=== PATIENT | female | born 1970 | race Caucasian/White ===

== ENCOUNTER 2017-03-08 17:59 | Inpatient (IN) | payer MEDICARE, OTHER ==
[2017-03-08 18:39] LABS: CO2 Tension 38.4 mmHg (35.0-45.0); pH, Arterial 7.52 (7.35-7.45)
[2017-03-08 18:40] LABS: Actual Bicarbonate (HCO3a) 30.6 mEq/L (22-26); Analyzer IN Cardio ER; Base Excess (BEa) 7.3 mEq/L (0 (+/-) 2.5); Hemoglobin (Hb) 12.2 g/dL (12.0-16.0); O2 Tension (PaO2) 64.3 mmHg (80.0-100.0); Puncture Site LRA
[2017-03-08 18:44] LABS: Hemoglobin 12.5 g/dL (12.0-16.0); Mean Corpuscular HGB CONC 31.8 g/dL (32.0-36.0); Mean Corpuscular Hemoglobin 30.4 pg (27.0-31.0); Mean Corpuscular Volume 95.4 fl (81.0-99.0); Mean Platelet Volume 8.4 fL (7.4-10.4); Platelet Count 268 thou/uL (130-400); RBC Distribution Width 20.5 % (11.5-14.5); Red Blood Cell (RBC) Count 4.13 mill/uL (4.20-5.40); White Blood Cell (WBC) Count 5.8 thou/uL (4.8-10.8)
[2017-03-08] MEDS ORDERED: Oseltamivir 75 MG CAP PO SCH (18:45)
[2017-03-08] MEDS ORDERED: Cefepime 2 GM/10 ML SYR ONE (18:59)
[2017-03-08 19:04] LABS: Troponin I 0.038 ng/mL (< 0.028)
[2017-03-08 19:12] LABS: #Eosinphils 0.1 thou/uL (0.0-0.7); #Lymphocytes 0.8 thou/uL (1.20-3.40); #Monocytes 0.2 thou/uL (0.11-0.59); #Neutrophils 4.7 thou/uL (1.40-6.50); %Basophils 0.3 % (0.0-1.0); %Eosinophils 1.2 % (0.0-10.0); %Lymphocytes 13.5 % (21.0-51.0); %Monocytes 3.9 % (0.0-10.0); %Neutrophils 81.2 % (42.0-75.0); Anisocytosis SLIGHT = 6-15 cells (100X) (0-5/hpf); Hypochromia SLIGHT = 6-15 cells (100X) (0-5/hpf); MDiff Complete? YES; PLT Morphology Comment Appears Adequate
[2017-03-08 19:14] LABS: ALT (SGPT) 19 U/L (8-55); AST (SGOT) 55 U/L (5-34); Albumin 3.5 g/dL (3.5-5.0); Alkaline Phosphatase 121 U/L (40-150); Anion Gap 17 mmol/L (10-20); BUN (Urea Nitrogen) 14 mg/dL (7.0-18.7); Bilirubin, Total 1.9 mg/dL (0.2-1.2); Calc. Creatinine Clearance 0 mL/min (70-130); Calcium 9.1 mg/dL (7.8-10.44); Carbon Dioxide 29 mmol/L (22-29); Chloride 95 mmol/L (98-107); Estimated GFR-MDRD 35; Glucose 109 mg/dL (70-105); Magnesium 2.8 mg/dL (1.6-2.6); Protein, Total 8.5 g/dL (6.0-8.3); Sodium 136 mmol/L (136-145)
--- NOTE | 2017-03-08 19:23 | RAD ---
CHEST ONE VIEW: History: Emergency exam. Cough and fever. Comparison: 05-15-16 FINDINGS: Heart size is enlarged. Bilateral effusions are present. Extensive perihilar opacities. IMPRESSION: Cardiomegaly with pulmonary edema and effusions concerning for congestive heart failure. Multifocal i nfection is also within the differential. POS: [facility]
[2017-03-08] MEDS ORDERED: Ondansetron HCl/PF 4 MG/2 ML Vial ONE (19:37)
[2017-03-08] MEDS ORDERED: Furosemide 20 MG/2 ML VIAL ONE (19:43)
[2017-03-08] MEDS ORDERED: Furosemide 40 MG/4 ML VIAL ONE (19:43)
[2017-03-08 20:22] LABS: Bilirubin Negative (Negative); Blood, Urine Negative (Negative); Clarity CLEAR (Clear); Glucose, Urine (Dipstick) Negative (Negative); Leukocyte Negative (Negative); Nitrite Negative (Negative); Protein, Urine (Dipstick) Negative (Neg-Trace); Specific Gravity, Urine 1.011 (1.002-1.036); Urobilinogen 0.2 mg/dL (0.2-1.0); pH, Urine 7.5 (5.0-9.0)
[2017-03-08 20:25] LABS: CO2 Tension 42.9 mmHg (35.0-45.0); O2 Tension (PaO2) 52.6 mmHg (80.0-100.0)
[2017-03-08 20:26] LABS: Actual Bicarbonate (HCO3a) 32.6 mEq/L (22-26); Base Excess (BEa) 8.5 mEq/L (0 (+/-) 2.5); Hematocrit-ABG 40.7 % (36.0-47.0); Hemoglobin (Hb) 11.8 g/dL (12.0-16.0)
[2017-03-08 20:27] LABS: Analyzer IN Cardio ER; Puncture Site RRA
[2017-03-08 20:30] LABS: ALV-art Gradient -84.985 (0-20)
[2017-03-08 22:27] LABS: Troponin I 0.028 ng/mL (< 0.028)
[2017-03-09 01:16] LABS: Troponin I 0.033 ng/mL (< 0.028)
--- NOTE | 2017-03-09 02:13 | HP ---
PRIMARY CARE PHYSICIAN: Orlando Jacques MD CHIEF COMPLAINT: Difficulty breathing. HISTORY OF PRESENT ILLNESS: This is a 46-year-old white female with a known history of Down syndrome and mental retardation. She was brought in by her family due to a history of progressive troubled breathing. The patient was in her normal state of health until 5 days prior when both she and her father started developing congestion drainage, coughing. Patient also had some fevers . They did not check with a thermometer to see how they were, but she felt very hot. The patient had increasing work of breathing over the last 5 days and then today she had severely increased work of breathing. The patient does have a nasal CPAP at home and the dad had been using that to help her when she was having increased troubled breathing. However, given her severe worsening today, he brought her to the hospital. In the emergency room, patient was found to be in respiratory distress, saturating 70% on room air and tachypneic up to 34 breaths per minute. The patient was put on BiPAP in the emergency room. She did have a bedside ultrasound that did show multiple B lines consistent with pulmonary edema throughout her lung gutierrez and a chest x-ray also showing florid pulmonary edema. The patient was given IV Lasix and the BiPAP in the emergency room and has improved markedly. Her work of breathing is improved. She is no longer tachypneic and she is saturating near 100% on her BiPAP. She is now being admitted to the [facility]. Dr. Alex with Pulmonology has also been informed about her as well. Of note, her nasal swab came back positive for human metapneumovirus negative for influenza. PAST MEDICAL HISTORY: All history taken from the parents and the chart as the patient has mental retardation and is unable to give a good history. 1. Down syndrome. 2. Intermittent dysphagia. 3. Diastolic congestive heart failure with ejection fraction of 55-60% years ago. 4. Multinodular goiter on thyroid supplementation. 5. Obstructive sleep apnea with nocturnal CPAP. 6. Pulmonic insufficiency. 7. Arthritis. PAST SURGICAL HISTORY: 1. 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 2. Hernia repair. 3. Abdominal hernia repair x2 with mesh placement. 4. Cholecystectomy. 5. Left knee arthroscopy. SOCIAL HISTORY: Patient resides in [place], [place] with her parents. She requires assistance with activities of daily living; however, is ambulatory and able to feed and toilet independently. No alcohol, tobacco or illicit drug use. FAMILY HISTORY: Reviewed and negative for medical problems. ALLERGIES: 1. LISINOPRIL. 2. LIQUID FOR ORAL CONTRAST, not IV contrast. MEDICATIONS: 1. Levothyroxine 112 mcg alternating with 125 mcg on every other day. 2. Citalopram 10 mg daily. 3. Abilify 2 mg daily. 4. Bumetanide 1 mg daily. 5. Spironolactone 25 mg daily. 6. Nexium over the counter daily. 7. Robitussin-DM as needed. 8. Tums as needed for indigestion. 9. Align probiotics supplements daily. REVIEW OF SYSTEMS: Unable to obtain a complete review of systems, secondary to patient's mental retardation per the parents. Constitutional: Fever and chills as per HPI. Eyes: No eye complaints. ENT: See HPI. Cardiovascular: She has not complained of any chest pain. Pulmonary: See HPI. Gastrointestinal: Chronic nausea and vomiting, no worse recently, has not complained of any abdominal pain. She had a little diarrhea yesterday. Genitourinary: No changes in urine. No complaints of urinary pain. Musculoskeletal: No complaints of muscle aches or joint pains recently. Skin: No rashes or lesions that the parents have noticed. Neurologic: She has not had any seizures or not noted to be weak focally. PHYSICAL EXAMINATION: VITAL SIGNS: Blood pressure 143/70, pulse 77, respirations now 21, temperature 98.5, O2 sat 98% on BiPAP. GENERAL: This is a well-developed, well-nourished, white female with Down facies and no current distress on the BiPAP. HEENT: Pupils equal, round, and reactive to light. Oropharynx does not appear dry. She has a mask in place. NECK: Short, supple, no lymphadenopathy, no thyroid nodules or enlargement, no JVD. HEART: Regular rate and rhythm. No murmurs, rubs or gallops noticed. LUNGS: She has bilateral coarse breath sounds with some crackles bilaterally. No focal findings. She has decent air movement throughout. ABDOMEN: Soft, obese, nontender to palpation, normoactive bowel sounds, no hepatosplenomegaly or other masses. EXTREMITIES: No clubbing, cyanosis or edema. SKIN: No rashes or other lesions noted. NEUROLOGIC: She is moving all extremities equally and has no facial droop. LABORATORY DATA: CBC within normal limits without leukocytosis. Complete metabolic panel notable for a chloride of 95. She has a creatinine of 1.6, which is up from 1.2 to 1.3, which she has run over the last year, glucose 109, magnesium is elevated at 2.8. Total bilirubin 1.9, AST 55. Total serum protein is 8.5. Her brain natriuretic peptide is elevated at 320, which is up from previous checks except for once in 2012. Cardiac marker sets with indeterminate troponin, the first time normal. The second set, TSH mildly elevated at 10. Free T4 normal at 1.25. Lactic acid negative. Urinalysis negative for infection. Respiratory pathogen panel by [facility] negative for influenza, positive for human metapneumovirus. Arterial blood gas showing a pH of 7.5, pCO2 of 42, pO2 depressed at 52, O2 sat 88%. X-ray, I did review the x-ray along with the radiologist's report. The patient has florid bilateral pulmonary edema, unable to identify any focal infiltrates, worrisome for infection. ASSESSMENT: 1. Acute upper respiratory tract infection with human metapneumovirus. This virus has been implicated in severe influenza like illness with high risk of poor outcomes in ICU patients, likely the source of the initial exacerbation of her medical problems. We will treat this infection with antipyretics and supportive care. 2. Acute exacerbation of diastolic congestive heart failure likely secondary to #1. The patient has already gotten a dose of 60 mg of Lasix in the emergency room. We will continue 40 mg IV twice a day and continue patient's spironolactone. The patient is also receiving BiPAP which has helped clear her lungs as well. She is doing markedly better and does need to be intubated. She will need to be watched in the IMCU on the BiPAP overnight and Pulmonology will evaluate her in the morning. Should she decompensate, then she may need to be intubated at night, but I doubt that this will happen. We will consult Dr. Barragan, patient's ward service supervisor. 3. Acute hypoxic respiratory failure secondary to #2 and #1, markedly improved on BiPAP, watch closely in the IMCU. 4. Acute on chronic renal failure, uncertain source of this will may make it difficult for us to do our diuresis, although she has put out quiet of urine with the 60 mg of IV Lasix in the emergency room, could be the increased creatinine might be cardiorenal syndrome in which she is actually improved with diuresis and treatment of the fluid overload. 5. Increase liver function tests, likely liver congestion. We will monitor. 6. History of nausea, vomiting, and chronic nausea and vomiting. We will give patient Zofran as needed. We will put her on her Nexium daily. 7. Deep venous thrombosis prophylaxis. The patient on sequential compression devices while in bed and will give her a dose of Lovenox subcutaneous daily. CODE STATUS: I did discuss this with the patient's parents who are her medical power of ruby rails developer. They state she is FULL CODE. Her parents' names are, father is Robson Smith. Mother's name is China Smith I spent 45 minutes of critical care time taking care of this patient with acute hypoxic respiratory failure. [id number]. MTDD
[2017-03-09] MEDS ORDERED: Bisacodyl 5 MG TAB PO PRN (06:48)
[2017-03-09] MEDS ORDERED: Ondansetron ODT 4 MG TAB PO PRN (06:48)
[2017-03-09] MEDS ORDERED: Acetaminophen 650 MG Suppository PR PRN (06:48)
[2017-03-09] MEDS ORDERED: Levothyroxine Sodium 112 MCG TAB PO SCH (07:15)
[2017-03-09] MEDS ORDERED: Aripiprazole 2 MG TAB PO SCH (09:00)
[2017-03-09] MEDS ORDERED: Enoxaparin Sodium 40 MG/0.4 ML SYRINGE ONE (09:49)
[2017-03-09] MEDS ORDERED: Pantoprazole 40 MG VIAL ONE (09:49)
[2017-03-09] MEDS: Citalopram 20 MG TAB PO SCH (10:07)
[2017-03-09] MEDS: Furosemide 40 MG/4 ML VIAL SLOW IVP SCH ×2 (10:07→15:18)
[2017-03-09] MEDS: Pantoprazole 40 MG VIAL IVP SCH (10:08)
[2017-03-09] MEDS: Spironolactone 25 MG TAB PO SCH (10:08)
[2017-03-09] MEDS: Enoxaparin Sodium 40 MG/0.4 ML SYRINGE SC SCH (10:08)
[2017-03-09] MEDS ORDERED: cefTRIAXone\\ROCEPHIN 1 GM in Sodium Chloride 0.9% 100 ML IVPB SCH (11:30)
--- NOTE | 2017-03-09 12:24 | PDOC.PN ---
- Subjective Encounter Start Date: 03/09/17 Encounter Start Time: 09:00 -: old records requested/rev Patient seen and examined. No new complaints. No overnight events pt seen in ER, she was on bipap family bedside - Objective Resuscitation Status: Resuscitation Status FULL:Full Resuscitation MAR Reviewed: Yes Vital Signs & Weight: Vital Signs (12 hours) Temp Pulse Resp Pulse Ox 03/09/17 11:48 96.7 F L 74 28 H 03/09/17 08:36 74 13 100 Weight Weight 187 lb 2.759 oz Result Diagrams: 03/08/17 18:27 03/08/17 18:27 Radiology Reviewed by me: Yes (chest xray) EKG Reviewed by me: Yes (nsr) Phys Exam - Physical Examination Constitutional: NAD on bipap HEENT: PERRLA, moist MMs, sclera anicteric Neck: no nodes, supple Respiratory: no wheezing, no rhonchi reduced air entrya at base Cardiovascular: RRR, no significant murmur, no rub Gastrointestinal: soft, no distention, positive bowel sounds obesity+ Musculoskeletal: pulses present, edema present Neurological: non-focal, normal sensation Lymphatic: no nodes Psychiatric: normal affect Skin: no rash, normal turgor Dx/Plan (1) Acute bronchitis due to human metapneumovirus Code(s): J20.8 - ACUTE BRONCHITIS DUE TO OTHER SPECIFIED ORGANISMS Status: Acute (2) Acute on chronic diastolic (congestive) heart failure Code(s): I50.33 - ACUTE ON CHRONIC DIASTOLIC (CONGESTIVE) HEART FAILURE Status : Acute (3) Acute respiratory failure with hypoxia Code(s): J96.01 - ACUTE RESPIRATORY FAILURE WITH HYPOXIA Status: Acute (4) Acute worsening of stage 3 chronic kidney disease Code(s): N18.3 - CHRONIC KIDNEY DISEASE, STAGE 3 (MODERATE) Status: Acute (5) Demand ischemia Code(s): I24.8 - OTHER FORMS OF ACUTE ISCHEMIC HEART DISEASE Status: Acute (6) Down's syndrome Code(s): Q90.9 - DOWN SYNDROME, UNSPECIFIED Status: Chronic (7) Hypothyroidism Code(s): E03.9 - HYPOTHYROIDISM, UNSPECIFIED Status: Chronic (8) Obstructive sleep apnea Code(s): G47.33 - OBSTRUCTIVE SLEEP APNEA (ADULT) (PEDIATRIC) Status: Chronic - Plan cont current plan of care, plan discussed w/ family, continue antibiotics * continue tamiflu * continue bipap and wean off as tolerated * continue rocephin * continue iv lasix * selected home medication * discussed with entire family at bedside * medication reviewed as below * symptomatic treatment. Review of Systems - Review of Systems Constitutional: weakness. negative: fever, chills, sweats, malaise, other Eyes: negative: Pain, Vision Change, Conjunctivae Inflammation, Eyelid Inflammation, Redness, Other ENT: negative: Ear Pain, Ear Discharge, Nose Pain, Nose Discharge, Nose Congestion, Mouth Pain, Mouth Swelling, Throat Pain, Throat Swelling, Other Respiratory: Cough, Shortness of Breath. negative: Dry, Hemoptysis, SOB with Excertion, Pleuritic Pain, Sputum, Wheezing Cardiovascular: negative: chest pain, palpitations, orthopnea, paroxysmal nocturnal dyspnea, edema, light headedness, other Gastrointestinal: negative: Nausea, Vomiting, Abdominal Pain, Diarrhea, Constipation, Melena, Hematochezia, Other Genitourinary: negative: Dysuria, Frequency, Incontinence, Hematuria, Retention , Other Musculoskeletal: negative: Neck Pain, Shoulder Pain, Arm Pain, Back Pain, Hand Pain, Leg Pain, Foot Pain, Other Skin: negative: Rash, Lesions, Chace, Bruising, Other - Medications/Allergies Allergies/Adverse Reactions: Allergies Allergy/AdvReac Type Severity Reaction Status Date / Time iodine Allergy Intermediate Verified 05/15/16 04:38 lisinopril Allergy Intermediate Verified 05/15/16 04:38 Medications: Current Medications Acetaminophen (Tylenol) 650 mg PO Q4H PRN PRN Reason: Headache/Fever or Pain Acetaminophen (Tylenol) 650 mg SD Q4H PRN PRN Reason: Headache/Fever or Pain Albuterol/Ipratropium (Duoneb) 3 ml NEB [id number] [facility] Aripiprazole (Abilify) 2 mg PO DAILY [facility] Last Admin: 03/09/17 10:07 Dose: Not Given Bisacodyl (Dulcolax) 10 mg PO DAILYPRN PRN PRN Reason: Constipation Citalopram Hydrobromide (Celexa) 10 mg PO DAILY [facility] Last Admin: 03/09/17 10:07 Dose: Not Given Enoxaparin Sodium (Lovenox) 40 mg SC 0900 [facility] Last Admin: 03/09/17 10:08 Dose: Not Given Furosemide (Lasix) 40 mg SLOW IVP 0600,1400 [facility] Last Admin: 03/09/17 10:07 Dose: Not Given Guaifenesin/Dextromethorphan (Robitussin Dm) 15 ml PO Q4H PRN PRN Reason: Cough Ceftriaxone Sodium 1 gm/ (Syringe 0.4 ml/ Sterile Water) 10 mls @ 120 mls/hr SLOW IVP Q24HR@1300 [facility] Levothyroxine Sodium (Synthroid) 112 mcg PO Q2DAYS@0600 [facility] Levothyroxine Sodium (Synthroid) 125 mcg PO Q2DAYS@0600 [facility] Ondansetron HCl (Zofran Odt) 4 mg PO Q6H PRN PRN Reason: Nausea/Vomiting Ondansetron HCl (Zofran) 4 mg IVP Q6H PRN PRN Reason: Nausea/Vomiting Pantoprazole Sodium (Protonix) 40 mg IVP DAILY [facility] Last Admin: 03/09/17 10:08 Dose: Not Given Spironolactone (Aldactone) 25 mg PO DAILY [facility] Last Admin: 03/09/17 10:08 Dose: Not Given
[2017-03-09] MEDS: cefTRIAXone\\ROCEPHIN 1 GM, Syringe 0.4 ML in Sterile Water 9.6 ML SLOW IVP SCH (12:31)
--- NOTE | 2017-03-09 12:35 | CON ---
DATE OF CONSULTATION: 03/09/2017 This is a 46-year-old female. She has seen Dr. Marie in the past. I spoke to the dad. The patien t has got Down syndrome, sister at the bedside. Father states that for 5 days the patient has been h aving symptoms of cough, congestion, and shortness of breath. They recently saw Dr. Jacques and were given some allergy medication. Cough is productive of some yellow sputum, low grade fever, but no c hills or sweats. She had a flu shot. X-ray shows diffuse bilateral interstitial infiltrates consistent with CHF. She sees Dr. Barragan. She has never smoked. No prior history of TB, pneumonia or asthma. PAST MEDICAL HISTORY: Pertinent for CHF, hypothyroidism, Down syndrome. PAST SURGICAL HISTORY: ASD repair. Gallbladder, hernia repair. MEDICATIONS: List of medicine from home includes spironolactone 12.5, vitamins, Synthroid 125, Nexiu m, Celexa at 10, Zyrtec, Bumex 2 mg, Abilify 2 mg. SOCIAL/FAMILY HISTORY: As above. ALLERGIES: IODINE, LISINOPRIL. REVIEW OF SYSTEMS: Otherwise, 10-point negative. PHYSICAL EXAMINATION: GENERAL: She is unable to communicate on the BiPAP. VITAL SIGNS: Sats are 95-98%, pulse 76, blood pressure 101/56, respirations 18. I's and O's; none. CHEST: Bilateral rhonchi and crackles. CARDIAC: Normal S1-S2. No gallops. ABDOMEN: Soft. No masses. LABORATORY: PO2 was 52, pCO2 40, pH 7.50, on a BiPAP. Troponin was elevated. Chemistry shows tropo val was elevated. TSH was 10, creatinine 1.6. BNP 220. IMPRESSION: 1. Respiratory failure. 2. Congestive heart failure, probable congestive heart failure. 3. Recent bronchitis, upper respiratory infection with a febrile illness, possibly superimposed pneu monia. 4. Renal failure. 5. Hypothyroidism. It appears that in spite of taking her Synthroid she still may be hypothyroid, dose probably needs to be increased. I have started empiric antibiotics, neb treatments, continue diuretics. Await input from Cardiology. This is a 45 minute critical care time spent at the bedside with direct patient care.
[2017-03-09] MEDS: Acetaminophen 325 MG TAB PO PRN (17:35)
--- NOTE | 2017-03-09 22:23 | CON ---
DATE OF CONSULTATION: 03/09/2017. REASON FOR CONSULTATION: Shortness of breath. HISTORY OF PRESENT ILLNESS: Ms. Smith is a 46-year-old woman with Down's syndrome, admitted with di fficulty breathing. The patient was brought to the hospital after just not feeling well, having trouble breathing by her mother. The patient did have some subjective fever, but they did not have a thermometer. She did feel very hot. She came to the emergency room. She has received Lasix with some improvement, but now her blood pres sure is running on the low side. Her nasal swab came back positive for human metapneumovirus, negative for influenza. PAST MEDICAL HISTORY: 1. Down's syndrome. 2. History of ASD repair in the past. 3. History of diastolic heart failure. PAST SURGICAL HISTORY: 1. Previous ASD repair as a child. 2. Hernia repair. 3. Abdominal hernia repair. 4. Cholecystectomy. FAMILY HISTORY: Negative for heart disease at a young age. MEDICATIONS: Prior to admission, 1. Bumex. 2. Spironolactone. 3. Robitussin. REVIEW OF SYSTEMS: Not obtainable due to the patient's Down's syndrome. PHYSICAL EXAMINATION: GENERAL: A pleasant 46-year-old woman, looks very flushed. VITAL SIGNS: Her blood pressure is 84/49, pulse 80. HEENT: Sclerae nonicteric. Mouth mucous membranes moist. NECK: Supple, no lymphadenopathy. LUNGS: There is some rhonchi and fewer rate few wheezes scattered. CARDIAC: Normal S1, normal S2. I do not hear a murmur, rub or gallop. ABDOMEN: Soft, nontender, no hepatosplenomegaly. EXTREMITIES: Flushed. SKIN: Warm and dry. Mood and affect are normal for her. PERTINENT LABORATORY FINDINGS: The white count is 5.8, potassium 5.0. Troponin 0.033, TSH was 10.0. BNP was 320 only mildly elevated. Chest x-ray: Diffuse infiltrates. ASSESSMENT: 1. Cough and fever. 2. Diastolic heart failure. 3. Diffuse infiltrates on chest x-ray. PLAN: Echocardiogram was done, ejection fraction 50-55%. It appears that most likely she has got so me element of diastolic heart failure and may also have an infectious process as well. PLAN: 1. Continue furosemide block hold doses for systolic blood pressure being low. 2. On antibiotics. 3. Continue to follow with you. Prognosis guarded. Chest x-ray tomorrow as well.
[2017-03-09] MEDS: Aripiprazole 2 MG TAB PO SCH (22:32)
[2017-03-10 04:59] LABS: #Basophils 0.1 thou/uL (0.0-0.2); #Eosinphils 0.1 thou/uL (0.0-0.7); #Lymphocytes 0.5 thou/uL (1.20-3.40); #Monocytes 0.3 thou/uL (0.11-0.59); #Neutrophils 4.7 thou/uL (1.40-6.50); %Basophils 1.3 % (0.0-1.0); %Eosinophils 1.3 % (0.0-10.0); %Lymphocytes 9.2 % (21.0-51.0); %Monocytes 4.7 % (0.0-10.0); %Neutrophils 83.6 % (42.0-75.0); Hemoglobin 11.6 g/dL (12.0-16.0); Mean Corpuscular HGB CONC 30.9 g/dL (32.0-36.0); Mean Corpuscular Hemoglobin 29.5 pg (27.0-31.0); Mean Corpuscular Volume 95.5 fl (81.0-99.0); Mean Platelet Volume 8.4 fL (7.4-10.4); Platelet Count 242 thou/uL (130-400); RBC Distribution Width 20.2 % (11.5-14.5); Red Blood Cell (RBC) Count 3.93 mill/uL (4.20-5.40); White Blood Cell (WBC) Count 5.6 thou/uL (4.8-10.8)
[2017-03-10 05:19] LABS: Anion Gap 18 mmol/L (10-20); BUN (Urea Nitrogen) 14 mg/dL (7.0-18.7); Calc. Creatinine Clearance 71 mL/min (70-130); Calcium 8.8 mg/dL (7.8-10.44); Carbon Dioxide 26 mmol/L (22-29); Chloride 95 mmol/L (98-107); Estimated GFR-MDRD 42; Glucose 126 mg/dL (70-105); Potassium 3.7 mmol/L (3.5-5.1); Sodium 135 mmol/L (136-145)
[2017-03-10] MEDS ORDERED: Levothyroxine Sodium 125 MCG TAB PO SCH (06:00)
[2017-03-10] MEDS: Pantoprazole 40 MG VIAL IVP SCH (06:06)
[2017-03-10] MEDS: Furosemide 40 MG/4 ML VIAL SLOW IVP SCH ×3 (06:11→14:15)
[2017-03-10] MEDS ORDERED: Artificial Tears 18 DROP/0.9 ML EA EYE PRN (07:26)
[2017-03-10] MEDS ORDERED: Chloraseptic Spray 180 ml Bottle PO PRN (07:26)
[2017-03-10] MEDS ORDERED: Fleet Enema 133 ML BOT PR PRN (07:26)
[2017-03-10] MEDS ORDERED: Loratadine 10 MG TAB PO PRN (07:26)
[2017-03-10] MEDS ORDERED: Milk Of Magnesia 30 ML UDCUP PO PRN (07:26)
[2017-03-10] MEDS ORDERED: Eucerin (Mineral Oil/Petrolatum,White) 30 gm Jar TOP PRN (07:26)
[2017-03-10] MEDS ORDERED: Sodium Chloride 0.65% Nasal 44 ML BOT EA NARE PRN (07:26)
[2017-03-10] MEDS ORDERED: hydrALAZINE 20 MG/ML VIAL SLOW IVP PRN (07:26)
--- NOTE | 2017-03-10 08:21 | RAD ---
PORTABLE UPRIGHT FRONTAL CHEST RADIOGRAPH: Date: 03-10-17 Comparison: 03-08-17 History: Respiratory distress. FINDINGS: There are midline sternotomy wires in stable position. There is no pneumothorax. There is extensive i nterstitial and alveolar opacity involving the perihilar regions in both lung bases with multifocal c onsolidative change and probable stable small/moderate pleural effusions. IMPRESSION: Extensive interstitial and alveolar opacity, not significantly changed. Differential diagnosis includ es multifocal infectious pneumonitis/aspiration and pulmonary edema. Follow up to resolution advised. POS: [facility]
[2017-03-10] MEDS: Famotidine 20 MG TAB PO SCH ×2 (09:43→20:40)
[2017-03-10] MEDS: Citalopram 20 MG TAB PO SCH (09:43)
[2017-03-10] MEDS: Spironolactone 25 MG TAB PO SCH (09:43)
[2017-03-10] MEDS: Enoxaparin Sodium 40 MG/0.4 ML SYRINGE SC SCH (09:44)
[2017-03-10] MEDS: Ondansetron HCl/PF 4 MG/2 ML Vial IVP PRN ×2 (09:58→22:48)
[2017-03-10] MEDS: Potassium Chloride 20 MEQ TAB PO SCH ×2 (10:05→18:19)
--- NOTE | 2017-03-10 10:13 | PRG ---
DATE OF SERVICE: 03/10/2017 Ms. Smith is very short of breath. She looks very uncomfortable. PHYSICAL EXAMINATION: VITAL SIGNS: Her blood pressure is 91/52, pulse 80s. LUNGS: Diffuse rhonchi and some rales. CARDIAC: Normal S1 and S2. ABDOMEN: Soft, nontender. EXTREMITIES: No edema. ASSESSMENT: Diastolic congestive heart failure, has relatively low blood pressure. PLAN: 1. Resume diuretic therapy, it has been on hold since her pressure was so low. 2. Prognosis guarded. 3. She is also on antibiotics in case there is any infectious component.
--- NOTE | 2017-03-10 10:42 | PDOC.PN ---
- Subjective Encounter Start Date: 03/10/17 Encounter Start Time: 09:30 last night pt required bipap, still has dyspnea, cough+ - Objective Resuscitation Status: Resuscitation Status FULL:Full Resuscitation MAR Reviewed: Yes Vital Signs & Weight: Vital Signs (12 hours) Temp Pulse Resp BP Pulse Ox 03/10/17 08:00 98.8 F 85 35 H 03/10/17 07:59 98 03/10/17 07:57 85 35 H 98 03/10/17 07:00 99.7 F H 82 24 H 91/52 L 94 L 03/10/17 05:35 83 28 H 88/40 L 94 L 03/10/17 04:00 98.8 F 79 26 H 91/40 L 97 03/10/17 02:39 92 28 H 03/10/17 02:38 94 L 03/10/17 00:02 82 28 H 95 03/10/17 00:00 98.7 F 85 28 H 88/48 L 96 03/09/17 23:05 98.8 F 82 28 H 95/51 L 94 L 03/09/17 23:00 98.8 F Weight Weight 191 lb 7 oz Most Recent Monitor Data Heart Rate from ECG 80 NIBP 79/44 NIBP BP-Mean 56 Respiration from ECG 32 SpO2 96 I&O: 03/09/17 03/10/17 03/11/17 06:59 06:59 06:59 Intake Total 1680 Output Total 528 Balance 1152 Result Diagrams: 03/10/17 04:39 03/10/17 04:39 Radiology Reviewed by me: Yes (chest xray) EKG Reviewed by me: Yes Phys Exam - Physical Examination Constitutional: NAD HEENT: PERRLA, moist MMs, sclera anicteric Neck: no JVD, supple Respiratory: wheezing present bilateral coarse rales Cardiovascular: RRR, no significant murmur, no rub Gastrointestinal: soft, non-tender, no distention, positive bowel sounds obesity+, johnson+ Musculoskeletal: pulses present, edema present Neurological: non-focal, normal sensation Lymphatic: no nodes Psychiatric: normal affect Skin: no rash, normal turgor Dx/Plan (1) Acute bronchitis due to human metapneumovirus Code(s): J20.8 - ACUTE BRONCHITIS DUE TO OTHER SPECIFIED ORGANISMS Status: Acute (2) Acute on chronic diastolic (congestive) heart failure Code(s): I50.33 - ACUTE ON CHRONIC DIASTOLIC (CONGESTIVE) HEART FAILURE Status : Acute (3) Acute respiratory failure with hypoxia Code(s): J96.01 - ACUTE RESPIRATORY FAILURE WITH HYPOXIA Status: Acute (4) Acute worsening of stage 3 chronic kidney disease Code(s): N18.3 - CHRONIC KIDNEY DISEASE, STAGE 3 (MODERATE) Status: Acute (5) Demand ischemia Code(s): I24.8 - OTHER FORMS OF ACUTE ISCHEMIC HEART DISEASE Status: Acute (6) Down's syndrome Code(s): Q90.9 - DOWN SYNDROME, UNSPECIFIED Status: Chronic (7) Hypothyroidism Code(s): E03.9 - HYPOTHYROIDISM, UNSPECIFIED Status: Chronic (8) Obstructive sleep apnea Code(s): G47.33 - OBSTRUCTIVE SLEEP APNEA (ADULT) (PEDIATRIC) Status: Chronic - Plan cont current plan of care, plan discussed w/ family, continue antibiotics * continue lasix as tolerated * continue rocephin and doxycycline * medication reviewed as below * symptomatic treatment * continue bipap as needed * continue respiratory therapy * discussed with mother * still prognosis is guarded * discussed with dr zhang * will monitor in imcu. Review of Systems - Review of Systems Other: not reliable due to mental retardation - Medications/Allergies Allergies/Adverse Reactions: Allergies Allergy/AdvReac Type Severity Reaction Status Date / Time iodine Allergy Intermediate Verified 05/15/16 04:38 lisinopril Allergy Intermediate Verified 05/15/16 04:38 Medications: Current Medications Acetaminophen (Tylenol) 650 mg PO Q4H PRN PRN Reason: Headache/Fever or Pain Last Admin: 03/09/17 17:35 Dose: 650 mg Acetaminophen (Tylenol) 650 mg DC Q4H PRN PRN Reason: Headache/Fever or Pain Al Hydroxide/Mg Hydroxide (Maalox) 15 ml PO Q4H PRN PRN Reason: Heartburn or Indigestion Albuterol/Ipratropium (Duoneb) 3 ml NEB [id number] [facility] Last Admin: 03/10/17 07:57 Dose: 3 ml Aripiprazole (Abilify) 2 mg PO HS [facility] Last Admin: 03/09/17 22:32 Dose: 2 mg Artificial Tears (Tears Naturale) 0 drop EA EYE PRN PRN PRN Reason: Dry Eyes Bisacodyl (Dulcolax) 10 mg PO DAILYPRN PRN PRN Reason: Constipation Citalopram Hydrobromide (Celexa) 10 mg PO DAILY [facility] Last Admin: 03/10/17 09:43 Dose: 10 mg Enoxaparin Sodium (Lovenox) 40 mg SC 0900 [facility] Last Admin: 03/10/17 09:44 Dose: 40 mg Famotidine (Pepcid) 20 mg PO BID [facility] Last Admin: 03/10/17 09:43 Dose: 20 mg Furosemide (Lasix) 40 mg SLOW IVP 0600,1400 [facility] Last Admin: 03/10/17 09:44 Dose: 40 mg Guaifenesin (Robitussin Sf) 200 mg PO Q4H PRN PRN Reason: Cough Guaifenesin/Dextromethorphan (Robitussin Dm) 15 ml PO Q4H PRN PRN Reason: Cough Hydralazine HCl (Apresoline) 10 mg SLOW IVP Q4H PRN PRN Reason: Systolic BP > 180 Ceftriaxone Sodium 1 gm/ (Syringe 0.4 ml/ Sterile Water) 10 mls @ 120 mls/hr SLOW IVP Q24HR@1300 [facility] Last Admin: 03/09/17 12:31 Dose: 10 mls Levothyroxine Sodium (Synthroid) 125 mcg PO 0600 [facility] Loratadine (Claritin) 10 mg PO DAILYPRN PRN PRN Reason: Sinus Symptoms Magnesium Hydroxide (Milk Of Magnesium) 30 ml PO DAILYPRN PRN PRN Reason: Constipation Mineral Oil/White Petrolatum (Eucerin Cream) 0 gm TOP BIDPRN PRN PRN Reason: Dry Skin Ondansetron HCl (Zofran Odt) 4 mg PO Q6H PRN PRN Reason: Nausea/Vomiting Ondansetron HCl (Zofran) 4 mg IVP Q6H PRN PRN Reason: Nausea/Vomiting Last Admin: 03/10/17 09:58 Dose: 4 mg Phenol (Chloraseptic [place] 180 Ml Bot) 0 ml PO PRN PRN PRN Reason: Sore Throat Potassium Chloride (K-Dur) 10 meq PO BID-[facility] Last Admin: 03/10/17 10:05 Dose: 10 meq Prednisone (Prednisone) 20 mg PO QAM-[facility] Sodium Biphosphate/Sodium Phosphate (Fleet Enema) 133 ml DC ONE PRN PRN Reason: Constipation Stop: 03/12/17 15:00 Sodium Chloride ([place] Nasal [place] 0.65%) 0 ml EA NARE QIDPRN PRN PRN Reason: Nasal Congestion Spironolactone (Aldactone) 25 mg PO DAILY [facility] Last Admin: 03/10/17 09:43 Dose: 25 mg
--- NOTE | 2017-03-10 13:22 | PRG ---
DATE OF SERVICE: 03/10/2017 SUBJECTIVE: The patient is alert, responsive, less short of breath. Still hypotensive. PHYSICAL EXAMINATION: VITAL SIGNS: Blood pressure 90/50, sats in 90s on 3 liters, respirations 35, temperature 99. I's an d O's are 1680 in and 528 out. CHEST: Bilateral rhonchi and crackles. CARDIAC: Normal S1-S2. No gallops. LABORATORY DATA AND IMAGING DATA: White count 5000, hemoglobin and hematocrit 11 and 37, platelet co unt 242, creatinine 1.3. X-ray shows diffuse airspace disease. IMPRESSION: Respiratory failure, congestive heart failure, bronchitis, possibly pneumonia. PLAN: Continue diuretics, continue empiric antibiotics, continue steroids. Synthroid as tolerated. We will follow. One-half hour critical care time.
[2017-03-10] MEDS: cefTRIAXone\\ROCEPHIN 1 GM, Syringe 0.4 ML in Sterile Water 9.6 ML SLOW IVP SCH (14:16)
[2017-03-10] MEDS ORDERED: Nystatin Powder 15 GM BOT TOP PRN (20:01)
[2017-03-10] MEDS: Doxycycline 100 MG CAP PO SCH (20:40)
[2017-03-10] MEDS: Aripiprazole 2 MG TAB PO SCH (20:40)
[2017-03-11 04:54] LABS: #Lymphocytes 0.6 thou/uL (1.20-3.40); #Monocytes 0.1 thou/uL (0.11-0.59); %Eosinophils 0.4 % (0.0-10.0); %Lymphocytes 10.7 % (21.0-51.0); %Monocytes 1.9 % (0.0-10.0); %Neutrophils 87.1 % (42.0-75.0); Hemoglobin 11.3 g/dL (12.0-16.0); Mean Corpuscular HGB CONC 30.1 g/dL (32.0-36.0); Mean Corpuscular Hemoglobin 28.9 pg (27.0-31.0); Mean Corpuscular Volume 96.1 fl (81.0-99.0); Mean Platelet Volume 8.5 fL (7.4-10.4); Platelet Count 248 thou/uL (130-400); RBC Distribution Width 20.2 % (11.5-14.5); Red Blood Cell (RBC) Count 3.89 mill/uL (4.20-5.40); White Blood Cell (WBC) Count 5.7 thou/uL (4.8-10.8)
[2017-03-11 05:34] LABS: Anion Gap 17 mmol/L (10-20); BUN (Urea Nitrogen) 17 mg/dL (7.0-18.7); Calc. Creatinine Clearance 60 mL/min (70-130); Calcium 8.9 mg/dL (7.8-10.44); Carbon Dioxide 29 mmol/L (22-29); Chloride 95 mmol/L (98-107); Estimated GFR-MDRD 35; Glucose 158 mg/dL (70-105); Magnesium 2.2 mg/dL (1.6-2.6); Potassium 3.8 mmol/L (3.5-5.1); Sodium 137 mmol/L (136-145)
[2017-03-11] MEDS: Furosemide 40 MG/4 ML VIAL SLOW IVP SCH ×2 (05:46→13:35)
[2017-03-11] MEDS: Levothyroxine Sodium 125 MCG TAB PO SCH (05:46)
[2017-03-11] MEDS ORDERED: Levothyroxine Sodium 112 MCG TAB PO SCH (06:00)
[2017-03-11] MEDS: Potassium Chloride 20 MEQ TAB PO SCH ×2 (08:28→18:12)
[2017-03-11] MEDS: predniSONE 20 MG TAB PO SCH (08:28)
[2017-03-11] MEDS: Fluconazole 100 MG TAB PO SCH (08:28)
[2017-03-11] MEDS: Famotidine 20 MG TAB PO SCH ×2 (08:28→20:26)
[2017-03-11] MEDS: Citalopram 20 MG TAB PO SCH (08:28)
[2017-03-11] MEDS: Doxycycline 100 MG CAP PO SCH ×2 (08:28→20:26)
[2017-03-11] MEDS: Spironolactone 25 MG TAB PO SCH (08:29)
[2017-03-11] MEDS: Enoxaparin Sodium 40 MG/0.4 ML SYRINGE SC SCH (08:29)
--- NOTE | 2017-03-11 09:12 | RAD ---
FRONTAL VIEW CHEST: Date: 03/11/17 COMPARISON: 03/08/17. INDICATION: Ventilated patient, follow-up. FINDINGS: There is diffuse pulmonary parenchymal opacity, as well as pleural based density. The cardiac silhoue tte and pulmonary vasculature are enlarged with evidence of prior sternotomy. Slight progression when comparing to exam from previous day. IMPRESSION: Progressive pulmonary parenchymal opacification favors progressive edema with pleural fluid. Continue d follow-up is recommended. POS: [facility]
--- NOTE | 2017-03-11 11:13 | PDOC.PN ---
- Subjective Encounter Start Date: 03/11/17 Encounter Start Time: 11:11 Ms. Smith was seen in follow-up. She says she is " doing a little better". But she seems to say this to most of my questions. She is up to walk with PT. - Objective Resuscitation Status: Resuscitation Status FULL:Full Resuscitation MAR Reviewed: Yes Vital Signs & Weight: Vital Signs (12 hours) Temp Pulse Resp BP Pulse Ox 03/11/17 08:13 96 03/11/17 08:11 81 24 H 96 03/11/17 07:48 97.9 F 81 22 H 102/38 L 92 L 03/11/17 03:00 99.0 F 83 24 H 91/45 L 97 03/11/17 02:32 80 18 97 03/11/17 00:14 82 18 97 03/11/17 00:01 98.9 F 86 19 96/56 L 95 03/11/17 00:00 97 Weight Weight 189 lb 2 oz Most Recent Monitor Data Heart Rate from ECG 80 NIBP 79/44 NIBP BP-Mean 56 Respiration from ECG 32 SpO2 96 I&O: 03/10/17 03/11/17 03/12/17 06:59 06:59 06:59 Intake Total 1680 1700 Output Total 528 2750 Balance 1152 -1050 Result Diagrams: 03/11/17 04:03 03/11/17 04:03 Phys Exam - Physical Examination HEENT: PERRLA + bilateral wheezing and rhonchi Cardiovascular: RRR, no significant murmur, no rub Gastrointestinal: soft, non-tender, positive bowel sounds Musculoskeletal: no edema Dx/Plan (1) Pneumonia, viral Code(s): J12.9 - VIRAL PNEUMONIA, UNSPECIFIED Status: Acute (2) Acute on chronic diastolic (congestive) heart failure Code(s): I50.33 - ACUTE ON CHRONIC DIASTOLIC (CONGESTIVE) HEART FAILURE Status : Acute (3) Acute respiratory failure with hypoxia Code(s): J96.01 - ACUTE RESPIRATORY FAILURE WITH HYPOXIA Status: Acute (4) Down's syndrome Code(s): Q90.9 - DOWN SYNDROME, UNSPECIFIED Status: Chronic (5) Hypothyroidism Code(s): E03.9 - HYPOTHYROIDISM, UNSPECIFIED Status: Chronic - Plan * Acute on chronic Respiratory failure due to Human Metapneumovirus. * She may have superimposed bacterial pneumonia- continue IV antibiotics * Acute on chronic diastolic heart failure- CXR is not much improved- continue Lasix IV * Hypothyridism - mildly hypothyroid, with elevated TSH, but normal free T$- continue the current dose of Levothyroixine
[2017-03-11] MEDS: cefTRIAXone\\ROCEPHIN 1 GM, Syringe 0.4 ML in Sterile Water 9.6 ML SLOW IVP SCH (13:35)
--- NOTE | 2017-03-11 14:51 | PRG ---
DATE OF SERVICE: 03/11/2017 SUBJECTIVE: Luis states she is feeling a little better today. She has no chest pain. She denies shortness of breath. OBJECTIVE: VITAL SIGNS: Blood pressure 96/34, pulse 80, it is regular. LUNGS: Some rhonchi and rales. CARDIAC: Normal S1, normal S2. ABDOMEN: Soft, nontender. EXTREMITIES: No edema. LABORATORY DATA: The creatinine has gone up to 1.6, potassium is 3.8, troponin 0.033. BNP on the was 320. Chest x-ray does not really looks much different. ASSESSMENT: 1. Congestive heart failure, diastolic, acute on chronic. 2. Suspect she may also have pneumonia. PLAN: 1. We will go ahead and reduce the furosemide dose. 2. Continue to follow chest x-ray. 3. Check BNP in the morning.
[2017-03-11] MEDS ORDERED: Sodium Bicarb 50 MEQ/50 ML Abboject 8.4% SYRINGE IVP SCH (14:55)
--- NOTE | 2017-03-11 15:10 | PRG ---
DATE OF SERVICE: 03/11/2017 SUBJECTIVE: Ms. Smith is feeling better. Her father is at bedside. I spoke with him. PHYSICAL EXAMINATION: VITAL SIGNS: Temperature is 98.8, pulse 80, respirations 22, O2 sat 91% on 3 liters, blood pressure 96/34. HEENT: Unremarkable. NECK: No JVD. LUNGS: Coarse rhonchi. CARDIAC: S1 and S2 regular. ABDOMEN: Soft. EXTREMITIES: No edema. LABORATORY DATA: White blood cell count 5.7, hematocrit 37, platelet count 248. Sodium 137, potassi um 3.8, chloride 95, CO2 29, BUN 17, creatinine 1.6, glucose 158. ASSESSMENT: 1. Bilateral pneumonia. 2. Down syndrome. 3. Acute on chronic respiratory failure secondary to viral infection. 4. Diastolic heart failure. PLAN: She can probably be transferred out to the floor as early as tomorrow if she does well today. I have reviewed the words on her chart and I agree with the IV antibiotics, nebulization therapy. A gain, I spoke with her father at the bedside.
[2017-03-11] MEDS: Ondansetron HCl/PF 4 MG/2 ML Vial IVP PRN (20:26)
[2017-03-11] MEDS: Aripiprazole 2 MG TAB PO SCH (20:26)
[2017-03-12] MEDS: Levothyroxine Sodium 125 MCG TAB PO SCH (05:31)
[2017-03-12] MEDS: Furosemide 40 MG/4 ML VIAL SLOW IVP SCH ×2 (05:31→14:18)
--- NOTE | 2017-03-12 08:28 | RAD ---
PORTABLE UPRIGHT FRONTAL CHEST RADIOGRAPH: DATE: 03/12/17. COMPARISON: 03/11/17. HISTORY: Ventilated patient. FINDINGS: Midline sternotomy wires are present. Prominence of the cardiac silhouette persists. Extensive inte rstitial and alveolar opacities are noted with a basilar predominance, left greater than right. No p neumothorax. No interval change. IMPRESSION: Extensive interstitial and alveolar opacities are noted bilaterally, left greater than right, not sig nificantly changed. POS: [facility]
[2017-03-12] MEDS: Doxycycline 100 MG CAP PO SCH ×2 (08:42→21:03)
[2017-03-12] MEDS: Fluconazole 100 MG TAB PO SCH (08:42)
[2017-03-12] MEDS: predniSONE 20 MG TAB PO SCH (08:42)
[2017-03-12] MEDS: Spironolactone 25 MG TAB PO SCH (08:43)
[2017-03-12] MEDS: Citalopram 20 MG TAB PO SCH (08:43)
[2017-03-12] MEDS: Ondansetron HCl/PF 4 MG/2 ML Vial IVP PRN (08:43)
[2017-03-12] MEDS: Famotidine 20 MG TAB PO SCH ×2 (08:43→21:03)
[2017-03-12] MEDS: Enoxaparin Sodium 40 MG/0.4 ML SYRINGE SC SCH (08:43)
[2017-03-12] MEDS: Potassium Chloride 20 MEQ TAB PO SCH ×2 (08:43→21:09)
--- NOTE | 2017-03-12 10:53 | PRG ---
DATE OF SERVICE: 03/12/2017 SUBJECTIVE: Ms. Randle is up in a chair this morning. She feels better and had no acute complaints. PHYSICAL EXAMINATION: VITAL SIGNS: Temperature 97.3, pulse 83, respirations 22, O2 sat 97% on 2 liters, blood pressure 113 /57. HEENT: Unremarkable. NECK: No JVD. LUNGS: Coarse rhonchi. CARDIAC: S1 and S2 regular. ABDOMEN: Soft. EXTREMITIES: No edema. ASSESSMENT: 1. Pneumonia. 2. Status post acute respiratory failure. 3. History of obstructive sleep apnea. 4. Down syndrome. PLAN: 1. Can transfer to the floor 2. Continue antibiotics. 3. Would anticipate several more days of hospitalization. 4. Continue CPAP at night.
--- NOTE | 2017-03-12 11:07 | PDOC.PN ---
- Subjective Encounter Start Date: 03/12/17 Encounter Start Time: 07:45 Subjective: awake, no sob -: tries to communicate, mom at bedside - Objective Resuscitation Status: Resuscitation Status FULL:Full Resuscitation MAR Reviewed: Yes Vital Signs & Weight: Vital Signs (12 hours) Temp Pulse Resp BP Pulse Ox 03/12/17 08:00 97.3 F L 83 22 H 94 L 03/12/17 07:03 96 03/12/17 07:00 97.3 F L 83 22 H 113/57 L 90 L 03/12/17 04:34 98 03/12/17 04:00 98.6 F 76 16 95/49 L 96 03/12/17 02:26 75 26 H 100 03/12/17 02:00 24 L 03/12/17 00:40 98.4 F 73 24 H 95/58 L 96 03/11/17 23:58 60 L Weight Weight 190 lb 7 oz Most Recent Monitor Data Heart Rate from ECG 80 NIBP 79/44 NIBP BP-Mean 56 Respiration from ECG 32 SpO2 96 I&O: 03/11/17 03/12/17 03/13/17 06:59 06:59 06:59 Intake Total 1700 1520 Output Total 2750 900 1000 Balance -1050 620 -1000 Result Diagrams: 03/11/17 04:03 03/11/17 04:03 Phys Exam - Physical Examination HEENT: PERRLA, sclera anicteric Neck: no JVD, supple Respiratory: no wheezing, no rales rhonchi+ Cardiovascular: RRR, no significant murmur Gastrointestinal: soft, non-tender, positive bowel sounds Musculoskeletal: no edema, pulses present Neurological: non-focal, moves all 4 limbs Dx/Plan (1) Acute respiratory failure with hypoxia Code(s): J96.01 - ACUTE RESPIRATORY FAILURE WITH HYPOXIA Status: Acute (2) Acute on chronic diastolic (congestive) heart failure Code(s): I50.33 - ACUTE ON CHRONIC DIASTOLIC (CONGESTIVE) HEART FAILURE Status : Acute (3) PNA (pneumonia) Code(s): J18.9 - PNEUMONIA, UNSPECIFIED ORGANISM Status: Acute Qualifiers: Pneumonia type: due to unspecified organism Laterality: bilateral (4) CKD (chronic kidney disease) stage 2, GFR 60-89 ml/min Code(s): N18.2 - CHRONIC KIDNEY DISEASE, STAGE 2 (MILD) Status: Chronic (5) Demand ischemia Code(s): I24.8 - OTHER FORMS OF ACUTE ISCHEMIC HEART DISEASE Status: Acute (6) Down's syndrome Code(s): Q90.9 - DOWN SYNDROME, UNSPECIFIED Status: Chronic (7) Hypothyroidism Code(s): E03.9 - HYPOTHYROIDISM, UNSPECIFIED Status: Chronic Qualifiers: Hypothyroidism type: unspecified Qualified Code(s): E03.9 - Hypothyroidism , unspecified (8) Obstructive sleep apnea Code(s): G47.33 - OBSTRUCTIVE SLEEP APNEA (ADULT) (PEDIATRIC) Status: Chronic - Plan is on ceftriaxone and doxy -: nebs, prednisone, cpap at night -: ef is 50% -: to mobilize as tolerated -: tx to med floor * . Review of Systems - Medications/Allergies Allergies/Adverse Reactions: Allergies Allergy/AdvReac Type Severity Reaction Status Date / Time iodine Allergy Intermediate Verified 05/15/16 04:38 lisinopril Allergy Intermediate Verified 05/15/16 04:38 Medications: Current Medications Acetaminophen (Tylenol) 650 mg PO Q4H PRN PRN Reason: Headache/Fever or Pain Last Admin: 03/09/17 17:35 Dose: 650 mg Acetaminophen (Tylenol) 650 mg TN Q4H PRN PRN Reason: Headache/Fever or Pain Al Hydroxide/Mg Hydroxide (Maalox) 15 ml PO Q4H PRN PRN Reason: Heartburn or Indigestion Albuterol/Ipratropium (Duoneb) 3 ml NEB [id number] [facility] Last Admin: 03/12/17 07:00 Dose: 3 ml Aripiprazole (Abilify) 2 mg PO HS [facility] Last Admin: 03/11/17 20:26 Dose: 2 mg Artificial Tears (Tears Naturale) 0 drop EA EYE PRN PRN PRN Reason: Dry Eyes Bisacodyl (Dulcolax) 10 mg PO DAILYPRN PRN PRN Reason: Constipation Citalopram Hydrobromide (Celexa) 10 mg PO DAILY [facility] Last Admin: 03/12/17 08:43 Dose: 10 mg Doxycycline Hyclate (Vibramycin) 100 mg PO BID [facility] Last Admin: 03/12/17 08:42 Dose: 100 mg Enoxaparin Sodium (Lovenox) 40 mg SC 0900 [facility] Last Admin: 03/12/17 08:43 Dose: 40 mg Famotidine (Pepcid) 20 mg PO BID [facility] Last Admin: 03/12/17 08:43 Dose: 20 mg Fluconazole (Diflucan) 200 mg PO DAILY [facility] Last Admin: 03/12/17 08:42 Dose: 200 mg Furosemide (Lasix) 40 mg SLOW IVP 0600,1400 [facility] Last Admin: 03/12/17 05:31 Dose: 40 mg Guaifenesin (Robitussin Sf) 200 mg PO Q4H PRN PRN Reason: Cough Guaifenesin/Dextromethorphan (Robitussin Dm) 15 ml PO Q4H PRN PRN Reason: Cough Hydralazine HCl (Apresoline) 10 mg SLOW IVP Q4H PRN PRN Reason: Systolic BP > 180 Ceftriaxone Sodium 1 gm/ (Syringe 0.4 ml/ Sterile Water) 10 mls @ 120 mls/hr SLOW IVP Q24HR@1300 [facility] Last Admin: 03/11/17 13:35 Dose: 10 mls Levothyroxine Sodium (Synthroid) 125 mcg PO 0600 [facility] Last Admin: 03/12/17 05:31 Dose: 125 mcg Loratadine (Claritin) 10 mg PO DAILYPRN PRN PRN Reason: Sinus Symptoms Magnesium Hydroxide (Milk Of Magnesium) 30 ml PO DAILYPRN PRN PRN Reason: Constipation Mineral Oil/White Petrolatum (Eucerin Cream) 0 gm TOP BIDPRN PRN PRN Reason: Dry Skin Nystatin (Mycostatin Powder) 0 gm TOP BIDPRN PRN PRN Reason: SKIN IRRITATION Last Admin: 03/10/17 20:40 Dose: 1 applic Ondansetron HCl (Zofran Odt) 4 mg PO Q6H PRN PRN Reason: Nausea/Vomiting Ondansetron HCl (Zofran) 4 mg IVP Q6H PRN PRN Reason: Nausea/Vomiting Last Admin: 03/12/17 08:43 Dose: 4 mg Phenol (Chloraseptic [place] 180 Ml Bot) 0 ml PO PRN PRN PRN Reason: Sore Throat Potassium Chloride (K-Dur) 10 meq PO BID-[facility] Last Admin: 03/12/17 08:43 Dose: 10 meq Prednisone (Pred[facility]) [facility] Last Admin: 03/12/17 08:42 Dose: 20 mg Sodium Biphosphate/Sodium Phosphate (Fleet Enema) 133 ml TN ONE PRN PRN Reason: Constipation Stop: 03/12/17 15:00 Sodium Chloride ([place] Nasal [place] 0.65%) 0 ml EA NARE QIDPRN PRN PRN Reason: Nasal Congestion Spironolactone (Aldactone) 25 mg PO DAILY [facility] Last Admin: 03/11/17 08:29 Dose: 25 mg
[2017-03-12] MEDS: cefTRIAXone\\ROCEPHIN 1 GM, Syringe 0.4 ML in Sterile Water 9.6 ML SLOW IVP SCH (14:18)
[2017-03-12] MEDS: Aripiprazole 2 MG TAB PO SCH (21:03)
[2017-03-13] MEDS: Levothyroxine Sodium 125 MCG TAB PO SCH (06:28)
[2017-03-13] MEDS: Furosemide 40 MG/4 ML VIAL SLOW IVP SCH (06:28)
[2017-03-13] MEDS: Doxycycline 100 MG CAP PO SCH ×2 (08:06→20:21)
[2017-03-13] MEDS: Potassium Chloride 20 MEQ TAB PO SCH ×2 (08:06→17:39)
[2017-03-13] MEDS: Citalopram 20 MG TAB PO SCH (08:06)
[2017-03-13] MEDS: Spironolactone 25 MG TAB PO SCH (08:06)
[2017-03-13] MEDS: Famotidine 20 MG TAB PO SCH ×2 (08:06→20:21)
[2017-03-13] MEDS: predniSONE 20 MG TAB PO SCH (08:06)
[2017-03-13] MEDS: Fluconazole 100 MG TAB PO SCH (08:06)
[2017-03-13] MEDS: Enoxaparin Sodium 40 MG/0.4 ML SYRINGE SC SCH (08:07)
--- NOTE | 2017-03-13 08:49 | PDOC.PULPN ---
Progress Note: Subj/Obj - Subjective Date: 03/13/17 Time: 08:47 - ROS Constitutional: weakness Respiratory: congestion, cough - Objective Allergies/Adverse Reactions: Allergies Allergy/AdvReac Type Severity Reaction Status Date / Time iodine Allergy Intermediate Verified 05/15/16 04:38 lisinopril Allergy Intermediate Verified 05/15/16 04:38 Medications: Current Medications Acetaminophen (Tylenol) 650 mg PO Q4H PRN PRN Reason: Headache/Fever or Pain Last Admin: 03/09/17 17:35 Dose: 650 mg Acetaminophen (Tylenol) 650 mg MD Q4H PRN PRN Reason: Headache/Fever or Pain Al Hydroxide/Mg Hydroxide (Maalox) 15 ml PO Q4H PRN PRN Reason: Heartburn or Indigestion Albuterol/Ipratropium (Duoneb) 3 ml NEB [id number] [facility] Last Admin: 03/13/17 07:17 Dose: 3 ml Aripiprazole (Abilify) 2 mg PO HS [facility] Last Admin: 03/12/17 21:03 Dose: 2 mg Artificial Tears (Tears Naturale) 0 drop EA EYE PRN PRN PRN Reason: Dry Eyes Bisacodyl (Dulcolax) 10 mg PO DAILYPRN PRN PRN Reason: Constipation Citalopram Hydrobromide (Celexa) 10 mg PO DAILY [facility] Last Admin: 03/13/17 08:06 Dose: 10 mg Doxycycline Hyclate (Vibramycin) 100 mg PO BID [facility] Last Admin: 03/13/17 08:06 Dose: 100 mg Enoxaparin Sodium (Lovenox) 40 mg SC 0900 [facility] Last Admin: 03/13/17 08:07 Dose: 40 mg Famotidine (Pepcid) 20 mg PO BID [facility] Last Admin: 03/13/17 08:06 Dose: 20 mg Fluconazole (Diflucan) 200 mg PO DAILY [facility] Last Admin: 03/13/17 08:06 Dose: 200 mg Furosemide (Lasix) 40 mg SLOW IVP 0600,1400 [facility] Last Admin: 03/13/17 06:28 Dose: 40 mg Guaifenesin (Robitussin Sf) 200 mg PO Q4H PRN PRN Reason: Cough Guaifenesin/Dextromethorphan (Robitussin Dm) 15 ml PO Q4H PRN PRN Reason: Cough Hydralazine HCl (Apresoline) 10 mg SLOW IVP Q4H PRN PRN Reason: Systolic BP > 180 Ceftriaxone Sodium 1 gm/ (Syringe 0.4 ml/ Sterile Water) 10 mls @ 120 mls/hr SLOW IVP Q24HR@1300 [facility] Last Admin: 03/12/17 14:18 Dose: 10 mls Levothyroxine Sodium (Synthroid) 125 mcg PO 0600 [facility] Last Admin: 03/13/17 06:28 Dose: 125 mcg Loratadine (Claritin) 10 mg PO DAILYPRN PRN PRN Reason: Sinus Symptoms Magnesium Hydroxide (Milk Of Magnesium) 30 ml PO DAILYPRN PRN PRN Reason: Constipation Mineral Oil/White Petrolatum (Eucerin Cream) 0 gm TOP BIDPRN PRN PRN Reason: Dry Skin Nystatin (Mycostatin Powder) 0 gm TOP BIDPRN PRN PRN Reason: SKIN IRRITATION Last Admin: 03/10/17 20:40 Dose: 1 applic Ondansetron HCl (Zofran Odt) 4 mg PO Q6H PRN PRN Reason: Nausea/Vomiting Ondansetron HCl (Zofran) 4 mg IVP Q6H PRN PRN Reason: Nausea/Vomiting Last Admin: 03/12/17 08:43 Dose: 4 mg Phenol (Chloraseptic [place] 180 Ml Bot) 0 ml PO PRN PRN PRN Reason: Sore Throat Potassium Chloride (K-Dur) 10 meq PO BID-[facility] Last Admin: 03/13/17 08:06 Dose: 10 meq Prednisone (Prednisone) 20 mg PO QAM-[facility] Last Admin: 03/13/17 08:06 Dose: 20 mg Sodium Chloride ([place] Nasal [place] 0.65%) 0 ml EA NARE QIDPRN PRN PRN Reason: Nasal Congestion Spironolactone (Aldactone) 25 mg PO DAILY [facility] Last Admin: 03/13/17 08:06 Dose: 25 mg MAR Reviewed: Yes Vital Signs: Vital Signs Temp 98 F 03/13/17 03:00 Pulse 64 03/13/17 07:17 Resp 18 03/13/17 07:17 BP 113/56 L 03/13/17 03:00 Pulse Ox 96 03/13/17 07:21 Intake & Output 03/12/17 03/13/17 03/13/17 18:59 06:59 18:59 Intake Total 1160 Output Total 1000 1250 Balance -1000 -90 Intake: Oral 1160 Output: Urine 250 Output, Martin 1000 1000 Other: Voiding Method Indwelling Catheter Bedside Commode # Measured Voids 3 # Unmeasured Voids 1 # Bowel Movements 1 Progress Note: Exam - Physical Exam Constitutional: NAD HEENT: PERRLA, sclera anicteric Neck: no nodes, no JVD Cardiovascular: RRR Respiratory: rales Gastrointestinal: soft, non-tender Musculoskeletal: edema present Neurological: moves all 4 limbs Lymphatic: no nodes Psychiatric: normal affect Skin: no rash - Labs Result Diagrams: 03/11/17 04:03 03/11/17 04:03 Progress Note: A/P - Problems (1) Acute on chronic diastolic (congestive) heart failure Current Visit: Yes Status: Acute Code(s): I50.33 - ACUTE ON CHRONIC DIASTOLIC (CONGESTIVE) HEART FAILURE (2) Acute respiratory failure with hypoxia Current Visit: Yes Status: Acute Code(s): J96.01 - ACUTE RESPIRATORY FAILURE WITH HYPOXIA (3) PNA (pneumonia) Current Visit: Yes Status: Acute Code(s): J18.9 - PNEUMONIA, UNSPECIFIED ORGANISM Qualifiers: Pneumonia type: due to unspecified organism Laterality: bilateral (4) CKD (chronic kidney disease) stage 2, GFR 60-89 ml/min Current Visit: Yes Status: Chronic Code(s): N18.2 - CHRONIC KIDNEY DISEASE, STAGE 2 (MILD) - Plan Plan: Change to oral antibiotics Wean O2 as tolerated diuresis
[2017-03-13 09:07] LABS: #Eosinphils 0.1 thou/uL (0.0-0.7); #Monocytes 0.3 thou/uL (0.11-0.59); #Neutrophils 5.6 thou/uL (1.40-6.50); %Basophils 0.1 % (0.0-1.0); %Eosinophils 1.6 % (0.0-10.0); %Lymphocytes 13.7 % (21.0-51.0); %Monocytes 4.8 % (0.0-10.0); %Neutrophils 79.8 % (42.0-75.0); Hemoglobin 12.2 g/dL (12.0-16.0); Mean Corpuscular HGB CONC 32.2 g/dL (32.0-36.0); Mean Corpuscular Hemoglobin 30.3 pg (27.0-31.0); Mean Platelet Volume 8.5 fL (7.4-10.4); Platelet Count 246 thou/uL (130-400); RBC Distribution Width 20.4 % (11.5-14.5); Red Blood Cell (RBC) Count 4.01 mill/uL (4.20-5.40)
[2017-03-13 09:22] LABS: Anion Gap 16 mmol/L (10-20); BUN (Urea Nitrogen) 23 mg/dL (7.0-18.7); Calc. Creatinine Clearance 86 mL/min (70-130); Calcium 9.4 mg/dL (7.8-10.44); Carbon Dioxide 32 mmol/L (22-29); Chloride 91 mmol/L (98-107); Estimated GFR-MDRD 53; Glucose 101 mg/dL (70-105); Potassium 3.7 mmol/L (3.5-5.1); Sodium 135 mmol/L (136-145)
--- NOTE | 2017-03-13 13:11 | PDOC.PN ---
- Subjective Encounter Start Date: 03/13/17 Encounter Start Time: 07:50 Subjective: awake, sitting in chair and working on her art/crayons -: not in distress - Objective Resuscitation Status: Resuscitation Status FULL:Full Resuscitation MAR Reviewed: Yes Vital Signs & Weight: Vital Signs (12 hours) Temp Pulse Pulse Pulse Resp BP BP 03/13/17 11:32 98.1 F 78 20 03/13/17 10:48 78 77 102/62 100/51 L 03/13/17 08:05 98.2 F 73 20 03/13/17 07:21 03/13/17 07:17 64 18 03/13/17 03:00 98 F 71 18 03/13/17 02:40 03/13/17 02:06 70 14 BP Pulse Ox Pulse Ox Pulse Ox 03/13/17 11:32 102/62 91 L 03/13/17 10:48 92 L 91 L 03/13/17 08:05 93 L 03/13/17 07:21 96 03/13/17 07:17 03/13/17 03:00 113/56 L 94 L 03/13/17 02:40 100 03/13/17 02:06 100 Weight Weight 191 lb 5 oz Most Recent Monitor Data Heart Rate from ECG 80 NIBP 79/44 NIBP BP-Mean 56 Respiration from ECG 32 SpO2 96 I&O: 03/12/17 03/13/17 03/14/17 06:59 06:59 06:59 Intake Total 1520 1160 Output Total 900 2250 Balance 620 -1090 Result Diagrams: 03/13/17 08:41 03/13/17 08:41 Phys Exam - Physical Examination HEENT: PERRLA, sclera anicteric Neck: no JVD, supple Respiratory: no wheezing, no rales Cardiovascular: RRR, no significant murmur Gastrointestinal: soft, non-tender, positive bowel sounds Musculoskeletal: no edema, pulses present Neurological: non-focal, moves all 4 limbs Dx/Plan (1) Acute respiratory failure with hypoxia Code(s): J96.01 - ACUTE RESPIRATORY FAILURE WITH HYPOXIA Status: Resolved (2) Acute on chronic diastolic (congestive) heart failure Code(s): I50.33 - ACUTE ON CHRONIC DIASTOLIC (CONGESTIVE) HEART FAILURE Status : Acute (3) PNA (pneumonia) Code(s): J18.9 - PNEUMONIA, UNSPECIFIED ORGANISM Status: Acute Qualifiers: Pneumonia type: due to unspecified organism Laterality: bilateral (4) CKD (chronic kidney disease) stage 2, GFR 60-89 ml/min Code(s): N18.2 - CHRONIC KIDNEY DISEASE, STAGE 2 (MILD) Status: Chronic (5) Demand ischemia Code(s): I24.8 - OTHER FORMS OF ACUTE ISCHEMIC HEART DISEASE Status: Acute (6) Down's syndrome Code(s): Q90.9 - DOWN SYNDROME, UNSPECIFIED Status: Chronic (7) Hypothyroidism Code(s): E03.9 - HYPOTHYROIDISM, UNSPECIFIED Status: Chronic Qualifiers: Hypothyroidism type: unspecified Qualified Code(s): E03.9 - Hypothyroidism , unspecified (8) Obstructive sleep apnea Code(s): G47.33 - OBSTRUCTIVE SLEEP APNEA (ADULT) (PEDIATRIC) Status: Chronic - Plan on doxy, diflucan -: oral prednisone -: off lasix iv, is on spironolactone -: watch for potassium, may dc oral supplements -: to mobilize as tolerated, d/w her aunt at bedside * . Review of Systems - Medications/Allergies Allergies/Adverse Reactions: Allergies Allergy/AdvReac Type Severity Reaction Status Date / Time iodine Allergy Intermediate Verified 05/15/16 04:38 lisinopril Allergy Intermediate Verified 05/15/16 04:38 Medications: Current Medications Acetaminophen (Tylenol) 650 mg PO Q4H PRN PRN Reason: Headache/Fever or Pain Last Admin: 03/09/17 17:35 Dose: 650 mg Acetaminophen (Tylenol) 650 mg [place] Q4H PRN PRN Reason: Headache/Fever or Pain Al Hydroxide/Mg Hydroxide (Maalox) 15 ml PO Q4H PRN PRN Reason: Heartburn or Indigestion Albuterol/Ipratropium (Duoneb) 3 ml NEB [id number] [facility] Last Admin: 03/13/17 12:34 Dose: 3 ml Aripiprazole (Abilify) 2 mg PO HS [facility] Last Admin: 03/12/17 21:03 Dose: 2 mg Artificial Tears (Tears Naturale) 0 drop EA EYE PRN PRN PRN Reason: Dry Eyes Bisacodyl (Dulcolax) 10 mg PO DAILYPRN PRN PRN Reason: Constipation Citalopram Hydrobromide (Celexa) 10 mg PO DAILY [facility] Last Admin: 03/13/17 08:06 Dose: 10 mg Doxycycline Hyclate (Vibramycin) 100 mg PO BID [facility] Last Admin: 03/13/17 08:06 Dose: 100 mg Enoxaparin Sodium (Lovenox) 40 mg SC 0900 [facility] Last Admin: 03/13/17 08:07 Dose: 40 mg Famotidine (Pepcid) 20 mg PO BID [facility] Last Admin: 03/13/17 08:06 Dose: 20 mg Fluconazole (Diflucan) 200 mg PO DAILY [facility] Last Admin: 03/13/17 08:06 Dose: 200 mg Guaifenesin (Robitussin Sf) 200 mg PO Q4H PRN PRN Reason: Cough Guaifenesin/Dextromethorphan (Robitussin Dm) 15 ml PO Q4H PRN PRN Reason: Cough Hydralazine HCl (Apresoline) 10 mg SLOW IVP Q4H PRN PRN Reason: Systolic BP > 180 Levothyroxine Sodium (Synthroid) 125 mcg PO 0600 [facility] Last Admin: 03/13/17 06:28 Dose: 125 mcg Loratadine (Claritin) 10 mg PO DAILYPRN PRN PRN Reason: Sinus Symptoms Magnesium Hydroxide (Milk Of Magnesium) 30 ml PO DAILYPRN PRN PRN Reason: Constipation Mineral Oil/White Petrolatum (Eucerin Cream) 0 gm TOP BIDPRN PRN PRN Reason: Dry Skin Nystatin (Mycostatin Powder) 0 gm TOP BIDPRN PRN PRN Reason: SKIN IRRITATION Last Admin: 03/10/17 20:40 Dose: 1 applic Ondansetron HCl (Zofran Odt) 4 mg PO Q6H PRN PRN Reason: Nausea/Vomiting Ondansetron HCl (Zofran) 4 mg IVP Q6H PRN PRN Reason: Nausea/Vomiting Last Admin: 03/12/17 08:43 Dose: 4 mg Phenol (Chloraseptic [place] 180 Ml Bot) 0 ml PO PRN PRN PRN Reason: Sore Throat Potassium Chloride (K-Dur) [facility] Last Admin: 03/13/17 08:06 Dose: 10 meq Prednisone (Prednisone) 20 mg [facility] Last Admin: 03/13/17 08:06 Dose: 20 mg Sodium Chloride ([place] Nasal [place] 0.65%) 0 ml EA NARE QIDPRN PRN PRN Reason: Nasal Congestion Spironolactone (Aldactone) 25 mg PO DAILY [facility] Last Admin: 03/13/17 08:06 Dose: 25 mg
--- NOTE | 2017-03-13 16:57 | PRG ---
DATE OF SERVICE: 03/13/2017 SUBJECTIVE: Ms. Smith sitting up in the chair, doing okay, and told that the oxygen saturation does drop; however, improved by 85% when she takes off the oxygen. OBJECTIVE: VITAL SIGNS: Her blood pressure is 110/69, pulse 70. LUNGS: Clear. CARDIAC: Normal S1 and S2. ASSESSMENT: 1. Diastolic heart failure. 2. Hypoxemia. 3. It is difficult to tell how much of this problem is diastolic heart failure versus how much is pn eumonia. PLAN: We will go ahead and resume intravenous diuretics. Her creatinine has improved to back down t o 1.11. BNP is improving from 320 down to 245.
[2017-03-13] MEDS: Aripiprazole 2 MG TAB PO SCH (20:20)
[2017-03-13] MEDS: Ondansetron HCl/PF 4 MG/2 ML Vial IVP PRN (22:26)
[2017-03-14] MEDS: Mag-Al 1200 mg/1200 mg/30 ML UDCUP PO PRN (02:26)
[2017-03-14] MEDS: Acetaminophen 325 MG TAB PO PRN (02:26)
[2017-03-14] MEDS: Furosemide 40 MG/4 ML VIAL SLOW IVP SCH ×2 (05:56→15:12)
[2017-03-14] MEDS: Levothyroxine Sodium 125 MCG TAB PO SCH (05:57)
[2017-03-14 06:09] LABS: Anion Gap 15 mmol/L (10-20); BUN (Urea Nitrogen) 27 mg/dL (7.0-18.7); Calc. Creatinine Clearance 95 mL/min (70-130); Calcium 9.5 mg/dL (7.8-10.44); Carbon Dioxide 31 mmol/L (22-29); Chloride 95 mmol/L (98-107); Estimated GFR-MDRD 59; Glucose 88 mg/dL (70-105); Potassium 5.5 mmol/L (3.5-5.1); Sodium 135 mmol/L (136-145)
[2017-03-14] MEDS: Potassium Chloride 20 MEQ TAB PO SCH (08:53)
[2017-03-14] MEDS: Doxycycline 100 MG CAP PO SCH ×2 (08:53→21:41)
[2017-03-14] MEDS: Fluconazole 100 MG TAB PO SCH (08:53)
[2017-03-14] MEDS: Famotidine 20 MG TAB PO SCH ×2 (08:53→21:41)
[2017-03-14] MEDS: Spironolactone 25 MG TAB PO SCH (08:54)
[2017-03-14] MEDS: Citalopram 20 MG TAB PO SCH (08:54)
[2017-03-14] MEDS: Enoxaparin Sodium 40 MG/0.4 ML SYRINGE SC SCH (08:55)
[2017-03-14] MEDS: predniSONE 20 MG TAB PO SCH (08:55)
[2017-03-14] MEDS ORDERED: Furosemide 20 MG TAB PO SCH (09:00)
--- NOTE | 2017-03-14 10:37 | PDOC.PN ---
- Subjective Encounter Start Date: 03/14/17 Encounter Start Time: 09:10 Subjective: no sob, awake -: not in distress, mom at bedside - Objective Resuscitation Status: Resuscitation Status FULL:Full Resuscitation MAR Reviewed: Yes Vital Signs & Weight: Vital Signs (12 hours) Temp Pulse Resp BP Pulse Ox 03/14/17 08:00 97.9 F 79 18 96/55 L 92 L 03/14/17 06:59 74 16 93 L 03/14/17 04:25 98 03/14/17 04:00 97.8 F 72 20 115/62 99 03/13/17 23:11 93 L 03/13/17 22:50 98 F 76 20 123/59 L 94 L Weight Weight 189 lb Most Recent Monitor Data Heart Rate from ECG 80 NIBP 79/44 NIBP BP-Mean 56 Respiration from ECG 32 SpO2 96 I&O: 03/13/17 03/14/17 03/15/17 06:59 06:59 06:59 Intake Total 1160 360 Output Total 2250 1650 Balance -1090 -1290 Result Diagrams: 03/13/17 08:41 03/14/17 05:32 Phys Exam - Physical Examination HEENT: PERRLA, moist MMs Neck: no JVD, supple Respiratory: no wheezing, no rales rhonchi++ Cardiovascular: RRR, no significant murmur Gastrointestinal: soft, non-tender, positive bowel sounds Musculoskeletal: no edema, pulses present Neurological: non-focal, moves all 4 limbs Dx/Plan (1) Acute respiratory failure with hypoxia Code(s): J96.01 - ACUTE RESPIRATORY FAILURE WITH HYPOXIA Status: Resolved (2) Acute on chronic diastolic (congestive) heart failure Code(s): I50.33 - ACUTE ON CHRONIC DIASTOLIC (CONGESTIVE) HEART FAILURE Status : Acute (3) PNA (pneumonia) Code(s): J18.9 - PNEUMONIA, UNSPECIFIED ORGANISM Status: Acute Qualifiers: Pneumonia type: due to unspecified organism Laterality: bilateral (4) CKD (chronic kidney disease) stage 2, GFR 60-89 ml/min Code(s): N18.2 - CHRONIC KIDNEY DISEASE, STAGE 2 (MILD) Status: Chronic (5) Demand ischemia Code(s): I24.8 - OTHER FORMS OF ACUTE ISCHEMIC HEART DISEASE Status: Acute (6) Down's syndrome Code(s): Q90.9 - DOWN SYNDROME, UNSPECIFIED Status: Chronic (7) Hypothyroidism Code(s): E03.9 - HYPOTHYROIDISM, UNSPECIFIED Status: Chronic Qualifiers: Hypothyroidism type: unspecified Qualified Code(s): E03.9 - Hypothyroidism , unspecified (8) Obstructive sleep apnea Code(s): G47.33 - OBSTRUCTIVE SLEEP APNEA (ADULT) (PEDIATRIC) Status: Chronic - Plan continue nebs, doxy and diflucan -: is back on lasix iv q12h -: watch for potassium, is off kdur with k of 5.5 this am -: d/w mom at bedside -: to amb with PT as tolerated and nasal oxygen * . Review of Systems - Medications/Allergies Allergies/Adverse Reactions: Allergies Allergy/AdvReac Type Severity Reaction Status Date / Time iodine Allergy Intermediate Verified 05/15/16 04:38 lisinopril Allergy Intermediate Verified 05/15/16 04:38 Medications: Current Medications Acetaminophen (Tylenol) 650 mg PO Q4H PRN PRN Reason: Headache/Fever or Pain Last Admin: 03/14/17 02:26 Dose: 650 mg Acetaminophen (Tylenol) 650 mg [place] Q4H PRN PRN Reason: Headache/Fever or Pain Al Hydroxide/Mg Hydroxide (Maalox) 15 ml PO Q4H PRN PRN Reason: Heartburn or Indigestion Last Admin: 03/14/17 02:26 Dose: 15 ml Albuterol/Ipratropium (Duoneb) 3 ml NEB [id number] [facility] Last Admin: 03/14/17 06:59 Dose: 3 ml Aripiprazole (Abilify) 2 mg PO HS [facility] Last Admin: 03/13/17 20:20 Dose: 2 mg Artificial Tears (Tears Naturale) 0 drop EA EYE PRN PRN PRN Reason: Dry Eyes Bisacodyl (Dulcolax) 10 mg PO DAILYPRN PRN PRN Reason: Constipation Citalopram Hydrobromide (Celexa) 10 mg PO DAILY [facility] Last Admin: 03/14/17 08:54 Dose: 10 mg Doxycycline Hyclate (Vibramycin) 100 mg PO BID [facility] Last Admin: 03/14/17 08:53 Dose: 100 mg Enoxaparin Sodium (Lovenox) 40 mg SC 0900 [facility] Last Admin: 03/14/17 08:55 Dose: 40 mg Famotidine (Pepcid) 20 mg PO BID [facility] Last Admin: 03/14/17 08:53 Dose: 20 mg Fluconazole (Diflucan) 200 mg PO DAILY [facility] Last Admin: 03/14/17 08:53 Dose: 200 mg Furosemide (Lasix) 40 mg SLOW IVP 0600,1400 [facility] Last Admin: 03/14/17 05:56 Dose: 40 mg Guaifenesin (Robitussin Sf) 200 mg PO Q4H PRN PRN Reason: Cough Guaifenesin/Dextromethorphan (Robitussin Dm) 15 ml PO Q4H PRN PRN Reason: Cough Hydralazine HCl (Apresoline) 10 mg SLOW IVP Q4H PRN PRN Reason: Systolic BP > 180 Levothyroxine Sodium (Synthroid) 125 mcg PO 0600 [facility] Last Admin: 03/14/17 05:57 Dose: 125 mcg Loratadine (Claritin) 10 mg PO DAILYPRN PRN PRN Reason: Sinus Symptoms Magnesium Hydroxide (Milk Of Magnesium) 30 ml PO DAILYPRN PRN PRN Reason: Constipation Mineral Oil/White Petrolatum (Eucerin Cream) 0 gm TOP BIDPRN PRN PRN Reason: Dry Skin Nystatin (Mycostatin Powder) 0 gm TOP BIDPRN PRN PRN Reason: SKIN IRRITATION Last Admin: 03/10/17 20:40 Dose: 1 applic Ondansetron HCl (Zofran Odt) 4 mg PO Q6H PRN PRN Reason: Nausea/Vomiting Ondansetron HCl (Zofran) 4 mg IVP Q6H PRN PRN Reason: Nausea/Vomiting Last Admin: 03/13/17 22:26 Dose: 4 mg Phenol (Chloraseptic [place] 180 Ml Bot) 0 ml PO PRN PRN PRN Reason: Sore Throat Prednisone (Prednisone) 20 mg PO QAM-[facility] Last Admin: 03/14/17 08:55 Dose: 20 mg Sodium Chloride ([place] Nasal [place] 0.65%) 0 ml EA NARE QIDPRN PRN PRN Reason: Nasal Congestion
--- NOTE | 2017-03-14 16:14 | PRG ---
DATE OF SERVICE: 03/14/2017 SUBJECTIVE: This morning is awake, alert, and responsive. She is better. She has cough. She is ho t. PHYSICAL EXAMINATION: VITAL SIGNS: Sats 92 on 3 liters, temperature 97, pulse 99, and blood pressure 113/55. CHEST: Reveals extensive crackles. CARDIAC: Normal S1 and S2. No gallops. ABDOMEN: Soft. No masses. LABORATORY DATA: Electrolytes are normal. IMPRESSION: 1. Respiratory failure, congestive heart failure, superimposed pneumonia. 2. Down syndrome. Continue antibiotics, diuretics, PT and supportive care.
[2017-03-14] MEDS: Aripiprazole 2 MG TAB PO SCH (21:41)
[2017-03-15] MEDS: Furosemide 40 MG/4 ML VIAL SLOW IVP SCH ×2 (05:35→14:49)
[2017-03-15] MEDS: Levothyroxine Sodium 125 MCG TAB PO SCH (05:35)
[2017-03-15 05:43] LABS: Anion Gap 15 mmol/L (10-20); BUN (Urea Nitrogen) 25 mg/dL (7.0-18.7); Calc. Creatinine Clearance 85 mL/min (70-130); Calcium 9.4 mg/dL (7.8-10.44); Carbon Dioxide 33 mmol/L (22-29); Chloride 95 mmol/L (98-107); Estimated GFR-MDRD 53; Glucose 86 mg/dL (70-105); Potassium 4.5 mmol/L (3.5-5.1); Sodium 138 mmol/L (136-145)
[2017-03-15] MEDS: Doxycycline 100 MG CAP PO SCH ×2 (08:50→20:44)
[2017-03-15] MEDS: Fluconazole 100 MG TAB PO SCH (08:50)
[2017-03-15] MEDS: Citalopram 20 MG TAB PO SCH (08:51)
[2017-03-15] MEDS: predniSONE 20 MG TAB PO SCH (08:51)
[2017-03-15] MEDS: Famotidine 20 MG TAB PO SCH ×2 (08:52→20:44)
[2017-03-15] MEDS: Enoxaparin Sodium 40 MG/0.4 ML SYRINGE SC SCH (08:52)
--- NOTE | 2017-03-15 09:45 | RAD ---
UPRIGHT PORTABLE CHEST 1 VIEW: Date: 03/15/17 HISTORY: 46-year-old female with respiratory insufficiency. FINDINGS: Again noted are fairly extensive bilateral alveolar and interstitial opacities throughout both lung z ones, slightly more prominent in the mid lung zones and perihilar regions, but showing improvement wh en compared to the prior study. Persistent costophrenic angle blunting and cardiomegaly. IMPRESSION: Persistent but improving extensive bilateral interstitial and alveolar parenchymal changes. POS: MONIE
--- NOTE | 2017-03-15 10:02 | PDOC.PN ---
- Subjective Encounter Start Date: 03/15/17 Encounter Start Time: 07:45 Subjective: no sob, slept well per dad at bedside -: not in distress - Objective Resuscitation Status: Resuscitation Status FULL:Full Resuscitation MAR Reviewed: Yes Vital Signs & Weight: Vital Signs (12 hours) Temp Pulse Resp BP Pulse Ox 03/15/17 07:45 98.9 F 85 19 116/51 L 94 L 03/15/17 07:34 98.9 F 88 19 03/15/17 06:30 88 24 H 90 L 03/15/17 04:00 97.5 F L 71 20 104/58 L 93 L 03/15/17 00:48 71 22 H 98 03/15/17 00:44 71 22 H 98 03/15/17 00:00 98.7 F 77 20 127/59 L 97 Weight Weight 186 lb 4.8 oz Most Recent Monitor Data Heart Rate from ECG 80 NIBP 79/44 NIBP BP-Mean 56 Respiration from ECG 32 SpO2 96 I&O: 03/14/17 03/15/17 03/16/17 06:59 06:59 06:59 Intake Total 360 840 Output Total 1650 2450 Balance -1290 -1610 Result Diagrams: 03/13/17 08:41 03/15/17 04:54 Phys Exam - Physical Examination HEENT: PERRLA, moist MMs Neck: no JVD, supple Respiratory: no wheezing, no rales rhonchi++ Cardiovascular: RRR, no significant murmur Gastrointestinal: soft, non-tender, positive bowel sounds Musculoskeletal: no edema, pulses present Neurological: non-focal, moves all 4 limbs Dx/Plan (1) Acute respiratory failure with hypoxia Code(s): J96.01 - ACUTE RESPIRATORY FAILURE WITH HYPOXIA Status: Resolved (2) Acute on chronic diastolic (congestive) heart failure Code(s): I50.33 - ACUTE ON CHRONIC DIASTOLIC (CONGESTIVE) HEART FAILURE Status : Acute (3) PNA (pneumonia) Code(s): J18.9 - PNEUMONIA, UNSPECIFIED ORGANISM Status: Acute Qualifiers: Pneumonia type: due to unspecified organism Laterality: bilateral (4) CKD (chronic kidney disease) stage 2, GFR 60-89 ml/min Code(s): N18.2 - CHRONIC KIDNEY DISEASE, STAGE 2 (MILD) Status: Chronic (5) Demand ischemia Code(s): I24.8 - OTHER FORMS OF ACUTE ISCHEMIC HEART DISEASE Status: Acute (6) Down's syndrome Code(s): Q90.9 - DOWN SYNDROME, UNSPECIFIED Status: Chronic (7) Hypothyroidism Code(s): E03.9 - HYPOTHYROIDISM, UNSPECIFIED Status: Chronic Qualifiers: Hypothyroidism type: unspecified Qualified Code(s): E03.9 - Hypothyroidism , unspecified (8) Obstructive sleep apnea Code(s): G47.33 - OBSTRUCTIVE SLEEP APNEA (ADULT) (PEDIATRIC) Status: Chronic - Plan is on iv lasix and diuresing well -: cxr looks better, electrolytes stable -: still on 3 liters nc with spo2 of around 93% -: to ambulate more with PT/walking program -: empiric doxy, nebs. DC diflucan * . Review of Systems - Medications/Allergies Allergies/Adverse Reactions: Allergies Allergy/AdvReac Type Severity Reaction Status Date / Time iodine Allergy Intermediate Verified 05/15/16 04:38 lisinopril Allergy Intermediate Verified 05/15/16 04:38 Medications: Current Medications Acetaminophen (Tylenol) 650 mg PO Q4H PRN PRN Reason: Headache/Fever or Pain Last Admin: 03/14/17 02:26 Dose: 650 mg Acetaminophen (Tylenol) 650 mg [place] Q4H PRN PRN Reason: Headache/Fever or Pain Al Hydroxide/Mg Hydroxide (Maalox) 15 ml PO Q4H PRN PRN Reason: Heartburn or Indigestion Last Admin: 03/14/17 02:26 Dose: 15 ml Albuterol/Ipratropium (Duoneb) 3 ml NEB [id number] [facility] Last Admin: 03/15/17 06:30 Dose: 3 ml Aripiprazole (Abilify) 2 mg PO HS [facility] Last Admin: 03/14/17 21:41 Dose: 2 mg Artificial Tears (Tears Naturale) 0 drop EA EYE PRN PRN PRN Reason: Dry Eyes Bisacodyl (Dulcolax) 10 mg PO DAILYPRN PRN PRN Reason: Constipation Citalopram Hydrobromide (Celexa) 10 mg PO DAILY [facility] Last Admin: 03/15/17 08:51 Dose: 10 mg Doxycycline Hyclate (Vibramycin) 100 mg PO BID [facility] Last Admin: 03/15/17 08:50 Dose: 100 mg Enoxaparin Sodium (Lovenox) 40 mg SC 0900 [facility] Last Admin: 03/15/17 08:52 Dose: 40 mg Famotidine (Pepcid) 20 mg PO BID [facility] Last Admin: 03/15/17 08:52 Dose: 20 mg Fluconazole (Diflucan) 200 mg PO DAILY [facility] Last Admin: 03/15/17 08:50 Dose: 200 mg Furosemide (Lasix) 40 mg SLOW IVP 0600,1400 [facility] Last Admin: 03/15/17 05:35 Dose: 40 mg Guaifenesin (Robitussin Sf) 200 mg PO Q4H PRN PRN Reason: Cough Guaifenesin/Dextromethorphan (Robitussin Dm) 15 ml PO Q4H PRN PRN Reason: Cough Hydralazine HCl (Apresoline) 10 mg SLOW IVP Q4H PRN PRN Reason: Systolic BP > 180 Levothyroxine Sodium (Synthroid) 125 mcg PO 0600 [facility] Last Admin: 03/15/17 05:35 Dose: 125 mcg Loratadine (Claritin) 10 mg PO DAILYPRN PRN PRN Reason: Sinus Symptoms Magnesium Hydroxide (Milk Of Magnesium) 30 ml PO DAILYPRN PRN PRN Reason: Constipation Mineral Oil/White Petrolatum (Eucerin Cream) 0 gm TOP BIDPRN PRN PRN Reason: Dry Skin Nystatin (Mycostatin Powder) 0 gm TOP BIDPRN PRN PRN Reason: SKIN IRRITATION Last Admin: 03/10/17 20:40 Dose: 1 applic Ondansetron HCl (Zofran Odt) 4 mg PO Q6H PRN PRN Reason: Nausea/Vomiting Ondansetron HCl (Zofran) 4 mg IVP Q6H PRN PRN Reason: Nausea/Vomiting Last Admin: 03/13/17 22:26 Dose: 4 mg Phenol (Chloraseptic [place] 180 Ml Bot) 0 ml PO PRN PRN PRN Reason: Sore Throat Prednisone (Prednisone) 20 mg PO QAM-[facility] Last Admin: 03/15/17 08:51 Dose: 20 mg Sodium Chloride ([place] Nasal [place] 0.65%) 0 ml EA NARE QIDPRN PRN PRN Reason: Nasal Congestion
--- NOTE | 2017-03-15 16:17 | PRG ---
DATE OF SERVICE: 03/15/2017 SUBJECTIVE: Razia Simth is better. She is less cough and less short of breath. OBJECTIVE: VITAL SIGNS: Though his sats are still low at 91%, blood pressure 99/58, pulse 78, temperature 98. CHEST: Reveals bilateral crackles. CARDIAC: Normal S1, S2. No gallops. LABORATORY AND X-RAY FINDINGS: X-ray shows cephalization and CHF. Electrolytes are normal. IMPRESSION: Respiratory failure, pneumonia, Down syndrome. Nebs, antibiotics, steroids.
[2017-03-15] MEDS: Aripiprazole 2 MG TAB PO SCH (20:44)
[2017-03-15] MEDS: Acetaminophen 325 MG TAB PO PRN (22:21)
[2017-03-16] MEDS: Furosemide 40 MG/4 ML VIAL SLOW IVP SCH ×2 (05:49→14:18)
[2017-03-16] MEDS: Levothyroxine Sodium 125 MCG TAB PO SCH (05:49)
--- NOTE | 2017-03-16 09:49 | PDOC.PULPN ---
Progress Note: Subj/Obj - Subjective Date: 03/16/17 Time: 09:47 - ROS All systems: reviewed and no additional remarkable complaints except as stated Respiratory: congestion, cough - Objective Allergies/Adverse Reactions: Allergies Allergy/AdvReac Type Severity Reaction Status Date / Time iodine Allergy Intermediate Verified 05/15/16 04:38 lisinopril Allergy Intermediate Verified 05/15/16 04:38 Medications: Current Medications Acetaminophen (Tylenol) 650 mg PO Q4H PRN PRN Reason: Headache/Fever or Pain Last Admin: 03/15/17 22:21 Dose: 650 mg Acetaminophen (Tylenol) 650 mg [place] Q4H PRN PRN Reason: Headache/Fever or Pain Al Hydroxide/Mg Hydroxide (Maalox) 15 ml PO Q4H PRN PRN Reason: Heartburn or Indigestion Last Admin: 03/14/17 02:26 Dose: 15 ml Albuterol/Ipratropium (Duoneb) 3 ml NEB [id number] [facility] Last Admin: 03/16/17 06:58 Dose: 3 ml Aripiprazole (Abilify) 2 mg PO HS [facility] Last Admin: 03/15/17 20:44 Dose: 2 mg Artificial Tears (Tears Naturale) 0 drop EA EYE PRN PRN PRN Reason: Dry Eyes Bisacodyl (Dulcolax) 10 mg PO DAILYPRN PRN PRN Reason: Constipation Citalopram Hydrobromide (Celexa) 10 mg PO DAILY [facility] Last Admin: 03/15/17 08:51 Dose: 10 mg Doxycycline Hyclate (Vibramycin) 100 mg PO BID [facility] Last Admin: 03/15/17 20:44 Dose: 100 mg Enoxaparin Sodium (Lovenox) 40 mg SC 0900 [facility] Last Admin: 03/15/17 08:52 Dose: 40 mg Famotidine (Pepcid) 20 mg PO BID [facility] Last Admin: 03/15/17 20:44 Dose: 20 mg Furosemide (Lasix) 40 mg SLOW IVP 0600,1400 [facility] Last Admin: 03/16/17 05:49 Dose: 40 mg Guaifenesin (Robitussin Sf) 200 mg PO Q4H PRN PRN Reason: Cough Guaifenesin/Dextromethorphan (Robitussin Dm) 15 ml PO Q4H PRN PRN Reason: Cough Hydralazine HCl (Apresoline) 10 mg SLOW IVP Q4H PRN PRN Reason: Systolic BP > 180 Levothyroxine Sodium (Synthroid) 125 mcg PO 0600 [facility] Last Admin: 03/16/17 05:49 Dose: 125 mcg Loratadine (Claritin) 10 mg PO DAILYPRN PRN PRN Reason: Sinus Symptoms Magnesium Hydroxide (Milk Of Magnesium) 30 ml PO DAILYPRN PRN PRN Reason: Constipation Mineral Oil/White Petrolatum (Eucerin Cream) 0 gm TOP BIDPRN PRN PRN Reason: Dry Skin Nystatin (Mycostatin Powder) 0 gm TOP BIDPRN PRN PRN Reason: SKIN IRRITATION Last Admin: 03/10/17 20:40 Dose: 1 applic Ondansetron HCl (Zofran Odt) 4 mg PO Q6H PRN PRN Reason: Nausea/Vomiting Ondansetron HCl (Zofran) 4 mg IVP Q6H PRN PRN Reason: Nausea/Vomiting Last Admin: 03/13/17 22:26 Dose: 4 mg Phenol (Chloraseptic [place] 180 Ml Bot) 0 ml PO PRN PRN PRN Reason: Sore Throat Prednisone (Prednisone) 20 mg PO QAM-[facility] Last Admin: 03/15/17 08:51 Dose: 20 mg Sodium Chloride ([place] Nasal [place] 0.65%) 0 ml EA NARE QIDPRN PRN PRN Reason: Nasal Congestion MAR Reviewed: Yes Vital Signs: Vital Signs Temp 97.5 F L 03/16/17 08:07 Pulse 84 03/16/17 08:07 Resp 22 H 03/16/17 08:07 BP 107/62 03/16/17 08:07 Pulse Ox 86 L 03/16/17 08:07 Intake & Output 03/15/17 03/16/17 03/16/17 18:59 06:59 18:59 Intake Total 1080 200 Output Total 1000 1850 Balance 80 -1650 Weight 186 lb 8 oz Intake: Oral 1080 200 Output: Urine 1000 1850 Other: Voiding Method Bedside Commode Bedside Commode Progress Note: Exam - Physical Exam Constitutional: NAD HEENT: PERRLA, sclera anicteric Neck: no nodes, no JVD Cardiovascular: RRR Respiratory: rhonchi Gastrointestinal: soft, non-tender Musculoskeletal: no edema Neurological: non-focal, normal sensation, moves all 4 limbs Lymphatic: no nodes Psychiatric: normal affect Skin: no rash, normal turgor - Labs Result Diagrams: 03/13/17 08:41 03/15/17 04:54 Progress Note: A/P - Problems (1) Acute on chronic diastolic (congestive) heart failure Current Visit: Yes Status: Acute Code(s): I50.33 - ACUTE ON CHRONIC DIASTOLIC (CONGESTIVE) HEART FAILURE (2) Acute respiratory failure with hypoxia Current Visit: Yes Status: Resolved Code(s): J96.01 - ACUTE RESPIRATORY FAILURE WITH HYPOXIA (3) PNA (pneumonia) Current Visit: Yes Status: Acute Code(s): J18.9 - PNEUMONIA, UNSPECIFIED ORGANISM Qualifiers: Pneumonia type: due to unspecified organism Laterality: bilateral (4) CKD (chronic kidney disease) stage 2, GFR 60-89 ml/min Current Visit: Yes Status: Chronic Code(s): N18.2 - CHRONIC KIDNEY DISEASE, STAGE 2 (MILD) - Plan Plan: Continue to wean oxygen. Continue doxycycline Very slow recovery. Consider SNF
[2017-03-16] MEDS: Doxycycline 100 MG CAP PO SCH ×2 (10:39→20:55)
[2017-03-16] MEDS: Citalopram 20 MG TAB PO SCH (10:39)
[2017-03-16] MEDS: predniSONE 20 MG TAB PO SCH (10:41)
[2017-03-16] MEDS: Famotidine 20 MG TAB PO SCH ×2 (10:41→20:54)
[2017-03-16] MEDS: Enoxaparin Sodium 40 MG/0.4 ML SYRINGE SC SCH (10:42)
--- NOTE | 2017-03-16 11:16 | PDOC.PN ---
- Subjective Encounter Start Date: 03/16/17 Encounter Start Time: 08:45 Subjective: is on bipap this am -: awake and responds well -: is amb in room per family in room - Objective Resuscitation Status: Resuscitation Status FULL:Full Resuscitation MAR Reviewed: Yes Vital Signs & Weight: Vital Signs (12 hours) Temp Pulse Resp BP Pulse Ox 03/16/17 08:07 97.5 F L 84 22 H 107/62 86 L 03/16/17 06:58 76 16 92 L 03/16/17 05:45 97.6 F 72 24 H 99/58 L 92 L 03/16/17 00:39 68 14 94 L 03/16/17 00:36 68 14 94 L Weight Weight 186 lb 8 oz Most Recent Monitor Data Heart Rate from ECG 80 NIBP 79/44 NIBP BP-Mean 56 Respiration from ECG 32 SpO2 96 I&O: 03/15/17 03/16/17 03/17/17 06:59 06:59 06:59 Intake Total 840 1280 Output Total 2450 2850 Balance -1610 -1570 Result Diagrams: 03/13/17 08:41 03/15/17 04:54 Phys Exam - Physical Examination HEENT: PERRLA, sclera anicteric Neck: no JVD, supple Respiratory: no wheezing rhonchi+ Cardiovascular: RRR, no significant murmur Gastrointestinal: soft, non-tender, positive bowel sounds Musculoskeletal: no edema, pulses present Neurological: non-focal, moves all 4 limbs Dx/Plan (1) Acute respiratory failure with hypoxia Code(s): J96.01 - ACUTE RESPIRATORY FAILURE WITH HYPOXIA Status: Acute Comment: resolving (2) Acute on chronic diastolic (congestive) heart failure Code(s): I50.33 - ACUTE ON CHRONIC DIASTOLIC (CONGESTIVE) HEART FAILURE Status : Acute Comment: resolving (3) PNA (pneumonia) Code(s): J18.9 - PNEUMONIA, UNSPECIFIED ORGANISM Status: Acute Qualifiers: Pneumonia type: due to unspecified organism Laterality: bilateral (4) CKD (chronic kidney disease) stage 2, GFR 60-89 ml/min Code(s): N18.2 - CHRONIC KIDNEY DISEASE, STAGE 2 (MILD) Status: Chronic (5) Demand ischemia Code(s): I24.8 - OTHER FORMS OF ACUTE ISCHEMIC HEART DISEASE Status: Acute (6) Down's syndrome Code(s): Q90.9 - DOWN SYNDROME, UNSPECIFIED Status: Chronic (7) Hypothyroidism Code(s): E03.9 - HYPOTHYROIDISM, UNSPECIFIED Status: Chronic Qualifiers: Hypothyroidism type: unspecified Qualified Code(s): E03.9 - Hypothyroidism , unspecified (8) Obstructive sleep apnea Code(s): G47.33 - OBSTRUCTIVE SLEEP APNEA (ADULT) (PEDIATRIC) Status: Chronic - Plan cpap qhs -: wean oxygen per pulm advice -: is on doxy, prednisone 20mg daily -: iv lasix q12h, diuresing well -: electrolytes stable, amb as tolerated * . CM for swing/snf Review of Systems - Medications/Allergies Allergies/Adverse Reactions: Allergies Allergy/AdvReac Type Severity Reaction Status Date / Time iodine Allergy Intermediate Verified 05/15/16 04:38 lisinopril Allergy Intermediate Verified 05/15/16 04:38 Medications: Current Medications Acetaminophen (Tylenol) 650 mg PO Q4H PRN PRN Reason: Headache/Fever or Pain Last Admin: 03/15/17 22:21 Dose: 650 mg Acetaminophen (Tylenol) 650 mg TN Q4H PRN PRN Reason: Headache/Fever or Pain Al Hydroxide/Mg Hydroxide (Maalox) 15 ml PO Q4H PRN PRN Reason: Heartburn or Indigestion Last Admin: 03/14/17 02:26 Dose: 15 ml Albuterol/Ipratropium (Duoneb) 3 ml NEB [id number] [facility] Last Admin: 03/16/17 06:58 Dose: 3 ml Aripiprazole (Abilify) 2 mg PO HS [facility] Last Admin: 03/15/17 20:44 Dose: 2 mg Artificial Tears (Tears Naturale) 0 drop EA EYE PRN PRN PRN Reason: Dry Eyes Bisacodyl (Dulcolax) 10 mg PO DAILYPRN PRN PRN Reason: Constipation Citalopram Hydrobromide (Celexa) 10 mg PO DAILY [facility] Last Admin: 03/16/17 10:39 Dose: 10 mg Doxycycline Hyclate (Vibramycin) 100 mg PO BID [facility] Last Admin: 03/16/17 10:39 Dose: 100 mg Enoxaparin Sodium (Lovenox) 40 mg SC 0900 [facility] Last Admin: 03/16/17 10:42 Dose: 40 mg Famotidine (Pepcid) 20 mg PO BID [facility] Last Admin: 03/16/17 10:41 Dose: 20 mg Furosemide (Lasix) 40 mg SLOW IVP 0600,1400 [facility] Last Admin: 03/16/17 05:49 Dose: 40 mg Guaifenesin (Robitussin Sf) 200 mg PO Q4H PRN PRN Reason: Cough Guaifenesin/Dextromethorphan (Robitussin Dm) 15 ml PO Q4H PRN PRN Reason: Cough Hydralazine HCl (Apresoline) 10 mg SLOW IVP Q4H PRN PRN Reason: Systolic BP > 180 Levothyroxine Sodium (Synthroid) 125 mcg PO 0600 [facility] Last Admin: 03/16/17 05:49 Dose: 125 mcg Loratadine (Claritin) 10 mg PO DAILYPRN PRN PRN Reason: Sinus Symptoms Magnesium Hydroxide (Milk Of Magnesium) 30 ml PO DAILYPRN PRN PRN Reason: Constipation Mineral Oil/White Petrolatum (Eucerin Cream) 0 gm TOP BIDPRN PRN PRN Reason: Dry Skin Nystatin (Mycostatin Powder) 0 gm TOP BIDPRN PRN PRN Reason: SKIN IRRITATION Last Admin: 03/10/17 20:40 Dose: 1 applic Ondansetron HCl (Zofran Odt) 4 mg PO Q6H PRN PRN Reason: Nausea/Vomiting Ondansetron HCl (Zofran) 4 mg IVP Q6H PRN PRN Reason: Nausea/Vomiting Last Admin: 03/13/17 22:26 Dose: 4 mg Phenol (Chloraseptic [place] 180 Ml Bot) 0 ml PO PRN PRN PRN Reason: Sore Throat Prednisone (Prednisone) 20 mg PO Q[facility] Last Admin: 03/16/17 10:41 Dose: 20 mg Sodium Chloride ([place] Nasal [place] 0.65%) 0 ml EA NARE QIDPRN PRN PRN Reason: Nasal Congestion
[2017-03-16] MEDS: Diabetic Tussin 200 MG/10 ML UDCUP PO PRN (21:38)
[2017-03-16] MEDS: Aripiprazole 2 MG TAB PO SCH (21:38)
[2017-03-17] MEDS: Levothyroxine Sodium 125 MCG TAB PO SCH (05:38)
[2017-03-17] MEDS: Furosemide 40 MG/4 ML VIAL SLOW IVP SCH ×2 (05:38→13:11)
[2017-03-17 06:02] LABS: #Eosinphils 0.2 thou/uL (0.0-0.7); #Lymphocytes 1.1 thou/uL (1.20-3.40); #Monocytes 0.4 thou/uL (0.11-0.59); #Neutrophils 5.9 thou/uL (1.40-6.50); %Basophils 0.4 % (0.0-1.0); %Eosinophils 2.1 % (0.0-10.0); %Lymphocytes 14.3 % (21.0-51.0); %Monocytes 4.9 % (0.0-10.0); %Neutrophils 78.3 % (42.0-75.0); Hemoglobin 12.1 g/dL (12.0-16.0); Mean Corpuscular HGB CONC 30.9 g/dL (32.0-36.0); Mean Corpuscular Hemoglobin 29.2 pg (27.0-31.0); Mean Corpuscular Volume 94.3 fl (81.0-99.0); Mean Platelet Volume 8.2 fL (7.4-10.4); Platelet Count 314 thou/uL (130-400); RBC Distribution Width 20.5 % (11.5-14.5); Red Blood Cell (RBC) Count 4.13 mill/uL (4.20-5.40); White Blood Cell (WBC) Count 7.5 thou/uL (4.8-10.8)
[2017-03-17 06:19] LABS: Anion Gap 14 mmol/L (10-20); BUN (Urea Nitrogen) 23 mg/dL (7.0-18.7); Calc. Creatinine Clearance 78 mL/min (70-130); Calcium 9.6 mg/dL (7.8-10.44); Carbon Dioxide 35 mmol/L (22-29); Chloride 93 mmol/L (98-107); Estimated GFR-MDRD 48; Glucose 82 mg/dL (70-105); Sodium 138 mmol/L (136-145)
[2017-03-17] MEDS: Citalopram 20 MG TAB PO SCH (08:46)
[2017-03-17] MEDS: Doxycycline 100 MG CAP PO SCH ×2 (08:46→21:22)
[2017-03-17] MEDS: predniSONE 20 MG TAB PO SCH (08:46)
[2017-03-17] MEDS: Enoxaparin Sodium 40 MG/0.4 ML SYRINGE SC SCH (08:46)
[2017-03-17] MEDS: Famotidine 20 MG TAB PO SCH ×2 (08:46→21:21)
--- NOTE | 2017-03-17 09:29 | RAD ---
CHEST ONE VIEW: History: Dyspnea. Chest pain. Follow up. Comparison: 03-15-17 FINDINGS: Cardiac silhouette is magnified and enlarged. Pulmonary vasculature remains engorged with bilateral p erihilar infiltrate and other scattered areas of patchy infiltrate throughout each lung, similar in a ppearance to the previous exam. Mediastinum is midline with post-operative changes. No evidence of pn eumothorax. IMPRESSION: Pulmonary vascular congestion and patchy bilateral infiltrates are stable compared to the previous ex am. POS: [facility]
--- NOTE | 2017-03-17 10:04 | PRG ---
DATE OF SERVICE: 03/17/2017 SUBJECTIVE: Ms. Smith took a turn for the worse yesterday and required coming to the [facility] for inter mittent BiPAP ventilation. She has been off and on the BiPAP since that time. OBJECTIVE: VITAL SIGNS: Temperature is 98.5, pulse 87, respirations 20, O2 sat between 86%-92% on 40% oxygen, a nd blood pressure 108/57. HEENT: Unremarkable. NECK: No JVD. LUNGS: Coarse breath sounds. CARDIOVASCULAR: S1, S2 regular. ABDOMEN: Soft, nontender. EXTREMITIES: Trace edema. IMAGING STUDIES: Her chest x-ray shows vascular congestion bilaterally. ASSESSMENT: 1. Chronic respiratory failure secondary to congestive heart failure, probably concurrent pneumonia. 2. Down syndrome. 3. Chronic kidney disease. PLAN: The patient will continue intermittent BiPAP. She will continue diuresis. I am very concerne d that we are dealing with end-stage organ failure as a result of her Down syndrome. Family seems re alistic about her poor prognosis. We will follow.
--- NOTE | 2017-03-17 11:12 | PRG ---
DATE OF SERVICE: 03/17/2017 SUBJECTIVE: Ms. Smith is back in the IMCU. Her oxygen levels have dropped. Chest x-ray continues to show congestive heart failure. OBJECTIVE: GENERAL: The patient is comfortable on the CPAP. VITAL SIGNS: Her blood pressure 108/57, pulse in the 80s. She has occasional SVT. LUNGS: Clear anteriorly and laterally. CARDIAC: Normal S1 and S2. ABDOMEN: Soft, nontender. EXTREMITIES: There is no significant edema. LABORATORY DATA: Creatinine is down to 1.2. ASSESSMENT: Diastolic heart failure refractory, BNPs back up. PLAN: 1. Increase diuretics. 2. Martin catheter. 3. Prognosis guarded to poor was discussed by Dr. Marie.
[2017-03-17] MEDS: Dexamethasone 4 mg/ml Vial SLOW IVP SCH ×2 (13:11→17:10)
--- NOTE | 2017-03-17 13:16 | PDOC.PN ---
- Subjective Encounter Start Date: 03/17/17 Encounter Start Time: 07:45 Subjective: no sob, is on bipap and comfortable -: awake, responds to simple questions - Objective Resuscitation Status: Resuscitation Status FULL:Full Resuscitation MAR Reviewed: Yes Vital Signs & Weight: Vital Signs (12 hours) Temp Pulse Resp BP Pulse Ox 03/17/17 12:51 79 21 H 88 L 03/17/17 12:50 83 23 H 88 L 03/17/17 12:13 89 24 H 93 L 03/17/17 12:00 97.8 F 93 28 H 108/57 L 95 03/17/17 09:30 87 22 H 92 L 03/17/17 09:09 99 22 H 86 L 03/17/17 08:00 98 F 87 22 H 108/57 L 92 L 03/17/17 04:00 97.6 F 84 18 108/57 L 97 Weight Weight 173 lb 1.6 oz Most Recent Monitor Data Heart Rate from ECG 80 NIBP 79/44 NIBP BP-Mean 56 Respiration from ECG 32 SpO2 96 I&O: 03/16/17 03/17/17 03/18/17 06:59 06:59 06:59 Intake Total 1280 600 Output Total 2850 1500 Balance -1570 -900 Result Diagrams: 03/17/17 05:38 03/17/17 05:38 Phys Exam - Physical Examination HEENT: PERRLA, moist MMs Neck: no JVD, supple Respiratory: no wheezing, no rales Cardiovascular: RRR, no significant murmur Gastrointestinal: soft, non-tender, positive bowel sounds Musculoskeletal: no edema, pulses present Neurological: non-focal, moves all 4 limbs Dx/Plan (1) Acute respiratory failure with hypoxia Code(s): J96.01 - ACUTE RESPIRATORY FAILURE WITH HYPOXIA Status: Acute Comment: resolving (2) Acute on chronic diastolic (congestive) heart failure Code(s): I50.33 - ACUTE ON CHRONIC DIASTOLIC (CONGESTIVE) HEART FAILURE Status : Acute Comment: resolving (3) PNA (pneumonia) Code(s): J18.9 - PNEUMONIA, UNSPECIFIED ORGANISM Status: Acute Qualifiers: Pneumonia type: due to unspecified organism Laterality: bilateral (4) CKD (chronic kidney disease) stage 2, GFR 60-89 ml/min Code(s): N18.2 - CHRONIC KIDNEY DISEASE, STAGE 2 (MILD) Status: Chronic (5) Demand ischemia Code(s): I24.8 - OTHER FORMS OF ACUTE ISCHEMIC HEART DISEASE Status: Acute (6) Down's syndrome Code(s): Q90.9 - DOWN SYNDROME, UNSPECIFIED Status: Chronic (7) Hypothyroidism Code(s): E03.9 - HYPOTHYROIDISM, UNSPECIFIED Status: Chronic Qualifiers: Hypothyroidism type: unspecified Qualified Code(s): E03.9 - Hypothyroidism , unspecified (8) Obstructive sleep apnea Code(s): G47.33 - OBSTRUCTIVE SLEEP APNEA (ADULT) (PEDIATRIC) Status: Chronic - Plan is on bipap in imcu -: on lasix iv q12h -: prednisone 20mg daily, nebs, doxy -: abilify HS, has multiple family members at bedside -: needs to ambulate more when she is off bipap * . Review of Systems - Medications/Allergies Allergies/Adverse Reactions: Allergies Allergy/AdvReac Type Severity Reaction Status Date / Time iodine Allergy Intermediate Verified 05/15/16 04:38 lisinopril Allergy Intermediate Verified 05/15/16 04:38 Medications: Current Medications Acetaminophen (Tylenol) 650 mg PO Q4H PRN PRN Reason: Headache/Fever or Pain Last Admin: 03/15/17 22:21 Dose: 650 mg Acetaminophen (Tylenol) 650 mg DC Q4H PRN PRN Reason: Headache/Fever or Pain Al Hydroxide/Mg Hydroxide (Maalox) 15 ml PO Q4H PRN PRN Reason: Heartburn or Indigestion Last Admin: 03/14/17 02:26 Dose: 15 ml Albuterol/Ipratropium (Duoneb) 3 ml NEB [id number] [facility] Last Admin: 03/17/17 12:50 Dose: 3 ml Aripiprazole (Abilify) 2 mg PO HS [facility] Last Admin: 03/16/17 21:38 Dose: 2 mg Artificial Tears (Tears Naturale) 0 drop EA EYE PRN PRN PRN Reason: Dry Eyes Bisacodyl (Dulcolax) 10 mg PO DAILYPRN PRN PRN Reason: Constipation Citalopram Hydrobromide (Celexa) 10 mg PO DAILY [facility] Last Admin: 03/17/17 08:46 Dose: 10 mg Dexamethasone (Decadron) 2 mg SLOW IVP Q6HR [facility] Last Admin: 03/17/17 13:11 Dose: 2 mg Doxycycline Hyclate (Vibramycin) 100 mg PO BID [facility] Last Admin: 03/17/17 08:46 Dose: 100 mg Enoxaparin Sodium (Lovenox) 40 mg SC 0900 [facility] Last Admin: 03/17/17 08:46 Dose: 40 mg Famotidine (Pepcid) 20 mg PO BID [facility] Last Admin: 03/17/17 08:46 Dose: 20 mg Furosemide (Lasix) 80 mg SLOW IVP 0600,1400 [facility] Last Admin: 03/17/17 13:11 Dose: 80 mg Guaifenesin (Robitussin Sf) 200 mg PO Q4H PRN PRN Reason: Cough Last Admin: 03/16/17 21:38 Dose: 200 mg Guaifenesin/Dextromethorphan (Robitussin Dm) 15 ml PO Q4H PRN PRN Reason: Cough Hydralazine HCl (Apresoline) 10 mg SLOW IVP Q4H PRN PRN Reason: Systolic BP > 180 Levothyroxine Sodium (Synthroid) 125 mcg PO 0600 [facility] Last Admin: 03/17/17 05:38 Dose: 125 mcg Loratadine (Claritin) 10 mg PO DAILYPRN PRN PRN Reason: Sinus Symptoms Magnesium Hydroxide (Milk Of Magnesium) 30 ml PO DAILYPRN PRN PRN Reason: Constipation Mineral Oil/White Petrolatum (Eucerin Cream) 0 gm TOP BIDPRN PRN PRN Reason: Dry Skin Nystatin (Mycostatin Powder) 0 gm TOP BIDPRN PRN PRN Reason: SKIN IRRITATION Last Admin: 03/10/17 20:40 Dose: 1 applic Ondansetron HCl (Zofran Odt) 4 mg PO Q6H PRN PRN Reason: Nausea/Vomiting Ondansetron HCl (Zofran) 4 mg IVP Q6H PRN PRN Reason: Nausea/Vomiting Last Admin: 03/13/17 22:26 Dose: 4 mg Phenol (Chloraseptic [place] 180 Ml Bot) 0 ml PO PRN PRN PRN Reason: Sore Throat Sodium Chloride ([place] Nasal [place] 0.65%) 0 ml EA NARE QIDPRN PRN PRN Reason: Nasal Congestion
[2017-03-17] MEDS: Aripiprazole 2 MG TAB PO SCH (21:22)
[2017-03-18] MEDS: Dexamethasone 4 mg/ml Vial SLOW IVP SCH ×4 (00:59→17:33)
[2017-03-18] MEDS: Levothyroxine Sodium 125 MCG TAB PO SCH (05:02)
[2017-03-18] MEDS: Furosemide 40 MG/4 ML VIAL SLOW IVP SCH ×2 (05:03→14:00)
[2017-03-18] MEDS: Doxycycline 100 MG CAP PO SCH ×2 (09:20→21:24)
[2017-03-18] MEDS: Famotidine 20 MG TAB PO SCH (09:20)
[2017-03-18] MEDS: Citalopram 20 MG TAB PO SCH (09:20)
[2017-03-18] MEDS: Enoxaparin Sodium 40 MG/0.4 ML SYRINGE SC SCH (09:20)
[2017-03-18] MEDS ORDERED: Metolazone 5 MG TAB PO SCH (10:00)
--- NOTE | 2017-03-18 10:27 | PRG ---
DATE OF SERVICE: 03/18/2017 SUBJECTIVE: Ms. Smith looks better today. Her breathing is improved. OBJECTIVE: VITAL SIGNS: Pulse is 80, oxygen saturation is in the 90s on nasal cannula, blood pressure 98/60. LUNGS: Clear. CARDIAC: Normal S1, normal S2. ABDOMEN: Soft, nontender. EXTREMITIES: There is no edema. PERTINENT LABORATORY DATA: Creatinine is 1.2, CO2 is 35, that was actually yesterday. ASSESSMENT: 1. Congestive heart failure, diastolic, clinically improved. 2. Good diuresis yesterday with higher dose of furosemide. PLAN: 1. We will give her a single dose of metolazone. 2. Check base met tomorrow. 3. May need Diamox developing some metabolic alkalosis.
--- NOTE | 2017-03-18 10:32 | PRG ---
DATE OF SERVICE: 03/18/2017 SUBJECTIVE: She looks better today compared to yesterday. Family is all at the bedside. OBJECTIVE: VITAL SIGNS: Temperature 97.6, pulse 79, respirations 14, O2 sat 88% to 93% on nasal cannula, blood pressure 90/68. HEENT: Unremarkable. NECK: No JVD. LUNGS: Much clearer compared to yesterday. CARDIAC: S1 and S2 regular. ABDOMEN: Soft. EXTREMITIES: Decreased edema. LABORATORY DATA: No new labs were done today. ASSESSMENT: 1. Diastolic congestive heart failure. 2. Pneumonia. 3. Down's syndrome. PLAN: Continue intermittent BiPAP. Her diuretics have been increased by Dr. Barragan. Her progress b etween yesterday and today is favorable. Hopefully, she will continue in that direction.
[2017-03-18] MEDS: Ketorolac Tromethamine 30 MG/ML VIAL IVP SCH (14:06)
--- NOTE | 2017-03-18 14:56 | PDOC.PN ---
- Subjective Encounter Start Date: 03/18/17 Encounter Start Time: 14:45 Subjective: f/u for diastolic CHF on Lasix and PNA on Doxycycline. Requiring BiPAP -: intermittently and c/o CP when taking deep breaths and coughing. -: No fever or chills. - Objective Resuscitation Status: Resuscitation Status FULL:Full Resuscitation MAR Reviewed: Yes Vital Signs & Weight: Vital Signs (12 hours) Temp Pulse Resp BP Pulse Ox 03/18/17 12:36 87 24 H 88 L 03/18/17 12:00 97.2 F L 89 20 100/56 L 91 L 03/18/17 08:00 97.6 F 79 14 93 L 03/18/17 07:59 97.6 F 79 14 98/68 93 L 03/18/17 07:54 91 24 H 89 L 03/18/17 04:35 98.8 F 84 21 H 101/64 93 L Weight Weight 169 lb 12.8 oz Most Recent Monitor Data Heart Rate from ECG 80 NIBP 79/44 NIBP BP-Mean 56 Respiration from ECG 32 SpO2 96 I&O: 03/17/17 03/18/17 03/19/17 06:59 06:59 06:59 Intake Total 600 1220 Output Total 1500 3250 Balance -900 -2029 Result Diagrams: 03/17/17 05:38 03/17/17 05:38 Additional Labs: Microbiology 03/08/17 20:07 Urine johnson catheter Urine Culture - Final NO GROWTH AT 48 HOURS 03/08/17 19:49 Nasopharyngeal swab Respiratory Panel (PCR) - Final 03/08/17 18:45 Nasal swab Influenza Types A,B Direct EIA - Final 03/08/17 18:41 Venous blood - Right Hand Blood Culture - Final NO GROWTH IN 5 DAYS 03/08/17 18:27 Venous blood - Left Hand Blood Culture - Final NO GROWTH IN 5 DAYS Laboratory Tests 03/08/17 03/12/17 03/13/17 18:27 04:03 08:41 Potassium Creatinine 1.11 H B-Natriuretic Peptide 320.3 H 245.0 H 03/14/17 03/15/17 03/17/17 05:32 04:54 05:38 Potassium 5.5 H 4.5 Creatinine 1.01 1.10 B-Natriuretic Peptide 358.0 H Radiology Reviewed by me: Yes (PCXR -03/17/17 - bibasilar infiltrates) EKG Reviewed by me: Yes (Tele - SR in 70's) Phys Exam - Physical Examination Constitutional: NAD alert, nods to questions, BiPAP in place HEENT: PERRLA Neck: no JVD, supple Respiratory: clear to auscultation bilateral Cardiovascular: RRR Gastrointestinal: soft, non-tender, no distention, positive bowel sounds Musculoskeletal: no edema, pulses present Neurological: normal sensation, moves all 4 limbs Skin: normal turgor, cap refill <2 seconds Dx/Plan (1) Acute bronchitis due to human metapneumovirus Code(s): J20.8 - ACUTE BRONCHITIS DUE TO OTHER SPECIFIED ORGANISMS Status: Acute Comment: Pulmonary support, Duonebs and Decadron (2) Acute on chronic diastolic (congestive) heart failure Code(s): I50.33 - ACUTE ON CHRONIC DIASTOLIC (CONGESTIVE) HEART FAILURE Status : Acute Comment: ? component to current clinical picture, 20lb weight loss since 03/14/17 and appears dry, watch I/O's closely and daily weight, EF 50-55% (3) Acute respiratory failure with hypoxia Code(s): J96.01 - ACUTE RESPIRATORY FAILURE WITH HYPOXIA Status: Acute Comment: intermittent BiPAP, Duonebs, Decadron, trial Dulera 2 puffs BID (4) Acute worsening of stage 3 chronic kidney disease Code(s): N18.3 - CHRONIC KIDNEY DISEASE, STAGE 3 (MODERATE) Status: Acute Comment: Avoid nephrotoxic meds and contrast media, watch renal function closely (5) Down's syndrome Code(s): Q90.9 - DOWN SYNDROME, UNSPECIFIED Status: Chronic (6) Hypothyroidism Code(s): E03.9 - HYPOTHYROIDISM, UNSPECIFIED Status: Chronic Qualifiers: Hypothyroidism type: unspecified Qualified Code(s): E03.9 - Hypothyroidism , unspecified Comment: Continue Levothyroxine 125mcg daily (7) Obstructive sleep apnea Code(s): G47.33 - OBSTRUCTIVE SLEEP APNEA (ADULT) (PEDIATRIC) Status: Chronic - Plan plan discussed w/ family, continue antibiotics, bilingual social worker, respiratory therapy, out of bed/ambulate, DVT proph w/SCDs Stable overall -: Intermittent BiPAP -: Add Dulera 2 puffs BID -: Continue Decadron and Doxycycline -: Start Protonix 40mg daily * AM lab: BMP
--- NOTE | 2017-03-18 15:35 | RAD ---
CHEST ONE VIEW: History: Chest pain. Comparison: 03-17-17 FINDINGS: Cardiac silhouette is magnified, enlarged, and partially obscured by increasing bibasilar parenchymal opacities. Pulmonary vasculature is engorged. Linear atelectasis projects over the left upper lobe. Mediastinum is midline with post-operative changes. screw machine setter leads overlie the chest. IMPRESSION: Increasing pulmonary edema and pleural fluid. POS: [facility]
[2017-03-18] MEDS ORDERED: Morphine 2 MG/ML SYRINGE SLOW IVP SCH (17:15)
[2017-03-18] MEDS ORDERED: Morphine 2 MG/ML SYRINGE SLOW IVP PRN (18:40)
[2017-03-18] MEDS: Mometasone/Formoterol 120 PUFF INHALER INH SCH (19:22)
[2017-03-18] MEDS ORDERED: Furosemide 100 MG/10 ML VIAL SLOW IVP SCH (20:00)
[2017-03-18] MEDS: Aripiprazole 2 MG TAB PO SCH (21:24)
[2017-03-19] MEDS: Dexamethasone 4 mg/ml Vial SLOW IVP SCH ×4 (00:40→17:00)
[2017-03-19] MEDS: Furosemide 40 MG/4 ML VIAL SLOW IVP SCH ×2 (05:16→13:52)
[2017-03-19] MEDS: Levothyroxine Sodium 125 MCG TAB PO SCH (05:17)
[2017-03-19 06:07] LABS: Anion Gap 19 mmol/L (10-20); BUN (Urea Nitrogen) 44 mg/dL (7.0-18.7); Calc. Creatinine Clearance 55 mL/min (70-130); Calcium 10.5 mg/dL (7.8-10.44); Carbon Dioxide 34 mmol/L (22-29); Chloride 84 mmol/L (98-107); Estimated GFR-MDRD 36; Glucose 131 mg/dL (70-105); Potassium 3.7 mmol/L (3.5-5.1); Sodium 133 mmol/L (136-145)
[2017-03-19] MEDS: Mometasone/Formoterol 120 PUFF INHALER INH SCH ×3 (08:21→19:16)
--- NOTE | 2017-03-19 08:55 | PRG ---
DATE OF SERVICE: 03/19/2017 SUBJECTIVE: She feels a little better this morning. She wore BiPAP for a few hours last night. OBJECTIVE: VITAL SIGNS: On exam, temperature is 97.8, pulse 84, respiration 24, O2 sat 98% on 6 liters, blood p ressure 96/62. HEENT: Unremarkable. NECK: No JVD. LUNGS: Much more clear than they have been in the last couple of days. CARDIAC: S1 and S2 regular. ABDOMEN: Soft. EXTREMITIES: Trace edema. LABORATORY DATA: Sodium 133, potassium 3.7, BUN 44, creatinine 1.5, glucose 131. ASSESSMENT: 1. Acute on chronic respiratory failure requiring mechanical ventilation intermittently. 2. Diastolic congestive heart failure. 3. Pneumonia. 4. Down syndrome. PLAN: Hopefully, can wean the oxygen slowly. I think, she is about as dry as she can get from diure tic standpoint. Prognosis is extremely guarded.
--- NOTE | 2017-03-19 09:16 | PRG ---
DATE OF SERVICE: 03/19/2017 SUBJECTIVE: Ms. Smith still remains hypoxemic. Her oxygen saturation is 90% on nasal cannula. She does have quite a bit of chest pain yesterday seemed to be mostly musculoskeletal. OBJECTIVE: GENERAL: She is feeling well now. VITAL SIGNS: Blood pressure 92/62, pulse 74 regular. LUNGS: Clear. CARDIAC: Normal S1, normal S2. ABDOMEN: Soft, nontender. EXTREMITIES: There is no edema. PERTINENT LABORATORY DATA: Creatinine has gone up to 1.56. Estimated GFR is 36. Chest x-ray done y esterday reveals perhaps some improvement in the heart failure. ASSESSMENT: 1. Diastolic congestive heart failure, severe. 2. Renal insufficiency. Prognosis remains guarded to poor. Renal function is worsening with diuret ics. The family to discuss code status. We will go ahead and order one troponin level.
[2017-03-19] MEDS: Citalopram 20 MG TAB PO SCH (09:17)
[2017-03-19] MEDS: Doxycycline 100 MG CAP PO SCH ×2 (09:17→20:12)
[2017-03-19] MEDS: Enoxaparin Sodium 40 MG/0.4 ML SYRINGE SC SCH (09:17)
[2017-03-19 09:54] LABS: Troponin I 0.027 ng/mL (< 0.028)
[2017-03-19] MEDS: Ketorolac Tromethamine 30 MG/ML VIAL IVP SCH (13:53)
--- NOTE | 2017-03-19 14:53 | PDOC.PN ---
- Subjective Encounter Start Date: 03/19/17 Encounter Start Time: 14:35 Subjective: f/u for diastolic CHF EF 55% on Lasix and diuresing well. Remains -: on O2 NC currently off BiPAP. Eating well. Voiding appropriately. - Objective Resuscitation Status: Resuscitation Status FULL:Full Resuscitation MAR Reviewed: Yes Vital Signs & Weight: Vital Signs (12 hours) Temp Pulse Resp BP Pulse Ox 03/19/17 13:22 77 19 92 L 03/19/17 12:00 97.6 F 86 22 H 96/67 93 L 03/19/17 08:32 89 L 03/19/17 08:28 82 20 89 L 03/19/17 08:00 97.8 F 82 20 89 L 03/19/17 07:44 97.8 F 74 24 H 92/62 88 L 03/19/17 05:00 98.6 F 76 20 98/59 L 89 L 03/19/17 02:48 95 Weight Admit Weight 187 lb 2.759 oz Weight 166 lb 8 oz Most Recent Monitor Data Heart Rate from ECG 80 NIBP 79/44 NIBP BP-Mean 56 Respiration from ECG 32 SpO2 96 I&O: 03/18/17 03/19/17 03/20/17 06:59 06:59 06:59 Intake Total 1220 1160 Output Total 3250 2600 Balance -2030 -1440 Result Diagrams: 03/17/17 05:38 03/19/17 05:15 Radiology Reviewed by me: Yes (PCXR - + pulm edema) EKG Reviewed by me: Yes (Tele - SR in 80's) Phys Exam - Physical Examination Constitutional: NAD smiling, alert, responsive HEENT: PERRLA, oral pharynx no lesions Neck: no JVD, supple diminished in bases, + wheezes Cardiovascular: RRR Gastrointestinal: soft, non-tender, no distention, positive bowel sounds Musculoskeletal: no edema, pulses present Neurological: normal sensation, moves all 4 limbs Skin: normal turgor, cap refill <2 seconds Dx/Plan (1) Acute bronchitis due to human metapneumovirus Code(s): J20.8 - ACUTE BRONCHITIS DUE TO OTHER SPECIFIED ORGANISMS Status: Acute Comment: Pulmonary support, Duonebs and Decadron (2) Acute on chronic diastolic (congestive) heart failure Code(s): I50.33 - ACUTE ON CHRONIC DIASTOLIC (CONGESTIVE) HEART FAILURE Status : Acute Comment: ? component to current clinical picture, 20lb weight loss since 03/14/17 and appears dry, watch I/O's closely and daily weight, EF 50-55% (3) Acute respiratory failure with hypoxia Code(s): J96.01 - ACUTE RESPIRATORY FAILURE WITH HYPOXIA Status: Acute Comment: intermittent BiPAP, Duonebs, Decadron, trial Dulera 2 puffs BID (4) Acute worsening of stage 3 chronic kidney disease Code(s): N18.3 - CHRONIC KIDNEY DISEASE, STAGE 3 (MODERATE) Status: Acute Comment: Avoid nephrotoxic meds and contrast media, watch renal function closely (5) Down's syndrome Code(s): Q90.9 - DOWN SYNDROME, UNSPECIFIED Status: Chronic (6) Hypothyroidism Code(s): E03.9 - HYPOTHYROIDISM, UNSPECIFIED Status: Chronic Qualifiers: Hypothyroidism type: unspecified Qualified Code(s): E03.9 - Hypothyroidism , unspecified Comment: Continue Levothyroxine 125mcg daily (7) Obstructive sleep apnea Code(s): G47.33 - OBSTRUCTIVE SLEEP APNEA (ADULT) (PEDIATRIC) Status: Chronic - Plan plan discussed w/ family, continue antibiotics, PT/OT, director of social work, respiratory therapy, DVT proph w/SCDs Clinically improved -: Lasix 40mg IV q12h -: Wean O2 as clinically indicated -: Continue Duonebs, Dulera, Decadron -: AM lab: BMP * .
--- NOTE | 2017-03-19 19:52 | EKG ---
Test Reason : Blood Pressure : / mmHG Vent. Rate : 088 BPM Atrial Rate : 088 BPM P-R Int : 168 ms QRS Dur : 148 ms QT Int : 426 ms P-R-T Axes : 069 -44 090 degrees QTc Int : 515 ms Normal sinus rhythm Right atrial enlargement Left axis deviation Right bundle branch block Abnormal ECG When compared with ECG of 08-MAR-2017 18:21, (Unconfirmed) Borderline criteria for Inferior infarct are no longer Present Confirmed by JANE ROMERO, DR. Arvizu ([id number]) on 03/19/2017 7:51:55 PM Referred By: TRANG Confirmed By:DR. Nolberto LARA MD
[2017-03-19] MEDS: Aripiprazole 2 MG TAB PO SCH (20:12)
[2017-03-19] MEDS: Mag-Al 1200 mg/1200 mg/30 ML UDCUP PO PRN (21:39)
[2017-03-19] MEDS: Acetaminophen 325 MG TAB PO PRN (22:32)
[2017-03-20] MEDS: Dexamethasone 4 mg/ml Vial SLOW IVP SCH ×4 (00:35→17:04)
[2017-03-20 04:50] LABS: Anion Gap 20 mmol/L (10-20); BUN (Urea Nitrogen) 49 mg/dL (7.0-18.7); Calc. Creatinine Clearance 65 mL/min (70-130); Calcium 10.1 mg/dL (7.8-10.44); Carbon Dioxide 31 mmol/L (22-29); Chloride 84 mmol/L (98-107); Estimated GFR-MDRD 45; Glucose 147 mg/dL (70-105); Potassium 3.7 mmol/L (3.5-5.1); Sodium 131 mmol/L (136-145)
[2017-03-20] MEDS: Levothyroxine Sodium 125 MCG TAB PO SCH (05:11)
[2017-03-20] MEDS: Furosemide 40 MG/4 ML VIAL SLOW IVP SCH ×2 (05:12→12:25)
[2017-03-20] MEDS: Mometasone/Formoterol 120 PUFF INHALER INH SCH ×2 (08:21→22:49)
--- NOTE | 2017-03-20 08:46 | PDOC.PULPN ---
Progress Note: Subj/Obj - Subjective Date: 03/20/17 Time: 08:43 Narrative: Says she feels better - Objective Allergies/Adverse Reactions: Allergies Allergy/AdvReac Type Severity Reaction Status Date / Time iodine Allergy Intermediate Verified 05/15/16 04:38 lisinopril Allergy Intermediate Verified 05/15/16 04:38 Medications: Current Medications Acetaminophen (Tylenol) 650 mg PO Q4H PRN PRN Reason: Headache/Fever or Pain Last Admin: 03/19/17 22:32 Dose: 650 mg Acetaminophen (Tylenol) 650 mg TN Q4H PRN PRN Reason: Headache/Fever or Pain Al Hydroxide/Mg Hydroxide (Maalox) 15 ml PO Q4H PRN PRN Reason: Heartburn or Indigestion Last Admin: 03/19/17 21:39 Dose: 15 ml Albuterol/Ipratropium (Duoneb) 3 ml NEB [id number] [facility] Last Admin: 03/20/17 08:21 Dose: 3 ml Aripiprazole (Abilify) 2 mg PO HS [facility] Last Admin: 03/19/17 20:12 Dose: 2 mg Artificial Tears (Tears Naturale) 0 drop EA EYE PRN PRN PRN Reason: Dry Eyes Bisacodyl (Dulcolax) 10 mg PO DAILYPRN PRN PRN Reason: Constipation Citalopram Hydrobromide (Celexa) 10 mg PO DAILY [facility] Last Admin: 03/19/17 09:17 Dose: 10 mg Dexamethasone (Decadron) 2 mg SLOW IVP Q6HR [facility] Last Admin: 03/20/17 05:09 Dose: 2 mg Doxycycline Hyclate (Vibramycin) 100 mg PO BID [facility] Last Admin: 03/19/17 20:12 Dose: 100 mg Enoxaparin Sodium (Lovenox) 40 mg SC 0900 [facility] Last Admin: 03/19/17 09:17 Dose: 40 mg Furosemide (Lasix) 40 mg SLOW IVP 0600,1400 [facility] Last Admin: 03/20/17 05:12 Dose: 40 mg Guaifenesin (Robitussin Sf) 200 mg PO Q4H PRN PRN Reason: Cough Last Admin: 03/16/17 21:38 Dose: 200 mg Guaifenesin/Dextromethorphan (Robitussin Dm) 15 ml PO Q4H PRN PRN Reason: Cough Hydralazine HCl (Apresoline) 10 mg SLOW IVP Q4H PRN PRN Reason: Systolic BP > 180 Ketorolac Tromethamine (Toradol) 30 mg IVP NOW [facility] Stop: 03/23/17 16:00 Last Admin: 03/19/17 13:53 Dose: Not Given Levothyroxine Sodium (Synthroid) 125 mcg PO 0600 [facility] Last Admin: 03/20/17 05:11 Dose: 125 mcg Loratadine (Claritin) 10 mg PO DAILYPRN PRN PRN Reason: Sinus Symptoms Magnesium Hydroxide (Milk Of Magnesium) 30 ml PO DAILYPRN PRN PRN Reason: Constipation Mineral Oil/White Petrolatum (Eucerin Cream) 0 gm TOP BIDPRN PRN PRN Reason: Dry Skin Mometasone Furoate/Formoterol Fumar (Dulera 100 Mcg/5 Mcg Inhaler) 2 puff INH BID-RT [facility] Last Admin: 03/20/17 08:21 Dose: 2 puff Morphine Sulfate (Morphine) 2 mg SLOW IVP Q2H PRN PRN Reason: Pain Nystatin (Mycostatin Powder) 0 gm TOP BIDPRN PRN PRN Reason: SKIN IRRITATION Last Admin: 03/10/17 20:40 Dose: 1 applic Ondansetron HCl (Zofran Odt) 4 mg PO Q6H PRN PRN Reason: Nausea/Vomiting Ondansetron HCl (Zofran) 4 mg IVP Q6H PRN PRN Reason: Nausea/Vomiting Last Admin: 03/13/17 22:26 Dose: 4 mg Pantoprazole Sodium (Protonix) 40 mg PO DAILY [facility] Last Admin: 03/19/17 09:17 Dose: 40 mg Phenol (Chloraseptic [place] 180 Ml Bot) 0 ml PO PRN PRN PRN Reason: Sore Throat Sodium Chloride ([place] Nasal [place] 0.65%) 0 ml EA NARE QIDPRN PRN PRN Reason: Nasal Congestion MAR Reviewed: Yes Vital Signs: Vital Signs Temp 98.3 F 03/20/17 07:43 Pulse 82 03/20/17 08:21 Resp 20 03/20/17 08:21 BP 128/73 03/20/17 07:43 Pulse Ox 93 L 03/20/17 08:25 Intake & Output 03/19/17 03/20/1703/20/18 18:59 06:59 18:59 Intake Total 625 Output Total 1450 600 Balance -1450 25 Weight 166 lb 8 oz 172 lb 4.8 oz Intake: Intake, IV Amount 25 Oral 600 Output: Output, Martin 1450 600 Other: Voiding Method Indwelling Catheter Indwelling Catheter # Bowel Movements 1 Progress Note: Exam - Physical Exam Constitutional: NAD HEENT: PERRLA, sclera anicteric Neck: no JVD Cardiovascular: RRR Respiratory: rales Gastrointestinal: soft Musculoskeletal: no edema Neurological: non-focal Lymphatic: no nodes Psychiatric: normal affect Skin: no rash Progress Note: Data - Labs Result Diagrams: 03/17/17 05:38 03/20/17 04:12 Lab results: Laboratory Results 03/19/17 03/19/17 03/20/17 05:15 05:15 04:12 Sodium 133 L 131 L Potassium 3.7 3.7 Chloride 84 L 84 L Carbon Dioxide 34 H 31 H Anion Gap 19 20 BUN 44 H 49 H Creatinine 1.56 H 1.28 H Estimated GFR (MDRD) 36 45 Glucose 131 H 147 H Calcium 10.5 H 10.1 Troponin I 0.027 Progress Note: A/P - Problems (1) Acute on chronic diastolic (congestive) heart failure Current Visit: Yes Status: Acute Code(s): I50.33 - ACUTE ON CHRONIC DIASTOLIC (CONGESTIVE) HEART FAILURE (2) Acute respiratory failure with hypoxia Current Visit: Yes Status: Acute Code(s): J96.01 - ACUTE RESPIRATORY FAILURE WITH HYPOXIA (3) PNA (pneumonia) Current Visit: Yes Status: Acute Code(s): J18.9 - PNEUMONIA, UNSPECIFIED ORGANISM Qualifiers: Pneumonia type: due to unspecified organism Laterality: bilateral (4) CKD (chronic kidney disease) stage 2, GFR 60-89 ml/min Current Visit: Yes Status: Chronic Code(s): N18.2 - CHRONIC KIDNEY DISEASE, STAGE 2 (MILD) - Plan Plan: Very slow to improve, particularly from an oxygenation standpoint. Continue decadron, nebs, etc Diuretic dose decreased yesterday Will check doppler of LE to evaluate for DVT (I don't think she would cooperate with CTA)
[2017-03-20] MEDS: Citalopram 20 MG TAB PO SCH (09:25)
[2017-03-20] MEDS: Enoxaparin Sodium 40 MG/0.4 ML SYRINGE SC SCH (09:25)
[2017-03-20] MEDS: Doxycycline 100 MG CAP PO SCH ×2 (09:25→20:35)
--- NOTE | 2017-03-20 13:47 | ULT ---
BILATERAL LOWER EXTREMITY VENOUS DUPLEX SONOGRAM: Date: 03/20/17 HISTORY: Bilateral leg pain and edema. FINDINGS: Each common femoral vein and greater saphenous junction were evaluated along with each femoral and de ep femoral, popliteal, and posterior tibial vein. There is good color and spectral Doppler flow, comp ression, and augmentation. IMPRESSION: No sonographic evidence of deep venous thrombosis within either lower extremity. POS: MONIE
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
[2017-03-20] MEDS: Ketorolac Tromethamine 30 MG/ML VIAL IVP SCH (15:36)
[2017-03-20] MEDS ORDERED: Furosemide 40 MG/4 ML VIAL SLOW IVP SCH (16:00)
--- NOTE | 2017-03-20 17:15 | PRG ---
DATE OF SERVICE: 03/20/2017 SUBJECTIVE: Ms. Smith looks slightly better today, but still feels very short of breath. OBJECTIVE: VITAL SIGNS: Blood pressure 104/70, pulse 80. LUNGS: Clear. CARDIAC: Normal S1, normal S2. ABDOMEN: Soft, nontender. EXTREMITIES: There is mild edema. LABORATORY DATA: Creatinine is down to 1.28. ASSESSMENT: 1. Diastolic congestive heart failure, very refractory. 2. Renal insufficiency, slightly improved. PLAN: 1. Continue intravenous diuretics. We will increase dose. 2. I had a long discussion with the family, there is really nothing else could be done beyond diuret ic therapy. Prognosis is poor, really no other therapy available.
[2017-03-20] MEDS: Acetaminophen 325 MG TAB PO PRN (19:38)
[2017-03-20] MEDS: Aripiprazole 2 MG TAB PO SCH (20:35)
[2017-03-21] MEDS: Dexamethasone 4 mg/ml Vial SLOW IVP SCH ×5 (00:45→23:28)
[2017-03-21] MEDS: Furosemide 40 MG/4 ML VIAL SLOW IVP SCH ×2 (05:52→13:28)
[2017-03-21] MEDS: Levothyroxine Sodium 125 MCG TAB PO SCH (05:52)
[2017-03-21] MEDS: Mometasone/Formoterol 120 PUFF INHALER INH SCH ×2 (08:08→19:39)
[2017-03-21] MEDS: Citalopram 20 MG TAB PO SCH (08:36)
[2017-03-21] MEDS: Enoxaparin Sodium 40 MG/0.4 ML SYRINGE SC SCH (08:36)
[2017-03-21] MEDS: Doxycycline 100 MG CAP PO SCH (08:36)
--- NOTE | 2017-03-21 09:26 | PDOC.PN ---
- Subjective Encounter Start Date: 03/21/17 Encounter Start Time: 10:00 Subjective: nsg notes rev, shante ovn pts mother @ bedside -: two BM ovn, slept 'ok', able to work with PT -: pt no new c/o herself, is working on a workbook - Objective Resuscitation Status: Resuscitation Status FULL:Full Resuscitation Vital Signs & Weight: Vital Signs (12 hours) Temp Pulse Resp BP Pulse Ox 03/21/17 08:03 78 20 93 L 03/21/17 07:36 97.9 F 79 20 108/66 92 L 03/21/17 04:00 78 14 106/70 92 L 03/21/17 03:06 71 16 03/21/17 00:34 71 13 95 03/21/17 00:00 98.1 F 67 16 115/72 95 Weight Admit Weight 187 lb 2.759 oz Weight 171 lb 4.8 oz Most Recent Monitor Data Heart Rate from ECG 80 NIBP 79/44 NIBP BP-Mean 56 Respiration from ECG 32 SpO2 96 I&O: 03/20/17 03/21/17 03/22/17 06:59 06:59 06:59 Intake Total 625 827 Output Total 5 8535 Balance -1523 -476 Result Diagrams: 03/17/17 05:38 03/20/17 04:12 Phys Exam - Physical Examination Constitutional: NAD HEENT: PERRLA, moist MMs Neck: no JVD, supple Respiratory: no wheezing, no rales, no rhonchi coarse to auscultation bilaterally Cardiovascular: RRR, no significant murmur, no rub Gastrointestinal: soft, no distention, positive bowel sounds Musculoskeletal: pulses present Neurological: moves all 4 limbs Psychiatric: normal affect baseline mentation per mother at bedside Dx/Plan (1) Acute bronchitis due to human metapneumovirus Code(s): J20.8 - ACUTE BRONCHITIS DUE TO OTHER SPECIFIED ORGANISMS Status: Acute Comment: Pulmonary support, Duonebs and Decadron (2) Acute on chronic diastolic (congestive) heart failure Code(s): I50.33 - ACUTE ON CHRONIC DIASTOLIC (CONGESTIVE) HEART FAILURE Status : Acute Comment: apprec cardiology c/s careful diuresis under their guidance ? component to current clinical picture, 20lb weight loss since 03/14/17 and appears dry, watch I/O's closely and daily weight, EF 50-55% (3) Acute respiratory failure with hypoxia Code(s): J96.01 - ACUTE RESPIRATORY FAILURE WITH HYPOXIA Status: Acute Comment: apprec pulmonary c/s intermittent BiPAP, Duonebs, Decadron, trial Dulera 2 puffs BID (4) Acute worsening of stage 3 chronic kidney disease Code(s): N18.3 - CHRONIC KIDNEY DISEASE, STAGE 3 (MODERATE) Status: Acute Comment: Avoid nephrotoxic meds and contrast media, watch renal function closely (5) Demand ischemia Code(s): I24.8 - OTHER FORMS OF ACUTE ISCHEMIC HEART DISEASE Status: Acute (6) Down's syndrome Code(s): Q90.9 - DOWN SYNDROME, UNSPECIFIED Status: Chronic (7) Hypothyroidism Code(s): E03.9 - HYPOTHYROIDISM, UNSPECIFIED Status: Chronic Qualifiers: Hypothyroidism type: unspecified Qualified Code(s): E03.9 - Hypothyroidism , unspecified Comment: Continue Levothyroxine 125mcg daily (8) Obstructive sleep apnea Code(s): G47.33 - OBSTRUCTIVE SLEEP APNEA (ADULT) (PEDIATRIC) Status: Chronic - Plan plan discussed w/ patient's mother at bedside -: Wean O2 as tolerated -: Continue Duonebs, Decadron and Dulera -: Continue Doxycycline 100mg BID -: OOB/ambulate with PT * . Review of Systems - Medications/Allergies Allergies/Adverse Reactions: Allergies Allergy/AdvReac Type Severity Reaction Status Date / Time iodine Allergy Intermediate Verified 05/15/16 04:38 lisinopril Allergy Intermediate Verified 05/15/16 04:38 Medications: Current Medications Acetaminophen (Tylenol) 650 mg PO Q4H PRN PRN Reason: Headache/Fever or Pain Last Admin: 03/20/17 19:38 Dose: 650 mg Acetaminophen (Tylenol) 650 mg IA Q4H PRN PRN Reason: Headache/Fever or Pain Al Hydroxide/Mg Hydroxide (Maalox) 15 ml PO Q4H PRN PRN Reason: Heartburn or Indigestion Last Admin: 03/19/17 21:39 Dose: 15 ml Albuterol/Ipratropium (Duoneb) 3 ml NEB [id number] SHAUN Last Admin: 03/21/17 19:39 Dose: 3 ml Aripiprazole (Abilify) 2 mg PO HS SHAUN Last Admin: 03/20/17 20:35 Dose: 2 mg Artificial Tears (Tears Naturale) 0 drop EA EYE PRN PRN PRN Reason: Dry Eyes Bisacodyl (Dulcolax) 10 mg PO DAILYPRN PRN PRN Reason: Constipation Citalopram Hydrobromide (Celexa) 10 mg PO DAILY [facility] Last Admin: 03/21/17 08:36 Dose: 10 mg Dexamethasone (Decadron) 2 mg SLOW IVP Q6HR [facility] [place] Last Admin: 03/21/17 18:12 Dose: 2 mg Doxycycline Hyclate (Vibramycin) 100 mg PO BID [facility] [place] Last Admin: 03/21/17 08:36 Dose: 100 mg Enoxaparin Sodium (Lovenox) 40 mg SC 0900 [facility] Last Admin: 03/21/17 08:36 Dose: 40 mg Furosemide (Lasix) 60 mg SLOW IVP 0600,1400 [facility] [place] Last Admin: 03/21/17 13:28 Dose: 60 mg Guaifenesin (Robitussin Sf) 200 mg PO Q4H PRN PRN Reason: Cough Last Admin: 03/16/17 21:38 Dose: 200 mg Guaifenesin/Dextromethorphan (Robitussin Dm) 15 ml PO Q4H PRN PRN Reason: Cough Hydralazine HCl (Apresoline) 10 mg SLOW IVP Q4H PRN PRN Reason: Systolic BP > 180 Levothyroxine Sodium (Synthroid) 125 mcg PO 0600 [facility] [place] Last Admin: 03/21/17 05:52 Dose: 125 mcg Loratadine (Claritin) 10 mg PO DAILYPRN PRN PRN Reason: Sinus Symptoms Magnesium Hydroxide (Milk Of Magnesium) 30 ml PO DAILYPRN PRN PRN Reason: Constipation Mineral Oil/White Petrolatum (Eucerin Cream) 0 gm TOP BIDPRN PRN PRN Reason: Dry Skin Mometasone Furoate/Formoterol Fumar (Dulera 100 Mcg/5 Mcg Inhaler) 2 puff INH BID-RT [facility] [place] Last Admin: 03/21/17 19:39 Dose: 2 puff Morphine Sulfate (Morphine) 2 mg SLOW IVP Q2H PRN PRN Reason: Pain Nystatin (Mycostatin Powder) 0 gm TOP BIDPRN PRN PRN Reason: SKIN IRRITATION Last Admin: 03/10/17 20:40 Dose: 1 applic Ondansetron HCl (Zofran Odt) 4 mg PO Q6H PRN PRN Reason: Nausea/Vomiting Ondansetron HCl (Zofran) 4 mg IVP Q6H PRN PRN Reason: Nausea/Vomiting Last Admin: 03/13/17 22:26 Dose: 4 mg Pantoprazole Sodium (Protonix) 40 mg PO DAILY [facility] Last Admin: 03/21/17 08:36 Dose: 40 mg Phenol (Chloraseptic [place] 180 Ml Bot) 0 ml PO PRN PRN PRN Reason: Sore Throat Last Admin: 03/20/17 19:39 Dose: 2 spray Sodium Chloride ([place] Nasal [place] 0.65%) 0 ml EA NARE QIDPRN PRN PRN Reason: Nasal Congestion
--- NOTE | 2017-03-21 17:35 | PDOC.CTH ---
Cardiology Progress Note - Subjective No new issues or complaints. - Objective Vital Signs Temp Pulse Resp BP Pulse Ox 03/21/17 15:38 97.7 F 82 20 113/67 91 L 03/21/17 13:42 80 20 03/21/17 12:49 97.9 F 81 20 106/63 92 L 03/21/17 08:03 78 20 93 L 03/21/17 08:00 97.5 F L 78 20 92 L 03/21/17 07:36 97.9 F 79 20 108/66 92 L Admit Weight 187 lb 2.759 oz Weight 171 lb 4.8 oz 03/20/17 03/21/17 03/22/17 06:59 06:59 06:59 Intake Total 625 827 Output Total 1523 4345 2200 Balance -1091 -545 -0739 - Physical Examination General/Neuro: NAD Neck: no JVD present Lungs: unlabored respirations Heart: RRR Abdomen: NT/ND Extremities: other: (no edema) - Telemetry Telemetry Rhythm: NSR - Labs Result Diagrams: 03/17/17 05:38 03/20/17 04:12 Troponin/CKMB CK-MB (CK-2) 1.0 ng/mL (0-6.6) 03/08/17 18:27 Troponin I 0.027 ng/mL (< 0.028) 03/19/17 05:15 - Assessment/Plan 1. Diastolic heart failure 2. Renal insufficiency. PLAN: - Continue IV diuresis. - Will follow .
--- NOTE | 2017-03-21 19:44 | PRG ---
DATE OF SERVICE: 03/21/2017 SUBJECTIVE: Razia Smith was evaluated today. Her parents and couple of friends were at the [facility]. OBJECTIVE: VITAL SIGNS: She is afebrile. Heart rates in the 80s, respiratory rates in the 20s, temperature is 98.1, blood pressure 113/67. LUNGS: Clear posteriorly. HEART: Regular rhythm. ABDOMEN: Soft. Intake and output was negative 48. LABORATORY DATA: No new lab today. IMPRESSION: Diastolic heart failure with renal insufficiency. Last creatinine yesterday was 1.28. She is continuing to be gently diuresed. She appears to be improving. She had no complaints, sittin g at bedside, and the family thinks that she is doing reasonably well.
[2017-03-22] MEDS: Doxycycline 100 MG CAP PO SCH ×3 (04:22→19:51)
[2017-03-22] MEDS: Aripiprazole 2 MG TAB PO SCH ×2 (04:23→19:52)
[2017-03-22] MEDS: Levothyroxine Sodium 125 MCG TAB PO SCH (05:53)
[2017-03-22] MEDS: Furosemide 40 MG/4 ML VIAL SLOW IVP SCH ×2 (05:53→13:31)
[2017-03-22] MEDS: Dexamethasone 4 mg/ml Vial SLOW IVP SCH ×3 (05:55→17:29)
[2017-03-22] MEDS: Mometasone/Formoterol 120 PUFF INHALER INH SCH ×2 (07:49→18:55)
[2017-03-22] MEDS: Pantoprazole 40 MG GRANULES PACKET PO SCH (09:18)
[2017-03-22] MEDS: Enoxaparin Sodium 40 MG/0.4 ML SYRINGE SC SCH (09:18)
[2017-03-22] MEDS: Citalopram 20 MG TAB PO SCH (09:18)
--- NOTE | 2017-03-22 11:26 | PDOC.PN ---
- Subjective Encounter Start Date: 03/22/17 Encounter Start Time: 11:25 Subjective: nsg notes rev, shante ovn pt's brother and mother at bedside -: pt 'i feel better' - pt's family thinks she looks better compared -: with admission and roughly the same as yesterday. no c/o otherwise no other SOB, ELLIS, swelling of ext slept overnight, tolerating diet - Objective Resuscitation Status: Resuscitation Status FULL:Full Resuscitation Vital Signs & Weight: Vital Signs (12 hours) Temp Pulse Resp BP Pulse Ox 03/22/17 08:00 97.8 F 91 18 03/22/17 07:45 91 18 92 L 03/22/17 07:16 97.8 F 93 18 103/66 96 03/22/17 04:00 85 14 103/66 64 L 03/22/17 00:47 77 14 92 L 03/22/17 00:46 93 L 03/22/17 00:00 97.7 F 77 13 103/69 93 L Weight Admit Weight 187 lb 2.759 oz Weight 176 lb 11.2 oz Most Recent Monitor Data Heart Rate from ECG 80 NIBP 79/44 NIBP BP-Mean 56 Respiration from ECG 32 SpO2 96 I&O: 03/21/17 03/22/17 03/23/17 06:59 06:59 06:59 Intake Total 827 1836 Output Total 1675 3225 Balance -848 -1389 Result Diagrams: 03/17/17 05:38 03/20/17 04:12 Phys Exam - Physical Examination Constitutional: NAD HEENT: PERRLA, moist MMs Respiratory: no wheezing, no rales, no rhonchi diminished, with some diffuse mild coarseness Gastrointestinal: soft, positive bowel sounds Musculoskeletal: no edema, pulses present Neurological: moves all 4 limbs Psychiatric: normal affect Dx/Plan (1) Acute bronchitis due to human metapneumovirus Code(s): J20.8 - ACUTE BRONCHITIS DUE TO OTHER SPECIFIED ORGANISMS Status: Acute Comment: Pulmonary support, Duonebs and Decadron (2) Acute on chronic diastolic (congestive) heart failure Code(s): I50.33 - ACUTE ON CHRONIC DIASTOLIC (CONGESTIVE) HEART FAILURE Status : Acute Comment: apprec cardiology c/s careful diuresis under their guidance ? component to current clinical picture, 20lb weight loss since 03/14/17 and appears dry, watch I/O's closely and daily weight, EF 50-55% (3) Acute respiratory failure with hypoxia Code(s): J96.01 - ACUTE RESPIRATORY FAILURE WITH HYPOXIA Status: Acute Comment: apprec pulmonary c/s intermittent BiPAP, Duonebs, Decadron, trial Dulera 2 puffs BID (4) Acute worsening of stage 3 chronic kidney disease Code(s): N18.3 - CHRONIC KIDNEY DISEASE, STAGE 3 (MODERATE) Status: Acute Comment: Avoid nephrotoxic meds and contrast media, watch renal function closely (5) Demand ischemia Code(s): I24.8 - OTHER FORMS OF ACUTE ISCHEMIC HEART DISEASE Status: Acute (6) Down's syndrome Code(s): Q90.9 - DOWN SYNDROME, UNSPECIFIED Status: Chronic (7) Hypothyroidism Code(s): E03.9 - HYPOTHYROIDISM, UNSPECIFIED Status: Chronic Qualifiers: Hypothyroidism type: unspecified Qualified Code(s): E03.9 - Hypothyroidism , unspecified Comment: Continue Levothyroxine 125mcg daily (8) Obstructive sleep apnea Code(s): G47.33 - OBSTRUCTIVE SLEEP APNEA (ADULT) (PEDIATRIC) Status: Chronic - Plan cont current plan of care, plan discussed w/ family, continue antibiotics, respiratory therapy, out of bed/ambulate * . Review of Systems - Medications/Allergies Allergies/Adverse Reactions: Allergies Allergy/AdvReac Type Severity Reaction Status Date / Time iodine Allergy Intermediate Verified 05/15/16 04:38 lisinopril Allergy Intermediate Verified 05/15/16 04:38 Medications: Current Medications Acetaminophen (Tylenol) 650 mg PO Q4H PRN PRN Reason: Headache/Fever or Pain Last Admin: 03/20/17 19:38 Dose: 650 mg Acetaminophen (Tylenol) 650 mg ME Q4H PRN PRN Reason: Headache/Fever or Pain Al Hydroxide/Mg Hydroxide (Maalox) 15 ml PO Q4H PRN PRN Reason: Heartburn or Indigestion Last Admin: 03/19/17 21:39 Dose: 15 ml Albuterol/Ipratropium (Duoneb) 3 ml NEB [id number] SHAUN Last Admin: 03/22/17 07:45 Dose: 3 ml Aripiprazole (Abilify) 2 mg PO HS SHAUN Last Admin: 03/22/17 04:23 Dose: 2 mg Artificial Tears (Tears Naturale) 0 drop EA EYE PRN PRN PRN Reason: Dry Eyes Bisacodyl (Dulcolax) 10 mg PO DAILYPRN PRN PRN Reason: Constipation Citalopram Hydrobromide (Celexa) 10 mg PO DAILY [facility] Last Admin: 03/22/17 09:18 Dose: 10 mg Dexamethasone (Decadron) 2 mg SLOW IVP Q6HR [facility] Last Admin: 03/22/17 05:55 Dose: 2 mg Doxycycline Hyclate (Vibramycin) 100 mg PO BID [facility] Last Admin: 03/22/17 09:18 Dose: 100 mg Enoxaparin Sodium (Lovenox) 40 mg SC 0900 [facility] Last Admin: 03/22/17 09:18 Dose: 40 mg Furosemide (Lasix) 60 mg SLOW IVP 0600,1400 [facility] Last Admin: 03/22/17 05:53 Dose: 60 mg Guaifenesin (Robitussin Sf) 200 mg PO Q4H PRN PRN Reason: Cough Last Admin: 03/16/17 21:38 Dose: 200 mg Guaifenesin/Dextromethorphan (Robitussin Dm) 15 ml PO Q4H PRN PRN Reason: Cough Hydralazine HCl (Apresoline) 10 mg SLOW IVP Q4H PRN PRN Reason: Systolic BP > 180 Levothyroxine Sodium (Synthroid) 125 mcg PO 0600 [facility] Last Admin: 03/22/17 05:53 Dose: 125 mcg Loratadine (Claritin) 10 mg PO DAILYPRN PRN PRN Reason: Sinus Symptoms Magnesium Hydroxide (Milk Of Magnesium) 30 ml PO DAILYPRN PRN PRN Reason: Constipation Mineral Oil/White Petrolatum (Eucerin Cream) 0 gm TOP BIDPRN PRN PRN Reason: Dry Skin Mometasone Furoate/Formoterol Fumar (Dulera 100 Mcg/5 Mcg Inhaler) 2 puff INH BID-RT [facility] Last Admin: 03/22/17 07:49 Dose: 2 puff Morphine Sulfate (Morphine) 2 mg SLOW IVP Q2H PRN PRN Reason: Pain Nystatin (Mycostatin Powder) 0 gm TOP BIDPRN PRN PRN Reason: SKIN IRRITATION Last Admin: 03/10/17 20:40 Dose: 1 applic Ondansetron HCl (Zofran Odt) 4 mg PO Q6H PRN PRN Reason: Nausea/Vomiting Ondansetron HCl (Zofran) 4 mg IVP Q6H PRN PRN Reason: Nausea/Vomiting Last Admin: 03/13/17 22:26 Dose: 4 mg Pantoprazole Sodium (Protonix) 40 mg PO DAILY [facility] Last Admin: 03/22/17 09:18 Dose: 40 mg Phenol (Chloraseptic [place] 180 Ml Bot) 0 ml PO PRN PRN PRN Reason: Sore Throat Last Admin: 03/20/17 19:39 Dose: 2 spray Sodium Chloride ([place] Nasal [place] 0.65%) 0 ml EA NARE QIDPRN PRN PRN Reason: Nasal Congestion
--- NOTE | 2017-03-22 17:57 | PDOC.CTH ---
Cardiology Progress Note - Subjective No new issues. Continues to require oxygen supplementation. - Objective Vital Signs Temp Pulse Resp BP Pulse Ox 03/22/17 16:00 98.1 F 86 22 H 104/63 97 03/22/17 12:00 98.7 F 86 22 H 110/84 88 L 03/22/17 08:00 97.8 F 91 18 03/22/17 07:45 91 18 92 L 03/22/17 07:16 97.8 F 93 18 103/66 96 Admit Weight 187 lb 2.759 oz Weight 176 lb 11.2 oz 03/21/17 03/22/17 03/23/17 06:59 06:59 06:59 Intake Total 827 1836 1080 Output Total 0562 7956 1999 Balance -694 -6805 -947 - Physical Examination General/Neuro: NAD Neck: no JVD present Lungs: unlabored respirations Heart: RRR Abdomen: NT/ND Extremities: other: (no edema) - Telemetry Telemetry Rhythm: NSR - Labs Result Diagrams: 03/17/17 05:38 03/20/17 04:12 Troponin/CKMB CK-MB (CK-2) 1.0 ng/mL (0-6.6) 03/08/17 18:27 Troponin I 0.027 ng/mL (< 0.028) 03/19/17 05:15 - Assessment/Plan 1. Diastolic heart failure 2. Renal insufficiency. PLAN: - Continue IV diuresis. - Will follow. - AM labs.
[2017-03-22] MEDS: Guaifenesin DM 100-10/5 ML UDCUP PO PRN (22:04)
--- NOTE | 2017-03-22 22:58 | PRG ---
DATE OF SERVICE: 03/22/2017 SUBJECTIVE: Ms. Smith has no other complaints. She is very pleasant and cooperative. She had her coloring book at the bedside. She is in absolutely no distress. OBJECTIVE: VITAL SIGNS: She is afebrile, heart rate is 70, respiratory is 20, oximetry is 91% to 94% on 6-liter flow. Blood pressure is 100/58. LUNGS: Remarkable for equal breath sounds. LABORATORY DATA: No new lab today. IMPRESSION: Diastolic heart failure and renal insufficiency. PLAN: Continue supportive care.
[2017-03-23] MEDS: Dexamethasone 4 mg/ml Vial SLOW IVP SCH ×2 (00:24→05:35)
[2017-03-23] MEDS: Furosemide 40 MG/4 ML VIAL SLOW IVP SCH ×2 (05:37→14:57)
[2017-03-23] MEDS: Levothyroxine Sodium 125 MCG TAB PO SCH (05:44)
[2017-03-23 06:28] LABS: Anion Gap 20 mmol/L (10-20); BUN (Urea Nitrogen) 44 mg/dL (7.0-18.7); Calc. Creatinine Clearance 70 mL/min (70-130); Carbon Dioxide 35 mmol/L (22-29); Chloride 77 mmol/L (98-107); Estimated GFR-MDRD 45; Glucose 176 mg/dL (70-105); Potassium 3.2 mmol/L (3.5-5.1); Sodium 129 mmol/L (136-145)
[2017-03-23] MEDS: Doxycycline 100 MG CAP PO SCH (08:03)
[2017-03-23] MEDS: Enoxaparin Sodium 40 MG/0.4 ML SYRINGE SC SCH (08:03)
[2017-03-23] MEDS: Citalopram 20 MG TAB PO SCH (08:03)
[2017-03-23] MEDS: Pantoprazole 40 MG GRANULES PACKET PO SCH (08:03)
[2017-03-23] MEDS ORDERED: Potassium Chloride 20 MEQ TAB PO SCH (08:15)
--- NOTE | 2017-03-23 09:15 | PRG ---
DATE OF SERVICE: 03/23/2017 She is sitting up in a chair this morning. She says she feels better. PHYSICAL EXAMINATION: VITAL SIGNS: Temperature 97.8, pulse 88, blood pressure 101/54, O2 sat 97% on 5 liters, O2 saturatio n has been markedly improved over the last couple of days. HEENT: Unremarkable. NECK: Without adenopathy or JVD. LUNGS: Clear to auscultation without wheezing or rhonchi. CARDIAC: S1 and S2 regular. ABDOMEN: Soft. EXTREMITIES: No edema. LABORATORY DATA: Sodium 129, potassium 2.2, chloride 77, CO2 35, BUN 44, creatinine 1.2, glucose 176 . ASSESSMENT: 1. Diastolic cardiac dysfunction. 2. Probably some component of pneumonia which is resolving. 3. Developing hyponatremia - perhaps from diuretic use. PLAN: 1. I will go ahead and decrease her steroid dose. I think she could probably be switched to oral st eroids. 2. Consider scaling back on her diuretics. 3. Wean oxygen.
[2017-03-23] MEDS: predniSONE 20 MG TAB PO SCH ×2 (09:28→20:02)
[2017-03-23] MEDS: Mometasone/Formoterol 120 PUFF INHALER INH SCH ×2 (10:23→18:48)
[2017-03-23] MEDS: Ondansetron HCl/PF 4 MG/2 ML Vial IVP PRN (10:34)
--- NOTE | 2017-03-23 15:19 | PDOC.PN ---
- Subjective Encounter Start Date: 03/23/17 Encounter Start Time: 15:17 Subjective: nsg notes rev, shante ovn, no new c/o, mother at bedside -: pt states "i feel better" - Objective Resuscitation Status: Resuscitation Status FULL:Full Resuscitation Vital Signs & Weight: Vital Signs (12 hours) Temp Pulse Pulse Pulse Resp BP BP 03/23/17 14:18 85 84 105/88 106/63 03/23/17 14:01 03/23/17 13:52 83 18 03/23/17 11:12 98.5 F 82 20 03/23/17 08:00 97.8 F 88 21 H 03/23/17 07:31 97.8 F 88 21 H 03/23/17 04:12 98.0 F 86 20 BP Pulse Ox Pulse Ox Pulse Ox 03/23/17 14:18 92 L 94 L 03/23/17 14:01 93 L 03/23/17 13:52 93 L 03/23/17 11:12 106/63 96 03/23/17 08:00 97 03/23/17 07:31 101/54 L 97 03/23/17 04:12 99/60 94 L Weight Admit Weight 187 lb 2.759 oz Weight 176 lb 11.2 oz Most Recent Monitor Data Heart Rate from ECG 80 NIBP 79/44 NIBP BP-Mean 56 Respiration from ECG 32 SpO2 96 I&O: 03/22/17 03/23/17 03/24/17 06:59 06:59 06:59 Intake Total 1836 1570 840 Output Total 3225 3100 Balance -1389 -1530 840 Result Diagrams: 03/17/17 05:38 03/23/17 05:50 Phys Exam - Physical Examination Constitutional: NAD seated in hospital chair HEENT: PERRLA, moist MMs, sclera anicteric diminished and coarse throughout. NC in place Cardiovascular: RRR, no significant murmur, no rub Gastrointestinal: soft, non-tender, positive bowel sounds Musculoskeletal: no edema, pulses present Neurological: moves all 4 limbs Psychiatric: normal affect Dx/Plan (1) Acute bronchitis due to human metapneumovirus Code(s): J20.8 - ACUTE BRONCHITIS DUE TO OTHER SPECIFIED ORGANISMS Status: Acute Comment: Pulmonary support, Duonebs and Decadron Wean O2 as tolerated - slow weaning (2) Acute on chronic diastolic (congestive) heart failure Code(s): I50.33 - ACUTE ON CHRONIC DIASTOLIC (CONGESTIVE) HEART FAILURE Status : Acute Comment: apprec cardiology c/s careful diuresis under their guidance ? component to current clinical picture, 20lb weight loss since 03/14/17 and appears dry, watch I/O's closely and daily weight, EF 50-55% (3) Acute respiratory failure with hypoxia Code(s): J96.01 - ACUTE RESPIRATORY FAILURE WITH HYPOXIA Status: Acute Comment: apprec pulmonary c/s intermittent BiPAP, Duonebs, Decadron, trial Dulera 2 puffs BID (4) Acute worsening of stage 3 chronic kidney disease Code(s): N18.3 - CHRONIC KIDNEY DISEASE, STAGE 3 (MODERATE) Status: Acute Comment: Avoid nephrotoxic meds and contrast media, watch renal function closely (5) Demand ischemia Code(s): I24.8 - OTHER FORMS OF ACUTE ISCHEMIC HEART DISEASE Status: Acute (6) Down's syndrome Code(s): Q90.9 - DOWN SYNDROME, UNSPECIFIED Status: Chronic (7) Hypothyroidism Code(s): E03.9 - HYPOTHYROIDISM, UNSPECIFIED Status: Chronic Qualifiers: Hypothyroidism type: unspecified Qualified Code(s): E03.9 - Hypothyroidism , unspecified Comment: Continue Levothyroxine 125mcg daily (8) Obstructive sleep apnea Code(s): G47.33 - OBSTRUCTIVE SLEEP APNEA (ADULT) (PEDIATRIC) Status: Chronic - Plan plan discussed w/ family, PT/OT, respiratory therapy, out of bed/ambulate Slow improvement. Continue close monitoring. Supportive management of upper -: respiratory issues. * . Review of Systems - Medications/Allergies Allergies/Adverse Reactions: Allergies Allergy/AdvReac Type Severity Reaction Status Date / Time iodine Allergy Intermediate Verified 05/15/16 04:38 lisinopril Allergy Intermediate Verified 05/15/16 04:38 Medications: Current Medications Acetaminophen (Tylenol) 650 mg PO Q4H PRN PRN Reason: Headache/Fever or Pain Last Admin: 03/20/17 19:38 Dose: 650 mg Acetaminophen (Tylenol) 650 mg HI Q4H PRN PRN Reason: Headache/Fever or Pain Al Hydroxide/Mg Hydroxide (Maalox) 15 ml PO Q4H PRN PRN Reason: Heartburn or Indigestion Last Admin: 03/19/17 21:39 Dose: 15 ml Albuterol/Ipratropium (Duoneb) 3 ml NEB [id number] [facility] Last Admin: 03/23/17 13:52 Dose: 3 ml Aripiprazole (Abilify) 2 mg PO HS [facility] Last Admin: 03/22/17 19:52 Dose: 2 mg Artificial Tears (Tears Naturale) 0 drop EA EYE PRN PRN PRN Reason: Dry Eyes Bisacodyl (Dulcolax) 10 mg PO DAILYPRN PRN PRN Reason: Constipation Citalopram Hydrobromide (Celexa) 10 mg PO DAILY [facility] Last Admin: 03/23/17 08:03 Dose: 10 mg Enoxaparin Sodium (Lovenox) 40 mg SC 0900 [facility] Last Admin: 03/23/17 08:03 Dose: 40 mg Furosemide (Lasix) 60 mg SLOW IVP 0600,1400 [facility] Last Admin: 03/23/17 14:57 Dose: 60 mg Guaifenesin (Robitussin Sf) 200 mg PO Q4H PRN PRN Reason: Cough Last Admin: 03/16/17 21:38 Dose: 200 mg Guaifenesin/Dextromethorphan (Robitussin Dm) 15 ml PO Q4H PRN PRN Reason: Cough Last Admin: 03/22/17 22:04 Dose: 15 ml Hydralazine HCl (Apresoline) 10 mg SLOW IVP Q4H PRN PRN Reason: Systolic BP > 180 Levothyroxine Sodium (Synthroid) 125 mcg PO 0600 [facility] Last Admin: 03/23/17 05:44 Dose: 125 mcg Loratadine (Claritin) 10 mg PO DAILYPRN PRN PRN Reason: Sinus Symptoms Magnesium Hydroxide (Milk Of Magnesium) 30 ml PO DAILYPRN PRN PRN Reason: Constipation Mineral Oil/White Petrolatum (Eucerin Cream) 0 gm TOP BIDPRN PRN PRN Reason: Dry Skin Mometasone Furoate/Formoterol Fumar (Dulera 100 Mcg/5 Mcg Inhaler) 2 puff INH BID-RT [facility] Last Admin: 03/23/17 10:23 Dose: Not Given Morphine Sulfate (Morphine) 2 mg SLOW IVP Q2H PRN PRN Reason: Pain Nystatin (Mycostatin Powder) 0 gm TOP BIDPRN PRN PRN Reason: SKIN IRRITATION Last Admin: 03/10/17 20:40 Dose: 1 applic Ondansetron HCl (Zofran Odt) 4 mg PO Q6H PRN PRN Reason: Nausea/Vomiting Ondansetron HCl (Zofran) 4 mg IVP Q6H PRN PRN Reason: Nausea/Vomiting Last Admin: 03/23/17 10:34 Dose: 4 mg Pantoprazole Sodium (Protonix) 40 mg PO DAILY [facility] Last Admin: 03/23/17 08:03 Dose: 40 mg Phenol (Chloraseptic [place] 180 Ml Bot) 0 ml PO PRN PRN PRN Reason: Sore Throat Last Admin: 03/20/17 19:39 Dose: 2 spray Prednisone (Prednisone) 20 mg PO BID [facility] Last Admin: 03/23/17 09:28 Dose: 20 mg Sodium Chloride ([place] Nasal [place] 0.65%) 0 ml EA NARE QIDPRN PRN PRN Reason: Nasal Congestion
[2017-03-23] MEDS: Aripiprazole 2 MG TAB PO SCH (20:04)
[2017-03-23] MEDS: Guaifenesin DM 100-10/5 ML UDCUP PO PRN (23:31)
[2017-03-24] MEDS: Levothyroxine Sodium 125 MCG TAB PO SCH (05:19)
[2017-03-24] MEDS: Furosemide 40 MG/4 ML VIAL SLOW IVP SCH (05:21)
[2017-03-24] MEDS: Mometasone/Formoterol 120 PUFF INHALER INH SCH ×2 (07:21→18:48)
[2017-03-24] MEDS: Citalopram 20 MG TAB PO SCH (07:58)
[2017-03-24] MEDS: predniSONE 20 MG TAB PO SCH ×2 (07:58→20:17)
[2017-03-24] MEDS: Pantoprazole 40 MG GRANULES PACKET PO SCH (07:59)
[2017-03-24] MEDS: Enoxaparin Sodium 40 MG/0.4 ML SYRINGE SC SCH (07:59)
[2017-03-24] MEDS ORDERED: Potassium Chloride 20 MEQ TAB PO SCH (09:15)
--- NOTE | 2017-03-24 09:17 | PRG ---
DATE OF SERVICE: 03/23/2017 SUBJECTIVE: Ms. Smith is doing better. She is getting up in a chair, able to ambulate some. OBJECTIVE: VITAL SIGNS: Temperature 98.0, pulse 82, respirations 20, saturation 92% on 4 liters, blood pressure 104/64. HEENT: Unremarkable. NECK: No JVD. LUNGS: Much clearer than before. CARDIAC: S1 and S2 regular. ABDOMEN: Soft. EXTREMITIES: No edema. ASSESSMENT: 1. Diastolic cardiac dysfunction. 2. Improved pneumonia. 3. Obstructive sleep apnea. 4. Hyponatremia yesterday. PLAN: From my standpoint, she can be transferred to the medical floor. Her progress is encouraging. We will continue to wean her oxygen. She is continuing diuresis.
--- NOTE | 2017-03-24 10:26 | PRG ---
DATE OF SERVICE: 03/24/2017 Ms. Smith is feeling better. She is up in the chair, awake and alert. PHYSICAL EXAMINATION: VITAL SIGNS: Blood pressure 104/64, pulse 80. LUNGS: Clear. CARDIAC: Normal S1 and S2. Oxygen saturation is 94% on a cannula. ASSESSMENT: 1. Diastolic heart failure, improved. 2. Probable pneumonia. 3. Hypokalemia. 4. Hyponatremia. PLAN: 1. Reduce furosemide. 2. Give her an extra dose of potassium. 3. It is okay with me to move to telemetry. Hopefully, she will be able to go home soon.
[2017-03-24] MEDS: Furosemide 20 MG/2 ML VIAL SLOW IVP SCH (14:15)
--- NOTE | 2017-03-24 19:40 | PDOC.PN ---
- Subjective Encounter Start Date: 03/24/17 Encounter Start Time: 19:39 Subjective: nsg notes rev, shante ovn, mother at bedside -: pt no new c/o, mother does not identify any new issues either - Objective Resuscitation Status: Resuscitation Status FULL:Full Resuscitation Vital Signs & Weight: Vital Signs (12 hours) Temp Pulse Pulse Pulse Resp BP BP 03/24/17 18:47 91 20 03/24/17 15:21 98.2 F 86 20 03/24/17 13:45 81 20 03/24/17 11:22 97.9 F 83 20 03/24/17 10:32 86 87 115/74 104/64 03/24/17 08:00 98.0 F 82 20 BP Pulse Ox Pulse Ox Pulse Ox 03/24/17 18:47 96 03/24/17 15:21 104/61 93 L 03/24/17 13:45 95 03/24/17 11:22 100/54 L 93 L 03/24/17 10:32 98 97 03/24/17 08:00 104/64 96 Weight Admit Weight 187 lb 2.759 oz Weight 178 lb 1 oz Most Recent Monitor Data Heart Rate from ECG 80 NIBP 79/44 NIBP BP-Mean 56 Respiration from ECG 32 SpO2 96 I&O: 03/23/17 03/24/17 03/25/17 06:59 06:59 06:59 Intake Total 1570 2130 840 Output Total 3100 2975 1150 Balance -1530 -845 -310 Result Diagrams: 03/17/17 05:38 03/23/17 05:50 Phys Exam - Physical Examination Constitutional: NAD HEENT: PERRLA, moist MMs, sclera anicteric Respiratory: no wheezing, no rales, no rhonchi, clear to auscultation bilateral limited anterior examination today Cardiovascular: RRR, no significant murmur, no rub Gastrointestinal: soft, non-tender, positive bowel sounds Musculoskeletal: no edema, pulses present Neurological: moves all 4 limbs Psychiatric: normal affect Dx/Plan (1) Acute bronchitis due to human metapneumovirus Code(s): J20.8 - ACUTE BRONCHITIS DUE TO OTHER SPECIFIED ORGANISMS Status: Acute Comment: Pulmonary support, Duonebs and Decadron Wean O2 as tolerated - slow weaning (2) Acute on chronic diastolic (congestive) heart failure Code(s): I50.33 - ACUTE ON CHRONIC DIASTOLIC (CONGESTIVE) HEART FAILURE Status : Acute Comment: apprec cardiology c/s careful diuresis under their guidance - continue lasix EF 50-55% (3) Acute respiratory failure with hypoxia Code(s): J96.01 - ACUTE RESPIRATORY FAILURE WITH HYPOXIA Status: Acute Comment: apprec pulmonary c/s intermittent BiPAP, Duonebs, Decadron, trial Dulera 2 puffs BID (4) Acute worsening of stage 3 chronic kidney disease Code(s): N18.3 - CHRONIC KIDNEY DISEASE, STAGE 3 (MODERATE) Status: Acute Comment: Avoid nephrotoxic meds and contrast media, watch renal function closely (5) Demand ischemia Code(s): I24.8 - OTHER FORMS OF ACUTE ISCHEMIC HEART DISEASE Status: Acute (6) Down's syndrome Code(s): Q90.9 - DOWN SYNDROME, UNSPECIFIED Status: Chronic (7) Hypothyroidism Code(s): E03.9 - HYPOTHYROIDISM, UNSPECIFIED Status: Chronic Qualifiers: Hypothyroidism type: unspecified Qualified Code(s): E03.9 - Hypothyroidism , unspecified Comment: Continue Levothyroxine 125mcg daily (8) Obstructive sleep apnea Code(s): G47.33 - OBSTRUCTIVE SLEEP APNEA (ADULT) (PEDIATRIC) Status: Chronic - Plan cont current plan of care, plan discussed w/ family, PT/OT, respiratory therapy , out of bed/ambulate Plan for continue cautious diuresis and downtitration of O2 demands as able Review of Systems - Review of Systems Eyes: Vision Change - Medications/Allergies Allergies/Adverse Reactions: Allergies Allergy/AdvReac Type Severity Reaction Status Date / Time iodine Allergy Intermediate Verified 05/15/16 04:38 lisinopril Allergy Intermediate Verified 05/15/16 04:38 Medications: Current Medications Acetaminophen (Tylenol) 650 mg PO Q4H PRN PRN Reason: Headache/Fever or Pain Last Admin: 03/20/17 19:38 Dose: 650 mg Acetaminophen (Tylenol) 650 mg GA Q4H PRN PRN Reason: Headache/Fever or Pain Al Hydroxide/Mg Hydroxide (Maalox) 15 ml PO Q4H PRN PRN Reason: Heartburn or Indigestion Last Admin: 03/19/17 21:39 Dose: 15 ml Albuterol/Ipratropium (Duoneb) 3 ml NEB Q2GP-BC [facility] Last Admin: 03/24/17 18:47 Dose: 3 ml Aripiprazole (Abilify) 2 mg PO HS [facility] Last Admin: 03/23/17 20:04 Dose: 2 mg Artificial Tears (Tears Naturale) 0 drop EA EYE PRN PRN PRN Reason: Dry Eyes Bisacodyl (Dulcolax) 10 mg PO DAILYPRN PRN PRN Reason: Constipation Citalopram Hydrobromide (Celexa) 10 mg PO DAILY [facility] Last Admin: 03/24/17 07:58 Dose: 10 mg Enoxaparin Sodium (Lovenox) 40 mg SC 0900 [facility] Last Admin: 03/24/17 07:59 Dose: 40 mg Furosemide (Lasix) 20 mg SLOW IVP 0600,1400 [facility] Last Admin: 03/24/17 14:15 Dose: 20 mg Guaifenesin (Robitussin Sf) 200 mg PO Q4H PRN PRN Reason: Cough Last Admin: 03/16/17 21:38 Dose: 200 mg Guaifenesin/Dextromethorphan (Robitussin Dm) 15 ml PO Q4H PRN PRN Reason: Cough Last Admin: 03/23/17 23:31 Dose: 15 ml Hydralazine HCl (Apresoline) 10 mg SLOW IVP Q4H PRN PRN Reason: Systolic BP > 180 Levothyroxine Sodium (Synthroid) 125 mcg PO 0600 [facility] Last Admin: 03/24/17 05:19 Dose: 125 mcg Loratadine (Claritin) 10 mg PO DAILYPRN PRN PRN Reason: Sinus Symptoms Magnesium Hydroxide (Milk Of Magnesium) 30 ml PO DAILYPRN PRN PRN Reason: Constipation Mineral Oil/White Petrolatum (Eucerin Cream) 0 gm TOP BIDPRN PRN PRN Reason: Dry Skin Mometasone Furoate/Formoterol Fumar (Dulera 100 Mcg/5 Mcg Inhaler) 2 puff INH BID-RT [facility] Last Admin: 03/24/17 18:48 Dose: 2 puff Morphine Sulfate (Morphine) 2 mg SLOW IVP Q2H PRN PRN Reason: Pain Nystatin (Mycostatin Powder) 0 gm TOP BIDPRN PRN PRN Reason: SKIN IRRITATION Last Admin: 03/10/17 20:40 Dose: 1 applic Ondansetron HCl (Zofran Odt) 4 mg PO Q6H PRN PRN Reason: Nausea/Vomiting Ondansetron HCl (Zofran) 4 mg IVP Q6H PRN PRN Reason: Nausea/Vomiting Last Admin: 03/23/17 10:34 Dose: 4 mg Pantoprazole Sodium (Protonix) 40 mg PO DAILY [facility] Last Admin: 03/24/17 07:59 Dose: 40 mg Phenol (Chloraseptic [place] 180 Ml Bot) 0 ml PO PRN PRN PRN Reason: Sore Throat Last Admin: 03/20/17 19:39 Dose: 2 spray Prednisone (Prednisone) 20 mg PO BID [facility] Last Admin: 03/24/17 07:58 Dose: 20 mg Sodium Chloride ([place] Nasal [place] 0.65%) 0 ml EA NARE QIDPRN PRN PRN Reason: Nasal Congestion
[2017-03-24] MEDS: Aripiprazole 2 MG TAB PO SCH (20:17)
[2017-03-25 04:55] LABS: Anion Gap 18 mmol/L (10-20); BUN (Urea Nitrogen) 32 mg/dL (7.0-18.7); Calc. Creatinine Clearance 100 mL/min (70-130); Calcium 9.1 mg/dL (7.8-10.44); Carbon Dioxide 32 mmol/L (22-29); Chloride 80 mmol/L (98-107); Estimated GFR-MDRD 67; Glucose 165 mg/dL (70-105); Potassium 4.2 mmol/L (3.5-5.1); Sodium 126 mmol/L (136-145)
[2017-03-25] MEDS: Furosemide 20 MG/2 ML VIAL SLOW IVP SCH (06:52)
[2017-03-25] MEDS: Levothyroxine Sodium 125 MCG TAB PO SCH (06:52)
--- NOTE | 2017-03-25 08:17 | RAD ---
SINGLE VIEW OF THE CHEST: Comparison: 03-18-17 History: CHF. FINDINGS: Single view of the chest shows an enlarged but stable cardiomediastinal silhouette. The patient is st atus post sternotomy. There are small bilateral pleural effusions. No consolidation is seen. IMPRESSION: Small bilateral pleural effusions and cardiomegaly. POS: OFF
[2017-03-25] MEDS: Mometasone/Formoterol 120 PUFF INHALER INH SCH ×2 (08:43→18:29)
--- NOTE | 2017-03-25 08:52 | PDOC.PULPN ---
Progress Note: Subj/Obj - Subjective Date: 03/25/17 Time: 08:50 Narrative: Says she feels better - ROS All systems: reviewed and no additional remarkable complaints except as stated - Objective Allergies/Adverse Reactions: Allergies Allergy/AdvReac Type Severity Reaction Status Date / Time iodine Allergy Intermediate Verified 05/15/16 04:38 lisinopril Allergy Intermediate Verified 05/15/16 04:38 Medications: Current Medications Acetaminophen (Tylenol) 650 mg PO Q4H PRN PRN Reason: Headache/Fever or Pain Last Admin: 03/20/17 19:38 Dose: 650 mg Acetaminophen (Tylenol) 650 mg MD Q4H PRN PRN Reason: Headache/Fever or Pain Al Hydroxide/Mg Hydroxide (Maalox) 15 ml PO Q4H PRN PRN Reason: Heartburn or Indigestion Last Admin: 03/19/17 21:39 Dose: 15 ml Albuterol/Ipratropium (Duoneb) 3 ml NEB [id number] [facility] Last Admin: 03/25/17 08:44 Dose: 3 ml Aripiprazole (Abilify) 2 mg PO HS [facility] Last Admin: 03/24/17 20:17 Dose: 2 mg Artificial Tears (Tears Naturale) 0 drop EA EYE PRN PRN PRN Reason: Dry Eyes Bisacodyl (Dulcolax) 10 mg PO DAILYPRN PRN PRN Reason: Constipation Last Admin: 03/24/17 20:16 Dose: 10 mg Citalopram Hydrobromide (Celexa) 10 mg PO DAILY [facility] Last Admin: 03/24/17 07:58 Dose: 10 mg Enoxaparin Sodium (Lovenox) 40 mg SC 0900 [facility] Last Admin: 03/24/17 07:59 Dose: 40 mg Furosemide (Lasix) 20 mg SLOW IVP 0600,1400 [facility] Last Admin: 03/25/17 06:52 Dose: 20 mg Guaifenesin (Robitussin Sf) 200 mg PO Q4H PRN PRN Reason: Cough Last Admin: 03/16/17 21:38 Dose: 200 mg Guaifenesin/Dextromethorphan (Robitussin Dm) 15 ml PO Q4H PRN PRN Reason: Cough Last Admin: 03/23/17 23:31 Dose: 15 ml Hydralazine HCl (Apresoline) 10 mg SLOW IVP Q4H PRN PRN Reason: Systolic BP > 180 Levothyroxine Sodium (Synthroid) 125 mcg PO 0600 [facility] Last Admin: 03/25/17 06:52 Dose: 125 mcg Loratadine (Claritin) 10 mg PO DAILYPRN PRN PRN Reason: Sinus Symptoms Magnesium Hydroxide (Milk Of Magnesium) 30 ml PO DAILYPRN PRN PRN Reason: Constipation Mineral Oil/White Petrolatum (Eucerin Cream) 0 gm TOP BIDPRN PRN PRN Reason: Dry Skin Mometasone Furoate/Formoterol Fumar (Dulera 100 Mcg/5 Mcg Inhaler) 2 puff INH BID-RT [facility] Last Admin: 03/25/17 08:43 Dose: 2 puff Morphine Sulfate (Morphine) 2 mg SLOW IVP Q2H PRN PRN Reason: Pain Nystatin (Mycostatin Powder) 0 gm TOP BIDPRN PRN PRN Reason: SKIN IRRITATION Last Admin: 03/10/17 20:40 Dose: 1 applic Ondansetron HCl (Zofran Odt) 4 mg PO Q6H PRN PRN Reason: Nausea/Vomiting Ondansetron HCl (Zofran) 4 mg IVP Q6H PRN PRN Reason: Nausea/Vomiting Last Admin: 03/23/17 10:34 Dose: 4 mg Pantoprazole Sodium (Protonix) 40 mg PO DAILY [facility] Last Admin: 03/24/17 07:59 Dose: 40 mg Phenol (Chloraseptic [place] 180 Ml Bot) 0 ml PO PRN PRN PRN Reason: Sore Throat Last Admin: 03/20/17 19:39 Dose: 2 spray Prednisone (Prednisone) 20 mg PO BID [facility] Last Admin: 03/24/17 20:17 Dose: 20 mg Sodium Chloride ([place] Nasal [place] 0.65%) 0 ml EA NARE QIDPRN PRN PRN Reason: Nasal Congestion MAR Reviewed: Yes Vital Signs: Vital Signs Temp 98.8 F 03/25/17 08:00 Pulse 80 03/25/17 08:44 Resp 16 03/25/17 08:44 BP 106/63 03/25/17 08:00 Pulse Ox 93 L 03/25/17 08:00 Intake & Output 03/24/17 03/25/17 03/25/17 18:59 06:59 18:59 Intake Total 840 480 Output Total 1150 750 Balance -310 -270 Intake: Oral 840 480 Output: Output, Amrtin 1150 750 Other: Voiding Method Indwelling Catheter Indwelling Catheter # Bowel Movements 1 Progress Note: Exam - Physical Exam Constitutional: NAD HEENT: PERRLA, sclera anicteric Neck: no nodes, no JVD Cardiovascular: RRR, no significant murmur Focused Respiratory Location: rhonchi: Right, Left Gastrointestinal: soft, non-tender Musculoskeletal: edema present Neurological: non-focal, moves all 4 limbs Lymphatic: no nodes Psychiatric: normal affect Skin: no rash Progress Note: Data - Labs Result Diagrams: 03/17/17 05:38 03/25/17 04:21 Lab results: Laboratory Results 03/25/17 04:21 Sodium 126 L Potassium 4.2 Chloride 80 L Carbon Dioxide 32 H Anion Gap 18 BUN 32 H Creatinine 0.90 Estimated GFR (MDRD) 67 Glucose 165 H Calcium 9.1 - Radiology Interpretation CT scan - chest Status: image reviewed by me (improved bilateral infiltrates) Progress Note: A/P - Problems (1) Acute on chronic diastolic (congestive) heart failure Current Visit: Yes Status: Acute Code(s): I50.33 - ACUTE ON CHRONIC DIASTOLIC (CONGESTIVE) HEART FAILURE (2) Acute respiratory failure with hypoxia Current Visit: Yes Status: Acute Code(s): J96.01 - ACUTE RESPIRATORY FAILURE WITH HYPOXIA (3) PNA (pneumonia) Current Visit: Yes Status: Acute Code(s): J18.9 - PNEUMONIA, UNSPECIFIED ORGANISM Qualifiers: Pneumonia type: due to unspecified organism Laterality: bilateral (4) CKD (chronic kidney disease) stage 2, GFR 60-89 ml/min Current Visit: Yes Status: Chronic Code(s): N18.2 - CHRONIC KIDNEY DISEASE, STAGE 2 (MILD) - Plan Plan: Overall, she has markedly improved. Oxygen requirements down to 2L. In my opinion, she is ready for rehab, or whatever her next level of care will be.
--- NOTE | 2017-03-25 09:50 | PRG ---
DATE OF SERVICE: 03/25/2017 Ms. Smith is feeling better today, no complaints. She is not short of breath. PHYSICAL EXAMINATION: VITAL SIGNS: Blood pressure 106/60, pulse 80 it is regular. LUNGS: Clear. CARDIAC: Normal S1, normal S2. ABDOMEN: Soft, nontender. EXTREMITIES: There is no edema. PERTINENT LABORATORY DATA: Sodium 126, potassium 4.2, creatinine is 0.9. ASSESSMENT: 1. Hyponatremia. 2. She is drinking a lot of water. 3. Diastolic heart failure, improved. PLAN: 1. Need to fluid restrict. 2. Diuretic doses have been decreased. 3. It is okay with me to discontinue Martin catheter, hopefully be able to go home pretty soon.
[2017-03-25] MEDS: Citalopram 20 MG TAB PO SCH (10:05)
[2017-03-25] MEDS: Enoxaparin Sodium 40 MG/0.4 ML SYRINGE SC SCH (10:05)
[2017-03-25] MEDS: Pantoprazole 40 MG GRANULES PACKET PO SCH (10:05)
[2017-03-25] MEDS: predniSONE 20 MG TAB PO SCH ×2 (10:05→20:41)
[2017-03-25] MEDS ORDERED: traMADol HCl 50 MG TAB PO PRN (12:45)
--- NOTE | 2017-03-25 12:49 | PDOC.PN ---
- Subjective Encounter Start Date: 03/25/17 Encounter Start Time: 12:48 Subjective: Patient reports doing better. Mother also reports she is much better - Objective Resuscitation Status: Resuscitation Status FULL:Full Resuscitation MAR Reviewed: Yes Vital Signs & Weight: Vital Signs (12 hours) Temp Pulse Resp BP Pulse Ox 03/25/17 08:44 80 16 03/25/17 08:00 98.0 F 80 16 106/63 98 03/25/17 04:00 98.5 F 84 18 108/61 92 L Weight Admit Weight 187 lb 2.759 oz Weight 178 lb 1 oz Most Recent Monitor Data Heart Rate from ECG 80 NIBP 79/44 NIBP BP-Mean 56 Respiration from ECG 32 SpO2 96 I&O: 03/24/17 03/25/17 03/26/17 06:59 06:59 06:59 Intake Total 2130 1320 Output Total 2975 1900 Balance -845 -580 Result Diagrams: 03/17/17 05:38 03/25/17 04:21 Radiology Reviewed by me: Yes (small b/l pleural effusions) Phys Exam - Physical Examination Constitutional: NAD HEENT: PERRLA, moist MMs, sclera anicteric Neck: full ROM reduced breath soumds lower lung bases Cardiovascular: RRR, no significant murmur, no rub, gallop, irregular Gastrointestinal: soft, non-tender, no distention, positive bowel sounds Musculoskeletal: no edema Neurological: non-focal Psychiatric: normal affect Skin: no rash Dx/Plan (1) Acute bronchitis due to human metapneumovirus Code(s): J20.8 - ACUTE BRONCHITIS DUE TO OTHER SPECIFIED ORGANISMS Status: Acute Plan: Improving. Oxygen requirements trending down. Will continue current therapy. Comment: Pulmonary support, Duonebs and Decadron Wean O2 as tolerated - slow weaning (2) Acute on chronic diastolic (congestive) heart failure Code(s): I50.33 - ACUTE ON CHRONIC DIASTOLIC (CONGESTIVE) HEART FAILURE Status : Acute Plan: Continues to diurese well and euvolemic on examination. Will transition to PO diuretics (pt on bumex on outpatient basis). Comment: apprec cardiology c/s careful diuresis under their guidance - continue lasix EF 50-55% (3) Acute respiratory failure with hypoxia Code(s): J96.01 - ACUTE RESPIRATORY FAILURE WITH HYPOXIA Status: Acute Plan: Continue to wean off O2. Continue current therapy. Comment: apprec pulmonary c/s intermittent BiPAP, Duonebs, Decadron, trial Dulera 2 puffs BID (4) CKD (chronic kidney disease) stage 2, GFR 60-89 ml/min Code(s): N18.2 - CHRONIC KIDNEY DISEASE, STAGE 2 (MILD) Status: Chronic Plan: Monitor creatinine. IV diuresis stopped so BUN should trend downwards too. (5) Down's syndrome Code(s): Q90.9 - DOWN SYNDROME, UNSPECIFIED Status: Chronic Plan: Monitor. Continue home medications. (6) Hypothyroidism Code(s): E03.9 - HYPOTHYROIDISM, UNSPECIFIED Status: Chronic Qualifiers: Hypothyroidism type: unspecified Qualified Code(s): E03.9 - Hypothyroidism , unspecified Plan: Continue levothyroxine. Comment: Continue Levothyroxine 125mcg daily (7) Obstructive sleep apnea Code(s): G47.33 - OBSTRUCTIVE SLEEP APNEA (ADULT) (PEDIATRIC) Status: Chronic Plan: Continue BiPAP when asleep. Patient used CPAP nightly at home. (8) Hyponatremia Code(s): E87.1 - HYPO-OSMOLALITY AND HYPONATREMIA Status: Acute Plan: Likely 2/2 diuretics. IV furosemide has been discontinued. Will monitor. Patient asymptomatic. - Plan plan discussed w/ family, public health social worker, respiratory therapy Switched to PO diuretics -: patient ready for discharge to a rehabilitation facility. Will involve CM * .
[2017-03-25] MEDS: Aripiprazole 2 MG TAB PO SCH (20:41)
[2017-03-26 06:21] LABS: #Lymphocytes 0.5 thou/uL (1.20-3.40); #Monocytes 0.6 thou/uL (0.11-0.59); #Neutrophils 10.2 thou/uL (1.40-6.50); %Basophils 0.4 % (0.0-1.0); %Eosinophils 0.4 % (0.0-10.0); %Lymphocytes 4.3 % (21.0-51.0); %Monocytes 5.3 % (0.0-10.0); %Neutrophils 89.6 % (42.0-75.0); Hemoglobin 13.8 g/dL (12.0-16.0); Mean Corpuscular HGB CONC 31.5 g/dL (32.0-36.0); Mean Corpuscular Hemoglobin 29.1 pg (27.0-31.0); Mean Corpuscular Volume 92.6 fl (81.0-99.0); Platelet Count 218 thou/uL (130-400); Red Blood Cell (RBC) Count 4.74 mill/uL (4.20-5.40); White Blood Cell (WBC) Count 11.4 thou/uL (4.8-10.8)
[2017-03-26 06:42] LABS: BUN (Urea Nitrogen) 25 mg/dL (7.0-18.7); Calc. Creatinine Clearance 114 mL/min (70-130); Calcium 9.2 mg/dL (7.8-10.44); Estimated GFR-MDRD 77; Glucose 132 mg/dL (70-105)
[2017-03-26 06:51] LABS: Anion Gap 18 mmol/L (10-20); Carbon Dioxide 35 mmol/L (22-29); Chloride 81 mmol/L (98-107); Potassium 4.1 mmol/L (3.5-5.1); Sodium 130 mmol/L (136-145)
--- NOTE | 2017-03-26 07:53 | PDOC.PULPN ---
Progress Note: Subj/Obj - Subjective Date: 03/26/17 Time: 07:51 Narrative: Had a good night. Overall feeling better - ROS All systems: reviewed and no additional remarkable complaints except as stated - Objective Allergies/Adverse Reactions: Allergies Allergy/AdvReac Type Severity Reaction Status Date / Time iodine Allergy Intermediate Verified 05/15/16 04:38 lisinopril Allergy Intermediate Verified 05/15/16 04:38 Medications: Current Medications Acetaminophen (Tylenol) 650 mg PO Q4H PRN PRN Reason: Headache/Fever or Pain Last Admin: 03/20/17 19:38 Dose: 650 mg Acetaminophen (Tylenol) 650 mg GA Q4H PRN PRN Reason: Headache/Fever or Pain Al Hydroxide/Mg Hydroxide (Maalox) 15 ml PO Q4H PRN PRN Reason: Heartburn or Indigestion Last Admin: 03/19/17 21:39 Dose: 15 ml Albuterol/Ipratropium (Duoneb) 3 ml NEB [id number] [facility] Last Admin: 03/26/17 00:16 Dose: 3 ml Aripiprazole (Abilify) 2 mg PO HS [facility] Last Admin: 03/25/17 20:41 Dose: 2 mg Artificial Tears (Tears Naturale) 0 drop EA EYE PRN PRN PRN Reason: Dry Eyes Bisacodyl (Dulcolax) 10 mg PO DAILYPRN PRN PRN Reason: Constipation Last Admin: 03/24/17 20:16 Dose: 10 mg Bumetanide (Bumex) 1 mg PO DAILY [facility] Citalopram Hydrobromide (Celexa) 10 mg PO DAILY [facility] Last Admin: 03/25/17 10:05 Dose: 10 mg Enoxaparin Sodium (Lovenox) 40 mg SC 0900 [facility] Last Admin: 03/25/17 10:05 Dose: 40 mg Guaifenesin (Robitussin Sf) 200 mg PO Q4H PRN PRN Reason: Cough Last Admin: 03/16/17 21:38 Dose: 200 mg Guaifenesin/Dextromethorphan (Robitussin Dm) 15 ml PO Q4H PRN PRN Reason: Cough Last Admin: 03/23/17 23:31 Dose: 15 ml Hydralazine HCl (Apresoline) 10 mg SLOW IVP Q4H PRN PRN Reason: Systolic BP > 180 Levothyroxine Sodium (Synthroid) 125 mcg PO 0600 [facility] Last Admin: 03/25/17 06:52 Dose: 125 mcg Loratadine (Claritin) 10 mg PO DAILYPRN PRN PRN Reason: Sinus Symptoms Magnesium Hydroxide (Milk Of Magnesium) 30 ml PO DAILYPRN PRN PRN Reason: Constipation Mineral Oil/White Petrolatum (Eucerin Cream) 0 gm TOP BIDPRN PRN PRN Reason: Dry Skin Mometasone Furoate/Formoterol Fumar (Dulera 100 Mcg/5 Mcg Inhaler) 2 puff INH BID-RT [facility] Last Admin: 03/25/17 18:29 Dose: 2 puff Morphine Sulfate (Morphine) 2 mg SLOW IVP Q2H PRN PRN Reason: Pain Nystatin (Mycostatin Powder) 0 gm TOP BIDPRN PRN PRN Reason: SKIN IRRITATION Last Admin: 03/10/17 20:40 Dose: 1 applic Ondansetron HCl (Zofran Odt) 4 mg PO Q6H PRN PRN Reason: Nausea/Vomiting Ondansetron HCl (Zofran) 4 mg IVP Q6H PRN PRN Reason: Nausea/Vomiting Last Admin: 03/23/17 10:34 Dose: 4 mg Pantoprazole Sodium (Protonix) 40 mg PO DAILY [facility] Last Admin: 03/25/17 10:05 Dose: 40 mg Phenol (Chloraseptic [place] 180 Ml Bot) 0 ml PO PRN PRN PRN Reason: Sore Throat Last Admin: 03/20/17 19:39 Dose: 2 spray Prednisone (Prednisone) 20 mg PO DAILY [facility] Sodium Chloride ([place] Nasal [place] 0.65%) 0 ml EA NARE QIDPRN PRN PRN Reason: Nasal Congestion Spironolactone (Aldactone) 12.5 mg PO DAILY [facility] Tramadol HCl (Ultram) 50 mg PO DAILY PRN PRN Reason: Pain MAR Reviewed: Yes Vital Signs: Vital Signs Temp 97.6 F 03/26/17 07:42 Pulse 71 03/26/17 07:42 Resp 12 03/26/17 07:42 BP 97/61 03/26/17 07:42 Pulse Ox 99 03/26/17 07:42 Intake & Output 03/25/17 03/26/17 03/26/17 18:59 06:59 18:59 Intake Total 750 360 Output Total 1000 850 Balance -250 -490 Weight 181 lb Intake: Oral 750 360 Output: Output, Martin 1000 850 Other: Voiding Method Indwelling Catheter Indwelling Catheter Progress Note: Exam - Physical Exam Constitutional: NAD HEENT: PERRLA, sclera anicteric Neck: no nodes Cardiovascular: RRR Respiratory: clear to auscultation bilaterally Gastrointestinal: soft, no distention, positive bowel sounds Musculoskeletal: no edema Neurological: non-focal, moves all 4 limbs Lymphatic: no nodes Psychiatric: normal affect Skin: no rash Progress Note: Data - Labs Result Diagrams: 03/26/17 05:47 03/26/17 05:47 Lab results: Laboratory Results 03/25/17 03/26/17 03/26/17 04:21 05:47 05:47 WBC 11.4 H RBC 4.74 Hgb 13.8 Hct 43.9 MCV 92.6 MCH 29.1 MCHC 31.5 L RDW 20.0 H Plt Count 218 MPV 9.0 Neutrophils % 89.6 H Lymphocytes % 4.3 L Monocytes % 5.3 Eosinophils % 0.4 Basophils % 0.4 Neutrophils # 10.2 H Lymphocytes # 0.5 L Monocytes # 0.6 H Eosinophils # 0.0 Basophils # 0.0 Sodium 126 L 130 L Potassium 4.2 4.1 Chloride 80 L 81 L Carbon Dioxide 32 H 35 H Anion Gap 18 18 BUN 32 H 25 H Creatinine 0.90 0.80 Estimated GFR (MDRD) 67 77 Glucose 165 H 132 H Calcium 9.1 9.2 Progress Note: A/P - Problems (1) Acute on chronic diastolic (congestive) heart failure Current Visit: Yes Status: Acute Code(s): I50.33 - ACUTE ON CHRONIC DIASTOLIC (CONGESTIVE) HEART FAILURE (2) Acute respiratory failure with hypoxia Current Visit: Yes Status: Acute Code(s): J96.01 - ACUTE RESPIRATORY FAILURE WITH HYPOXIA (3) PNA (pneumonia) Current Visit: Yes Status: Acute Code(s): J18.9 - PNEUMONIA, UNSPECIFIED ORGANISM Qualifiers: Pneumonia type: due to unspecified organism Laterality: bilateral (4) CKD (chronic kidney disease) stage 2, GFR 60-89 ml/min Current Visit: Yes Status: Chronic Code(s): N18.2 - CHRONIC KIDNEY DISEASE, STAGE 2 (MILD) - Plan Plan: Reduce steroid dose I told her mother that I think pt would benefit from rehab placement prior to going home I have asked CM to look into rehab Continue nocturnal Bipap (she has a machine at home)
[2017-03-26 08:19] VITALS: BMI 35.3
[2017-03-26] MEDS: Levothyroxine Sodium 125 MCG TAB PO SCH (08:42)
[2017-03-26] MEDS: Spironolactone 25 MG TAB PO SCH (08:43)
[2017-03-26] MEDS: Citalopram 20 MG TAB PO SCH (08:43)
[2017-03-26] MEDS: Enoxaparin Sodium 40 MG/0.4 ML SYRINGE SC SCH (08:43)
[2017-03-26] MEDS: predniSONE 20 MG TAB PO SCH (08:43)
[2017-03-26] MEDS: Pantoprazole 40 MG GRANULES PACKET PO SCH (08:43)
[2017-03-26] MEDS ORDERED: Bumetanide 1 MG TAB PO SCH (09:00)
[2017-03-26] MEDS: Mometasone/Formoterol 120 PUFF INHALER INH SCH ×2 (09:15→20:29)
[2017-03-26] MEDS ORDERED: Albuterol Sulfate 2.5 mg/3 ml Neb NEB PRN (11:07)
--- NOTE | 2017-03-26 11:07 | PDOC.PN ---
- Subjective Encounter Start Date: 03/26/17 Encounter Start Time: 11:05 Subjective: No complaints today. in good spirits. No acute oernight events. - Objective Resuscitation Status: Resuscitation Status FULL:Full Resuscitation MAR Reviewed: Yes Vital Signs & Weight: Vital Signs (12 hours) Temp Pulse Resp BP Pulse Ox 03/26/17 09:16 95 03/26/17 08:50 92 19 94 L 03/26/17 08:00 97.6 F 71 12 93 L 03/26/17 07:42 97.6 F 71 12 97/61 99 03/26/17 04:20 97.4 F L 76 22 H 104/64 96 03/26/17 02:39 82 17 97 03/26/17 00:17 97 03/26/17 00:16 75 13 97 03/26/17 00:00 75 14 101/61 96 Weight Admit Weight 187 lb 2.759 oz Weight 181 lb Most Recent Monitor Data Heart Rate from ECG 80 NIBP 79/44 NIBP BP-Mean 56 Respiration from ECG 32 SpO2 96 I&O: 03/25/17 03/26/17 03/27/17 06:59 06:59 06:59 Intake Total 1320 1110 Output Total 1900 1850 Balance -580 -740 Result Diagrams: 03/26/17 05:47 03/26/17 05:47 Phys Exam - Physical Examination HEENT: PERRLA, moist MMs, sclera anicteric Neck: full ROM Respiratory: no wheezing, no rales, clear to auscultation bilateral Cardiovascular: RRR, no significant murmur, no rub Gastrointestinal: soft, non-tender, no distention, positive bowel sounds Musculoskeletal: no edema Neurological: non-focal, moves all 4 limbs Psychiatric: normal affect Skin: no rash Dx/Plan (1) Acute bronchitis due to human metapneumovirus Code(s): J20.8 - ACUTE BRONCHITIS DUE TO OTHER SPECIFIED ORGANISMS Status: Acute Plan: Continue to wean off oxygen, nebs PRN, 20 mg prednisone daily. Comment: Wean O2 as tolerated - slow weaning. On po prednisone, nebs (2) Acute on chronic diastolic (congestive) heart failure Code(s): I50.33 - ACUTE ON CHRONIC DIASTOLIC (CONGESTIVE) HEART FAILURE Status : Acute Comment: careful diuresis under their guidance - lasix discontinued. On bumex PO EF 50-55% (3) Acute respiratory failure with hypoxia Code(s): J96.01 - ACUTE RESPIRATORY FAILURE WITH HYPOXIA Status: Resolved Comment: apprec pulmonary c/s intermittent BiPAP, Duonebs (4) CKD (chronic kidney disease) stage 2, GFR 60-89 ml/min Code(s): N18.2 - CHRONIC KIDNEY DISEASE, STAGE 2 (MILD) Status: Chronic Plan: Renal indices continue to improve. Will monitor. Comment: At baseline. (5) Down's syndrome Code(s): Q90.9 - DOWN SYNDROME, UNSPECIFIED Status: Chronic Comment: At baseline/. (6) Hypothyroidism Code(s): E03.9 - HYPOTHYROIDISM, UNSPECIFIED Status: Chronic Qualifiers: Hypothyroidism type: unspecified Qualified Code(s): E03.9 - Hypothyroidism , unspecified Plan: Continue levothyroxine. Comment: Continue Levothyroxine 125mcg daily (7) Obstructive sleep apnea Code(s): G47.33 - OBSTRUCTIVE SLEEP APNEA (ADULT) (PEDIATRIC) Status: Chronic Plan: Continue BiPAP. Comment: Uses CPAp at home. On BIPAP in hospital, (8) Hyponatremia Code(s): E87.1 - HYPO-OSMOLALITY AND HYPONATREMIA Status: Acute Plan: Improving. 2/2 diuretics. (9) Leucocytosis Code(s): D72.829 - ELEVATED WHITE BLOOD CELL COUNT, UNSPECIFIED Status: Acute Qualifiers: Leukocytosis type: unspecified Qualified Code(s): D72.829 - Elevated white blood cell count, unspecified Comment: Steroid induced. - Plan cont current plan of care, plan discussed w/ family, respiratory therapy, DVT proph w/lovenox Patient will benefit from ROSA before going back home. Will consult with case management associate
--- NOTE | 2017-03-26 18:10 | PRG ---
DATE OF SERVICE: 03/26/2017 SUBJECTIVE: Ms. Smith is out of the floor. She feels better. Awake and alert. OBJECTIVE: VITAL SIGNS: Blood pressure 103/61, pulse 66 and regular. LUNGS: Clear. CARDIAC: Normal S1, S2. ASSESSMENT: 1. Diastolic congestive heart failure, improved. 2. Still has a Martin catheter. Plan to stop Martin catheter tomorrow.
[2017-03-26] MEDS: Aripiprazole 2 MG TAB PO SCH (21:16)
[2017-03-27] MEDS: Diabetic Tussin 200 MG/10 ML UDCUP PO PRN ×2 (00:20→21:09)
[2017-03-27] MEDS: Levothyroxine Sodium 125 MCG TAB PO SCH (06:01)
[2017-03-27 06:08] LABS: #Eosinphils 0.2 thou/uL (0.0-0.7); #Lymphocytes 1.2 thou/uL (1.20-3.40); #Monocytes 0.8 thou/uL (0.11-0.59); #Neutrophils 8.2 thou/uL (1.40-6.50); %Basophils 0.2 % (0.0-1.0); %Eosinophils 1.6 % (0.0-10.0); %Lymphocytes 11.1 % (21.0-51.0); %Monocytes 8.1 % (0.0-10.0); %Neutrophils 79.1 % (42.0-75.0); Hemoglobin 13.8 g/dL (12.0-16.0); Mean Corpuscular HGB CONC 31.7 g/dL (32.0-36.0); Mean Corpuscular Hemoglobin 29.4 pg (27.0-31.0); Mean Corpuscular Volume 92.8 fl (81.0-99.0); Mean Platelet Volume 8.9 fL (7.4-10.4); Platelet Count 223 thou/uL (130-400); RBC Distribution Width 20.6 % (11.5-14.5); Red Blood Cell (RBC) Count 4.71 mill/uL (4.20-5.40); White Blood Cell (WBC) Count 10.3 thou/uL (4.8-10.8)
[2017-03-27 06:25] LABS: Anion Gap 15 mmol/L (10-20); BUN (Urea Nitrogen) 29 mg/dL (7.0-18.7); Calc. Creatinine Clearance 101 mL/min (70-130); Calcium 9.1 mg/dL (7.8-10.44); Carbon Dioxide 37 mmol/L (22-29); Chloride 84 mmol/L (98-107); Estimated GFR-MDRD 67; Glucose 78 mg/dL (70-105); Potassium 3.8 mmol/L (3.5-5.1); Sodium 132 mmol/L (136-145)
[2017-03-27] MEDS: Bumetanide 1 MG TAB PO SCH ×2 (08:04→16:36)
[2017-03-27] MEDS: Citalopram 20 MG TAB PO SCH (08:04)
[2017-03-27] MEDS: Pantoprazole 40 MG GRANULES PACKET PO SCH (08:05)
[2017-03-27] MEDS: Spironolactone 25 MG TAB PO SCH (08:05)
[2017-03-27] MEDS: Enoxaparin Sodium 40 MG/0.4 ML SYRINGE SC SCH (08:05)
[2017-03-27] MEDS: predniSONE 20 MG TAB PO SCH (08:05)
[2017-03-27] MEDS: Mometasone/Formoterol 120 PUFF INHALER INH SCH ×2 (11:00→19:20)
--- NOTE | 2017-03-27 11:34 | PDOC.PN ---
- Subjective Encounter Start Date: 03/27/17 Encounter Start Time: 11:33 - Objective Resuscitation Status: Resuscitation Status FULL:Full Resuscitation MAR Reviewed: Yes Vital Signs & Weight: Vital Signs (12 hours) Temp Pulse Resp BP BP Pulse Ox 03/27/17 11:31 98.2 F 85 20 105/56 L 93 L 03/27/17 11:00 83 20 03/27/17 10:50 95 03/27/17 10:49 83 20 03/27/17 07:54 97.4 F L 77 18 96/54 L 93 L 03/27/17 03:58 97.4 F L 82 19 94/59 L 95 03/27/17 01:07 79 15 96 03/27/17 01:04 79 15 96 Weight Admit Weight 187 lb 2.759 oz Weight 181 lb 1.6 oz Most Recent Monitor Data Heart Rate from ECG 80 NIBP 79/44 NIBP BP-Mean 56 Respiration from ECG 32 SpO2 96 I&O: 03/26/17 03/27/17 03/28/17 06:59 06:59 06:59 Intake Total 1110 1030 Output Total 1850 1600 8 Balance -740 -570 -8 Result Diagrams: 03/27/17 04:38 03/27/17 04:38 Phys Exam - Physical Examination Constitutional: NAD HEENT: PERRLA, moist MMs, sclera anicteric Neck: supple, full ROM Respiratory: no wheezing, no rales, clear to auscultation bilateral Cardiovascular: RRR, no significant murmur, no rub Gastrointestinal: soft, non-tender, no distention, positive bowel sounds Musculoskeletal: no edema Neurological: non-focal, moves all 4 limbs Psychiatric: normal affect Skin: no rash Dx/Plan (1) Acute bronchitis due to human metapneumovirus Code(s): J20.8 - ACUTE BRONCHITIS DUE TO OTHER SPECIFIED ORGANISMS Status: Acute Plan: Markedly improved. Continue current care. Comment: Wean O2 as tolerated - slow weaning. On po prednisone, nebs (2) Acute on chronic diastolic (congestive) heart failure Code(s): I50.33 - ACUTE ON CHRONIC DIASTOLIC (CONGESTIVE) HEART FAILURE Status : Acute Plan: Continue bumex. Monitor renal function. Comment: careful diuresis under their guidance - lasix discontinued. On bumex PO EF 50-55% (3) Acute respiratory failure with hypoxia Code(s): J96.01 - ACUTE RESPIRATORY FAILURE WITH HYPOXIA Status: Resolved Plan: Continue supplemental O2. Will get home O2 eval as family wants to take her home. Comment: apprec pulmonary c/s intermittent BiPAP, Duonebs (4) CKD (chronic kidney disease) stage 2, GFR 60-89 ml/min Code(s): N18.2 - CHRONIC KIDNEY DISEASE, STAGE 2 (MILD) Status: Chronic Plan: Monitor. Comment: At baseline. (5) Hypothyroidism Code(s): E03.9 - HYPOTHYROIDISM, UNSPECIFIED Status: Chronic Qualifiers: Hypothyroidism type: unspecified Qualified Code(s): E03.9 - Hypothyroidism , unspecified Plan: Continue Levothyroxine. Comment: Continue Levothyroxine 125mcg daily (6) Down's syndrome Code(s): Q90.9 - DOWN SYNDROME, UNSPECIFIED Status: Chronic Comment: At baseline/. (7) Obstructive sleep apnea Code(s): G47.33 - OBSTRUCTIVE SLEEP APNEA (ADULT) (PEDIATRIC) Status: Chronic Plan: Cpontiinue BiPAP and O2 Home O2 eval. Comment: Uses CPAp at home. On BIPAP in hospital, as well as supplemental O2. (8) Hyponatremia Code(s): E87.1 - HYPO-OSMOLALITY AND HYPONATREMIA Status: Acute Plan: Monitor. Comment: Improving. MOnitor. (9) Leucocytosis Code(s): D72.829 - ELEVATED WHITE BLOOD CELL COUNT, UNSPECIFIED Status: Acute Qualifiers: Leukocytosis type: unspecified Qualified Code(s): D72.829 - Elevated white blood cell count, unspecified Plan: Monitor. Comment: Steroid induced. - Plan cont current plan of care, plan discussed w/ family, continue antibiotics, PT/OT , respiratory therapy Likely discharge home today after home O2 eval, if home O2 can be secured. * .
--- NOTE | 2017-03-27 12:24 | PRG ---
DATE OF SERVICE: 03/27/2017 SUBJECTIVE: She is sitting up in chair, doing well today. OBJECTIVE: VITAL SIGNS: On exam, temperature 98.2, pulse 85, respirations 20, O2 sats 93% on 3 liters, blood pr essure 105/56. HEENT: Unremarkable. NECK: No JVD. CHEST: Fairly clear. CARDIAC: S1 and S2 regular. ABDOMEN: Soft. EXTREMITIES: Trace edema. LABORATORY DATA: White blood cell count 10, hematocrit 43.7, platelet count 223. Sodium 132, potass ium 3.8, chloride 84, CO2 of 37, BUN 29, creatinine 0.9, glucose 78. ASSESSMENT: 1. Status post acute respiratory failure related to pneumonia and congestive heart failure. 2. Down syndrome. PLAN: I think Razia is ready for rehabilitation. All antibiotics have been stopped. Her diuretics are being managed by Internal Medicine and Cardiology. Her steroids should be tapered over a couple of weeks. I am around this weekend if help is needed.
[2017-03-27] MEDS: Aripiprazole 2 MG TAB PO SCH (21:08)
--- NOTE | 2017-03-27 22:11 | PRG ---
DATE OF SERVICE: 03/27/2017 SUBJECTIVE: Ms. Smith is doing okay today, but had a drop on blood pressure today is low as 83/54. OBJECTIVE: VITAL SIGNS: She got lightheaded, she had to lay down and came back to 103/55, pulse is 80. LUNGS: Clear. CARDIAC: Normal S1, normal S2. ABDOMEN: Soft, nontender. EXTREMITIES: There is no edema. LABORATORY DATA: Sodium is up to 132. ASSESSMENT: Orthostatic hypotension probably mildly volume depleted. PLAN: 1. Reduce Bumex to 1 mg a day. 2. Spironolactone. 3. Okay to me to go to the rehab. Prognosis is unfortunately appears poor, as the patient was recen tly volume overloaded. If she gets slightly volume depleted, she is hypotensive. Hopefully, the pat ient gets out of the hospital for sometime. 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
[2017-03-28 05:37] LABS: #Eosinphils 0.1 thou/uL (0.0-0.7); #Lymphocytes 1.1 thou/uL (1.20-3.40); #Monocytes 0.6 thou/uL (0.11-0.59); #Neutrophils 7.5 thou/uL (1.40-6.50); %Basophils 0.3 % (0.0-1.0); %Eosinophils 1.2 % (0.0-10.0); %Monocytes 6.7 % (0.0-10.0); %Neutrophils 79.7 % (42.0-75.0); Hemoglobin 12.7 g/dL (12.0-16.0); Mean Corpuscular HGB CONC 31.5 g/dL (32.0-36.0); Mean Corpuscular Hemoglobin 29.2 pg (27.0-31.0); Mean Corpuscular Volume 92.7 fl (81.0-99.0); Platelet Count 203 thou/uL (130-400); RBC Distribution Width 20.4 % (11.5-14.5); Red Blood Cell (RBC) Count 4.37 mill/uL (4.20-5.40); White Blood Cell (WBC) Count 9.4 thou/uL (4.8-10.8)
[2017-03-28 05:45] LABS: BUN (Urea Nitrogen) 32 mg/dL (7.0-18.7); Calc. Creatinine Clearance 101 mL/min (70-130); Calcium 8.7 mg/dL (7.8-10.44); Estimated GFR-MDRD 67; Glucose 89 mg/dL (70-105)
[2017-03-28 05:55] LABS: Anion Gap 13 mmol/L (10-20); Carbon Dioxide 37 mmol/L (22-29); Chloride 85 mmol/L (98-107); Potassium 3.5 mmol/L (3.5-5.1); Sodium 131 mmol/L (136-145)
[2017-03-28] MEDS: Levothyroxine Sodium 125 MCG TAB PO SCH (06:45)
[2017-03-28] MEDS: Diabetic Tussin 200 MG/10 ML UDCUP PO PRN (06:46)
[2017-03-28] MEDS: Pantoprazole 40 MG GRANULES PACKET PO SCH (08:55)
[2017-03-28] MEDS: Citalopram 20 MG TAB PO SCH (08:55)
[2017-03-28] MEDS: predniSONE 20 MG TAB PO SCH (08:55)
[2017-03-28] MEDS: Enoxaparin Sodium 40 MG/0.4 ML SYRINGE SC SCH (08:56)
[2017-03-28] MEDS ORDERED: Bumetanide 1 MG TAB PO SCH (09:00)
[2017-03-28] MEDS: Mometasone/Formoterol 120 PUFF INHALER INH SCH (09:40)
--- NOTE | 2017-03-28 10:43 | PDOC.PN ---
- Subjective Encounter Start Date: 03/28/17 Encounter Start Time: 10:40 Subjective: Feels better today. No acute events overnight. - Objective Resuscitation Status: Resuscitation Status FULL:Full Resuscitation MAR Reviewed: Yes Vital Signs & Weight: Vital Signs (12 hours) Temp Pulse Resp BP BP Pulse Ox 03/28/17 09:40 80 20 03/28/17 09:29 86 16 03/28/17 06:46 92/53 L 03/28/17 06:45 85 20 89/51 L 03/28/17 03:29 90/54 L 03/28/17 03:20 96.5 F L 79 20 85/53 L 94 L 03/28/17 00:30 81 16 96 03/28/17 00:28 81 16 96 03/27/17 23:28 79 20 91/50 L 95 Weight Admit Weight 187 lb 2.759 oz Weight 181 lb 3.2 oz Most Recent Monitor Data Heart Rate from ECG 80 NIBP 79/44 NIBP BP-Mean 56 Respiration from ECG 32 SpO2 96 I&O: 03/27/17 03/28/17 03/29/17 06:59 06:59 06:59 Intake Total 1030 1180 Output Total 1600 1358 Balance -570 -178 Result Diagrams: 03/28/17 04:58 03/28/17 04:58 Phys Exam - Physical Examination Constitutional: NAD HEENT: PERRLA, moist MMs, sclera anicteric Neck: supple, full ROM Respiratory: no wheezing, no rales, no rhonchi, clear to auscultation bilateral Cardiovascular: RRR, no significant murmur, no rub Gastrointestinal: soft, non-tender, no distention, positive bowel sounds Musculoskeletal: no edema, pulses present Neurological: non-focal, moves all 4 limbs Psychiatric: normal affect Skin: no rash, normal turgor Dx/Plan (1) Acute bronchitis due to human metapneumovirus Code(s): J20.8 - ACUTE BRONCHITIS DUE TO OTHER SPECIFIED ORGANISMS Status: Acute Plan: Continue current mx. Comment: Wean O2 as tolerated - slow weaning. On po prednisone, nebs (2) Acute on chronic diastolic (congestive) heart failure Code(s): I50.33 - ACUTE ON CHRONIC DIASTOLIC (CONGESTIVE) HEART FAILURE Status : Acute Plan: Bumex changed to 1 mg daily. Comment: careful diuresis under their guidance - lasix discontinued. On bumex PO and spironolactone. EF 50-55% (3) Acute respiratory failure with hypoxia Code(s): J96.01 - ACUTE RESPIRATORY FAILURE WITH HYPOXIA Status: Resolved Plan: Still requiring supplemental o2. Comment: apprec pulmonary c/s intermittent BiPAP, Duonebs (4) CKD (chronic kidney disease) stage 2, GFR 60-89 ml/min Code(s): N18.2 - CHRONIC KIDNEY DISEASE, STAGE 2 (MILD) Status: Chronic Plan: Stable. Comment: At baseline. (5) Hypothyroidism Code(s): E03.9 - HYPOTHYROIDISM, UNSPECIFIED Status: Chronic Qualifiers: Hypothyroidism type: unspecified Qualified Code(s): E03.9 - Hypothyroidism , unspecified Plan: Continue mx Comment: Continue Levothyroxine 125mcg daily (6) Down's syndrome Code(s): Q90.9 - DOWN SYNDROME, UNSPECIFIED Status: Chronic Comment: At baseline/. (7) Obstructive sleep apnea Code(s): G47.33 - OBSTRUCTIVE SLEEP APNEA (ADULT) (PEDIATRIC) Status: Chronic Comment: Uses CPAp at home. On BIPAP in hospital, as well as supplemental O2. (8) Hyponatremia Code(s): E87.1 - HYPO-OSMOLALITY AND HYPONATREMIA Status: Acute Plan: Continue mx Comment: Improving. MOnitor. (9) Leucocytosis Code(s): D72.829 - ELEVATED WHITE BLOOD CELL COUNT, UNSPECIFIED Status: Acute Qualifiers: Leukocytosis type: unspecified Qualified Code(s): D72.829 - Elevated white blood cell count, unspecified Plan: Monitor Comment: Steroid induced. - Plan cont current plan of care, PT/OT ROSA -: PT/OT * .
[2017-03-28 12:39] VITALS: BP 89/53; TEMP 97.6
--- NOTE | 2017-03-28 21:01 | DIS ---
DATE OF ADMISSION: 03/08/2017 DATE OF DISCHARGE: 03/28/2017 PRIMARY CARE PHYSICIAN: Dr. Orlando Jacques. DISCHARGE DIAGNOSES: Acute bronchitis due to human metapneumovirus, acute on chronic diastolic conge stive heart failure, acute respiratory failure with hypoxia. SECONDARY DIAGNOSES: Chronic kidney disease, hypothyroidism, down syndrome, obstructive sleep apnea CONDITION AT DISCHARGE: Stable and improved. DISCHARGE MEDICATIONS: Albuterol sulfate nebulizer 2.5 mg q.6 hours p.r.n. for shortness of breath, aripiprazole 2 mg p.o. at bedtime, bumetanide 1 mg p.o. daily, citalopram 10 mg p.o. daily, esomepraz ole 20 mg p.o. daily, guaifenesin 50 mg p.o. q.4 hours p.r.n. for cough, ipratropium/albuterol sulfat e 3 mL nebulizer q.6 hours, levothyroxine 112 mcg p.o. and 125 mcg p.o. on alternating days, Loratadi ne 10 mg p.o. daily, milk of magnesia, hydroxide 30 mL p.o. daily, mometasone/formoterol 2 puffs inha led b.i.d., Mycostatin powder topically b.i.d., prednisone 20 mg p.o. daily, spironolactone 12.5 mg p .o. daily, tramadol 50 mg p.o. daily. HISTORY OF PRESENT ILLNESS: A 46-year-old female with known history of Down syndrome and m ental retardation brought to the emergency room by family due to progressively worsening shortness of breath, which started 5 days before presentation. She also developed congestion, postnasal drip and a cough as well as a fever. At the emergency room, she was found to be in respiratory distress, sat uration 70% on room air, tachypneic up to 34 breaths per minute. She was immediately put on BiPAP. Bedside ultrasound showed multiple Dina B lines consistent with pulmonary edema throughout the lung field. On the chest x-ray showed florid pulmonary edema. She was started on IV Lasix and on BiPAP in the emergency room with improvement in her symptoms and was then admitted to [facility]. HOSPITAL COURSE: She had a prolonged and complicated stay in the hospital due to slow improvement fr om her CHF, respiratory failure, eventually found to be viral acute bronchitis due to human metapneum ovirus. She was placed on doxycycline and ceftriaxone, but these were eventually discontinued. She received IV diuresis for her heart failure and continued to show improvement. She was eventually wea shayne to 2 to 3 liters of nasal cannula oxygen. Other medical conditions treated during this admission for her chronic kidney disease, hypothyroidism and JAGUAR and which she was placed on BiPAP while sleep ing. Her hyponatremia also improved with diuresis as this was likely due to her CHF. In addition, s he had leukocytosis, but this was from effect of parenteral steroids, which she received in the hospi lay. PT, OT were consulted and patient was felt to need subacute rehabilitation before she will be d ischarged home. PROCEDURES: They had multiple chest x-rays on admission, the last of which was done on 03/25/2017 an d shows small bilateral pleural effusions and cardiomegaly consults. Pulmonary, Cardiology, palliati ve care. Of note, the long-term prognosis of this patient is guarded due to her multiple comorbiditi es. DIET: Heart healthy diet. PHYSICAL EXAMINATION: Refer to today's progress note. LABORATORY ON DISCHARGE: CBC was largely unremarkable. Leukocytosis had resolved. BMP also largely unremarkable. ACTIVITY: As tolerated and as directed by PT/OT healthcare goals. FOLLOWUP: She is to follow up with her physician within 1 week of discharge. Encouraged to take med ications as prescribed, discharged to subacute rehabilitation. Total time of discharge including chart review 70 minutes.
--- NOTE | 2017-03-28 22:41 | EKG ---
Test Reason : Blood Pressure : / mmHG Vent. Rate : 092 BPM Atrial Rate : 092 BPM P-R Int : 170 ms QRS Dur : 132 ms QT Int : 408 ms P-R-T Axes : 050 -65 076 degrees QTc Int : 504 ms Normal sinus rhythm Possible Left atrial enlargement Right bundle branch block Left anterior fascicular block Bifascicular block Possible Inferior infarct , age undetermined Abnormal ECG Confirmed by CECILIA MARTIN ([id number]), associate editor ERNESTINE CUENCA ([id number]) on 03/28/2017 10:40:42 PM Referred By: Confirmed By:CECILIA MARTIN
[2017-03-29] MEDS ORDERED: Bumetanide 1 MG TAB PO SCH (09:00)
[2017-03-29] MEDS ORDERED: Spironolactone 25 MG TAB PO SCH (09:00)
--- NOTE | 2017-04-01 11:28 | PQF ---
SHONNA SCHULZ OLADIPO [id number] [facility]- B06 [id number] CLINICAL DOCUMENTATION CLARIFICATION FORM: POST DISCHARGE Addendum to original discharge summary date: ____ Late entry note date: __ DATE: ATTN: Alejandro Gutierres MD Please exercise your independent, professional judgment in responding to the clarification form. Clinical indicators are provided on the bottom of this form for your review Progress Note 03/27/17 Assessment #1. Status post acute respiratory failure related to pneumonia and chf Progress Note 03/24/17 Assessment #2. Probable pneumonia Progress Note 03/23/17 Assessment #2 Improved pneumonia Discharge Summary Report Discharge Diagnoses Acute Bronchitis due to human metapneumovirus, acute on chronic diastolic CHF, acute respiratory failure with hypoxia. Please check appropriate box(s): [ ] Aspiration Pneumonia [ ] Aspiration Bronchitis [ ] Empirically treating Gram Negative Pneumonia [ ] Empirically treating Anaerobic Pneumonia [ ] Pneumonia secondary to (specify organism / underlying disease) [ ] Simple Pneumonia (community acquired - nosocomial) [ ] Bronchopneumonia [ x ] Pneumonia of unknown etiology [ ] Pneumonia rulded out [ ] Other diagnosis [ ] Unable to determine In addition, please specify: Present on Admission (POA): [ x ] Yes [ ] No [ ] Unable to determine For continuity of documentation, please document condition throughout progress notes and discharge summary. Thank You. CLINICAL INDICATORS - SIGNS / SYMPTOMS / LABS Fever, Chest pain, expectoration Elevated WBC Current aspiration or vomiting Current NG tube Decreased LOC or altered mental status Dysphagia / + swallow study / impaired gag reflex Purulent sputum/ positive culture results SOB, Hypoxia, ABGs, O2 sats Pulmonary infiltrate / CXR results Look for type of Antibiotics RISK FACTORS Severe Debility and or Dementia Dysphagia / GERD / Hiatal hernia Immunocompromised Tube feedings Chronic lung disease Tobacco abuse / exposure On home antibiotics for PNA w/o improvement TREATMENTS: Antibiotics/antifungals O2 therapy / bronchodilators Ethan philippe Pulmonary consult IV fluids Aggressive Pulmonary Toilet Serial CXRs (This form is maintained as a part of the permanent medical record) 2014 [employer]. All Rights Reserved Obabby [email or web address] [phone] WILLIAM
== END 2017-03-28 15:58 | DRG 291 ==
LOC: ERS 17:59 → ERHOLD 20:31 → CCU 03-09 11:08 → IMCU/EMU 03-09 23:12 → 2NO 03-13 18:52 → IMCU/EMU 03-16 14:45 → 2NO 03-26 10:33
PROVIDERS: ADMIT Emergency Medicine; ATTEND Emergency Medicine
PROC: 5A09557 Assistance with Respiratory Ventilation, Greater than 96 Consecutive Hours, Continuous Positive Airway Pressure (ICD-10-PCS; principal; 2017-03-21)
DX: I50.33 Acute on chronic diastolic (congestive) heart failure (principal); J18.9 Pneumonia, unspecified organism; J96.21 Acute and chronic respiratory failure with hypoxia; N17.9 Acute kidney failure, unspecified; I24.8 Other forms of acute ischemic heart disease; I13.0 Hypertensive heart and chronic kidney disease with heart failure and stage 1 through stage 4 chronic kidney disease, or unspecified chronic kidney disease; E87.1 Hypo-osmolality and hyponatremia; J20.8 Acute bronchitis due to other specified organisms; Q90.9 Down syndrome, unspecified; B97.81 Human metapneumovirus as the cause of diseases classified elsewhere; J06.9 Acute upper respiratory infection, unspecified; R94.5 Abnormal results of liver function studies; I95.1 Orthostatic hypotension; G47.33 Obstructive sleep apnea (adult) (pediatric); E87.6 Hypokalemia; N18.2 Chronic kidney disease, stage 2 (mild); E03.9 Hypothyroidism, unspecified; D72.829 Elevated white blood cell count, unspecified; Z88.8 Allergy status to other drugs, medicaments and biological substances; Z91.041 Radiographic dye allergy status; T38.0X5A Adverse effect of glucocorticoids and synthetic analogues, initial encounter
CPT/HCPCS: 36415; 51702; 71045; 80048; 80053; 81003; 82553; 82805; 83605; 83735; 83880; 84132; 84439; 84443; 84484; 85025; 87040; 87086; 87633; 87798; 93005; 93010; 93306; 93798; 93970; 94640; 94660; 96365; 96366; 96367; 96372; 96375; 99292; A4216; C9113; G8978-GP-CL; G8979-GP-CK; J0692; J0696; J1100; J1650; J1885; J1940; J1956; J2405; J3370; J7506; J7620

== ENCOUNTER 2017-04-21 18:24 | Inpatient (IN) | payer MEDICARE, OTHER ==
--- NOTE | 2017-04-21 19:24 | RAD ---
PORTABLE UPRIGHT FRONTAL CHEST RADIOGRAPH 04/21/17 COMPARISON: 03/25/17. HISTORY: Hypoxia and chest pain. FINDINGS: Inspiration is shallow, limiting detailed assessment. No pneumothorax is seen. Midline sternotomy wir es are present. There is patchy perihilar and bibasilar opacity suggesting a combination of interstitial/alveolar opa city and pulmonary vascular congestion. A degree of this opacity may be on the basis of volume loss s econdary to shallow inspiration. Small pleural effusions cannot be excluded, right more prominent essie n left. IMPRESSION: Shallow inspiration limits assessment. Questioned interstitial pulmonary edema and/or infectious pneu monitis. Recommend followup PA and lateral chest imaging with better inspiration following treatment. POS: MONIE
[2017-04-21 19:37] LABS: #Eosinphils 0.1 thou/uL (0.0-0.7); #Lymphocytes 0.8 thou/uL (1.20-3.40); #Monocytes 0.2 thou/uL (0.11-0.59); #Neutrophils 2.9 thou/uL (1.40-6.50); %Basophils 0.3 % (0.0-1.0); %Eosinophils 1.7 % (0.0-10.0); %Lymphocytes 19.6 % (21.0-51.0); %Monocytes 5.5 % (0.0-10.0); Hemoglobin 11.4 g/dL (12.0-16.0); Mean Corpuscular HGB CONC 31.7 g/dL (32.0-36.0); Mean Corpuscular Hemoglobin 30.1 pg (27.0-31.0); Mean Corpuscular Volume 95.1 fl (81.0-99.0); Mean Platelet Volume 7.9 fL (7.4-10.4); Platelet Count 274 thou/uL (130-400); RBC Distribution Width 21.3 % (11.5-14.5); White Blood Cell (WBC) Count 3.9 thou/uL (4.8-10.8)
[2017-04-21 19:54] LABS: ALT (SGPT) 27 U/L (8-55); AST (SGOT) 26 U/L (5-34); Albumin 3.7 g/dL (3.5-5.0); Alkaline Phosphatase 96 U/L (40-150); Anion Gap 13 mmol/L (10-20); BUN (Urea Nitrogen) 12 mg/dL (7.0-18.7); Bilirubin, Total 1.6 mg/dL (0.2-1.2); CK (CPK) 34 U/L (29-168); Calc. Creatinine Clearance 0 mL/min (70-130); Calcium 9.3 mg/dL (7.8-10.44); Carbon Dioxide 30 mmol/L (22-29); Chloride 99 mmol/L (98-107); Estimated GFR-MDRD 53; Globulin 3.3 g/dL (2.4-3.5); Glucose 99 mg/dL (70-105); Lipase 48 U/L (8-78); Potassium 3.9 mmol/L (3.5-5.1); Sodium 138 mmol/L (136-145)
[2017-04-21 20:05] LABS: CKMB 0.9 ng/mL (0-6.6); Troponin I 0.016 ng/mL (< 0.028)
[2017-04-21] MEDS ORDERED: Ondansetron ODT 4 MG TAB SL PRN (23:07)
[2017-04-21] MEDS ORDERED: Ondansetron HCl/PF 4 MG/2 ML Vial IVP PRN ×2 (23:07→23:42)
[2017-04-21] MEDS ORDERED: Acetaminophen 325 MG TAB PO PRN ×2 (23:07→23:42)
[2017-04-21] MEDS ORDERED: Sodium Chloride 0.9% 1,000 ML IV SCH (23:07)
[2017-04-21 23:22] VITALS: BMI 36.6
[2017-04-21] MEDS ORDERED: Ondansetron ODT 4 MG TAB PO PRN (23:42)
[2017-04-21] MEDS ORDERED: HYDROcodone/Acetaminophen 5/325 mg Tablet PO PRN (23:42)
[2017-04-21] MEDS ORDERED: Furosemide 40 MG/4 ML VIAL SLOW IVP SCH (23:45)
[2017-04-21] MEDS ORDERED: Piperacillin/Tazobactam 4.5 GM in Sodium Chloride 0.9% 100 ML IVPB SCH (23:59)
[2017-04-22 00:25] LABS: CKMB 0.9 ng/mL (0-6.6); Troponin I 0.016 ng/mL (< 0.028)
--- NOTE | 2017-04-22 00:44 | HP ---
DATE OF ADMISSION: 04/21/2017 TIME OF SERVICE: 2145 hours. PRIMARY CARE PHYSICIAN: Dr. Jacques. PRIMARY MEAT SUPERVISOR: Dr. Yanet Barragan. CHIEF COMPLAINT: Shortness of breath. HISTORY OF PRESENT ILLNESS: Ms. Smith herself is nonverbal. When I asked for questions, she points to the center of her chest. Her dad who cares for her is at the bedside and gave the majority of th e history. Patient was admitted here to the hospital. She was here between the hospital and rehab for almost a month. She did go home about 3 weeks ago. While at home, she was noted to have low potassium and about 2 weeks ago she was taken off her bumeta nide. Continue on spironolactone due to hypokalemia. She has had shortness of breath for almost a week now, particularly dyspnea on exertion. The patient up until this past Thursday, which is 4 days ago, was able to get up and walk [facility] home with minimal difficulty, but has had increasing shortness of breath since then. Two days ago, her father had to put her on oxygen that he has at home because there is room air oxygen saturat ions had dipped below 88%. Patient herself complains of pain in her chest. She has not had any coug lolis while I have seen her. She denies any fevers or chills. No nausea, vomiting, diarrhea, constip ation. No sputum or hemoptysis. She was brought to the emergency department for evaluation. Labs were fairly normal. Blood pressure is borderline low, which she does on a regular basis. Has been normal here in the emergency departm ent. We were subsequently called for admission for further workup. PAST MEDICAL HISTORY: 1. Down syndrome. 2. Hypothyroidism. 3. Severe obesity. 4. Obstructive sleep apnea on CPAP. 5. Chronic diastolic congestive heart failure. 6. Recurrent hypotension. PAST SURGICAL HISTORY: Includes: 1. AV canal. 2. Open heart surgery, likely a VSD given Down syndrome. 3. Cholecystectomy. 4. Hernia repair with mesh. HOME MEDICATIONS: 1. Abilify 2 mg p.o. daily. 2. Amoxicillin 800 mg p.o. b.i.d. 3. Bumetanide 1 mg daily, stopped about 2 weeks ago. 4. Citalopram 10 mg daily. 5. Claritin 10 mg daily. 6. Levothyroxine 237 mcg daily. 7. Nexium 20 mg daily. 8. Spironolactone 25 mg daily. 9. Tramadol 50 mg p.o. p.r.n. ALLERGIES: IV DYE and LISINOPRIL. Reactions are unknown. FAMILY HISTORY: Per the father is negative for clotting or bleeding disorder, no immune dysfunction. SOCIAL HISTORY: Negative for habits x3. She does live at home with her parents. She has been in re hab for about 3 weeks now. REVIEW OF SYSTEMS: Not obtainable due to mental status. PHYSICAL EXAMINATION: VITAL SIGNS: Temperature 98.2, pulse 81, blood pressure 114/72, respiratory rate 28, saturating 97% on 2 liters. GENERAL: She is awake and alert. Patient is in no acute distress. HEENT: Normocephalic and atraumatic. Pupils are equal, round, reactive bilaterally, she does have t ypical facies for Down's patient. NECK: Supple. There is no lymphadenopathy, JVD, or thyromegaly. LUNGS: Clear anteriorly, posteriorly, it just shows bibasilar crackles. She has no prolonged expira tory phase. No wheezes or rhonchi. CARDIOVASCULAR: She has normal cardiac and regular. She has a faint systolic ejection murmur best h eard at the apex. She has no diastolic murmurs. ABDOMEN: Obese. It is nontender. She has good bowel sounds in all 4 quadrants. She has no rebound , rigidity, or guarding. EXTREMITIES: No cyanosis, no clubbing. She has 1+ edema in the bilateral lower extremities to just above the ankles. SKIN: Warm, moist, and well perfused. She has no rashes or lesions. NEUROLOGIC: Shows cranial nerves were grossly intact. She did not follow many commands, but does ap pear to have normal strength. She does not have any focal neurologic deficits. MUSCULOSKELETAL: Normal to inspection. NEUROLOGIC: Joints are uninflamed. There is no palpable effusions. LABORATORY DATA: Sodium 138, potassium 3.9, chloride 96, bicarbonate 30, BUN 12, creatinine 1.10. G lucose of 99, and calcium was normal. Liver function is completely within normal limits except for t otal bilirubin 1.6. CBC showed a white count 3.9 with normal differential, hemoglobin is 11.4, hemat ocrit 36.2, and platelet count is 274,000. CK-MB was normal at 0.9 and troponin I was normal at 0.016. BNP slightly elevated at 142 and lactic acid was 0.9. Per the chart review, her BNP at the onset of last admission in early 03/2017 was 320, so she certainly improved, but her baseline is somewhere in the 30 to 60 range. Her baseline creati nine is 0.8 to 0.9. Last echocardiogram on 03/08/2017 showed an EF of 50% to 55%, normal right ventr icular size and function. Difficult study with suboptimal images and mildly dilated left atrium, mil d to moderate mitral regurgitation, and trace tricuspid regurgitation. RADIOGRAPHIC STUDIES: Chest x-ray showed edema or pneumonitis in the form of patchy perihilar and ba silar opacity. ASSESSMENT AND PLAN: 1. Acute hypoxemic respiratory failure: The patient had low oxygen saturations on room air, is like ly acute on chronic. She does have home oxygen, but has not required in some time. I suspect she is volume overloaded due to stopping her bumetanide. We will give IV Lasix tonight and will subsequent ly monitor her in and output very closely. We will ask Dr. Barragan to take a look at her. 2. Acute on chronic combined systolic and diastolic congestive heart failure. She did have a slight decreased ejection fraction. We will give her IV Lasix as above. Watch her potassium and replace a s needed. 3. History of Down syndrome. 4. Hypothyroidism. We will continue her on levothyroxine. 5. Obesity. 6. Obstructive sleep apnea on CPAP. We will continue home therapies. 7. Recurrent hypertension, currently not an issue. I do not believe that given that she is afebrile, has a normal white blood cell count, and the appear ance of the chest x-ray. This is an infectious process. I think this is likely fluid overload due t o not being on Bumex. The patient will be placed on the medical floor. We will admit her to inpatient and follow up on res ults.
[2017-04-22] MEDS: Furosemide 40 MG/4 ML VIAL SLOW IVP SCH (05:41)
[2017-04-22 06:03] LABS: #Eosinphils 0.1 thou/uL (0.0-0.7); #Lymphocytes 0.7 thou/uL (1.20-3.40); #Monocytes 0.3 thou/uL (0.11-0.59); #Neutrophils 3.1 thou/uL (1.40-6.50); %Basophils 0.6 % (0.0-1.0); %Eosinophils 1.9 % (0.0-10.0); %Lymphocytes 15.7 % (21.0-51.0); %Monocytes 6.7 % (0.0-10.0); %Neutrophils 75.1 % (42.0-75.0); Hemoglobin 10.9 g/dL (12.0-16.0); Mean Corpuscular HGB CONC 31.5 g/dL (32.0-36.0); Mean Corpuscular Hemoglobin 29.7 pg (27.0-31.0); Mean Corpuscular Volume 94.3 fl (81.0-99.0); Mean Platelet Volume 7.8 fL (7.4-10.4); Platelet Count 263 thou/uL (130-400); RBC Distribution Width 21.3 % (11.5-14.5); Red Blood Cell (RBC) Count 3.65 mill/uL (4.20-5.40); White Blood Cell (WBC) Count 4.2 thou/uL (4.8-10.8)
[2017-04-22 06:12] LABS: Anion Gap 13 mmol/L (10-20); BUN (Urea Nitrogen) 12 mg/dL (7.0-18.7); Calc. Creatinine Clearance 92 mL/min (70-130); Calcium 8.9 mg/dL (7.8-10.44); Carbon Dioxide 33 mmol/L (22-29); Chloride 99 mmol/L (98-107); Estimated GFR-MDRD 58; Glucose 95 mg/dL (70-105); Magnesium 2.3 mg/dL (1.6-2.6); Potassium 3.6 mmol/L (3.5-5.1); Sodium 141 mmol/L (136-145)
[2017-04-22 08:13] LABS: CKMB 1.2 ng/mL (0-6.6); Troponin I 0.018 ng/mL (< 0.028)
[2017-04-22] MEDS ORDERED: Vancomycin HCl 1 GM in Premix Bag 1 BAG IVPB SCH (09:00)
[2017-04-22] MEDS ORDERED: FLU VACC QS2017-18 36 mo. & older 0.5 ML SYRINGE IM ONE (09:00)
[2017-04-22] MEDS: Famotidine 20 MG TAB PO SCH ×2 (09:35→20:04)
[2017-04-22] MEDS: Enoxaparin Sodium 40 MG/0.4 ML SYRINGE SC SCH (09:38)
--- NOTE | 2017-04-22 14:53 | PDOC.PN ---
- Subjective Encounter Start Date: 04/22/17 Encounter Start Time: 09:55 Subjective: pt up in bed eating, father at bedside - Objective Resuscitation Status: Resuscitation Status FULL:Full Resuscitation Vital Signs & Weight: Vital Signs (12 hours) Temp Pulse Resp BP Pulse Ox 04/22/17 08:00 98.3 F 70 18 94 L 04/22/17 07:29 98.3 F 70 18 109/71 94 L 04/22/17 05:14 98.3 F 78 20 99/66 95 Weight Weight 187 lb 3.2 oz I&O: 04/21/17 04/22/17 04/23/17 06:59 06:59 06:59 Intake Total 130 Output Total 2200 -2069 Result Diagrams: 04/22/17 05:14 04/22/17 05:14 Phys Exam - Physical Examination HEENT: PERRLA, moist MMs Neck: no nodes, no JVD Respiratory: wheezing present (crackles to lower bases) Cardiovascular: RRR, no significant murmur Gastrointestinal: soft, non-tender Musculoskeletal: no edema Neurological: non-focal Dx/Plan (1) Acute on chronic diastolic (congestive) heart failure Code(s): I50.33 - ACUTE ON CHRONIC DIASTOLIC (CONGESTIVE) HEART FAILURE Status : Acute Plan: ef of 50-55%, bnp is not elevated, will also check procalcitonin, will hold abx. No fever no elevated wbc. will get speech to evaluate pt. however on cxr appears pulmonary edema. on lasix. cardiology consulted. (2) Hypothyroidism Code(s): E03.9 - HYPOTHYROIDISM, UNSPECIFIED Status: Chronic Qualifiers: Hypothyroidism type: unspecified Qualified Code(s): E03.9 - Hypothyroidism , unspecified Plan: continue home meds Comment: Continue Levothyroxine 125mcg daily (3) Down's syndrome Code(s): Q90.9 - DOWN SYNDROME, UNSPECIFIED Status: Chronic Plan: at baseline Comment: At baseline/. (4) Acute respiratory failure with hypoxia Code(s): J96.01 - ACUTE RESPIRATORY FAILURE WITH HYPOXIA Status: Acute Plan: possible due to volume overload vs pna - Plan * .
[2017-04-22] MEDS ORDERED: traMADol HCl 50 MG TAB PO PRN (15:05)
[2017-04-22] MEDS: Mometasone/Formoterol 120 PUFF INHALER INH SCH (18:22)
[2017-04-22] MEDS: Aripiprazole 2 MG TAB PO SCH (20:04)
[2017-04-23 06:00] LABS: Anion Gap 14 mmol/L (10-20); BUN (Urea Nitrogen) 12 mg/dL (7.0-18.7); Calc. Creatinine Clearance 73 mL/min (70-130); Calcium 9.1 mg/dL (7.8-10.44); Carbon Dioxide 31 mmol/L (22-29); Chloride 97 mmol/L (98-107); Estimated GFR-MDRD 44; Glucose 112 mg/dL (70-105); Potassium 3.9 mmol/L (3.5-5.1); Sodium 138 mmol/L (136-145)
[2017-04-23] MEDS ORDERED: Levothyroxine Sodium 125 MCG TAB PO SCH (06:00)
[2017-04-23] MEDS: Furosemide 40 MG/4 ML VIAL SLOW IVP SCH (06:06)
[2017-04-23 06:11] LABS: Band 3 % (5-11); Eosinophils 1 % (0-10); Hemoglobin 11.5 g/dL (12.0-16.0); Lymphocytes 21 % (21-51); MDiff Complete? YES; Mean Corpuscular HGB CONC 31.1 g/dL (32.0-36.0); Mean Corpuscular Hemoglobin 29.9 pg (27.0-31.0); Mean Corpuscular Volume 96.1 fl (81.0-99.0); Mean Platelet Volume 7.9 fL (7.4-10.4); Monocytes 9 % (0-10); Neutrophil 66 % (42-75); PLT Morphology Comment Appears Adequate; Platelet Count 246 thou/uL (130-400); Polychromasia SLIGHT = 2-3 cells (100X) (0-2/hpf); RBC Distribution Width 21.2 % (11.5-14.5); RBC Morphology Normal; Red Blood Cell (RBC) Count 3.84 mill/uL (4.20-5.40); White Blood Cell (WBC) Count 4.9 thou/uL (4.8-10.8)
[2017-04-23] MEDS: predniSONE 20 MG TAB PO SCH (07:52)
[2017-04-23] MEDS: Famotidine 20 MG TAB PO SCH ×2 (07:52→21:11)
[2017-04-23] MEDS: Enoxaparin Sodium 40 MG/0.4 ML SYRINGE SC SCH (07:52)
[2017-04-23] MEDS: Citalopram 10 MG TAB PO SCH (07:52)
[2017-04-23] MEDS: Mometasone/Formoterol 120 PUFF INHALER INH SCH ×2 (08:07→18:24)
--- NOTE | 2017-04-23 13:17 | PDOC.PN ---
- Subjective Encounter Start Date: 04/23/17 Encounter Start Time: 07:40 Pt seen for followup re: CHF exacerbation. Denies chest pain. Denies shortness of breath at this time. No cough or fever. - Objective Resuscitation Status: Resuscitation Status DNR:Do Not Resuscitate Vital Signs & Weight: Vital Signs (12 hours) Temp Pulse Resp BP Pulse Ox 04/23/17 08:10 80 16 04/23/17 08:00 98.2 F 80 16 94 L 04/23/17 07:39 97.7 F 92 18 106/70 91 L Weight Weight 187 lb 3.2 oz I&O: 04/22/17 04/23/17 04/24/17 06:59 06:59 06:59 Intake Total 130 240 Output Total 2200 Balance -2069 240 Result Diagrams: 04/23/17 05:33 04/23/17 05:33 Phys Exam - Physical Examination Constitutional: NAD HEENT: moist MMs Neck: supple Respiratory: clear to auscultation bilateral Cardiovascular: RRR Gastrointestinal: soft Neurological: moves all 4 limbs Psychiatric: normal affect Dx/Plan (1) Acute on chronic diastolic (congestive) heart failure Code(s): I50.33 - ACUTE ON CHRONIC DIASTOLIC (CONGESTIVE) HEART FAILURE Status : Acute (2) VICENTE (acute kidney injury) Code(s): N17.9 - ACUTE KIDNEY FAILURE, UNSPECIFIED Status: Acute (3) Down syndrome Code(s): Q90.9 - DOWN SYNDROME, UNSPECIFIED Status: Chronic - Plan plan discussed w/ family, PT/OT, out of bed/ambulate, DVT proph w/lovenox * . Creatinine worsening, decrease furosemide dose and change to oral. Consult cardiology. Review of Systems - Review of Systems Respiratory: SOB with Excertion. negative: Cough, Dry, Shortness of Breath, Hemoptysis, Pleuritic Pain, Sputum, Wheezing Cardiovascular: negative: chest pain, palpitations, orthopnea, paroxysmal nocturnal dyspnea, edema, light headedness - Medications/Allergies Allergies/Adverse Reactions: Allergies Allergy/AdvReac Type Severity Reaction Status Date / Time iodine Allergy Intermediate Verified 04/21/17 22:54 lisinopril Allergy Intermediate Verified 04/21/17 22:54 Medications: Current Medications Acetaminophen (Tylenol) 650 mg PO Q4H PRN PRN Reason: Headache/Fever or Pain Hydrocodone Bitart/Acetaminophen ([place] 5/325) 1 tab PO Q4H PRN PRN Reason: Moderate Pain (4-6) Albuterol/Ipratropium (Duoneb) 3 ml NEB [id number] [facility] Last Admin: 04/23/17 08:10 Dose: 3 ml Aripiprazole (Abilify) 2 mg PO HS [facility] Last Admin: 04/22/17 20:04 Dose: 2 mg Citalopram Hydrobromide (Celexa) 10 mg PO DAILY [facility] Last Admin: 04/23/17 07:52 Dose: 10 mg Enoxaparin Sodium (Lovenox) 40 mg SC 0900 [facility] Last Admin: 04/23/17 07:52 Dose: 40 mg Famotidine (Pepcid) 20 mg PO BID [facility] Last Admin: 04/23/17 07:52 Dose: 20 mg Furosemide (Lasix) 40 mg SLOW IVP 0600 [facility] Last Admin: 04/23/17 06:06 Dose: 40 mg Levothyroxine Sodium (Synthroid) 112 mcg PO Q2D@0600 [facility] Levothyroxine Sodium (Synthroid) 125 mcg PO Q2D@0600 [facility] Last Admin: 04/23/17 06:06 Dose: 125 mcg Mometasone Furoate/Formoterol Fumar (Dulera 100 Mcg/5 Mcg Inhaler) 2 puff INH BID-RT [facility] Last Admin: 04/23/17 08:07 Dose: 2 puff Ondansetron HCl (Zofran Odt) 4 mg PO Q6H PRN PRN Reason: Nausea/Vomiting Ondansetron HCl (Zofran) 4 mg IVP Q6H PRN PRN Reason: Nausea/Vomiting Last Admin: 04/22/17 04:25 Dose: 4 mg Pantoprazole Sodium (Protonix) 40 mg PO 2100 [facility] Last Admin: 04/22/17 20:04 Dose: 40 mg Prednisone (Prednisone) 20 mg PO DAILY [facility] Last Admin: 04/23/17 07:52 Dose: 20 mg Tramadol HCl (Ultram) 50 mg PO DAILY PRN PRN Reason: Pain
--- NOTE | 2017-04-23 15:43 | CON ---
CARDIOLOGY CONSULTATION NOTE DATE OF CONSULTATION: 04/23/2017 PRIMARY SAND TESTER: Dr. Yanet Barragan. HISTORY OF PRESENT ILLNESS: Ms. Smith is a very pleasant 46-year-old white female. She has Down sy ndrome and nonverbal, who comes to the hospital for shortness of breath. She was here for bronchitis recently and had her Bumex discontinued before her discharge given she is a little bit volume down. She comes back as she is a little more short of breath, felt to be a little volume up. She was give n a dose of Lasix and Cardiology has been consult for further evaluation. Currently, Ms. Smith is much more comfortable. She is on her oxygen cannula, but she does use oxyge n at home. PAST MEDICAL HISTORY: 1. Down syndrome. 2. Hypothyroidism. 3. Obesity. 4. JAGUAR, on CPAP. 5. Chronic diastolic heart failure. 6. Recurrent hypotension. PAST SURGICAL HISTORY: 1. AV canal, status post repair when she was 5 years old. 2. Cholecystectomy. 3. Hernia repair. OUTPATIENT MEDICATIONS: Include; 1. Abilify. 2. Amoxicillin. 3. Bumetanide 1 mg daily. 4. Citalopram. 5. Claritin. 6. Levothyroxine. 7. Nexium. 8. Aldactone 25 mg a day. 9. Tramadol. ALLERGIES: IV CONTRAST and LISINOPRIL. FAMILY HISTORY: Noncontributory. SOCIAL HISTORY: No alcohol, tobacco or drugs. REVIEW OF SYSTEMS: Unobtainable as the patient is nonverbal. PHYSICAL EXAMINATION: VITAL SIGNS: Temperature 98.2, pulse 80, respiratory rate 16, satting 94% on 2 liters and blood pres sure 100/62. GENERAL: Awake and alert. Cannot assess orientation as she is nonverbal, in no distress. HEENT: Normocephalic and atraumatic. NECK: Supple. LUNGS: Clear. CARDIOVASCULAR: S1 and S2. No S3 or S4. ABDOMEN: Soft. Positive bowel sounds. EXTREMITIES: Trace edema. SKIN: Warm and dry. LABORATORY DATA: Laboratory work was reviewed and shows a white count of 4.9, hemoglobin of 11, salvatore tocrit of 36 and platelet count of 246. Chemistries unremarkable except for the creatinine is mildly higher than yesterday at 1.29 with a BUN of 12. Troponins has been negative x3. BNP was 140. IMAGING DATA: Chest x-ray was reviewed. ASSESSMENT AND PLAN: Acute diastolic heart failure, mild, much improved with one dose of IV Lasix. Likely, related to discontinuation of her diuretic. PLAN: 1. Would restart her p.o. home regimen of Bumex at 1 mg a day, would stop any more IV diuresis. 2. I think she is close to what she normally is. 3. Dr. Barragan will follow up in the morning. Thank you for letting us participate in the care of this patient.
[2017-04-23] MEDS: Aripiprazole 2 MG TAB PO SCH (21:10)
[2017-04-24] MEDS ORDERED: Levothyroxine Sodium 112 MCG TAB PO SCH (06:00)
[2017-04-24] MEDS ORDERED: Furosemide 40 MG TAB PO SCH (07:30)
[2017-04-24 07:44] VITALS: BP 86/50
[2017-04-24] MEDS: Enoxaparin Sodium 40 MG/0.4 ML SYRINGE SC SCH (07:46)
[2017-04-24] MEDS: predniSONE 20 MG TAB PO SCH (07:46)
[2017-04-24] MEDS: Citalopram 10 MG TAB PO SCH (07:47)
[2017-04-24] MEDS: Famotidine 20 MG TAB PO SCH (07:47)
[2017-04-24] MEDS: Mometasone/Formoterol 120 PUFF INHALER INH SCH (08:02)
[2017-04-24] MEDS ORDERED: Bumetanide 1 MG TAB PO SCH (09:00)
[2017-04-24 10:21] VITALS: TEMP 97.6
[2017-04-24 11:01] LABS: #Eosinphils 0.1 thou/uL (0.0-0.7); #Lymphocytes 0.8 thou/uL (1.20-3.40); #Monocytes 0.3 thou/uL (0.11-0.59); #Neutrophils 4.8 thou/uL (1.40-6.50); %Basophils 0.5 % (0.0-1.0); %Eosinophils 1.3 % (0.0-10.0); %Lymphocytes 13.9 % (21.0-51.0); %Monocytes 4.8 % (0.0-10.0); %Neutrophils 79.5 % (42.0-75.0); Hemoglobin 11.5 g/dL (12.0-16.0); Mean Corpuscular HGB CONC 31.9 g/dL (32.0-36.0); Mean Corpuscular Hemoglobin 30.2 pg (27.0-31.0); Mean Corpuscular Volume 94.7 fl (81.0-99.0); Platelet Count 255 thou/uL (130-400); RBC Distribution Width 21.4 % (11.5-14.5)
[2017-04-24 11:22] LABS: Anion Gap 16 mmol/L (10-20); BUN (Urea Nitrogen) 13 mg/dL (7.0-18.7); Calc. Creatinine Clearance 86 mL/min (70-130); Calcium 9.6 mg/dL (7.8-10.44); Carbon Dioxide 29 mmol/L (22-29); Chloride 96 mmol/L (98-107); Estimated GFR-MDRD 53; Glucose 156 mg/dL (70-105); Potassium 3.5 mmol/L (3.5-5.1); Sodium 137 mmol/L (136-145)
[2017-04-24] MEDS ORDERED: predniSONE 20 MG TAB PO SCH (14:16)
--- NOTE | 2017-04-24 14:31 | PRG ---
DATE OF SERVICE: 04/24/2017 SUBJECTIVE: Ms. Smith is doing well. She is up walking in the roque. PHYSICAL EXAMINATION: VITAL SIGNS: Her blood pressure is 86/50, it was 94/60 earlier, pulse is 70. LUNGS: Clear. CARDIAC: Normal S1, normal S2. ASSESSMENT: 1. Diastolic heart failure, improved. 2. Relatively low blood pressure, chronic finding. 3. Down's syndrome. PLAN: 1. She will go home on Spironolactone 25 mg a day. 2. Bumex 1 mg a day. 3. We would reduce prednisone. She is currently on 20 mg a day, we would at least cut it down to 10 .
--- NOTE | 2017-04-24 18:56 | DIS ---
PRIMARY CARE PHYSICIAN: Orlando Jacques MD DATE OF ADMISSION: 04/21/2017 DATE OF DISCHARGE: 04/24/2017 DISCHARGE DIAGNOSES: 1. Acute diastolic heart failure. 2. Acute renal insufficiency, resolved. CONDITION OF PATIENT AT THE TIME OF DISCHARGE: Stable. I assessed MS. Smith on the day of discharg e. She denies any chest pain or shortness of breath. Vital signs are stable. S1 and S2 are heard, regular. Lungs are clear to auscultation bilaterally. CONSULTATIONS DURING THIS HOSPITALIZATION: Cardiology, Dr. Martins. DISCHARGE MEDICATIONS: Abilify 2 mg at bedtime, bumetanide 1 mg daily, citalopram 10 mg daily, Nexiu m 20 mg daily, Synthroid 112 mcg alternating with 125 mcg on alternate days, loratadine 10 mg daily, prednisone dose decreased to 10 mg daily, spironolactone dose increased to 25 mg daily, Robitussin DM p.r.n., and Milk of magnesia p.r.n. HOSPITAL COURSE: Mr. Smith is a pleasant 46-year-old lady who was admitted to [facility] on 04/24/2017 for shortness of breath secondary to congestive heart failure exacerbation . She was initially treated with intravenous diuretics, subsequently was changed to oral diuretics. She developed acute renal insufficiency with a creatinine of 1.29 on 12/21/2017. This normalized to 1.10 by 04/24/2017. She improved clinically. She was seen by Cardiology Service. She is being discharged home in a stab le condition. Many thanks for allowing me to participate in your patient's care. Please feel free to contact me wi th any questions or concerns. DISCHARGE DESTINATION: Home. TOTAL AMOUNT OF TIME SPENT COORDINATING THIS DISCHARGE: 22 minutes.
[2017-04-25] MEDS ORDERED: Spironolactone 25 MG TAB PO SCH (08:00)
== END 2017-04-24 14:47 | disposition home health service (06) | DRG 291 ==
LOC: ERS 18:24 → T4-B 21:14
PROVIDERS: ADMIT Family Medicine; ATTEND Family Medicine
DX: I11.0 Hypertensive heart disease with heart failure (principal); J96.21 Acute and chronic respiratory failure with hypoxia; I95.9 Hypotension, unspecified; N17.9 Acute kidney failure, unspecified; E87.6 Hypokalemia; E03.9 Hypothyroidism, unspecified; Q90.9 Down syndrome, unspecified; E66.9 Obesity, unspecified; Z68.36 Body mass index [BMI] 36.0-36.9, adult; G47.33 Obstructive sleep apnea (adult) (pediatric); Z88.8 Allergy status to other drugs, medicaments and biological substances; I50.33 Acute on chronic diastolic (congestive) heart failure
CPT/HCPCS: 36415; 71045; 80048; 80053; 82553; 83605; 83690; 83735; 83880; 84145; 84484; 85007; 85025; 85027; 87040; 87149; 87633; 93005; 94640; 94664; 96365; G8978-GP-CJ; G8979-GP-CH; G8996-GN-CJ; G8997-GN-CI; J1650; J1940; J1956; J2405; J2543; J3370; J7050; J7506; J7620

== ENCOUNTER 2017-07-07 14:28 | Outpatient (CLI) | payer MEDICARE, OTHER ==
--- NOTE | 2017-07-07 16:20 | RAD ---
TWO VIEWS OF THE CHEST: 07/07/17 COMPARISON: 04/21/17. HISTORY: Dyspnea. FINDINGS: Two views of the chest shows an enlarged but stable cardiomediastinal silhouette. The patient is stat us post sternotomy. Bilateral perihilar opacities are seen which may represent interstitial edema. Th ere may be small bilateral pleural effusions. IMPRESSION: Cardiomegaly with pulmonary edema and pleural effusions may be secondary to congestive heart failure. POS: [facility]
== END 2017-07-07 14:29 | disposition home or self-care (01) ==
LOC: RAD 14:28
PROVIDERS: ATTEND Internal Medicine Cardiovascular Disease
DX: I50.9 Heart failure, unspecified (principal); I51.7 Cardiomegaly; J90 Pleural effusion, not elsewhere classified; J81.1 Chronic pulmonary edema
CPT/HCPCS: 71046

== ENCOUNTER 2017-07-09 17:33 | Inpatient (IN) | payer MEDICARE, OTHER ==
--- NOTE | 2017-07-09 18:51 | RAD ---
PORTABLE CHEST: 07/09/17 HISTORY: Fluid overload, bronchitis, shortness of breath. COMPARISON: 04/21/17 study. Heart size is borderline. Postop sternotomy changes. Mild vascular engorgement is seen. This is defin itely less prominent than seen on the prior examination. IMPRESSION: Borderline cardiomegaly with mild pulmonary vascular engorgement. POS: [facility]
[2017-07-09] MEDS ORDERED: Furosemide 20 MG/2 ML VIAL ONE (19:17)
[2017-07-09] MEDS ORDERED: Furosemide 40 MG/4 ML VIAL ONE (19:17)
[2017-07-09 19:48] LABS: #Eosinphils 0.1 thou/uL (0.0-0.7); #Lymphocytes 1.1 thou/uL (1.20-3.40); #Monocytes 0.5 thou/uL (0.11-0.59); #Neutrophils 7.9 thou/uL (1.40-6.50); %Basophils 0.1 % (0.0-1.0); %Eosinophils 0.7 % (0.0-10.0); %Lymphocytes 11.4 % (21.0-51.0); %Monocytes 5.5 % (0.0-10.0); %Neutrophils 82.3 % (42.0-75.0); Hemoglobin 15.6 g/dL (12.0-16.0); Mean Corpuscular HGB CONC 34.4 g/dL (32.0-36.0); Mean Corpuscular Hemoglobin 30.9 pg (27.0-31.0); Mean Corpuscular Volume 89.8 fl (81.0-99.0); Mean Platelet Volume 9.8 fL (7.4-10.4); Platelet Count 254 thou/uL (130-400); RBC Distribution Width 18.7 % (11.5-14.5); Red Blood Cell (RBC) Count 5.03 mill/uL (4.20-5.40); White Blood Cell (WBC) Count 9.6 thou/uL (4.8-10.8)
[2017-07-09 20:13] LABS: CKMB 1.9 ng/mL (0-6.6); Troponin I 0.034 ng/mL (< 0.028)
[2017-07-09 20:42] LABS: Albumin 4.3 g/dL (3.5-5.0)
[2017-07-09 20:44] LABS: Chloride 79 mmol/L (98-107); Sodium 129 mmol/L (136-145)
[2017-07-09 20:45] LABS: Calcium 9.9 mg/dL (7.8-10.44); Globulin 4.4 g/dL (2.4-3.5); Glucose 142 mg/dL (70-105); Protein, Total 8.7 g/dL (6.0-8.3)
[2017-07-09 20:46] LABS: Anion Gap 18 mmol/L (10-20); Carbon Dioxide 35 mmol/L (22-29)
[2017-07-09 20:47] LABS: Bilirubin Negative (Negative); Bilirubin, Total 2.2 mg/dL (0.2-1.2); Blood, Urine Large (Negative); Clarity CLEAR (Clear); Glucose, Urine (Dipstick) Negative (Negative); Leukocyte Trace (Negative); Nitrite Negative (Negative); Protein, Urine (Dipstick) Negative (Neg-Trace); Urobilinogen 0.2 mg/dL (0.2-1.0); pH, Urine 6.5 (5.0-9.0)
[2017-07-09 20:48] LABS: Alkaline Phosphatase 92 U/L (40-150); Potassium 2.5 mmol/L (3.5-5.1)
[2017-07-09 20:49] LABS: BUN (Urea Nitrogen) 28 mg/dL (7.0-18.7); Calc. Creatinine Clearance 0 mL/min (70-130); Estimated GFR-MDRD 31
[2017-07-09 20:50] LABS: AST (SGOT) 31 U/L (5-34)
[2017-07-09 20:51] LABS: ALT (SGPT) 32 U/L (8-55); Lipase 26 U/L (8-78)
[2017-07-09 20:52] LABS: Bacteria/HPF None Seen HPF (None Seen); Pathc Cast-AUWi Flag 3.77 (0-2.49); RBC/HPF GREATER THAN 50-TNTC HPF (0-3); Squamous Epithelial 0-3 HPF (0-3); WBC/HPF 0-3 HPF (0-3)
[2017-07-09] MEDS ORDERED: Potassium Chloride 20 MEQ TAB ONE (21:01)
[2017-07-09 21:04] LABS: Hyaline Casts/LPF 0-3 HYALINE CAST LPF (0-3 Hyaline); Manual Microscopic Reviewed? No Path Casts Seen
[2017-07-09] MEDS ORDERED: Potassium Chloride 10 MEQ TAB PO SCH (21:15)
[2017-07-09] MEDS ORDERED: Potassium Chloride 10 MEQ in Premix Bag 1 BAG IVPB SCH (22:30)
[2017-07-10 00:57] VITALS: BMI 34.2
[2017-07-10] MEDS: Potassium Chloride 20 MEQ in Premix Bag 1 BAG IVPB SCH ×2 (02:44→07:49)
[2017-07-10] MEDS ORDERED: Ondansetron HCl/PF 4 MG/2 ML Vial IVP SCH (02:45)
[2017-07-10 06:45] LABS: Anion Gap 19 mmol/L (10-20); BUN (Urea Nitrogen) 30 mg/dL (7.0-18.7); Calc. Creatinine Clearance 43 mL/min (70-130); Calcium 9.6 mg/dL (7.8-10.44); Carbon Dioxide 32 mmol/L (22-29); Chloride 80 mmol/L (98-107); Estimated GFR-MDRD 26; Glucose 181 mg/dL (70-105); Sodium 128 mmol/L (136-145)
[2017-07-10 06:49] LABS: Potassium 2.7 mmol/L (3.5-5.1)
[2017-07-10] MEDS ORDERED: Potassium Chloride 20 MEQ/100 ML PREMIX BAG IVPB SCH (07:15)
[2017-07-10] MEDS ORDERED: Acetaminophen 325 MG TAB PO PRN ×2 (11:27→12:04)
[2017-07-10] MEDS ORDERED: Guaifenesin DM 100-10/5 ML UDCUP PO PRN (12:04)
[2017-07-10] MEDS ORDERED: Sodium Chloride 0.9% 1,000 ML IV SCH (12:04)
[2017-07-10] MEDS ORDERED: HumaLOG 300 UNITS/3 ML VIAL SC PRN ×2 (12:04)
[2017-07-10] MEDS ORDERED: Dextrose 5% in Water 1,000 ML IV PRN (12:04)
[2017-07-10] MEDS ORDERED: Ondansetron HCl/PF 4 MG/2 ML Vial IVP PRN (12:04)
[2017-07-10] MEDS ORDERED: Dextrose 50% Abboject 50 ML SYRINGE SLOW IVP PRN (12:04)
[2017-07-10 12:48] LABS: ALT (SGPT) 28 U/L (8-55); AST (SGOT) 35 U/L (5-34); Albumin 4.2 g/dL (3.5-5.0); Alkaline Phosphatase 85 U/L (40-150); Anion Gap 18 mmol/L (10-20); BUN (Urea Nitrogen) 32 mg/dL (7.0-18.7); Bilirubin, Total 1.7 mg/dL (0.2-1.2); Calc. Creatinine Clearance 43 mL/min (70-130); Calcium 9.5 mg/dL (7.8-10.44); Carbon Dioxide 32 mmol/L (22-29); Chloride 82 mmol/L (98-107); Estimated GFR-MDRD 26; Globulin 4.3 g/dL (2.4-3.5); Glucose 122 mg/dL (70-105); Potassium 3.4 mmol/L (3.5-5.1); Protein, Total 8.5 g/dL (6.0-8.3); Sodium 129 mmol/L (136-145)
[2017-07-10] MEDS: Albuterol Sulfate 2.5 mg/3 ml Neb NEB SCH ×3 (13:16→23:23)
[2017-07-10] MEDS ORDERED: Potassium Chloride 20 MEQ TAB PO SCH (17:00)
--- NOTE | 2017-07-10 18:54 | HP ---
REASON FOR ADMISSION: Severe dehydration, hypokalemia, acute kidney injury, diarrheal illness, likely gastroenteritis, possible bronchitis. HISTORY OF PRESENT ILLNESS: Please note majority of this history is obtained by talking to patient's father who is here at bedside as patient has Down syndrome and moderate intellectual disability. Per father, who is here at bedside, patient started having nauseating feeling and vomited nearly 3 times. Her oxygen saturations at home dropped down to 80%. She also became short of breath and was having dry coughing spells. They cranked up her oxygen through the CPAP that she uses and the saturations increased to 92%. This morning, they called Dr. Barragan's office and was asked to go to the emergency room. Patient had a temperature of 100.3 degrees Fahrenheit at home per father. She had 3 episodes of watery diarrhea with no blood or mucus. Two of these episodes happened last night and one on the stroke unit after hospitalization. She normally ambulates by herself. This morning, her nauseating feeling has gotten better and ate her breakfast. PAST MEDICAL AND SURGICAL HISTORY: History of Down syndrome with intellectual disability, obesity, hypertension, hypothyroidism, obstructive sleep apnea on CPAP, chronic diastolic heart failure, open heart surgery as a kid for congenital heart disease, cholecystectomy, hernia repair with mesh. CURRENT MEDICATIONS: Patient is levothyroxine 125 mcg to alternate with 112 mcg daily, citalopram 10 mg daily, Bumex 1 mg daily, Claritin 10 mg daily, spironolactone 12.5 mg daily, Nexium 20 mg daily, Abilify 2 mg daily. ALLERGIES: IODINE and LISINOPRIL. PERSONAL HISTORY: Does not abuse alcohol or drugs. No history of smoking. Lives with her parents. FAMILY HISTORY: There is no history of low early heart disease or clotting disorder. CODE STATUS: DNR per father who is also power of senior attorney for patient. REVIEW OF SYSTEMS: The following complete review of systems was negative, unless otherwise mentioned in the HPI or below: Constitutional: Weight loss or gain, ability to conduct usual activities. Skin: Rash, itching. Eyes: Double vision, pain. ENT/Mouth: Nose bleeding, neck stiffness, pain, tenderness. Cardiovascular: Palpitations, dyspnea on exertion, orthopnea. Respiratory: Shortness of breath, wheezing, cough, hemoptysis, fever or night sweats. Gastrointestinal: Poor appetite, abdominal pain, heartburn, nausea, vomiting, constipation, or diarrhea. Genitourinary: Urgency, frequency, dysuria, nocturia. Musculoskeletal: Pain, swelling. Neurologic/Psychiatric: Anxiety, depression. Allergy/Immunologic: Skin rash, bleeding tendency. Patient is apparently menstruating at present per father. PHYSICAL EXAMINATION: GENERAL: Patient is a 46-year-old female who is currently not in any acute distress. She is calm and quiet at present. VITAL SIGNS: Blood pressure 96/60, pulse 70 per minute, respiratory rate 18 per minute, temperature 98.4 degrees Fahrenheit, saturating 94% on 2 liters nasal cannula. NECK: Supple, no elevated JVD. HEENT: Eyes, extraocular muscles intact. Pupils reacting to light. Oral cavity, mucous membranes are dry. No exudates or congestion. CARDIOVASCULAR: S1, S2 heard. Regular rhythm. RESPIRATORY: Air entry 1+ bilateral. Scattered rhonchi plus basal rales plus bilaterally. ABDOMEN: Soft, bowel sounds heard. No tenderness, rigidity or guarding. EXTREMITIES: Mild peripheral edema, no calf tenderness. VASCULAR: Peripheral pulses 1+ bilateral, no ischemic ulcerations or gangrene. CENTRAL NERVOUS SYSTEM: No gross focal deficits seen. Patient is moving all 4 extremities. PSYCHIATRIC: No obvious hallucinations or delusions at present. LABORATORY AND X-RAY FINDINGS: Stool for C. diff x1 is negative. Chest x-ray done shows mild cardiomegaly with pulmonary vascular congestion. Troponin I one set was 0.03, albumin is 4.3. BNP is 37. Sodium 129, potassium 2.5, serum bicarbonate 35, BUN 28, creatinine 1.7 on the day of admission. Total bilirubin 2.2. CK-MB 1.9. White count of 9, H&H 15 and 45, platelet count 254 with 82% neutrophils. EKG done shows normal sinus rhythm at 76 beats per minute. There is bifascicular block with LVH and poor R-wave progression seen. CLINICAL IMPRESSION AND PLAN: Patient will be admitted to medical floor for moderate to severe dehydration with hypokalemia and acute gastroenteritis. She will be on normal saline at 50 mL per hour. Patient has known history of diastolic dysfunction and will be closely monitored for possible overload. Her electrolytes are aggressively corrected. We will continue her Abilify, albuterol nebulizer, Celexa, Synthroid, Claritin and prednisone as before. We will obtain labs in the morning. Stool for cultures including C. diff and respiratory cultures as well in view of her dry coughing spells. We will continue to closely monitor her on medical floor. Her electrolytes will be closely monitored as well. MTDD
[2017-07-10 19:14] LABS: Troponin I 0.019 ng/mL (< 0.028)
[2017-07-10] MEDS ORDERED: Aripiprazole 2 MG TAB PO SCH (21:00)
[2017-07-10] MEDS ORDERED: Ondansetron ODT 4 MG TAB PO PRN (22:11)
[2017-07-11 05:07] LABS: #Eosinphils 0.1 thou/uL (0.0-0.7); #Monocytes 0.6 thou/uL (0.11-0.59); #Neutrophils 5.1 thou/uL (1.40-6.50); %Basophils 0.6 % (0.0-1.0); %Eosinophils 1.6 % (0.0-10.0); %Lymphocytes 14.8 % (21.0-51.0); %Monocytes 8.1 % (0.0-10.0); %Neutrophils 74.8 % (42.0-75.0); Hemoglobin 13.5 g/dL (12.0-16.0); Mean Corpuscular HGB CONC 34.7 g/dL (32.0-36.0); Mean Corpuscular Hemoglobin 32.3 pg (27.0-31.0); Mean Corpuscular Volume 93.1 fl (81.0-99.0); Mean Platelet Volume 7.5 fL (7.4-10.4); Platelet Count 222 thou/uL (130-400); RBC Distribution Width 17.3 % (11.5-14.5); White Blood Cell (WBC) Count 6.9 thou/uL (4.8-10.8)
[2017-07-11 05:18] LABS: Anion Gap 15 mmol/L (10-20); BUN (Urea Nitrogen) 25 mg/dL (7.0-18.7); Calc. Creatinine Clearance 63 mL/min (70-130); Calcium 9.2 mg/dL (7.8-10.44); Carbon Dioxide 32 mmol/L (22-29); Chloride 88 mmol/L (98-107); Estimated GFR-MDRD 40; Glucose 118 mg/dL (70-105); Potassium 3.7 mmol/L (3.5-5.1); Sodium 131 mmol/L (136-145)
[2017-07-11] MEDS ORDERED: Levothyroxine Sodium 112 MCG TAB PO SCH (06:00)
[2017-07-11] MEDS: Albuterol Sulfate 2.5 mg/3 ml Neb NEB SCH (06:45)
[2017-07-11] MEDS ORDERED: predniSONE 5 MG TAB PO SCH (08:00)
[2017-07-11] MEDS ORDERED: Potassium Chloride 20 MEQ TAB PO SCH (08:00)
[2017-07-11 08:20] VITALS: BP 103/70; TEMP 97.9
[2017-07-11] MEDS ORDERED: Famotidine 20 MG TAB PO SCH (09:00)
[2017-07-11] MEDS ORDERED: Loratadine 10 MG TAB PO SCH (09:00)
[2017-07-11] MEDS ORDERED: Enoxaparin Sodium 30 MG/0.3 ML SYRINGE SC SCH (09:00)
[2017-07-11] MEDS ORDERED: Citalopram 10 MG TAB PO SCH (09:00)
[2017-07-11] MEDS ORDERED: predniSONE 20 MG TAB PO SCH (09:00)
--- NOTE | 2017-07-11 16:24 | PDOC.PN ---
- Subjective Encounter Start Date: 07/11/17 Encounter Start Time: 10:00 Subjective: is sitting a painting her pictures -: no sob or abd pain -: no diarrhea or nausea, mom at bedside - Objective Resuscitation Status: Resuscitation Status DNR:Do Not Resuscitate MAR Reviewed: Yes Vital Signs & Weight: Vital Signs (12 hours) Temp Pulse Resp BP Pulse Ox 07/11/17 08:00 97.9 F 71 16 103/70 90 L 07/11/17 06:47 96 07/11/17 06:45 65 16 I&O: 07/10/17 07/11/17 07/12/17 06:59 06:59 06:59 Intake Total 810 Output Total 200 Balance 610 Result Diagrams: 07/11/17 03:32 07/11/17 03:32 Additional Labs: Accuchecks 07/11/17 07/10/17 07/10/17 05:36 21:11 15:57 POC Glucose 110 149 H 169 H Phys Exam - Physical Examination HEENT: PERRLA, moist MMs Neck: no JVD, supple Respiratory: no wheezing, no rales Cardiovascular: RRR, no significant murmur Gastrointestinal: soft, non-tender, positive bowel sounds Musculoskeletal: no edema, pulses present Neurological: non-focal, moves all 4 limbs Dx/Plan (1) Moderate dehydration Code(s): E86.0 - DEHYDRATION Status: Acute (2) Gastroenteritis and colitis, viral Code(s): A08.4 - VIRAL INTESTINAL INFECTION, UNSPECIFIED Status: Acute (3) Acute worsening of stage 3 chronic kidney disease Code(s): N18.3 - CHRONIC KIDNEY DISEASE, STAGE 3 (MODERATE) Status: Acute (4) Demand ischemia Code(s): I24.8 - OTHER FORMS OF ACUTE ISCHEMIC HEART DISEASE Status: Resolved (5) Hyponatremia Code(s): E87.1 - HYPO-OSMOLALITY AND HYPONATREMIA Status: Resolved Comment: (6) Down's syndrome Code(s): Q90.9 - DOWN SYNDROME, UNSPECIFIED Status: Chronic Comment: At baseline/. (7) Hypothyroidism Code(s): E03.9 - HYPOTHYROIDISM, UNSPECIFIED Status: Chronic Qualifiers: (8) Obstructive sleep apnea Code(s): G47.33 - OBSTRUCTIVE SLEEP APNEA (ADULT) (PEDIATRIC) Status: Chronic - Plan hemostable -: is tolerating oral diet -: mom wants to take her home as she is at her baseline -: outpt OBGyn consultation ?perimenopausal, mom aware of this -: dc pt home * .
--- NOTE | 2017-07-11 22:31 | DIS ---
DATE OF ADMISSION: 07/09/2017 DATE OF DISCHARGE: 07/11/2017 DISCHARGE DISPOSITION: To home. PRIMARY DISCHARGE DIAGNOSES: Moderate to severe dehydration, hypokalemia, acute kidney injury, diarr heal illness, all resolved; possible bronchitis, resolving. 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 PROCEDURES DONE DURING HOSPITALIZATION: Chest x-ray done showed mild pulmonary vascular congestion w ith cardiomegaly. Blood cultures x2, preliminary cultures have not shown any growth. Stool for C. d iff is negative for both antigen and toxin. White count of 6.9, H&H 13 and 39, platelet count 222 wi th 74% neutrophils. Discharge BUN and creatinine 25 and 1.4. Discharge sodium is 131. Admitting so dium levels were 129 with potassium of 2.5, BUN and creatinine of 30 and 2.0, on the day of admission had a troponin of 0.03. BNP was 37. DISCHARGE MEDICATIONS: Albuterol inhaler q.6 hourly p.r.n., Abilify 2 mg p.o. at bedtime, citalopram 10 mg p.o. daily, levothyroxine 112 mcg to alternate with 125 mcg daily, Claritin 10 mg daily, daniel nolactone 25 mg p.o. q.a.m. ALLERGIES: IODINE and LISINOPRIL. DISCHARGE PLAN: The patient to follow up with primary care physician in 1 week. BRIEF COURSE DURING HOSPITALIZATION: The patient initially was brought to emergency room for complai nts of nauseating feeling and vomiting nearly 3 times. She also had diarrhea. Her saturations dropp ed to 80% at home. She also had a temperature of 100.3 degrees at home. In view of above-mentioned complaints with moderate to severe dehydration, hyponatremia, hypokalemia, and acute kidney injury, t he patient was admitted to telemetry later downgraded to medical floor. She has had gentle hydration done. Twelve hours into hospitalization, the patient tolerated oral feeding. Her dry cough is also resolving. The patient has remained hemodynamically stable and per mom at bedside here, she is at h er baseline cognitive status and is happy. She has known history of Down syndrome with intellectual disability. Mom would like to take her home today as she is comfortable taking her. Please see a fa ce-to-face documentation on [employer] [address] for the day of discharge. All her preliminary cultures have bee n negative so far.
[2017-07-12] MEDS ORDERED: Levothyroxine Sodium 125 MCG TAB PO SCH (06:00)
--- NOTE | 2017-07-16 15:28 | PQF ---
SHONNA SCHULZ VINAYA KUMAR MD [id number] CRITICAL ACCESS [facility] [id number] CLINICAL DOCUMENTATION CLARIFICATION FORM: POST DISCHARGE Please exercise your independent, professional judgment in responding to the clarification form. Clinical indicators are provided on the bottom of this form for your review. Thank you. It is noted on the H&P and DCS the pts sats dropped down to 80% prior to admission. Upon presentation in the ED, pt was satting at 94 % on RA, RR 19-22, P 67-85. She was given 2L supplemental O2 in the ED. Per vitals, pt continued on O2 with sats at 94, O2 removed w sats dropping to 74%, P 93, RR 18 (07/10 @ 08 :10), went back up to 91% at which point 2L O2 started with an increase in saturation rate. The following day sats dropped back down to 90 at which point she was started on 2.5L O2. Can you clarify if there is clinical significance and corresponding diagnosis, if any, of the aforementioned criteria. Please check appropriate box(s): [ ] [ ] Unable to determine In addition, please specify: Present on Admission (POA): [ x] Yes [ ] No [ ] Unable to determine For continuity of documentation, please document condition throughout progress notes and discharge summary. Thank You. CLINICAL INDICATORS - SIGNS / SYMPTOMS / LABS - It is noted on the H&P and DCS the pts sats dropped down to 80% prior to admission. Upon presentation in the ED , pt was satting at 94 % on RA, RR 19-22, P 67-85. She was given 2L supplemental O2 in the ED. Per vitals, pt continued on O2 with sats at 94, O2 removed w sats dropping to 74%, P 93, RR 18 (07/10 @ 08:10), went back up to 91% at which point 2L O2 started with an increase in saturation rate. The following day sats dropped back down to 90 at which point she was started on 2.5L O2. - Progress Note 07/11/17 - Respiratory Clinical Panels RISK FACTORS - JAGUAR, obesity, diastolic heart failure - HP TREATMENTS - 2L - 3L oxygen Nasal Cannula - Respiratory Clinical Panel [facility] (This form is maintained as a part of the permanent medical record) 2014 [employer] All Rights Reserved Anisha Vieira, JUAN, HEATING AND VENTILATION ENGINEER, CASC [email or web address] [email or web address]
--- NOTE | 2017-07-18 17:02 | EKG ---
Test Reason : Blood Pressure : / mmHG Vent. Rate : 076 BPM Atrial Rate : 076 BPM P-R Int : 174 ms QRS Dur : 162 ms QT Int : 510 ms P-R-T Axes : 054 -57 078 degrees QTc Int : 573 ms Normal sinus rhythm Biatrial enlargement Right bundle branch block Left anterior fascicular block Bifascicular block Left ventricular hypertrophy with repolarization abnormality Abnormal ECG Confirmed by WARNER ROMERO, ASHLEY ([id number]), senior editor MARY REID ([id number]) on 07/18/2017 5:02:29 PM Referred By: Confirmed By:ASHLEY HYLTON MD
--- NOTE | 2017-07-21 19:54 | PQF ---
SHONNA SCHULZ VINAYA KUMAR MD [id number] CRITICAL ACCESS [facility] [id number] CLINICAL DOCUMENTATION CLARIFICATION FORM: POST DISCHARGE Please exercise your independent, professional judgment in responding to the clarification form. Clinical indicators are provided on the bottom of this form for your review. Thank you It is noted in the H&P and DCS the patients sats dropped down to 80% prior to admission in the ED, patient was satting at 94% on RA, RR 19-22, P 67-85. She was given 2L supplemental O2 in the ED. Per vitals, patient continued on O2 with sats at 94%, O2 removed with sats dropping to 74%, P 93, RR 18 (07/10 @8:10) , went back up to 91% at which point 2L O2 started with an increase in saturation rate. The following day sats dropped back down to 90%at which point she was started on 2.5 L O2. Can you clarify if there is a clinical signifcance and corresponding diagnosis, if an, of the aforementioned criteria? PLEASE FILL IN THE BLANK WITH THE APPROPRIATE DIAGNOSIS IF APPLICABLE. Please check appropriate box(s): [ ] ( ] Other diagnosis [ x ] Unable to determine In addition, please specify: Present on Admission (POA): [ ] Yes [ ] No [ ] Unable to determine For continuity of documentation, please document condition throughout progress notes and discharge summary. Thank You. CLINICAL INDICATORS - SIGNS / SYMPTOMS / LABS It is noted in the H&P and DCS the patients sats dropped down to 80% prior to admission in the ED, patient was satting at 94% on RA, RR 19-22, P 67-85. She was given 2L supplemental O2 in the ED. Per vitals, patient continued on O2 with sats at 94%, O2 removed with sats dropping to 74%, P 93, RR 18 (07/10 @8:10) , went back up to 91% at which point 2L O2 started with an increase in saturation rate. The following day sats dropped back down to 90%at which point she was started on 2.5 L O2. Progress note 07/11/17 - Respiratory Clinical Panels RISK FACTORS - JAGUAR, Obesity, diastolic heart failure - HP TREATMENTS: 2-3L oxygen nasal cannula - Respiratory clinical panels. (This form is maintained as a part of the permanent medical record) 2014 [employer] All Rights Reserved Anisha Vieira, CCS, RESTAURANT CULINARY MANAGER, CASC [email or web address]
== END 2017-07-11 11:09 | disposition home or self-care (01) | DRG 683 ==
LOC: ERS 17:33 → 2SE 19:46 → T4-A 07-10 15:19
PROVIDERS: ADMIT Internal Medicine; ATTEND Internal Medicine
DX: N17.9 Acute kidney failure, unspecified (principal); I50.32 Chronic diastolic (congestive) heart failure; E87.1 Hypo-osmolality and hyponatremia; I13.0 Hypertensive heart and chronic kidney disease with heart failure and stage 1 through stage 4 chronic kidney disease, or unspecified chronic kidney disease; I24.8 Other forms of acute ischemic heart disease; E86.0 Dehydration; E87.6 Hypokalemia; N18.3 Chronic kidney disease, stage 3 (moderate); K52.9 Noninfective gastroenteritis and colitis, unspecified; Q90.9 Down syndrome, unspecified; E66.9 Obesity, unspecified; E03.9 Hypothyroidism, unspecified; G47.33 Obstructive sleep apnea (adult) (pediatric); Z66 Do not resuscitate; Z90.49 Acquired absence of other specified parts of digestive tract; Z68.34 Body mass index [BMI] 34.0-34.9, adult
CPT/HCPCS: 36415; 36416; 71045; 71046; 80048; 80053; 81003; 81015; 82553; 83690; 83735; 83880; 84484; 85025; 87040; 87324; 87449; 93005; 94640; 94760; 96365; 96375; G8996-GN-CJ; G8997-GN-CI; J1650; J1940; J2405; J3480; J7611; Q0162

== ENCOUNTER 2017-09-03 08:59 | Outpatient (CLI) | payer MEDICARE, OTHER ==
--- NOTE | 2017-09-03 09:53 | RAD ---
TWO VIEWS CHEST: Comparison: 07-07-17 History: Chronic congestive heart failure. FINDINGS: Two views of the chest shows an enlarged but stable cardiomediastinal silhouette. The patient is stat us post sternotomy. There is no evidence of c consolidation or mass. There appears to be a small left pleural effusion. IMPRESSION: Small left pleural effusion. POS: [facility]
== END 2017-09-03 09:00 | disposition home or self-care (01) ==
LOC: RAD 08:59
PROVIDERS: ATTEND Internal Medicine Cardiovascular Disease
DX: I50.32 Chronic diastolic (congestive) heart failure (principal); J90 Pleural effusion, not elsewhere classified
CPT/HCPCS: 36415; 71046; 80053; 83880; 85025

== ENCOUNTER 2018-03-15 07:48 | Inpatient (IN) | payer MEDICARE, OTHER ==
--- NOTE | 2018-03-15 09:06 | RAD ---
FRONTAL VIEW CHEST: COMPARISON: 03/09/2018. INDICATION: A 47-year-old female with a history of cough. FINDINGS: There is enlargement of the cardiac silhouette. Bilateral vascular prominence, interstitial and alve olar opacification present in addition to mild pleural fluid bilaterally. Evidence of prior sternoto my. The chest is otherwise similar. IMPRESSION: Findings favor decompensated congestive heart failure with pulmonary edema and bilateral pleural flui d. Recommend followup to resolution. POS: [facility]
[2018-03-15 09:12] LABS: ALT (SGPT) 17 U/L (8-55); AST (SGOT) 25 U/L (5-34); Albumin 3.8 g/dL (3.5-5.0); Alkaline Phosphatase 98 U/L (40-150); Anion Gap 18 mmol/L (10-20); BUN (Urea Nitrogen) 13 mg/dL (7.0-18.7); Bilirubin, Total 2.5 mg/dL (0.2-1.2); CK (CPK) 52 U/L (29-168); Calc. Creatinine Clearance 0 mL/min (70-130); Calcium 9.1 mg/dL (7.8-10.44); Carbon Dioxide 24 mmol/L (22-29); Chloride 96 mmol/L (98-107); Estimated GFR-MDRD 42; Globulin 4.2 g/dL (2.4-3.5); Glucose 114 mg/dL (70-105); Potassium 3.8 mmol/L (3.5-5.1); Sodium 134 mmol/L (136-145)
[2018-03-15 09:32] LABS: #Eosinphils 0.1 thou/uL (0.0-0.7); #Lymphocytes 0.7 thou/uL (1.20-3.40); #Monocytes 0.4 thou/uL (0.11-0.59); #Neutrophils 4.7 thou/uL (1.40-6.50); %Basophils 0.8 % (0.0-1.0); %Eosinophils 2.2 % (0.0-10.0); %Lymphocytes 12.2 % (21.0-51.0); %Monocytes 6.7 % (0.0-10.0); Mean Corpuscular HGB CONC 32.6 g/dL (32.0-36.0); Mean Corpuscular Hemoglobin 29.6 pg (27.0-31.0); Mean Corpuscular Volume 90.7 fL (78.0-98.0); Mean Platelet Volume 8.5 fL (7.4-10.4); Platelet Count 240 thou/uL (130-400); RBC Distribution Width 19.3 % (11.5-14.5); Red Blood Cell (RBC) Count 4.39 mill/uL (4.20-5.40)
[2018-03-15] MEDS ORDERED: Furosemide 40 MG/4 ML VIAL ONE (09:55)
[2018-03-15] MEDS ORDERED: Furosemide 100 MG in Sodium Chloride 0.9% 100 ML IVPB SCH (12:00)
[2018-03-15] MEDS ORDERED: Bisacodyl 10 MG SUPP PR PRN (12:05)
[2018-03-15] MEDS ORDERED: hydrALAZINE 20 MG/ML VIAL SLOW IVP PRN (12:05)
[2018-03-15] MEDS ORDERED: Senokot S 8.6-50 MG TAB PO PRN ×2 (12:05)
[2018-03-15] MEDS ORDERED: cloNIDine 0.1 MG TAB PO PRN (12:05)
[2018-03-15] MEDS ORDERED: Ondansetron PF 4 MG/2 ML Vial IVP PRN ×2 (12:05)
[2018-03-15] MEDS ORDERED: Nitroglycerin 0.4 MG TAB (25 Tab Bottle) SL PRN (12:05)
[2018-03-15] MEDS ORDERED: Bisacodyl 5 MG TAB PO PRN ×2 (12:05)
[2018-03-15] MEDS ORDERED: Sodium Chloride 0.65% Nasal 44 ML BOT EA NARE PRN (12:05)
[2018-03-15 13:04] LABS: Troponin I 0.011 ng/mL (< 0.028)
[2018-03-15 15:29] LABS: Troponin I 0.016 ng/mL (< 0.028)
--- NOTE | 2018-03-15 15:50 | HP ---
PRIMARY CARE PHYSICIAN: Dr. Orlando Jacques. CHIEF COMPLAINT: Cough and congestion. HISTORY OF PRESENTING ILLNESS: Ms. 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 The patient is brought to the ER by her father who provides most of the history as the patient has quite severe mental retardation due to Down syndrome. According to Ms. Smith's father, she has been having this cough for few days. She was seen by primary care physician about a week ago and was prescribed prednisone and Keflex, but the cough did not get any better. It is also associated with some shortness of breath on and off. She uses CPAP at night at home and uses a nebulizer at home also. When her symptoms did not get any better, her parents got worried and brought her to the emergency room for evaluation. Upon presentation to the ER, she was hemodynamically stable with a blood pressure of 98/64, which is normal for her. Her pulse is 73, respirations 20, saturating 97% on 2 L oxygen. She was found to have some wheezing on examination. Chest x-ray was done, which showed findings consistent with some fluid overload. She received one dose of 40 mg of Lasix in the emergency room and is now being admitted with a presumptive diagnosis of acute on chronic congestive diastolic heart failure. There is otherwise no recent history of any illnesses, fever, or chills. No nausea, vomiting, or diarrhea. Denies any dysuria, frequency, or urgency as per the father. PAST MEDICAL HISTORY: 1. Down syndrome with intellectual disability. 2. Obesity. 3. Hypertension. 4. Hypothyroidism. 5. Obstructive sleep apnea on CPAP at night. 6. Chronic diastolic congestive heart failure. PAST SURGICAL HISTORY: 1. Open heart surgery as a kid for congenital heart disease. 2. Cholecystectomy. 3. Hernia repair with mesh. ALLERGIES: IODINE AND LISINOPRIL. FAMILY HISTORY: No history of early heart disease, clotting or bleeding disorders. CODE STATUS: Disregard code status. HOME MEDICATIONS: As listed in the ER record: 1. Levothyroxine 125 mcg alternating with 112 mcg every other day. 2. Citalopram 10 mg daily. 3. Bumetanide 1 mg two tablets in the morning and one tablet at noon. 4. Aldactone 12.5 mg daily. 5. Abilify 2 mg daily. 6. Nexium 20 mg daily. REVIEW OF SYSTEMS: Cannot be obtained as the patient does not talk much. Otherwise as per HPI as discussed with her father. LABORATORY DATA: CBC is unremarkable. Serum chemistry shows sodium of 134, chloride 96, creatinine 1.35, normal BUN. Total bilirubin 2.5 with normal LFTs. BNP of 236, troponin 0.014, and repeat troponin of 0.011. DIAGNOSTIC DATA: Chest x-ray by my review shows moderate pulmonary vascular congestion without any evidence of infiltrates. PHYSICAL EXAMINATION: VITAL SIGNS: Upon presentation, blood pressure 98/64, pulse of 73, respirations 20, temperature 98.5, saturating 97% on 2 L oxygen. Most recent vital signs, pulse 73, respirations 20, saturating 97% on 2 L. Blood pressure recorded once again is 98/64. Prior to that, she was 92/51 and then 109/86. GENERAL: No acute distress. She is sitting up in bed comfortably. Follows simple commands, but does not talk much and avoids eye contact. She was also seen walking into the bathroom by herself with an attendant. HEENT: Mucous membrane is moist and pink. No oropharyngeal exudate or erythema. Head is normocephalic, atraumatic. Pupils are equal and reactive to light and accommodation. Extraocular movement intact. NECK: Supple without any lymphadenopathy, JVD, or bruit. CHEST: Clear to auscultation except for very few expiratory wheezes. She does have some basilar crackles, more so on the right lower lobe than left. HEART: Rate and rhythm is regular without any murmurs, rubs, or gallops. ABDOMEN: Soft, nontender, nondistended. Positive bowel sounds. EXTREMITIES: Have no cyanosis, clubbing, or edema. NEUROLOGICAL: Nonfocal. SKIN: Free of any rashes or bruises. PSYCHIATRIC: Normal affect. She is oriented to person, place, and time. IMPRESSION AND PLAN: 1. Cough and shortness of breath. The patient has mild to moderate acute on chronic diastolic congestive heart failure exacerbation. She will be gently diuresed with Lasix drip. Her blood pressure is borderline. Her last echocardiogram was in 03/2017, which showed atrial dilatation and mitral regurgitation with preserved EF at 55%. We will repeat the echocardiogram for now. Monitor strict I's and O's and start her on fluid restriction heart healthy diet. If her echocardiogram is grossly abnormal: We will consult Cardiology in-house. She otherwise at this time is hemodynamically stable. No indication for antibiotics, especially as she finished a course of Keflex in the outpatient setting. The patient does not have any ongoing pneumonia or ACS at this time to account for her presenting symptoms. We will add Mucinex as well as p.r.n. nebulizers for supportive care and add incentive spirometry. 2. Acute renal insufficiency, mild in nature. Her baseline creatinine is almost the same. She appears to have some chronic kidney disease at the very least. Her renal function will be monitored and we will avoid any nephrotoxic medications. 3. Elevated total bilirubin. This seems to be chronic in nature. 4. Down syndrome. 5. Hypothyroidism. Restart her home medication. 6. Severe obesity. 7. Obstructive sleep apnea. We will provide her with CPAP at night in the hospital. 8. Deep venous thrombosis and gastrointestinal prophylaxis. DISPOSITION: Ms. Smith is currently being admitted to the hospital with [id number] acute on chronic congestive heart failure exacerbation. Estimated length of stay at this time is at least 2 to 3 midnights. Further management will depend upon her clinical course. Job ID: [id number]
[2018-03-15] MEDS ORDERED: Furosemide 100 MG in Sodium Chloride 0.9% 90 ML IVPB SCH (16:15)
[2018-03-15 20:54] VITALS: BMI 36.6
[2018-03-15] MEDS ORDERED: guaiFENesin ER 600 MG TAB PO SCH (21:00)
[2018-03-15] MEDS: Diabetic Tussin 200 MG/10 ML UDCUP PO PRN (22:18)
[2018-03-15] MEDS ORDERED: Diabetic Tussin 200 MG/10 ML UDCUP PO SCH (23:45)
[2018-03-16] MEDS: Levothyroxine Sodium 112 MCG TAB PO SCH (04:45)
[2018-03-16 05:22] LABS: #Eosinphils 0.2 thou/uL (0.0-0.7); #Lymphocytes 0.9 thou/uL (1.20-3.40); #Monocytes 0.6 thou/uL (0.11-0.59); #Neutrophils 9.6 thou/uL (1.40-6.50); %Basophils 0.2 % (0.0-1.0); %Eosinophils 1.7 % (0.0-10.0); %Lymphocytes 7.6 % (21.0-51.0); %Monocytes 5.4 % (0.0-10.0); %Neutrophils 85.2 % (42.0-75.0); Mean Corpuscular HGB CONC 31.9 g/dL (32.0-36.0); Mean Corpuscular Hemoglobin 28.9 pg (27.0-31.0); Mean Corpuscular Volume 90.4 fL (78.0-98.0); Mean Platelet Volume 8.5 fL (7.4-10.4); Platelet Count 281 thou/uL (130-400); RBC Distribution Width 19.4 % (11.5-14.5); Red Blood Cell (RBC) Count 4.49 mill/uL (4.20-5.40); White Blood Cell (WBC) Count 11.3 thou/uL (4.8-10.8)
[2018-03-16 05:43] LABS: Anion Gap 16 mmol/L (10-20); BUN (Urea Nitrogen) 13 mg/dL (7.0-18.7); Calc. Creatinine Clearance 68 mL/min (70-130); Calcium 9.2 mg/dL (7.8-10.44); Carbon Dioxide 28 mmol/L (22-29); Chloride 96 mmol/L (98-107); Estimated GFR-MDRD 44; Glucose 116 mg/dL (70-105); Potassium 3.6 mmol/L (3.5-5.1); Sodium 136 mmol/L (136-145)
[2018-03-16] MEDS: Diabetic Tussin 200 MG/10 ML UDCUP PO SCH ×2 (09:43→22:11)
[2018-03-16] MEDS: Enoxaparin Sodium 40 MG/0.4 ML SYRINGE SC SCH (09:44)
[2018-03-16] MEDS: Citalopram 10 MG TAB PO SCH (09:46)
[2018-03-16] MEDS: Aripiprazole 2 MG TAB PO SCH (09:46)
[2018-03-16] MEDS: Famotidine 20 MG TAB PO SCH (09:46)
[2018-03-16] MEDS: Nystatin Powder 15 GM BOT TOP PRN (15:43)
--- NOTE | 2018-03-16 19:53 | CON ---
DATE OF CONSULTATION: 03/16/2018 INDICATION FOR CONSULTATION: A 47-year-old Down syndrome patient admitted with shortness of breath and bronchitis. She has a history of congenital heart disease with an ASD repair. Echocardiogram showed a normal ejection fraction recently and no evidence of atrial septal defect. No other significant structural abnormalities. Apparently, she also has sleep apnea and problems with breathing at night and uses a CPAP, but unfortunately she does not use it very often and parents stated that they had to set up and wear it with her and she is on oxygen through the night usually. She has been having a cough for several days. She was seen by the primary care physician, was given antibiotics and prednisone, but the cough did not get any better and she presented to the emergency room here, was felt to have some degree of congestive heart failure and was admitted to the hospital for further evaluation and treatment. A chest x-ray did show some indication that she has some congestive heart failure symptoms, but she has been admitted in the past on several occasions for congestive heart failure and has spent time in the hospital as well as in the rehab. At this time, she is relatively comfortable, coughing to the examination, but does not appear to be short of breath, but does have an oxygen on at this time. PAST MEDICAL HISTORY: Significant for congestive heart failure, which is mainly diastolic in nature. She has obstructive sleep apnea. She has history of hypertension, Down syndrome. She has hypertension and obesity. She has had ASD repair as a child. She has had a cholecystectomy and hernia repair. ALLERGIES: SHE IS ALLERGIC TO LISINOPRIL AND IODINE. FAMILY HISTORY: Unremarkable any early heart disease. MEDICATIONS: Include; 1. Bumetanide. 2. Aldactone. 3. Abilify. 4. Nexium. 5. Citalopram. 6. Levothyroxine. REVIEW OF SYSTEMS: On talking with the family as the patient cannot give a review of systems, there are no HEENT complaints. She has been coughing. She has some shortness of breath at times. She has some lower extremity edema, which is chronic type situation. There were no GI or complaints. No complaints of seizure or syncope. LABORATORY DATA: Shows a white blood cell count on admission of 6, is now increased up to 11.3, hemoglobin 13, platelet count was 281,000. Chemistries show potassium of 3.6, creatinine was 1.29. Blood sugar was 116. Her BNP was 236, only slightly elevated or mildly elevated. Cardiac enzymes are unremarkable. Her EKG shows a normal sinus rhythm with a right bundle-branch block. Repeat echocardiogram yesterday shows ejection fraction to be about 50% to 55% with moderate mitral valve regurgitation and moderate mitral valve stenosis, ejection fraction of 50% to 55%. PHYSICAL EXAMINATION: GENERAL: Reveals a middle-aged Down syndrome female, who is in no acute distress at this time. She appears comfortable, but does continue to cough during the evaluation. HEENT: Unremarkable. CHEST: Diffuse rhonchi throughout and I did not hear any significant wheeze. CARDIOVASCULAR: Reveals a regular rate and rhythm. She has a systolic murmur at the lower sternal border. ABDOMEN: Her abdominal exam shows some obesity with positive bowel sounds. No organomegaly or masses. No tenderness. EXTREMITIES: Showed no clubbing or cyanosis. She did have some mild left lower extremity edema and also was tender to palpation. Pedal pulses are present. NEUROLOGIC: Neurologically, obviously Down syndrome patient. SKIN: Warm and dry. IMPRESSION: 1. Possible congestive heart failure exacerbation, which is mild, but in combination with bronchitis made her situation worse with the breathing. She appears to be somewhat better at this time and we will continue the steroids and antibiotics as well as some diuresis being careful not to over diurese this patient. 2. History of Down syndrome, but seems to be taking care very well by the family. 3. Hypotension at times, but usually she has a low blood pressure, today also was on the low side. We will need to be careful with diuretics, not to avoid severe hypotension. 4. History of bronchitis. It will be treated by the primary care service and perhaps Pulmonology if necessary, but chest x-ray does show evidence of cardiomegaly as well as some mild congestion in the lung gutierrez, but no obvious pneumonia was noted. We will be more than happy to continue to follow the patient with you throughout her hospital course. Job ID: [id number]
--- NOTE | 2018-03-16 21:53 | PDOC.PN ---
- Subjective Encounter Start Date: 03/16/18 Encounter Start Time: 13:00 Patient does not talk much. Parents in the room with her. - Objective Vital Signs & Weight: Vital Signs (12 hours) Temp Pulse Resp BP Pulse Ox 03/16/18 19:44 97 18 91 L 03/16/18 19:00 100/50 L 03/16/18 18:30 91/56 L 03/16/18 17:00 86/52 L 03/16/18 15:40 98.4 F 85 20 92/55 L 94 L 03/16/18 12:36 97.7 F 81 20 100/61 92 L 03/16/18 12:00 977 F H 81 92 L Weight Weight 174 lb I&O: 03/15/18 03/16/18 03/17/18 06:59 06:59 06:59 Intake Total 766 829 Balance 766 829 Result Diagrams: 03/16/18 04:36 03/16/18 04:36 Phys Exam - Physical Examination Constitutional: NAD Scattered modest rales heard throughout. Cardiovascular: RRR, no significant murmur Gastrointestinal: soft, non-tender, no distention, positive bowel sounds Musculoskeletal: no edema Dx/Plan (1) Acute bronchitis Code(s): J20.9 - ACUTE BRONCHITIS, UNSPECIFIED Status: Acute (2) Acute on chronic diastolic (congestive) heart failure Code(s): I50.33 - ACUTE ON CHRONIC DIASTOLIC (CONGESTIVE) HEART FAILURE Status : Acute (3) Acute respiratory failure with hypoxia Code(s): J96.01 - ACUTE RESPIRATORY FAILURE WITH HYPOXIA Status: Acute (4) Down's syndrome Code(s): Q90.9 - DOWN SYNDROME, UNSPECIFIED Status: Chronic Comment: At baseline/. (5) Hypothyroidism Code(s): E03.9 - HYPOTHYROIDISM, UNSPECIFIED Status: Chronic Qualifiers: - Plan * Discussed with Dr. Marie. She has a productive cough and scattered rales consistent with a bronchitis. Azithromycin added. * Continue diuresis as long as her BP will tolerate it. * Cardiology consult. Followed by Dr. Barragan.
--- NOTE | 2018-03-16 22:21 | CON ---
DATE OF CONSULTATION: 03/16/2018 TIME SPENT: This is 70 minutes time, of that time, greater than 50% was spent with the patient and/or the patient's unit in the hospital. HISTORY OF PRESENT ILLNESS: The patient is a 47-year-old female with Down syndrome, whom I have known for years. She was admitted yesterday with increasing shortness of breath that occurred over week prior to admission. She has a history of recurrent diastolic congestive heart failure in the past. She has also had problems with asthmatic bronchitis and sleep apnea. She was placed on a Lasix drip last night. She is apparently doing better this morning in terms of her breathing. Most of the history I have obtained is from her father who is at the bedside. PAST MEDICAL HISTORY: 1. Down syndrome. 2. Chronic diastolic heart failure. 3. History of either ASD or VSD that was repaired by Dr. Duane Sosa as a child. 4. Obesity. 5. Hypertension. 6. JAGUAR. 7. Hypothyroidism. 8. Cholecystectomy. 9. Hernia repair with mesh. ALLERGIES: 1. IODINE. 2. LISINOPRIL. FAMILY MEDICAL HISTORY: Unremarkable. MEDICATIONS: Prior to admission, 1. Levothyroxine. 2. Citalopram. 3. Bumex. 4. Aldactone. 5. Abilify. 6. Nexium. REVIEW OF SYSTEMS: Cannot be obtained from the patient as she is not a reliable historian. PHYSICAL EXAMINATION: VITAL SIGNS: Temperature 97.7, pulse 81, respirations 20, O2 saturation 92% on 3 L, and blood pressure 110/61. GENERAL: The patient is currently awake and alert and does not appear to be in any distress. She is coloring in a coloring book. HEENT: Pupils reactive. Sclerae anicteric. Oropharynx, class 4 Mallampati airway. NECK: No adenopathy or JVD. LUNGS: Coarse rhonchi bilaterally. She has very coarse cough. She has crackles in both bases. CARDIAC: S1, S2 regular with 2/6 systolic murmur. ABDOMEN: Soft, nontender. EXTREMITIES: Trace edema. LABORATORY DATA: Sodium 136, potassium 3.6, chloride 96, CO2 of 28, BUN 13, creatinine 1.2, glucose 116. BNP is 236. White blood cell count 11.3, hematocrit 40.6, and platelet count 281. ASSESSMENT: The patient is presenting with diastolic heart failure. She has responded to diuretics. I also feel there is probably a component of asthmatic bronchitis given her cough with purulent secretions. RECOMMENDATIONS: In addition to CPAP and diuretics, I am going to start her on some Zithromax and start her on DuoNeb. I will be happy to follow with you. Job ID: [id number]
[2018-03-17] MEDS: Benzonatate 100 MG CAP PO PRN (00:34)
[2018-03-17] MEDS: Diabetic Tussin 200 MG/10 ML UDCUP PO PRN ×2 (01:53→23:50)
[2018-03-17] MEDS: Ondansetron PF 4 MG/2 ML Vial IVP PRN ×3 (05:10→20:22)
[2018-03-17] MEDS ORDERED: Furosemide 40 MG/4 ML VIAL SLOW IVP SCH (05:30)
[2018-03-17] MEDS: cefTRIAXone\\ROCEPHIN 1 GM in Sodium Chloride 0.9% 100 ML IVPB SCH (05:36)
[2018-03-17] MEDS: Acetaminophen 325 MG TAB PO PRN (05:37)
[2018-03-17] MEDS: Levothyroxine Sodium 125 MCG TAB PO SCH (05:37)
[2018-03-17 08:14] LABS: #Eosinphils 0.1 thou/uL (0.0-0.7); #Lymphocytes 0.6 thou/uL (1.20-3.40); #Monocytes 0.3 thou/uL (0.11-0.59); #Neutrophils 10.3 thou/uL (1.40-6.50); %Basophils 0.1 % (0.0-1.0); %Eosinophils 0.8 % (0.0-10.0); %Monocytes 2.5 % (0.0-10.0); %Neutrophils 91.7 % (42.0-75.0); Hemoglobin 13.2 g/dL (12.0-16.0); Mean Corpuscular HGB CONC 31.6 g/dL (32.0-36.0); Mean Corpuscular Hemoglobin 28.5 pg (27.0-31.0); Mean Corpuscular Volume 90.3 fL (78.0-98.0); Mean Platelet Volume 8.5 fL (7.4-10.4); Platelet Count 264 thou/uL (130-400); RBC Distribution Width 19.5 % (11.5-14.5); Red Blood Cell (RBC) Count 4.65 mill/uL (4.20-5.40); White Blood Cell (WBC) Count 11.3 thou/uL (4.8-10.8)
[2018-03-17] MEDS: Enoxaparin Sodium 40 MG/0.4 ML SYRINGE SC SCH (08:24)
--- NOTE | 2018-03-17 08:24 | RAD ---
ABDOMINAL 1 VIEW: HISTORY: Abdominal distention and vomiting. FINDINGS: Post cholecystectomy changes are noted in the right upper quadrant. There are some linear and inters titial parenchymal changes and minimal pleural changes in both lung bases, evidence for interstitial edema and/or underlying chronic change. Gas and fecal material noted in the colon. No evidence of l arge or small bowel obstruction. No overt calculus. IMPRESSION: Unremarkable abdomen 1 view. Linear and interstitial parenchymal changes in the lung bases, nonspeci fic. No bowel obstruction. POS: OFF
[2018-03-17] MEDS: Citalopram 10 MG TAB PO SCH (08:26)
[2018-03-17] MEDS: Famotidine 20 MG TAB PO SCH (08:26)
[2018-03-17] MEDS: Diabetic Tussin 200 MG/10 ML UDCUP PO SCH ×2 (08:26→20:21)
[2018-03-17] MEDS: Aripiprazole 2 MG TAB PO SCH (08:26)
[2018-03-17 08:34] LABS: Anion Gap 16 mmol/L (10-20); BUN (Urea Nitrogen) 21 mg/dL (7.0-18.7); Calc. Creatinine Clearance 51 mL/min (70-130); Calcium 9.1 mg/dL (7.8-10.44); Carbon Dioxide 26 mmol/L (22-29); Chloride 96 mmol/L (98-107); Estimated GFR-MDRD 32; Glucose 160 mg/dL (70-105); Potassium 3.6 mmol/L (3.5-5.1); Sodium 134 mmol/L (136-145)
[2018-03-17] MEDS ORDERED: Azithromycin 250 MG TAB PO SCH (09:00)
--- NOTE | 2018-03-17 10:30 | PRG ---
DATE OF SERVICE: 03/17/2018 SUBJECTIVE: She apparently vomited several times last night, had a low-grade fever. OBJECTIVE: VITAL SIGNS: Temperature 100.2, pulse 95, respirations 20, saturations 96% on 3 L, and blood pressure 101/50. Currently, she does not appear in any distress. HEENT: Unremarkable. NECK: No JVD. CHEST: Fairly clear. CARDIAC: S1 and S2, regular. ABDOMEN: Soft and nontender. LABORATORY DATA: White blood cell count 11.3, hematocrit 41.9, and platelet count 264. Sodium 134, potassium 3.6, BUN 21, creatinine 1.7, and glucose 160. ASSESSMENT: 1. Bronchitis. 2. Congestive heart failure. PLAN: I will go ahead and change her Zithromax to IV since that may have upset her stomach last night. We will continue with the breathing treatments. Job ID: [id number]
[2018-03-17] MEDS: Azithromycin 250 MG in Sodium Chloride 0.9% 250 ML 250 ML IVPB SCH (11:37)
--- NOTE | 2018-03-17 12:34 | PDOC.CTH ---
Cardiology Progress Note - Subjective The pt seen and examined. No overnight events. No cardiac complaints. Per family, her temp was up > 100 last night. - Objective Vital Signs Temp Pulse Resp BP Pulse Ox 03/17/18 11:56 96 22 H 92 L 03/17/18 11:34 99.6 F 101 H 22 H 106/56 L 94 L 03/17/18 08:15 100.2 F H 95 20 101/50 L 96 03/17/18 06:59 78 28 H 92 L 03/17/18 04:00 97.6 F 91 21 H 119/65 95 03/17/18 01:13 89 18 93 L Weight 172 lb 8 oz 03/16/18 03/17/18 03/18/18 06:59 06:59 06:59 Intake Total 766 1329 Balance 766 1329 - Physical Examination Lungs: other: (coarse and diminished at bases) Heart: RRR Abdomen: soft Extremities: other: (dicoloration to BLE) - Telemetry Telemetry Rhythm: SR 90s - Labs Result Diagrams: 03/17/18 07:38 03/17/18 07:38 Troponin/CKMB Troponin I 0.016 ng/mL (< 0.028) 03/15/18 14:56 - Assessment/Plan 1. Acute on Chronic diastolic HF - stable with no med at this moment due to hypotensive. May resume Aldactone 25mg qd when VS is stable 2. Acute bronchitis - on ABX IV; managed by PCP/rag grader 3. Mod MS/MR - cont. to monitor 4. JAGUAR 5. Hypothyroidism - managed by PCP 6. Down's syndrome - MAR reviewed * Dr. Barragan. * Echo on 03/15/2018 showed EF 50-55%, mod MS/MR. Pt. seen and eval. by me. I agree with the A/P by the HOT KNIFE FOXING CUTTER. . The mother is at the bedside. Pt. is sleeping. Chest with wheezing. RRR. Review of Systems - Review of Systems Constitutional: reports: no symptoms reported EENTM: reports: no symptoms reported Respiratory: reports: no symptoms reported Cardiac (ROS): reports: no symptoms reported ABD/GI: reports: nausea, vomiting : reports: no symptoms reported
[2018-03-17] MEDS: Acetaminophen 500 MG TAB PO PRN (14:22)
--- NOTE | 2018-03-17 15:52 | PDOC.PN ---
- Subjective Encounter Start Date: 03/17/18 Encounter Start Time: 11:50 Had episode of N/V overnight. Had more when I was in to exam her. Not able to keep anything down. - Objective Vital Signs & Weight: Vital Signs (12 hours) Temp Pulse Resp BP Pulse Ox 03/17/18 14:22 99 F 03/17/18 11:56 96 22 H 92 L 03/17/18 11:34 99.6 F 101 H 22 H 106/56 L 94 L 03/17/18 08:15 100.2 F H 95 20 101/50 L 96 03/17/18 06:59 78 28 H 92 L 03/17/18 04:00 97.6 F 91 21 H 119/65 95 Weight Weight 172 lb 8 oz I&O: 03/16/18 03/17/18 03/18/18 06:59 06:59 06:59 Intake Total 766 1329 Balance 766 1329 Result Diagrams: 03/17/18 07:38 03/17/18 07:38 Phys Exam - Physical Examination coughing modestly. Vomiting. Cardiovascular: RRR, no significant murmur, no rub Gastrointestinal: soft, no distention, positive bowel sounds Appears to be modestly, diffusely tender. Musculoskeletal: no edema Dx/Plan (1) Acute bronchitis Code(s): J20.9 - ACUTE BRONCHITIS, UNSPECIFIED Status: Acute (2) Acute on chronic diastolic (congestive) heart failure Code(s): I50.33 - ACUTE ON CHRONIC DIASTOLIC (CONGESTIVE) HEART FAILURE Status : Acute (3) Acute respiratory failure with hypoxia Code(s): J96.01 - ACUTE RESPIRATORY FAILURE WITH HYPOXIA Status: Acute (4) Down's syndrome Code(s): Q90.9 - DOWN SYNDROME, UNSPECIFIED Status: Chronic Comment: At baseline/. (5) Hypothyroidism Code(s): E03.9 - HYPOTHYROIDISM, UNSPECIFIED Status: Chronic Qualifiers: (6) Nausea & vomiting Code(s): R11.2 - NAUSEA WITH VOMITING, UNSPECIFIED Status: Acute - Plan * Lasix stopped last night because of hypotension. Not resumed as she is not taking po's. * Has developed N/V. May be related to the oral Azithromycin. That has been changed to IV. * KUB was normal. * PRN Zofran. * If this does not resolve today, may need further investigation. * continue to treat the bronchitis. *
[2018-03-17] MEDS: Nystatin Powder 15 GM BOT TOP PRN (23:51)
[2018-03-18] MEDS: Acetaminophen 500 MG TAB PO PRN (01:29)
[2018-03-18] MEDS: Ondansetron PF 4 MG/2 ML Vial IVP PRN (01:29)
[2018-03-18 05:39] LABS: #Basophils 0.1 thou/uL (0.0-0.2); #Lymphocytes 0.2 thou/uL (1.20-3.40); #Monocytes 0.5 thou/uL (0.11-0.59); #Neutrophils 10.6 thou/uL (1.40-6.50); %Basophils 0.5 % (0.0-1.0); %Eosinophils 0.2 % (0.0-10.0); %Lymphocytes 2.1 % (21.0-51.0); %Monocytes 4.1 % (0.0-10.0); %Neutrophils 93.2 % (42.0-75.0); Hemoglobin 12.3 g/dL (12.0-16.0); Mean Corpuscular HGB CONC 31.7 g/dL (32.0-36.0); Mean Corpuscular Hemoglobin 28.7 pg (27.0-31.0); Mean Corpuscular Volume 90.4 fL (78.0-98.0); Mean Platelet Volume 8.5 fL (7.4-10.4); Platelet Count 211 thou/uL (130-400); RBC Distribution Width 19.1 % (11.5-14.5); Red Blood Cell (RBC) Count 4.28 mill/uL (4.20-5.40); White Blood Cell (WBC) Count 11.4 thou/uL (4.8-10.8)
[2018-03-18 05:56] LABS: Anion Gap 16 mmol/L (10-20); BUN (Urea Nitrogen) 26 mg/dL (7.0-18.7); Calc. Creatinine Clearance 36 mL/min (70-130); Calcium 8.5 mg/dL (7.8-10.44); Carbon Dioxide 25 mmol/L (22-29); Chloride 93 mmol/L (98-107); Estimated GFR-MDRD 22; Glucose 134 mg/dL (70-105); Potassium 3.1 mmol/L (3.5-5.1); Sodium 131 mmol/L (136-145)
[2018-03-18] MEDS: cefTRIAXone\\ROCEPHIN 1 GM in Sodium Chloride 0.9% 100 ML IVPB SCH (06:26)
[2018-03-18] MEDS: Diabetic Tussin 200 MG/10 ML UDCUP PO PRN (06:27)
[2018-03-18] MEDS: Levothyroxine Sodium 112 MCG TAB PO SCH (06:27)
--- NOTE | 2018-03-18 09:20 | RAD ---
PORTABLE CHEST: Date: 03/18/18 COMPARISON: 03/15/18 study. HISTORY: Fever and cough. FINDINGS: Heart size appears slightly enlarged. There are postop sternotomy changes. Increased parahilar and ba silar lung changes are essentially stable as compared to the prior exam. IMPRESSION: Stable changes, probably on the basis of pulmonary edema. POS: OFF
--- NOTE | 2018-03-18 09:59 | PRG ---
DATE OF SERVICE: 03/18/2018 SUBJECTIVE: Razia had some vomiting last night and may have aspirated. PHYSICAL EXAMINATION: VITAL SIGNS: Temperature is 100.5, pulse 88, blood pressure 91/55, O2 saturation 95% on 4 L. HEENT: Unremarkable. NECK: No JVD. LUNGS: Coarse breath sounds on the left compared to right. CARDIAC: S1, S2. Regular. ABDOMEN: Soft. EXTREMITIES: No edema. LABORATORY DATA: White blood cell count 11.4, hematocrit 38.7, and platelet count 211. Sodium 131, potassium 3.1, chloride 93, CO2 of 25, BUN 26, creatinine 2.3, glucose 134. ASSESSMENT: 1. The patient with aspiration, probably some type of chemical pneumonitis. 2. The patient has elevated BUN and creatinine, prior reflective of the diuresis she received at the time of admission. PLAN: 1. Continue antibiotics. 2. Would consider Gastroenterology input. The patient may be suffering from gastroparesis. I believe we already know she has some component of swallowing dysfunction. This is a bad situation as I think a lot of the problems we are seeing with Razia are reflective of her Down syndrome. Job ID: [id number]
[2018-03-18] MEDS: Citalopram 10 MG TAB PO SCH (10:34)
[2018-03-18] MEDS: Famotidine 20 MG TAB PO SCH ×2 (10:34→21:00)
[2018-03-18] MEDS: Aripiprazole 2 MG TAB PO SCH (10:34)
[2018-03-18] MEDS: Enoxaparin Sodium 40 MG/0.4 ML SYRINGE SC SCH (10:34)
[2018-03-18] MEDS: Diabetic Tussin 200 MG/10 ML UDCUP PO SCH ×2 (10:35→21:00)
--- NOTE | 2018-03-18 10:40 | PDOC.CTH ---
Cardiology Progress Note - Subjective The pt seen and examined. No overnight events. No cardiac complaints. Temp was up to > 100. - Objective Vital Signs Temp Pulse Resp BP Pulse Ox 03/18/18 07:47 100.5 F H 88 28 H 91/55 L 95 03/18/18 06:32 98 03/18/18 06:30 97 20 98 03/18/18 06:25 99.4 F 24 H 03/18/18 04:00 102.4 F H 102 H 32 H 132/51 L 92 L 03/18/18 01:40 108 H 18 93 L 03/18/18 01:35 100.2 F H Weight 175 lb 11.2 oz 03/17/18 03/18/18 03/19/18 06:59 06:59 06:59 Intake Total 1329 1510 Output Total 350 Balance 1329 1160 - Physical Examination Lungs: other: (wheezing and very corses ) Heart: RRR Abdomen: soft Extremities: other: (no edema) - Telemetry Telemetry Rhythm: SR - Labs Result Diagrams: 03/18/18 05:22 03/18/18 05:22 Troponin/CKMB Troponin I 0.016 ng/mL (< 0.028) 03/15/18 14:56 - Assessment/Plan 1. Acute on Chronic diastolic HF - stable with no med at this moment due to hypotensive. May resume Aldactone 25mg qd when VS is stable 2. Acute bronchitis - on ABX IV; managed by PCP/cardiopulmonary specialist 3. Mod MS/MR - cont. to monitor 4. JAGUAR 5. Hypothyroidism - managed by PCP 6. Down's syndrome - 7. N&V - slightly stable this AM. MAR reviewed * Dr. Barragan. * Echo on 03/15/2018 showed EF 50-55%, mod MS/MR. Pt. seen and eval. by me. I agree with the A/P by the SECONDS HANDLER. She is sitting up in the chair this afternoon.Chest: basilar rhonchi. RRR. No edema. Review of Systems - Review of Systems Constitutional: reports: no symptoms reported EENTM: reports: no symptoms reported ABD/GI: reports: see HPI, nausea, vomiting
[2018-03-18] MEDS: Azithromycin 250 MG in Sodium Chloride 0.9% 250 ML 250 ML IVPB SCH (12:24)
[2018-03-18 12:55] LABS: Bilirubin Small (Negative); Blood, Urine Large (Negative); Clarity CLOUDY (Clear); Glucose, Urine (Dipstick) Negative (Negative); Leukocyte Moderate (Negative); Nitrite Negative (Negative); Protein, Urine (Dipstick) Trace mg/dL (Neg-Trace); Specific Gravity, Urine 1.025 (1.002-1.036); Urobilinogen 0.2 mg/dL (0.2-1.0)
[2018-03-18 13:01] LABS: Pathc Cast-AUWi Flag 1.45 (0-2.49)
[2018-03-18 13:17] LABS: Bacteria/HPF 2+ HPF (None Seen); Renal Epithelial None Seen HPF (0-3); Transitional Epithelial NONE SEEN HPF (0-3)
[2018-03-18 13:18] LABS: Crystals/HPF None Seen HPF (Negative); Hyaline Casts/LPF NONE SEEN LPF (0-3 Hyaline)
--- NOTE | 2018-03-18 13:59 | ULT ---
BILATERAL RENAL ULTRASOUND: Date; 03/18/18 PROVIDED CLINICAL HISTORY: Renal failure. FINDINGS: Right kidney measures about 9.2 x 5.4 x 4.4 cm and demonstrates no evidence for hydronephrosis or mas s. Left kidney measures about 8.9 x 6.5 x 5.1 cm and demonstrates no evidence for hydronephrosis or mass . The urinary bladder appears sonographically unremarkable. IMPRESSION: No evidence for hydronephrosis. POS: MONIE
[2018-03-18] MEDS: Albumin 25% 25 GM/100 ML BOT IVPB SCH ×3 (14:09→23:59)
--- NOTE | 2018-03-18 16:27 | PDOC.PN ---
- Subjective Encounter Start Date: 03/18/18 Encounter Start Time: 14:15 Had more vomiting this morning. Was made NPO. No vomiting since. - Objective Vital Signs & Weight: Vital Signs (12 hours) Temp Pulse Resp BP Pulse Ox 03/18/18 13:25 81 16 98 03/18/18 08:30 95 03/18/18 07:47 100.5 F H 88 28 H 91/55 L 95 03/18/18 06:32 98 03/18/18 06:30 97 20 98 03/18/18 06:25 99.4 F 24 H Weight Weight 175 lb 11.2 oz I&O: 03/17/18 03/18/18 03/19/18 06:59 06:59 06:59 Intake Total 1329 1510 Output Total 350 Balance 1329 1160 Result Diagrams: 03/18/18 05:22 03/18/18 05:22 Phys Exam - Physical Examination Constitutional: NAD Scattered rales. No wheezes. Cardiovascular: RRR, no significant murmur, no rub Gastrointestinal: soft, non-tender, no distention, positive bowel sounds Musculoskeletal: no edema Dx/Plan (1) Acute bronchitis Code(s): J20.9 - ACUTE BRONCHITIS, UNSPECIFIED Status: Acute (2) Acute on chronic diastolic (congestive) heart failure Code(s): I50.33 - ACUTE ON CHRONIC DIASTOLIC (CONGESTIVE) HEART FAILURE Status : Acute (3) Acute respiratory failure with hypoxia Code(s): J96.01 - ACUTE RESPIRATORY FAILURE WITH HYPOXIA Status: Acute (4) Down's syndrome Code(s): Q90.9 - DOWN SYNDROME, UNSPECIFIED Status: Chronic Comment: At baseline/. (5) Hypothyroidism Code(s): E03.9 - HYPOTHYROIDISM, UNSPECIFIED Status: Chronic Qualifiers: (6) Nausea & vomiting Code(s): R11.2 - NAUSEA WITH VOMITING, UNSPECIFIED Status: Acute (7) Acute on chronic renal failure Code(s): N17.9 - ACUTE KIDNEY FAILURE, UNSPECIFIED; N18.9 - CHRONIC KIDNEY DISEASE, UNSPECIFIED Status: Acute - Plan * Nephrology consulted due to acute worsening of the renal function. * Per Dr. Marie rec, GI consulted RE n/v. Concerns for possible gastroparesis. * Azithromycin could still be the culprit, but would likely have resolved by now. * Continue IV Azithromycin for bronchitis. * Oxygen support as needed. * May have some persistent pulmonary edema on CXR. * Cannot diurese given the worsening renal function.
--- NOTE | 2018-03-18 17:46 | CON ---
DATE OF CONSULTATION: HISTORY OF PRESENT ILLNESS: Ms. Smith is a 47-year-old white female with Down syndrome and admitted with a complaint of cough and congestion. We are being consulted for her acute kidney injury on top of her chronic renal failure. She on initial chest x-ray showed evidence of CHF. REVIEW OF SYSTEMS: No chest pain. Positive for cough. Positive for mild shortness of breath. No diarrhea. No constipation. No nausea. No vomiting. No headache. No diplopia. No syncopal episode. No productive cough. No fever or chills. No abdominal pain. Appetite and energy level are fair. No dysuria. No urinary frequency. MEDICATIONS: Currently on; 1. Tylenol 650 mg q.4 p.r.n. 2. DuoNeb q.6. 3. Abilify 2 mg daily. 4. Azithromycin 250 mg IV q.24 hours. 5. Tessalon 100 mg p.o. q.6. 6. Ceftriaxone 1 g every 24 hours. 7. Celexa 10 mg daily. 8. Lovenox 40 mg subcu daily. 9. Synthroid 112 mcg on Thursday, , and Thursday, and 125 mcg on Thursday, Thursday, and Thursday. 10. P.r.n. Nitrostat. 11. Protonix 40 mg tablet once a day. PAST MEDICAL HISTORY: 1. Hypothyroidism. 2. Down syndrome. 3. History of umbilical hernia. 4. Chronic renal failure. 5. Congenital heart defect, status post CHF. PAST SURGICAL HISTORY: 1. Status post cardiac surgery done in [place]. 2. Status post cholecystectomy. 3. Status post umbilical hernia repair. SOCIAL HISTORY: The patient lives with her parents. She is single. She has 3 siblings. Lives in [place]. No smoking. No alcohol intake. No drug abuse. Sedentary lifestyle. Education, high school. ALLERGIES: IV CONTRAST AND LISINOPRIL. TRAUMA: None. IMMUNIZATION: Up to date. HOSPITALIZATION: Please see past medical history. FAMILY HISTORY: No family history of ESRD. PHYSICAL EXAMINATION: VITAL SIGNS: Blood pressure 91/55, temperature 100.5, heart rate 88, respiratory rate 28, and pulse ox 95%. GENERAL: Noted to be awake, alert, supine, comfortable, not in distress. SKIN: Adequate turgor. HEENT: Pinkish conjunctivae. Anicteric sclerae. No neck mass. No carotid bruits. No JVD. LUNGS: Decreased breath sounds. HEART: Normal sinus rhythm. No murmur. No gallops. No rubs. ABDOMEN: Globular, soft, nontender. No masses. NEUROLOGICAL: The patient has Down facies. LABORATORY DATA: On March 18, 2018, white count 11.4, hemoglobin 12.3. Sodium 131, potassium 3.1, chloride 93, carbon dioxide 25, BUN 26, creatinine 2.37, glucose 134, calcium 8.5. On March 17, 2018, creatinine 1.7. On March 16, 2018, creatinine 1.29. On March 15, 2018, creatinine 1.19. IMAGING DATA: Chest x-ray? Of increased lung markings. ASSESSMENT AND PLAN: 1. Acute kidney injury. I consider a hemodynamically mediated dysfunction. We will review urinalysis. If no improvement, consider renal ultrasound. At least, I would try empiric colloid infusion-albumin at 5 g IV q.6 for the next 3 days. Review urine sediment with this patient. Continue to hold off any diuretics or BELKYS inhibitors. 2. Cough-presumptive bronchitis/pneumonia. Currently, on IV antibiotics. Please note that the last cardiac echo showed a normal EF with this patient. Overall, I agree with current management. Job ID: [id number] [id number]
[2018-03-18] MEDS: Ondansetron PF 4 MG/2 ML Vial IVP SCH ×2 (18:27→23:59)
--- NOTE | 2018-03-19 00:18 | CON ---
DATE OF CONSULTATION: 03/18/2018 REASON FOR CONSULTATION: Nausea and vomiting. CONSULTING PHYSICIAN: Dr. Sam Acuña. HISTORY OF PRESENT ILLNESS: The patient is a 47-year-old female with past medical history of obesity, hypertension, hypothyroidism, obstructive sleep apnea, diastolic congestive heart failure, and congenital heart disease associated with Down syndrome, who was initially presenting with complaints of chronic cough. She was initially seen by her primary care physician about a week ago and was prescribed prednisone and Keflex for this particular condition. However, when the cough did not improve and she started to have wheezing, it ultimately prompted her to seek healthcare admission. During this admission or initially on this admission, she did not have any nausea or vomiting, but within 24-48 hours after admission, she began to experience increased nausea and vomiting, vomiting approximately 1-2 times daily. Also during this hospitalization, she has had imaging consistent with fluid overload, but also some interstitial findings concerning for possible pneumonia and when coupled with fever and the nausea and vomiting, is concerning for aspiration pneumonia. Upon review of her chart, she has had extensive workup for this nausea and vomiting, which has been present since 2014. Per her father, he states that she has been having nausea and vomiting since 2014, where she would vomit approximately one time daily with nonbloody emesis and sometimes preceding nausea to the arrival of emesis. However, during the same time period, she denied any fevers, chills, hematemesis, melena, hematochezia, abdominal pain, or diarrhea. She does have intermittent problems with constipation, having approximately one bowel movement every 2-3 days that might require increased straining in order to defecate, per patient's father. Otherwise, review of systems is negative. Of note, the patient has undergone extensive workup for this nausea and vomiting in past, including an upper endoscopy performed on May 13, 2015, which was normal in addition to a colonoscopy performed on the same day, which was also normal. She underwent a modified barium swallow study for possible oropharyngeal dysphagia on November 04, 2016, which was normal and did not show any signs of aspiration. She also underwent a gastric emptying study on November 19, 2016, that was also normal and showed approximately 97% of tracer gone at the end of 3 hours. REVIEW OF SYSTEMS: The review of systems is limited, given the patient's intellectual disability. PAST MEDICAL HISTORY: As per HPI. PAST SURGICAL HISTORY: Open heart surgery secondary to congenital heart disease, cholecystectomy, hernia repair with mesh placement. FAMILY HISTORY: Denies any GI malignancies (per patient's father). SOCIAL HISTORY: Denies any tobacco, alcohol, or illicit drug use. OUTPATIENT MEDICATIONS: Levothyroxine, citalopram, bumetanide, Aldactone, Abilify, and Nexium. ALLERGIES: IODINE AND LISINOPRIL. PHYSICAL EXAMINATION: VITAL SIGNS: Temperature 100.5, pulse 81, blood pressure 91/55, respiratory rate 16, saturating 98% on 3 L nasal cannula. GENERAL: The patient is lying in bed, in no acute distress. Alert and oriented x1. HEENT AND NECK: Supple. No JVD or scleral icterus noted. CARDIOVASCULAR: Regular rate and rhythm with no discernible murmurs, gallops, or rubs. RESPIRATORY: Coarse breath sounds heard in all lung gutierrez with end-expiratory wheezing auscultated in the left lower lung. ABDOMEN: Normoactive bowel sounds. Soft, nontender, nondistended. EXTREMITIES: No cyanosis, clubbing, or edema. LABORATORY DATA: CBC with a white blood cell count of 11.4, hemoglobin 12.3, hematocrit 38.7, platelets 211. Chemistry with a sodium of 131, potassium 3.1, chloride 93, CO2 of 25, BUN 26, creatinine 2.37, glucose 134, AST 25, ALT 17, alkaline phosphatase 98, total bilirubin 2.5, albumin 3.8, BNP 236. IMAGING DATA: Chest x-ray obtained on March 18, 2018, showed slight cardiomegaly with postop sternotomy changes. Increased parahilar and basilar lung changes were essentially stable when compared to previous with a probable diagnosis of pulmonary edema. Abdominal x-ray obtained on March 17, 2018, showed linear and interstitial parenchymal changes in the lung bases, which were nonspecific. No evidence of bowel obstruction. ASSESSMENT AND PLAN: The patient is a 47-year-old female with past medical history of obesity, hypertension, hypothyroidism, obstructive sleep apnea, diastolic congestive heart failure and Down syndrome with congenital heart disease, status post repair, presenting with chronic nausea and vomiting. Chronic nausea and vomiting. The patient is presenting with a history of daily chronic nausea and vomiting that has been present since at least 2014. She has undergone an extensive GI workup in the past to include upper endoscopy, colonoscopy, modified barium swallow study and gastric emptying study, all of which have been negative at this point. With the confucianism of remission without significant nausea or vomiting at least recently and worsening of this nausea and vomiting after admission, it does raise the question for possible medication induced nausea and vomiting with the azithromycin being one of the more likely culprit. This particular medication could cause nausea and vomiting despite transferring from oral to an IV format, which raises the question of whether or not a suitable alternative should be considered. Differential could also include gastroparesis (unlikely given negative prior gastric emptying study in 2017), irritable bowel syndrome, functional dyspepsia, mesenteric ischemia (less likely), increased intracranial pressure and generating nausea, psychiatric as etiology and significant cardiac disease. At this time and per chart review, the patient had responded well to PPI administration in the past for her nausea and vomiting. Therefore, I would recommend maximizing her acid reflux regimen and maintaining more conservative measures to maintain an upright posture when lying in bed, avoid any trigger foods or tight-fitting garments. She was also noted to have an elevated total bilirubin, outside of any elevation in her transaminitis with hepatitis being the possible source of nausea and vomiting, it may require further evaluation. RECOMMENDATIONS: 1. Would increase pantoprazole to 40 mg b.i.d. in addition to famotidine 20 mg at night for maximum acid suppression. 2. We will obtain a direct bilirubin to evaluate for possible hepatitis versus Guillain-Washington syndrome. 3. Would continue to treat possible aspiration pneumonia at this time. However, we would consider possible alternative in changing the azithromycin for better coverage of an aspiration pneumonia and may be the etiology of her nausea and vomiting. 4. Would consider a CT of her head for possible intracranial abnormality. 5. Would hold on EGD at this point, given the higher likelihood of aspiration pneumonia and increased complication associated with upper endoscopy at this time. 6. Would continue with Zofran, but would schedule the medication for better antiemetic relief and Reglan for her metoclopramide for any breakthrough nausea and vomiting. We will continue to follow. Please call with any questions. Job ID: [id number]
[2018-03-19] MEDS: Levothyroxine Sodium 125 MCG TAB PO SCH (05:17)
[2018-03-19] MEDS: Ondansetron PF 4 MG/2 ML Vial IVP SCH ×4 (05:17→23:52)
[2018-03-19] MEDS: cefTRIAXone\\ROCEPHIN 1 GM in Sodium Chloride 0.9% 100 ML IVPB SCH (05:17)
[2018-03-19] MEDS: Albumin 25% 25 GM/100 ML BOT IVPB SCH ×2 (05:24→12:02)
[2018-03-19 06:28] LABS: #Eosinphils 0.1 thou/uL (0.0-0.7); #Lymphocytes 0.7 thou/uL (1.20-3.40); #Monocytes 0.4 thou/uL (0.11-0.59); #Neutrophils 5.4 thou/uL (1.40-6.50); %Basophils 0.1 % (0.0-1.0); %Eosinophils 1.3 % (0.0-10.0); %Lymphocytes 10.6 % (21.0-51.0); %Monocytes 6.6 % (0.0-10.0); %Neutrophils 81.5 % (42.0-75.0); Hemoglobin 11.1 g/dL (12.0-16.0); Mean Corpuscular HGB CONC 32.5 g/dL (32.0-36.0); Mean Corpuscular Hemoglobin 30.1 pg (27.0-31.0); Mean Corpuscular Volume 92.6 fL (78.0-98.0); Platelet Count 184 thou/uL (130-400); RBC Distribution Width 19.1 % (11.5-14.5); White Blood Cell (WBC) Count 6.6 thou/uL (4.8-10.8)
[2018-03-19 06:37] LABS: Anion Gap 19 mmol/L (10-20); BUN (Urea Nitrogen) 24 mg/dL (7.0-18.7); Calc. Creatinine Clearance 49 mL/min (70-130); Calcium 9.4 mg/dL (7.8-10.44); Carbon Dioxide 23 mmol/L (22-29); Chloride 93 mmol/L (98-107); Estimated GFR-MDRD 32; Glucose 111 mg/dL (70-105); Potassium 3.3 mmol/L (3.5-5.1); Sodium 132 mmol/L (136-145)
[2018-03-19] MEDS ORDERED: Potassium Chloride 10 MEQ in Premix Bag 1 BAG IVPB SCH (07:15)
--- NOTE | 2018-03-19 07:20 | PRG ---
DATE OF SERVICE: 03/19/2018 RENAL MEDICINE SUBJECTIVE: Ms. Smith is a 47-year-old white female with known history of Down syndrome, chronic renal failure from cardiorenal syndrome and was admitted for nausea, vomiting, and cough. She has been evaluated by Pulmonary and GI. We are following her up for her acute kidney injury on top of her chronic renal failure. We felt that this was an essentially prerenal azotemia. She was started on albumin infusion with slight improvement with renal function today. No other complaints today. Still with the nausea. No chest pain or shortness of breath. OBJECTIVE: VITAL SIGNS: Blood pressure is 101/56, heart rate 81, respiratory rate 18, temperature 99, and pulse ox 98%. GENERAL: Awake, supine, comfortable, not in overt distress. SKIN: Adequate turgor. HEENT: She has pinkish conjunctivae. Anicteric sclerae. No neck mass. No carotid bruits. No JVD. CHEST: No deformities. LUNGS: Decreased breath sounds. HEART: Normal sinus rhythm. No murmurs. No gallops. No rubs. ABDOMEN: Globular, soft, nontender. No masses. EXTREMITIES: No edema. No deformities. MEDICATIONS: Medications of March 19, 2018, was reviewed. LABORATORY DATA: Laboratories of March 19, 2018, white count 6.6, hemoglobin 11.1. Sodium 132, potassium 3.3, chloride 93, carbon dioxide 23, BUN 24, creatinine 1.73, glucose 111, and calcium 9.4. ASSESSMENT AND PLAN: 1. Acute kidney injury - consider hemodynamically-mediated renal dysfunction. Review of her urinalysis showed a very concentrated urine - specific gravity of 1.025. Renal ultrasound showed no obstruction. She was started on salt-poor albumin with improvement with the renal function. 2. Nausea and vomiting - GI evaluating the patient. There is no indication for any dialytic intervention with this patient. Overall, I agree with current management. We will check basic met and CBC in a.m. Job ID: [id number]
[2018-03-19] MEDS: Enoxaparin Sodium 40 MG/0.4 ML SYRINGE SC SCH (08:46)
[2018-03-19] MEDS: Citalopram 10 MG TAB PO SCH (08:46)
[2018-03-19] MEDS: Aripiprazole 2 MG TAB PO SCH (08:46)
--- NOTE | 2018-03-19 09:50 | PRG ---
DATE OF SERVICE: 03/19/2018 SUBJECTIVE: The patient is doing better than yesterday. She is eating. She has not had any nausea or vomiting since about noon yesterday. OBJECTIVE: VITAL SIGNS: Temperature is 99, pulse 89, respirations 24, O2 saturation 95% on 3 L, and blood pressure 101/56. HEENT: Unremarkable. NECK: No adenopathy or JVD. LUNGS: She has coarse rhonchi. CARDIAC: S1 and S2, regular. ABDOMEN: Soft. EXTREMITIES: No edema. ASSESSMENT: Aspiration pneumonitis. PLAN: 1. Said, she is stable, I will go ahead and keep her on azithromycin and ceftriaxone. Aspiration usually is more of a chemical pneumonitis than a bacterial situation. If she gets worse, then we can consider switching her over to Zosyn or Unasyn. 2. I think the main issue is to control her nausea and vomiting, which seem to be doing reasonably well right now. Job ID: [id number]
[2018-03-19] MEDS: Potassium Chloride 10 MEQ in Premix Bag 1 BAG IVPB SCH ×2 (10:16→11:13)
[2018-03-19] MEDS: Diabetic Tussin 200 MG/10 ML UDCUP PO SCH ×2 (10:18→22:00)
[2018-03-19] MEDS: Benzonatate 100 MG CAP PO PRN (12:03)
--- NOTE | 2018-03-19 12:57 | PDOC.PN ---
- Subjective Encounter Start Date: 03/19/18 Encounter Start Time: 12:10 Has had less vomiting. Has persistent cough that appears to be leading to gagging and vomiting. - Objective Vital Signs & Weight: Vital Signs (12 hours) Temp Pulse Resp BP Pulse Ox 03/19/18 08:00 97.2 F L 85 18 108/57 L 97 03/19/18 06:46 95 03/19/18 06:42 89 24 H 03/19/18 03:01 99 F 81 18 101/56 L 98 Weight Weight 171 lb I&O: 03/18/18 03/19/18 03/20/18 06:59 06:59 06:59 Intake Total 1510 1380 Output Total 350 200 Balance 1160 1180 Result Diagrams: 03/19/18 05:49 03/19/18 05:49 Phys Exam - Physical Examination Constitutional: NAD Cough, gagging with cough. Respiratory: no wheezing, no rhonchi Scattered rales bilaterally. Cardiovascular: RRR, no significant murmur Gastrointestinal: soft, no distention, positive bowel sounds Does not speak but appears to grimace with palpation of left abd. Musculoskeletal: no edema Dx/Plan (1) Acute bronchitis Code(s): J20.9 - ACUTE BRONCHITIS, UNSPECIFIED Status: Acute (2) Acute on chronic diastolic (congestive) heart failure Code(s): I50.33 - ACUTE ON CHRONIC DIASTOLIC (CONGESTIVE) HEART FAILURE Status : Acute (3) Acute respiratory failure with hypoxia Code(s): J96.01 - ACUTE RESPIRATORY FAILURE WITH HYPOXIA Status: Acute (4) Down's syndrome Code(s): Q90.9 - DOWN SYNDROME, UNSPECIFIED Status: Chronic Comment: At baseline/. (5) Hypothyroidism Code(s): E03.9 - HYPOTHYROIDISM, UNSPECIFIED Status: Chronic Qualifiers: (6) Nausea & vomiting Code(s): R11.2 - NAUSEA WITH VOMITING, UNSPECIFIED Status: Acute (7) Acute on chronic renal failure Code(s): N17.9 - ACUTE KIDNEY FAILURE, UNSPECIFIED; N18.9 - CHRONIC KIDNEY DISEASE, UNSPECIFIED Status: Acute - Plan * Appreciate GI input. * Pulm following. * Nephrology following. * Continue abx. Unable to give much diuresis as she is not taking pos and is vomiting. * On PPI and H2 antagonist. * Has cough suppression, but not able to keep much down.
--- NOTE | 2018-03-19 13:49 | PDOC.CTH ---
Cardiology Progress Note - Subjective The pt seen and examined. No overnight events. - Objective Vital Signs Temp Pulse Resp BP Pulse Ox 03/19/18 08:00 97.2 F L 85 18 108/57 L 97 03/19/18 06:46 95 03/19/18 06:42 89 24 H 03/19/18 03:01 99 F 81 18 101/56 L 98 Weight 171 lb 03/18/18 03/19/18 03/20/18 06:59 06:59 06:59 Intake Total 1510 1380 Output Total 350 200 Balance 1160 1180 - Physical Examination Lungs: other: (diminished at bases) Heart: RRR Abdomen: soft Extremities: other: (generalized edema) - Telemetry Telemetry Rhythm: SR 80s - Labs Result Diagrams: 03/19/18 05:49 03/19/18 05:49 Troponin/CKMB Troponin I 0.016 ng/mL (< 0.028) 03/15/18 14:56 - Assessment/Plan 1. Acute on Chronic diastolic HF - stable with no med at this moment due to hypotensive. May resume Aldactone 25mg qd when VS is stable 2. Acute bronchitis - on ABX IV; managed by PCP/disintegrator 3. Mod MS/MR - cont. to monitor 4. JAGUAR 5. Hypothyroidism - managed by PCP 6. Down's syndrome - 7. N&V - stable this AM; managed by GI. MAR reviewed * Dr. Barragan. * Echo on 03/15/2018 showed EF 50-55%, mod MS/MR. Pt. seen and eval. by me. Iagree with the A/P by the VICE PRESIDENT OF ENGINEERING. Chest: still some coughing and rhonchi but improving. RRR. Cardiac status is stable. I will sign off. If any cardiac changes please consult us again. Thank you. Review of Systems - Review of Systems Constitutional: reports: no symptoms reported EENTM: reports: no symptoms reported Respiratory: reports: no symptoms reported Cardiac (ROS): reports: no symptoms reported ABD/GI: reports: no symptoms reported : reports: no symptoms reported Musculoskeletal: reports: no symptoms reported Skin: reports: no symptoms reported
[2018-03-19] MEDS: Azithromycin 250 MG in Sodium Chloride 0.9% 250 ML 250 ML IVPB SCH (14:54)
--- NOTE | 2018-03-19 16:36 | PRG ---
DATE OF SERVICE: 03/19/2018 REASON FOR CONSULTATION: Nausea and vomiting. SUBJECTIVE: The patient states that she is feeling better today, but did respond to the affirmative on a number of different questions. However, per conferring with the patient's father and mother, she did have one episode of vomiting earlier today. During the course of the interview, she also exhibited mild choking of food and increased coughing with the ingestion of a clear liquid diet. With the increased tussive episodes, it was concerning for possible posttussive emesis contributing to her current clinical situation. However, she does also have a concurrent diagnosis of possible pneumonia, which does make increased cough with ingestion of food more likely as well. Currently, denies any fevers, chills, abdominal pain, GI bleeding, or odynophagia. OBJECTIVE: VITAL SIGNS: Temperature 97.2, pulse 80, blood pressure 108/54, respiratory rate 20, and saturating 97% on 2 L nasal cannula. GENERAL: The patient was lying in bed, in no acute distress. Alert and oriented x1. LABORATORY DATA: CBC with a white blood cell count of 6.6, hemoglobin 11.1, hematocrit 34.2, and platelets 184. Chemistry with a sodium of 132, potassium 3.3, chloride 93, CO2 of 23, BUN 24, creatinine 1.73, and glucose 111. IMAGING DATA: No current GI imaging is available for review. ASSESSMENT AND PLAN: The patient is a 47-year-old female with past medical history of obesity, hypertension, hypothyroidism, obstructive sleep apnea, diastolic congestive heart failure, and Down syndrome with congenital heart disease, presenting with chronic nausea and vomiting. Chronic nausea, vomiting. The patient is presenting with a chronic history of daily nausea and vomiting that have been present since at least 2014. Prior workup included negative upper endoscopy, colonoscopy, modified barium swallow study, and gastric emptying study. However, during this admission, she exhibited nausea, vomiting, as well as increased cough, and respiratory issues concerning for aspiration pneumonia. She was subsequently placed on ceftriaxone and azithromycin and is currently responding to treatment as evidenced by a significant decrease in her white blood cell count today. However, with the administration of azithromycin, she could also generate nausea and vomiting in and of itself. At this point, the origin of her chronic nausea and vomiting is largely unknown with the differential including irritable bowel syndrome, functional dyspepsia, mesenteric ischemia (much less likely), increased intracranial pressure, psychogenic nausea and vomiting, and significant cardiac disease including congestive heart failure. Per chart review, the patient has responded well to maximization of her acid reflux medications in the past, and I would continue to do so given symptomatic relief in the past. RECOMMENDATIONS: 1. We would continue pantoprazole 40 mg b.i.d. in addition to famotidine 20 mg at night for maximum acid suppression. 2. We would continue to treat possible aspiration pneumonia, further contributing to nausea and vomiting. We will consider possible alternative to azithromycin given its adverse reaction of increased nausea and vomiting. 3. We would consider CT head for possible intracranial abnormality, contributing to her nausea and vomiting. 4. We will hold on any endoscopic intervention at this time given the respiratory infection that she is currently battling. 5. We would continue scheduled Zofran with Reglan for any breakthrough nausea and vomiting. We will continue to follow. Please call with any questions. Job ID: [id number]
[2018-03-19] MEDS: Acetaminophen 500 MG TAB PO PRN (21:57)
[2018-03-19] MEDS: Famotidine 20 MG TAB PO SCH (21:59)
[2018-03-20] MEDS: Diabetic Tussin 200 MG/10 ML UDCUP PO PRN (05:01)
[2018-03-20] MEDS: cefTRIAXone\\ROCEPHIN 1 GM in Sodium Chloride 0.9% 100 ML IVPB SCH (06:02)
[2018-03-20] MEDS: Ondansetron PF 4 MG/2 ML Vial IVP SCH ×3 (06:03→18:11)
[2018-03-20] MEDS: Levothyroxine Sodium 112 MCG TAB PO SCH (06:03)
[2018-03-20 06:04] LABS: #Basophils 0.1 thou/uL (0.0-0.2); #Eosinphils 0.1 thou/uL (0.0-0.7); #Lymphocytes 0.8 thou/uL (1.20-3.40); #Monocytes 0.5 thou/uL (0.11-0.59); %Basophils 0.8 % (0.0-1.0); %Eosinophils 1.6 % (0.0-10.0); %Monocytes 7.6 % (0.0-10.0); %Neutrophils 76.9 % (42.0-75.0); Mean Corpuscular HGB CONC 31.8 g/dL (32.0-36.0); Mean Platelet Volume 8.5 fL (7.4-10.4); Platelet Count 229 thou/uL (130-400); RBC Distribution Width 19.2 % (11.5-14.5); Red Blood Cell (RBC) Count 3.79 mill/uL (4.20-5.40); White Blood Cell (WBC) Count 6.5 thou/uL (4.8-10.8)
[2018-03-20 06:31] LABS: Anion Gap 20 mmol/L (10-20); BUN (Urea Nitrogen) 29 mg/dL (7.0-18.7); Calc. Creatinine Clearance 43 mL/min (70-130); Calcium 9.3 mg/dL (7.8-10.44); Carbon Dioxide 21 mmol/L (22-29); Chloride 95 mmol/L (98-107); Estimated GFR-MDRD 26; Glucose 93 mg/dL (70-105); Potassium 3.6 mmol/L (3.5-5.1); Sodium 132 mmol/L (136-145)
[2018-03-20] MEDS: Diabetic Tussin 200 MG/10 ML UDCUP PO SCH ×2 (09:52→20:29)
[2018-03-20] MEDS: Aripiprazole 2 MG TAB PO SCH (09:53)
[2018-03-20] MEDS: Enoxaparin Sodium 40 MG/0.4 ML SYRINGE SC SCH (09:53)
[2018-03-20] MEDS: Citalopram 10 MG TAB PO SCH (09:55)
--- NOTE | 2018-03-20 10:56 | PRG ---
DATE OF SERVICE: 03/20/2018 RENAL MEDICINE SUBJECTIVE: Ms. Smith is a 47-year-old white female with a history of Down syndrome seen for an acute kidney injury on top of her chronic renal failure. She had a presumptive diagnosis of a prerenal azotemia on top of her chronic renal failure. Albumin infusion was given. Currently, creatinine is noted at 2.04 and yesterday this was 1.73. She also will be considered to be restarted back on her spironolactone. No other complaints today. Breathing is much improved. She is being also treated for an acute bronchitis. OBJECTIVE: VITAL SIGNS: Blood pressure is 132/74, heart rate 91, respiratory rate 20, temperature 99.4, and pulse ox 96%. GENERAL: The patient is awake, alert, ambulatory, comfortable, not in overt distress. SKIN: Adequate turgor. HEENT: She has pinkish conjunctivae. Anicteric sclerae. No neck mass. No carotid bruits. No JVD. CHEST: No deformities. LUNGS: Harsh breath sounds. No wheezing. No crackles. HEART: Normal sinus rhythm. No murmur. No gallops. No rubs. ABDOMEN: Globular, soft, and nontender. No masses. EXTREMITIES: No edema. No deformities. NEUROLOGIC: She has Down facies. MEDICATIONS: Medications of March 20, 2018, reviewed. LABORATORY DATA: Laboratories of March 20, 2018; sodium 132, potassium 3.6, chloride 95, carbon dioxide 21, BUN 29, creatinine 2.04, glucose 93, and calcium 9.3. ASSESSMENT AND PLAN: 1. Hypokalemia, resolved with potassium supplementation. 2. Acute kidney injury on top of her chronic renal failure, superimposed prerenal azotemia. Creatinine is fluctuating. Currently, creatinine is 2.04. If this further worsens, consider empiric volume repletion with normal saline at 100 mL/h in a.m. 3. Cough-presumptive acute bronchitis on IV antibiotics. 4. Overall, I agree with current management. Recheck basic metabolic panel and CBC in a.m. Job ID: [id number]
[2018-03-20] MEDS: Azithromycin 250 MG in Sodium Chloride 0.9% 250 ML 250 ML IVPB SCH (11:23)
--- NOTE | 2018-03-20 13:47 | EKG ---
Test Reason : DYSPNEA Blood Pressure : / mmHG Vent. Rate : 074 BPM Atrial Rate : 074 BPM P-R Int : 202 ms QRS Dur : 148 ms QT Int : 458 ms P-R-T Axes : 053 -63 085 degrees QTc Int : 508 ms Normal sinus rhythm Biatrial enlargement Right bundle branch block Left anterior fascicular block Bifascicular block Cannot rule out Inferior infarct (masked by fascicular block?) , age undetermined Abnormal ECG Confirmed by BRADEN ROMERO, RICK ([id number]), deputy editor in chief MARY REID ([id number]) on 03/20/2018 1:47:25 PM Referred By: BRADEN Confirmed By:RICK FELICIANO MD
--- NOTE | 2018-03-20 19:16 | PDOC.PN ---
- Subjective Encounter Start Date: 03/20/18 Encounter Start Time: 09:00 Was able to walk fairly well this morning. She tolerated clear breakfast and lunch so far with no vomiting. Not sleeping more than 2-3 hours at night. Parents indicate this has been an issue at home. They have tried meds, supplements (melatonin) and essential oils. None have been helpful. - Objective Vital Signs & Weight: Vital Signs (12 hours) Temp Pulse Resp BP Pulse Ox 03/20/18 18:44 96 24 H 78 L 03/20/18 16:00 96.8 F L 69 20 111/57 L 95 03/20/18 15:59 82 16 03/20/18 12:00 97.0 F L 83 20 91/50 L 95 03/20/18 10:34 93 20 03/20/18 08:00 97.5 F L 103 H 20 93/56 L 94 L Weight Weight 175 lb 12.8 oz I&O: 03/19/18 03/20/18 03/21/18 06:59 06:59 06:59 Intake Total 1380 1750 Output Total 200 450 Balance 1180 1300 Result Diagrams: 03/20/18 05:42 03/20/18 05:42 Phys Exam - Physical Examination Constitutional: NAD Scattered rales. Tracheal breath sounds. Slightly worse today. Cardiovascular: RRR, no significant murmur, no rub Gastrointestinal: soft, non-tender, no distention Musculoskeletal: no edema Neurological: non-focal Dx/Plan (1) Acute bronchitis Code(s): J20.9 - ACUTE BRONCHITIS, UNSPECIFIED Status: Acute (2) Acute on chronic diastolic (congestive) heart failure Code(s): I50.33 - ACUTE ON CHRONIC DIASTOLIC (CONGESTIVE) HEART FAILURE Status : Acute (3) Acute respiratory failure with hypoxia Code(s): J96.01 - ACUTE RESPIRATORY FAILURE WITH HYPOXIA Status: Acute (4) Down's syndrome Code(s): Q90.9 - DOWN SYNDROME, UNSPECIFIED Status: Chronic Comment: At baseline/. (5) Hypothyroidism Code(s): E03.9 - HYPOTHYROIDISM, UNSPECIFIED Status: Chronic Qualifiers: (6) Nausea & vomiting Code(s): R11.2 - NAUSEA WITH VOMITING, UNSPECIFIED Status: Acute (7) Acute on chronic renal failure Code(s): N17.9 - ACUTE KIDNEY FAILURE, UNSPECIFIED; N18.9 - CHRONIC KIDNEY DISEASE, UNSPECIFIED Status: Acute - Plan * vomiting improved. * Continue the acid suppression. * Continue Azithromycin, Rocephin for bronchitis. * Hope to be able to advance diet in am. * CXR in am.
--- NOTE | 2018-03-20 20:19 | PRG ---
DATE OF SERVICE: 03/20/2018 SUBJECTIVE: Ms. Smith is in no distress. Her family feels that she is doing better. She has had no nausea or vomiting. OBJECTIVE: VITAL SIGNS: She is afebrile. Heart rate is 96, respiratory rate is in 10s to low 20s, O2 saturation 95, blood pressure 111/57, and heart rate in the 60s. LUNGS: Clear when I examined her. HEART: Regular rhythm. ABDOMEN: Soft. EXTREMITIES: Without edema. LABORATORY DATA: White count 6.5, hemoglobin 11.0, and platelets 229. Sodium 132, potassium 3.6, chloride 95, bicarb 21, BUN 29, and creatinine 2.04, creatinine appears to be going up and down. She did have a positive fluid balance of 1300 mL. IMPRESSION: 1. Aspiration pneumonitis/pneumonia. 2. Chronic kidney disease. 3. Nausea and vomiting, which appears to have resolved. 4. History of hypertension. 5. History of sleep apnea. 6. History of diastolic heart failure. 7. Down syndrome. PLAN: Overall, she appears to be stable. Continue to follow. Job ID: [id number]
[2018-03-20] MEDS: Famotidine 20 MG TAB PO SCH (20:30)
[2018-03-20] MEDS: Acetaminophen 500 MG TAB PO PRN (20:30)
[2018-03-21] MEDS: Ondansetron PF 4 MG/2 ML Vial IVP SCH ×5 (00:02→23:36)
--- NOTE | 2018-03-21 02:14 | PRG ---
DATE OF SERVICE: 03/20/2018 REASON FOR CONSULTATION: Nausea and vomiting. SUBJECTIVE: Upon talking with the patient and the family today, she did not exhibit any episodes of vomiting. When asked if she continues to have any nausea, she shrugged her shoulders possibly in negative agreement, but she may not have understood the question. Otherwise, she tolerated the diet well today with no further episodes of choking. Currently, denies any fevers, chills, abdominal pain, GI bleeding, or odynophagia. OBJECTIVE: VITAL SIGNS: Temperature 98, pulse 86, blood pressure 108/64, respiratory rate 20, and saturating 97% on 3 L nasal cannula. GENERAL: The patient was lying in bed, in no acute distress. Alert and oriented x1. CARDIOVASCULAR: Regular rate and rhythm. RESPIRATORY: Clear to auscultation. LABORATORY DATA: CBC with a white blood cell count of 6.5, hemoglobin 11, hematocrit 34.5, and platelets 229. Chemistry with a sodium of 132, potassium 3.6, chloride 95, CO2 of 21, BUN 29, creatinine 2.04, and glucose 93. IMAGING DATA: No current GI imaging is available for review. ASSESSMENT AND PLAN: The patient is a 47-year-old female with past medical history of obesity, hypertension, hypothyroidism, obstructive sleep apnea, diastolic congestive heart failure, and Down syndrome with congenital heart disease, presenting with chronic nausea and vomiting. Chronic nausea and vomiting. The patient is presenting with a history of chronic nausea and vomiting, characterizes daily episodes of vomiting present since at least 2014. Prior workup has included upper endoscopy, colonoscopy, modified barium swallow study, and gastric emptying study, all of which have been negative. During this admission, she has exhibited continued nausea, vomiting, as well as increased cough and respiratory issues concerning for aspiration pneumonia, for which she is currently being treated with appropriate antibiotic regimen. With institution of antiemetics scheduled 3 times daily, she is now experiencing decreased episodes of emesis at least for the last 24 hours and has been able to tolerate a diet well without further issues. At this point, the origin of her chronic nausea and vomiting is unknown, but improving with maximization of the antiemetic and acid reflux type medication. RECOMMENDATIONS: 1. Would continue pantoprazole 40 mg b.i.d. in addition to famotidine 20 mg at night for maximum acid suppression. 2. Would continue to treat for possible aspiration pneumonia with antibiotic therapy. 3. We will hold on any endoscopic intervention at this time given the aspiration pneumonia and increased risk of complication with active infection. 4. Would continue scheduled antiemetics for control of nausea and vomiting. We will continue to follow. Please call with any questions. Job ID: [id number]
[2018-03-21] MEDS: Acetaminophen 325 MG TAB PO PRN ×2 (04:33→17:19)
[2018-03-21 05:56] LABS: #Eosinphils 0.2 thou/uL (0.0-0.7); #Lymphocytes 1.1 thou/uL (1.20-3.40); #Monocytes 0.5 thou/uL (0.11-0.59); #Neutrophils 4.5 thou/uL (1.40-6.50); %Basophils 0.4 % (0.0-1.0); %Eosinophils 3.6 % (0.0-10.0); %Lymphocytes 17.5 % (21.0-51.0); %Monocytes 7.3 % (0.0-10.0); %Neutrophils 71.2 % (42.0-75.0); Hemoglobin 11.1 g/dL (12.0-16.0); Mean Corpuscular HGB CONC 31.8 g/dL (32.0-36.0); Mean Corpuscular Hemoglobin 29.6 pg (27.0-31.0); Mean Corpuscular Volume 93.1 fL (78.0-98.0); Mean Platelet Volume 9.1 fL (7.4-10.4); Platelet Count 252 thou/uL (130-400); RBC Distribution Width 19.1 % (11.5-14.5); Red Blood Cell (RBC) Count 3.76 mill/uL (4.20-5.40); White Blood Cell (WBC) Count 6.2 thou/uL (4.8-10.8)
[2018-03-21] MEDS: cefTRIAXone\\ROCEPHIN 1 GM in Sodium Chloride 0.9% 100 ML IVPB SCH (05:56)
[2018-03-21 05:58] LABS: Anion Gap 16 mmol/L (10-20); BUN (Urea Nitrogen) 29 mg/dL (7.0-18.7); Calc. Creatinine Clearance 45 mL/min (70-130); Calcium 8.9 mg/dL (7.8-10.44); Carbon Dioxide 23 mmol/L (22-29); Chloride 93 mmol/L (98-107); Estimated GFR-MDRD 27; Glucose 112 mg/dL (70-105); Potassium 3.8 mmol/L (3.5-5.1); Sodium 128 mmol/L (136-145)
--- NOTE | 2018-03-21 07:46 | RAD ---
PORTABLE CHEST: Date: 03/21/18 PROVIDED CLINICAL HISTORY: Bronchitis. FINDINGS: Comparison with 03/18/18. Evaluation limited by patient body habitus. Cardiac silhouette appears enlarged. Prominence of the pu lmonary vasculature and pulmonary interstitium. No lobar consolidation, large effusion, or pneumothor ax evident. IMPRESSION: Limited study. POS: STEVE
[2018-03-21] MEDS: Enoxaparin Sodium 40 MG/0.4 ML SYRINGE SC SCH (10:07)
[2018-03-21] MEDS: Aripiprazole 2 MG TAB PO SCH (10:08)
[2018-03-21] MEDS: Citalopram 10 MG TAB PO SCH (10:08)
[2018-03-21] MEDS: Diabetic Tussin 200 MG/10 ML UDCUP PO SCH ×2 (10:09→20:06)
--- NOTE | 2018-03-21 10:11 | PRG ---
DATE OF SERVICE: 03/21/2018 Renal Medicine SUBJECTIVE: Ms. Smith is a 47-year-old white female with known history of Down syndrome, seen by the Renal Service for acute kidney injury on top of her chronic renal failure. No other complaints today. She is being treated for presumed aspiration pneumonitis/pneumonia. She has also history of diastolic heart failure. She has received on albumin infusion. Creatinine today is slightly improved at 1.96, yesterday this was 2.04. The patient continues to receive her antibiotics. No other complaints today. OBJECTIVE: VITAL SIGNS: Blood pressure is 139/90, heart rate 86, respiratory rate 16, temperature 98.2, and pulse ox 92%. GENERAL: Noted to be awake, sitting comfortable. Positive for Down facies. LUNGS: Clear. Decreased breath sounds. HEART: Normal sinus rhythm. No murmur. No gallops. No rubs. ABDOMEN: Globular, soft, nontender. No masses. EXTREMITIES: Trace edema. No deformities. MEDICATIONS: Medications of March 21, 2018, was reviewed. LABORATORY DATA: Laboratories of March 21, 2018, sodium 128, potassium 3.8, chloride 93, carbon dioxide 23, BUN 29, creatinine 1.96, glucose 112, and calcium 8.9. ASSESSMENT AND PLAN: 1. Mild hyponatremia. We will continue to observe. Please note, she is on free water restriction. This may just reflect hypovolemic hyponatremia. She is still on a clear liquid diet at the present time. 2. Acute kidney injury on top of her chronic renal failure superimposed hemodynamically-mediated renal dysfunction. Continue supportive care. No indication of dialytic intervention. There is stabilization of the renal function. Overall, I agree with current management. 3. Pneumonia on antibiotics. Job ID: [id number]
[2018-03-21] MEDS ORDERED: Pantoprazole 40 MG GRANULES PACKET PO SCH (10:15)
[2018-03-21] MEDS: Azithromycin 250 MG in Sodium Chloride 0.9% 250 ML 250 ML IVPB SCH (10:23)
--- NOTE | 2018-03-21 16:19 | PDOC.PN ---
- Subjective Encounter Start Date: 03/21/18 Encounter Start Time: 11:40 Sleeping well today. Has not been sleeping well until today. Has tolerated clears for 14 hours with no vomiting. - Objective Vital Signs & Weight: Vital Signs (12 hours) Temp Pulse Resp BP Pulse Ox 03/21/18 14:18 96 03/21/18 14:15 79 20 03/21/18 12:00 97.8 F 78 20 107/58 L 03/21/18 08:42 97 03/21/18 08:39 75 16 03/21/18 08:00 98.2 F 75 20 91/56 L 98 Weight Weight 178 lb 9.6 oz I&O: 03/20/18 03/21/18 03/22/18 06:59 06:59 06:59 Intake Total 1750 720 Output Total 450 Balance 1300 720 Result Diagrams: 03/21/18 05:21 03/21/18 05:21 Phys Exam - Physical Examination Constitutional: NAD Respiratory: no wheezing, no rhonchi Persistent scattered rales. Not on CPAP and has some obstruction noted. Modest. Cardiovascular: RRR, no significant murmur Gastrointestinal: soft, no distention, positive bowel sounds Musculoskeletal: no edema Dx/Plan (1) Acute bronchitis Code(s): J20.9 - ACUTE BRONCHITIS, UNSPECIFIED Status: Acute Comment: Po Augmentin. Duonebs. Likely aspiration. (2) Acute on chronic diastolic (congestive) heart failure Code(s): I50.33 - ACUTE ON CHRONIC DIASTOLIC (CONGESTIVE) HEART FAILURE Status : Acute Comment: No significant pulm edema on cxr, but engorged vessels. (3) Acute respiratory failure with hypoxia Code(s): J96.01 - ACUTE RESPIRATORY FAILURE WITH HYPOXIA Status: Acute Comment: Supplemental oxygen. (4) Down's syndrome Code(s): Q90.9 - DOWN SYNDROME, UNSPECIFIED Status: Chronic Comment: At baseline/. (5) Hypothyroidism Code(s): E03.9 - HYPOTHYROIDISM, UNSPECIFIED Status: Chronic Qualifiers: (6) Nausea & vomiting Code(s): R11.2 - NAUSEA WITH VOMITING, UNSPECIFIED Status: Acute Comment: Improved. PRN anti-emetics. (7) Acute on chronic renal failure Code(s): N17.9 - ACUTE KIDNEY FAILURE, UNSPECIFIED; N18.9 - CHRONIC KIDNEY DISEASE, UNSPECIFIED Status: Acute Comment: Nephrology following. On Albumin. (8) Candidiasis Code(s): B37.9 - CANDIDIASIS, UNSPECIFIED Status: Acute - Plan * Advance diet. * Continue oral antibiotics. * Continue oxygen, nebs. * not diuresing given the N/V. * Diflucan per family request for yeast infection related to abx. * Not on Zofran now, but still on Citalopram. On monitor.
--- NOTE | 2018-03-21 18:56 | PRG ---
DATE OF SERVICE: 03/21/2018 SUBJECTIVE: Ms. Smith has done well. She had a chronic spell while I was is in the room with her mother and her sister. Her mother tells me she does this frequently for no clear reason. OBJECTIVE: VITAL SIGNS: She is afebrile. Heart rate 75, respiratory rate is 20, oximetry is 97, and blood pressure 107/58. GENERAL: She declined to eat anything today. LUNGS: Clear. HEART: Regular rhythm. ABDOMEN: Soft. LABORATORY DATA: White count 6.2, hemoglobin 11.1, and platelets 252. Sodium 128, potassium 3.8, chloride 93, bicarb 23, BUN 29, and creatinine 1.96, improved from 2.04. Intake and output are not essentially recorded. There is no output. IMPRESSION: Aspiration pneumonia, pneumonitis, clinically stable. She can probably be switched to p.o. liquid antimicrobial therapy. Mother had multiple requests. She says she has a horrible yeast infection, so started IV Diflucan. She also has sinus drainage. According to the mother, the triggers are cough, so I started nasal ipratropium. She did sleep last night. I have asked mother to ask for Ensure supplements if she will not eat the meals that are brought to her. She certainly could bring food from home if she wants. With her Down syndrome, it may be that she is a little more choosey about what she has on a plate and certainly being ill does not help. We will continue to follow. Job ID: [id number] MTDD
[2018-03-21] MEDS: Amoxicillin/Potassium Clav 250 mg/5 ml Oral Suspension PO SCH (20:03)
[2018-03-21] MEDS: Famotidine 20 MG TAB PO SCH (20:04)
[2018-03-21] MEDS: Pantoprazole 40 MG GRANULES PACKET PO SCH (20:05)
[2018-03-21] MEDS: Ipratropium Bromide 0.03% Nasal Inhaler 30 ml Bottle EA NARE SCH (22:17)
[2018-03-21] MEDS: Nystatin Powder 15 GM BOT TOP PRN (22:19)
--- NOTE | 2018-03-21 23:29 | PRG ---
DATE OF SERVICE: 03/21/2018 REASON FOR CONSULTATION: Nausea and vomiting. SUBJECTIVE: Per conversation with the patient's family today, she has not had any further episodes of vomiting for the last 48 hours, although determination of nausea for her is a little difficult at times. When asked if she continues to have any nausea, she shrugged her shoulders which could be a possibly negative statement or she did not understand the question. However, she did refuse to eat a fair amount of food today with unclear reason why. She did have increased rest overnight with approximately 4-6 hours of sleep, which the family says is a change from baseline considering she only gets 2-3 hours of sleep at home. Currently, denies any fevers, chills, abdominal pain, or GI bleeding. OBJECTIVE: VITAL SIGNS: Temperature 98.4, pulse 80, blood pressure 98/54, respiratory rate 19, saturating 98% on 3 L nasal cannula. GENERAL: The patient was sitting at bedside, in no acute distress. Alert and oriented x1. CARDIOVASCULAR: Regular rate and rhythm. RESPIRATORY: Clear to auscultation bilaterally. ABDOMEN: Normoactive bowel sounds. Soft, nontender, nondistended. LABORATORY DATA: CBC with a white blood cell count of 6.2, hemoglobin 11.1, hematocrit 35, platelets 252. Chemistry with a sodium of 128, potassium 3.8, chloride 93, CO2 of 23, BUN 29, creatinine 1.96. IMAGING DATA: No current GI imaging is available for review. ASSESSMENT AND PLAN: The patient is a 47-year-old female with past medical history of obesity, hypertension, hypothyroidism, obstructive sleep apnea, diastolic congestive heart failure, and Down syndrome with congenital heart disease, presenting with chronic nausea and vomiting. 1. Chronic nausea, vomiting. The patient is presenting with a history of chronic nausea and vomiting that has been present since at least 2014. Prior workup including upper endoscopy, colonoscopy, modified barium swallow study and gastric emptying study all have been negative. She exhibited increased nausea and vomiting during this admission as part of the treatment for her upper respiratory infection/pneumonia, which may have been caused by her nausea and vomiting (possible aspiration pneumonia). Currently, she is doing much better with no episodes of vomiting within the last 24 to 48 hours while on aggressive acid reflux medications as well as scheduled antiemetics. RECOMMENDATIONS: 1. Would continue pantoprazole 40 mg b.i.d. in addition to famotidine 20 mg at night for maximum acid suppression. 2. Could consider decreasing the patient's antiemetics to twice daily and slowly weaning her off of these medications in anticipation of discharge. 3. Would hold off on any endoscopic intervention at this time. 4. We will sign off at this time. Please call with any additional questions or change in patient's clinical status. Job ID: [id number]
[2018-03-22] MEDS: Levothyroxine Sodium 125 MCG TAB PO SCH (05:59)
[2018-03-22] MEDS: Ondansetron PF 4 MG/2 ML Vial IVP SCH ×3 (05:59→17:48)
[2018-03-22] MEDS ORDERED: Fluconazole In NaCl,Iso-Osm 100 MG IVPB SCH (09:00)
[2018-03-22] MEDS: Aripiprazole 2 MG TAB PO SCH (09:02)
[2018-03-22] MEDS: Pantoprazole 40 MG GRANULES PACKET PO SCH ×2 (09:02→20:04)
[2018-03-22] MEDS: Fluconazole 100 MG TAB PO SCH (09:02)
[2018-03-22] MEDS: Diabetic Tussin 200 MG/10 ML UDCUP PO SCH ×2 (09:02→20:05)
[2018-03-22] MEDS: Citalopram 10 MG TAB PO SCH (09:02)
[2018-03-22] MEDS: Amoxicillin/Potassium Clav 250 mg/5 ml Oral Suspension PO SCH ×2 (09:02→20:04)
[2018-03-22] MEDS: Ipratropium Bromide 0.03% Nasal Inhaler 30 ml Bottle EA NARE SCH ×2 (09:03→20:05)
[2018-03-22] MEDS: Enoxaparin Sodium 40 MG/0.4 ML SYRINGE SC SCH (09:03)
--- NOTE | 2018-03-22 09:59 | PRG ---
DATE OF SERVICE: 03/22/2018 SUBJECTIVE: The patient is feeling okay, had no acute complaints. OBJECTIVE: VITAL SIGNS: On exam, temperature 99.1, pulse 75, respirations 20, O2 saturation 95% on 3 L, and blood pressure 90/61. HEENT: Unremarkable. NECK: No JVD. LUNGS: Coarse rhonchi. CARDIAC: S1 and S2. Regular. ABDOMEN: Soft. EXTREMITIES: No edema. LABORATORY DATA: No labs were done today. Yesterday, her sodium was 128, BUN 29, and creatinine 1.9. ASSESSMENT: 1. Aspiration pneumonia. 2. Down's with swallowing dysfunction. 3. Nausea and vomiting. PLAN: 1. Continue antibiotics and low-flow oxygen. 2. BiPAP as needed. 3. A lot of the manifestations we are currently seeing are probably what would be expected in end-stage Down syndrome. I am not sure there is much that can be done medically to make these issues better. Job ID: [id number]
--- NOTE | 2018-03-22 10:03 | PRG ---
DATE OF SERVICE: SUBJECTIVE: Ms. Smith is a 47-year-old white female with known history of chronic renal failure/superimposed acute kidney injury. She was admitted due to ? bronchitis. She had some insomnia noted last night. This morning, no other complaints. No chest pain or shortness of breath. OBJECTIVE: VITAL SIGNS: Blood pressure is 98/61, heart rate 75, respiratory rate 20, temperature 99.1, pulse ox 95%. GENERAL: Noted to be awake, supine, comfortable, not in overt distress. SKIN: Adequate turgor. HEENT: She has a pinkish conjunctivae. Anicteric sclerae. NECK: No neck mass. No carotid bruits. No JVD. CHEST: No deformities. LUNGS: Decreased breath sounds/harsh breath sounds. HEART: Normal sinus rhythm. No murmurs. No gallops or rubs. ABDOMEN: Globular, soft. Nontender. No masses. EXTREMITIES: No edema. No deformities. MEDICATIONS: Medications of March 22, 2018 reviewed. LABORATORY DATA: Laboratories of March 21, 2018; sodium 128, potassium 3.8, chloride 93, carbon dioxide 23, BUN 29, creatinine 1.96, glucose 112, and calcium 8.9. White count 6.2, hemoglobin 11.1. ASSESSMENT AND PLAN: 1. Acute kidney injury/chronic renal failure, stable. We will recheck basic metabolic in a.m. Continue current management. Continue to hold off any diuretics. 2. Chronic cough-Pulmonary following, supportive care. Overall agree with current management. Recheck basic metabolic and CBC in a.m. Job ID: [id number]
--- NOTE | 2018-03-22 17:12 | PDOC.PN ---
- Subjective Encounter Start Date: 03/22/18 Encounter Start Time: 10:05 Patient's family was not present. She is says hello and smiles. Has minimal emesis in basin. - Objective Vital Signs & Weight: Vital Signs (12 hours) Temp Pulse Resp BP BP Pulse Ox 03/22/18 16:00 98.4 F 80 18 103/62 100 03/22/18 13:14 83 20 93 L 03/22/18 11:52 98.0 F 77 20 117/64 97 03/22/18 08:26 95 03/22/18 07:47 99.1 F 75 20 98/61 95 03/22/18 06:50 72 20 97 Weight Weight 180 lb I&O: 03/21/18 03/22/18 03/23/18 06:59 06:59 06:59 Intake Total 720 1432 Output Total 500 Balance 720 932 Result Diagrams: 03/21/18 05:21 03/21/18 05:21 Phys Exam - Physical Examination Constitutional: NAD Respiratory: no wheezing, no rales, no rhonchi Improved from yesterday. Cardiovascular: RRR, no significant murmur Gastrointestinal: soft, non-tender, no distention, positive bowel sounds Dx/Plan (1) Acute bronchitis Code(s): J20.9 - ACUTE BRONCHITIS, UNSPECIFIED Status: Acute Comment: Po Augmentin. Duonebs. Likely aspiration. (2) Acute on chronic diastolic (congestive) heart failure Code(s): I50.33 - ACUTE ON CHRONIC DIASTOLIC (CONGESTIVE) HEART FAILURE Status : Acute Comment: No significant pulm edema on cxr, but engorged vessels. (3) Acute respiratory failure with hypoxia Code(s): J96.01 - ACUTE RESPIRATORY FAILURE WITH HYPOXIA Status: Acute Comment: Supplemental oxygen. (4) Down's syndrome Code(s): Q90.9 - DOWN SYNDROME, UNSPECIFIED Status: Chronic Comment: At baseline/. (5) Hypothyroidism Code(s): E03.9 - HYPOTHYROIDISM, UNSPECIFIED Status: Chronic Qualifiers: (6) Nausea & vomiting Code(s): R11.2 - NAUSEA WITH VOMITING, UNSPECIFIED Status: Acute Comment: Improved. PRN anti-emetics. (7) Acute on chronic renal failure Code(s): N17.9 - ACUTE KIDNEY FAILURE, UNSPECIFIED; N18.9 - CHRONIC KIDNEY DISEASE, UNSPECIFIED Status: Acute Comment: Nephrology following. On Albumin. (8) Candidiasis Code(s): B37.9 - CANDIDIASIS, UNSPECIFIED Status: Acute - Plan * Discussed with Dr. Marie. * Continuing to manage. * PO abx, acid suppresion, prn anti-emetics.
[2018-03-22] MEDS: Famotidine 20 MG TAB PO SCH (20:04)
[2018-03-22] MEDS: Acetaminophen 500 MG TAB PO PRN (20:04)
[2018-03-22] MEDS: Nystatin Powder 15 GM BOT TOP PRN (20:10)
[2018-03-23] MEDS: Ondansetron PF 4 MG/2 ML Vial IVP SCH ×5 (00:06→23:40)
[2018-03-23] MEDS: Diabetic Tussin 200 MG/10 ML UDCUP PO PRN (02:21)
[2018-03-23] MEDS: Levothyroxine Sodium 112 MCG TAB PO SCH (06:01)
[2018-03-23] MEDS: Acetaminophen 325 MG TAB PO PRN (06:13)
[2018-03-23] MEDS: Nystatin Powder 15 GM BOT TOP PRN (06:14)
[2018-03-23 06:48] LABS: Anion Gap 18 mmol/L (10-20); BUN (Urea Nitrogen) 24 mg/dL (7.0-18.7); Calc. Creatinine Clearance 54 mL/min (70-130); Carbon Dioxide 22 mmol/L (22-29); Chloride 91 mmol/L (98-107); Estimated GFR-MDRD 33; Glucose 86 mg/dL (70-105); Potassium 4.4 mmol/L (3.5-5.1); Sodium 127 mmol/L (136-145)
[2018-03-23] MEDS: Amoxicillin/Potassium Clav 250 mg/5 ml Oral Suspension PO SCH ×2 (08:28→21:29)
[2018-03-23] MEDS: Citalopram 10 MG TAB PO SCH (08:28)
[2018-03-23] MEDS: Pantoprazole 40 MG GRANULES PACKET PO SCH ×2 (08:28→21:29)
[2018-03-23] MEDS: Aripiprazole 2 MG TAB PO SCH (08:28)
[2018-03-23] MEDS: Fluconazole 100 MG TAB PO SCH (08:28)
[2018-03-23] MEDS: Diabetic Tussin 200 MG/10 ML UDCUP PO SCH ×2 (08:28→21:29)
[2018-03-23] MEDS: Enoxaparin Sodium 40 MG/0.4 ML SYRINGE SC SCH (08:28)
[2018-03-23] MEDS: Ipratropium Bromide 0.03% Nasal Inhaler 30 ml Bottle EA NARE SCH ×2 (08:29→21:28)
--- NOTE | 2018-03-23 09:11 | PRG ---
DATE OF SERVICE: 03/23/2018 SUBJECTIVE: Ms. Smith is a 47-year-old white female with Down syndrome and seen by the Renal Service for her acute kidney injury on top of her chronic renal failure. She is slightly improved today. Her shortness of breath is much improved. She is being treated for a possible aspiration pneumonia. She has had hemodynamically-mediated renal dysfunction. OBJECTIVE: VITAL SIGNS: Blood pressure is 108/63, heart rate 69, respiratory rate 16, temperature 98.2, and pulse ox 98%. GENERAL: Awake, alert, supine, comfortable, not in distress. SKIN: Adequate turgor. HEENT: She has a pinkish conjunctivae. Anicteric sclerae. No neck mass. No carotid bruits. No JVD. CHEST: No deformities. LUNGS: Decreased breath sounds. HEART: Normal sinus rhythm. Grade 2/6 systolic murmur. No gallops. No rubs. ABDOMEN: Globular, soft, nontender. No masses. EXTREMITIES: No edema. MEDICATIONS: Medications of March 23, 2018, was reviewed. LABORATORY DATA: Laboratories of March 23, 2018; sodium 127, potassium 4.4, chloride 91, carbon dioxide 22, BUN 24, creatinine 1.67, glucose 86, and calcium 9. ASSESSMENT AND PLAN: 1. Acute kidney injury/chronic renal failure-superimposed prerenal azotemia. Slowly improving creatinine. Most recent creatinine is now 1.67. There is no indication for any dialytic intervention with this patient. Continue current management. 2. Aspiration pneumonia, on oral antibiotics. Overall, agree with current management. 3. Mild hyponatremia. Observe free water restriction. 4. Recheck basic met and CBC in a.m. Job ID: [id number]
--- NOTE | 2018-03-23 09:52 | PDOC.PN ---
- Subjective Encounter Start Date: 03/23/18 Encounter Start Time: 09:50 Patient says she wants to go home. Spoke with her mother. She had a reasonably good night. She was awake from 2-5 am, but then slept again. She continues to have some vomiting, but she has this everyday at least once for a long while. She is at her baseline with this. She also has oxygen at home and a pulse oximeter. She is at her baseline with that as well. - Objective Vital Signs & Weight: Vital Signs (12 hours) Temp Pulse Resp BP BP Pulse Ox 03/23/18 08:28 98 03/23/18 08:03 70 16 03/23/18 07:10 98.2 F 69 16 108/63 98 03/23/18 03:16 98.1 F 87 22 H 112/69 97 03/23/18 00:13 98.1 F 85 22 H 93 L 03/22/18 23:30 88 16 92 L Weight Weight 182 lb 3.2 oz I&O: 03/22/18 03/23/18 03/24/18 06:59 06:59 06:59 Intake Total 1432 2184 Output Total 500 Balance 932 2184 Result Diagrams: 03/21/18 05:21 03/23/18 06:04 Phys Exam - Physical Examination Constitutional: NAD Very pleasant. Respiratory: no wheezing, no rales, no rhonchi Cardiovascular: RRR, no significant murmur Gastrointestinal: soft, non-tender, no distention, positive bowel sounds Dx/Plan (1) Acute bronchitis Code(s): J20.9 - ACUTE BRONCHITIS, UNSPECIFIED Status: Acute Comment: Po Augmentin. Duonebs. Likely aspiration. (2) Acute on chronic diastolic (congestive) heart failure Code(s): I50.33 - ACUTE ON CHRONIC DIASTOLIC (CONGESTIVE) HEART FAILURE Status : Acute (3) Acute respiratory failure with hypoxia Code(s): J96.01 - ACUTE RESPIRATORY FAILURE WITH HYPOXIA Status: Acute Comment: Supplemental oxygen. (4) Down's syndrome Code(s): Q90.9 - DOWN SYNDROME, UNSPECIFIED Status: Chronic Comment: At baseline/. (5) Hypothyroidism Code(s): E03.9 - HYPOTHYROIDISM, UNSPECIFIED Status: Chronic Qualifiers: (6) Nausea & vomiting Code(s): R11.2 - NAUSEA WITH VOMITING, UNSPECIFIED Status: Chronic (7) Acute on chronic renal failure Code(s): N17.9 - ACUTE KIDNEY FAILURE, UNSPECIFIED; N18.9 - CHRONIC KIDNEY DISEASE, UNSPECIFIED Status: Acute (8) Candidiasis Code(s): B37.9 - CANDIDIASIS, UNSPECIFIED Status: Acute - Plan * Her nausea/vomiting is chronic and has had full work-up. On acid suppression. * She has intermittent need for oxygen at home and I believe she is at her baseline from a respiratory standpoint. Lung exam is much improved. Has some secretions, but clear with cough. * Renal function improved. * Weight is going back up with holding the diuretics. Checked with Dr. Mckeon. Will resume diuretics now. * Anticipate she can discharge tomorrow on oral antibiotics.
[2018-03-23] MEDS ORDERED: Furosemide 40 MG TAB PO SCH (10:00)
--- NOTE | 2018-03-23 10:30 | PRG ---
DATE OF SERVICE: 03/23/2018 SUBJECTIVE: Razia is doing better. She is up walking around the room. OBJECTIVE: VITAL SIGNS: Her temperature is 98.2, pulse 70, respirations 16, O2 saturation 98% on 3 L, and blood pressure 180/63. HEENT: Unremarkable. NECK: No JVD. CHEST: With coarse rhonchi. ABDOMEN: Soft. EXTREMITIES: No edema. LABORATORY DATA: Sodium 127, potassium 4.4, chloride 91, BUN 24, creatinine 1.6, and glucose 86. ASSESSMENT: 1. Pneumonia. 2. Slightly fluid overloaded. PLAN: Agree with diuresing the patient. She is currently on oral antibiotics. Hope that she can go home by tomorrow. Job ID: [id number]
--- NOTE | 2018-03-23 10:45 | PQF ---
CLINICAL DOCUMENTATION IMPROVEMENT CLARIFICATION FORM: ICD-10 Updated PLEASE DO AN ADDENDUM TO THE PROGRESS NOTE WITH ANY DOCUMENTATION UPDATES OR ADDITIONS AND CARRY THROUGH TO DC SUMMARY. THANK YOU. DATE: 03/23/18 ATTN: DR. WILD Please exercise your independent, professional judgment in responding to the clarification form. Clinical indicators are provided on the bottom of this form for your review Please check appropriate box(s): [ ] Aspiration Pneumonia [ ] Pneumonia of unknown etiology [ x ] Other diagnosis aspiration bronchitis In addition, please specify: Present on Admission (POA): [ ] Yes [ ] No [x ] Unable to determine For continuity of documentation, please document condition throughout progress notes and discharge summary. Thank You. CLINICAL INDICATORS - SIGNS / SYMPTOMS / LABS ER NOTE: "REPORTS COUGH, REPORTS SHORTNESS OF BREATH" "WHEEZING PRESENT, RALES PRESENT TO THE RIGHT LOWER LOBE") CHEST XRAY 03/15: "PULMONARY EDEMA AND BILATERAL PLEURAL FLUID" PROGRESS NOTE 03/21 (SOUND): "ACUTE BRONCHITIS...LIKELY ASPIRATION" PROGRESS NOTE 03/20: (PULMONARY): "ASPIRATION PNEUMONIA" PROGRESS NOTE 03/21 (GI): "POSSIBLE ASPIRATION PNEUMONIA" WBC 11.4 (03/18) TEMP 100.1 (03/22) RR 24 RISKS: CHRONIC NAUSEA AND VOMITING (ER NOTE) DEVELOPED NAUSEA AND VOMITING (PER NOTE 03/17) / PROJECTILE VOMITING (NURSES NOTE 03/21) DOWN'S SYNDROME WITH SWALLOWING DYSFUNCTION (PULMONARY NOTE 03/20) TREATMENT: PULMONARY CONSULT GI CONSULT SUPPLEMENTAL OXYGEN BIPAP ORDERED NEEDED AUGMENTIN (03/21-PRESENT) GUAIFENASIN (03/16-PRESENT) NEB TREATMENTS (03/16-PRESENT) IV ROCEPHIN (03/17-03/21) IV AZITHROMYCIN (03/17-03/21) PANTOPRAZOLE AND FAMOTIDINE FOR MAXIMUM ACID SUPPRESSION (03/18-PRESENT) IV ZOFRAN (03/18-PRESENT) (This form is maintained as a part of the permanent medical record) 2014 [employer]. All Rights Reserved [email or web address] Office: [phone] [email or web address]
[2018-03-23] MEDS: Famotidine 20 MG TAB PO SCH (21:29)
--- NOTE | 2018-03-23 23:51 | PDOC.PN ---
- Subjective Encounter Start Date: 03/23/18 Encounter Start Time: 08:15 Doing well. Still has some intermittent vomiting. - Objective Vital Signs & Weight: Vital Signs (12 hours) Temp Pulse Resp BP BP Pulse Ox 03/23/18 21:25 97.4 F L 68 18 96/61 95 03/23/18 18:35 65 18 98 03/23/18 15:48 98.5 F 79 20 93/54 L 97 03/23/18 13:51 68 20 03/23/18 11:57 97.7 F 79 20 81/52 L 94 L Weight Weight 182 lb 3.2 oz I&O: 03/22/18 03/23/18 03/24/18 06:59 06:59 06:59 Intake Total 1432 2184 Output Total 500 Balance 932 2184 Result Diagrams: 03/21/18 05:21 03/23/18 06:04 Phys Exam - Physical Examination Constitutional: NAD Much decreased rales. Fair air exchange. Cardiovascular: RRR, no significant murmur Gastrointestinal: soft, non-tender, no distention, positive bowel sounds Musculoskeletal: no edema Dx/Plan (1) Acute bronchitis Code(s): J20.9 - ACUTE BRONCHITIS, UNSPECIFIED Status: Acute Comment: Po Augmentin. Duonebs. Likely aspiration. (2) Acute on chronic diastolic (congestive) heart failure Code(s): I50.33 - ACUTE ON CHRONIC DIASTOLIC (CONGESTIVE) HEART FAILURE Status : Acute (3) Acute respiratory failure with hypoxia Code(s): J96.01 - ACUTE RESPIRATORY FAILURE WITH HYPOXIA Status: Acute Comment: Supplemental oxygen. (4) Down's syndrome Code(s): Q90.9 - DOWN SYNDROME, UNSPECIFIED Status: Chronic Comment: At baseline/. (5) Hypothyroidism Code(s): E03.9 - HYPOTHYROIDISM, UNSPECIFIED Status: Chronic Qualifiers: (6) Nausea & vomiting Code(s): R11.2 - NAUSEA WITH VOMITING, UNSPECIFIED Status: Chronic (7) Acute on chronic renal failure Code(s): N17.9 - ACUTE KIDNEY FAILURE, UNSPECIFIED; N18.9 - CHRONIC KIDNEY DISEASE, UNSPECIFIED Status: Acute (8) Candidiasis Code(s): B37.9 - CANDIDIASIS, UNSPECIFIED Status: Acute - Plan * Bronchitis is improved. * Nausea and vomiting is chronic and had extensive workup and treatment. * She is essentially at baseline. * Anticipate discharge home on po abx in am * Discussed with Dr. Marie. * Back on diuretic now that renal function is improved. * Discharge back on her bumex.
[2018-03-24 05:19] LABS: Anion Gap 18 mmol/L (10-20); BUN (Urea Nitrogen) 18 mg/dL (7.0-18.7); Calc. Creatinine Clearance 63 mL/min (70-130); Calcium 8.8 mg/dL (7.8-10.44); Carbon Dioxide 22 mmol/L (22-29); Chloride 91 mmol/L (98-107); Estimated GFR-MDRD 39; Glucose 122 mg/dL (70-105); Potassium 4.2 mmol/L (3.5-5.1); Sodium 127 mmol/L (136-145)
[2018-03-24 05:42] LABS: #Eosinphils 0.3 thou/uL (0.0-0.7); #Lymphocytes 0.9 thou/uL (1.20-3.40); #Monocytes 0.5 thou/uL (0.11-0.59); #Neutrophils 4.1 thou/uL (1.40-6.50); %Basophils 0.5 % (0.0-1.0); %Eosinophils 5.5 % (0.0-10.0); %Monocytes 7.8 % (0.0-10.0); %Neutrophils 71.2 % (42.0-75.0); Hemoglobin 11.2 g/dL (12.0-16.0); Mean Corpuscular HGB CONC 31.8 g/dL (32.0-36.0); Mean Corpuscular Hemoglobin 29.5 pg (27.0-31.0); Mean Corpuscular Volume 92.7 fL (78.0-98.0); Mean Platelet Volume 9.3 fL (7.4-10.4); Platelet Count 288 thou/uL (130-400); RBC Distribution Width 19.1 % (11.5-14.5); White Blood Cell (WBC) Count 5.7 thou/uL (4.8-10.8)
[2018-03-24] MEDS: Levothyroxine Sodium 125 MCG TAB PO SCH (06:04)
[2018-03-24] MEDS: Ondansetron PF 4 MG/2 ML Vial IVP SCH ×2 (06:04→12:12)
[2018-03-24 07:43] VITALS: TEMP 96.9
--- NOTE | 2018-03-24 08:37 | PQF ---
CLINICAL DOCUMENTATION IMPROVEMENT CLARIFICATION FORM: ICD-10 Updated PLEASE DO AN ADDENDUM TO THE PROGRESS NOTE WITH ANY DOCUMENTATION UPDATES OR ADDITIONS AND CARRY THROUGH TO DC SUMMARY. THANK YOU. DATE: 03/24/18 ATTN: DR. KEYS Please exercise your independent, professional judgment in responding to the clarification form. Clinical indicators are provided on the bottom of this form for your review Please check appropriate box(s): [ x ] Aspiration Pneumonia [ ] Pneumonia of unknown etiology [ ] Other diagnosis In addition, please specify: Present on Admission (POA): [ x ] Yes [ ] No [ ] Unable to determine For continuity of documentation, please document condition throughout progress notes and discharge summary. Thank You. CLINICAL INDICATORS - SIGNS / SYMPTOMS / LABS ER NOTE: "REPORTS COUGH, REPORTS SHORTNESS OF BREATH" "WHEEZING PRESENT, RALES PRESENT TO THE RIGHT LOWER LOBE") CHEST XRAY 03/15: "PULMONARY EDEMA AND BILATERAL PLEURAL FLUID" PROGRESS NOTE 03/21 (SOUND): "ACUTE BRONCHITIS...LIKELY ASPIRATION" PROGRESS NOTE 03/20: (PULMONARY): "ASPIRATION PNEUMONIA" PROGRESS NOTE 03/21 (GI): "POSSIBLE ASPIRATION PNEUMONIA" WBC 11.4 (03/18) TEMP 100.1 (03/22) RR 24 RISKS: CHRONIC NAUSEA AND VOMITING (ER NOTE) DEVELOPED NAUSEA AND VOMITING (PER NOTE 03/17) / PROJECTILE VOMITING (NURSES NOTE 03/21) DOWN'S SYNDROME WITH SWALLOWING DYSFUNCTION (PULMONARY NOTE 03/20) TREATMENT: PULMONARY CONSULT GI CONSULT SUPPLEMENTAL OXYGEN BIPAP ORDERED NEEDED AUGMENTIN (03/21-PRESENT) GUAIFENASIN (03/16-PRESENT) NEB TREATMENTS (03/16-PRESENT) IV ROCEPHIN (03/17-03/21) IV AZITHROMYCIN (03/17-03/21) PANTOPRAZOLE AND FAMOTIDINE FOR MAXIMUM ACID SUPPRESSION (03/18-PRESENT) IV ZOFRAN (03/18-PRESENT) (This form is maintained as a part of the permanent medical record) 2014 [employer]. All Rights Reserved ANASTACIO [email or web address] Office: [phone] [facility]
[2018-03-24] MEDS: Amoxicillin/Potassium Clav 250 mg/5 ml Oral Suspension PO SCH (08:42)
[2018-03-24] MEDS: Pantoprazole 40 MG GRANULES PACKET PO SCH (08:43)
[2018-03-24] MEDS: Enoxaparin Sodium 40 MG/0.4 ML SYRINGE SC SCH (08:43)
[2018-03-24] MEDS: Ipratropium Bromide 0.03% Nasal Inhaler 30 ml Bottle EA NARE SCH (08:43)
[2018-03-24] MEDS: Citalopram 10 MG TAB PO SCH (08:43)
[2018-03-24] MEDS: Fluconazole 100 MG TAB PO SCH (08:43)
[2018-03-24] MEDS: Aripiprazole 2 MG TAB PO SCH (08:43)
[2018-03-24] MEDS: Diabetic Tussin 200 MG/10 ML UDCUP PO SCH (08:43)
[2018-03-24] MEDS ORDERED: Saccharomyces boulardii 250 MG CAP PO SCH (09:00)
--- NOTE | 2018-03-24 09:25 | PRG ---
DATE OF SERVICE: 03/24/2018 SUBJECTIVE: Ms. Smith is a 47-year-old white female with Down syndrome and admitted for ? of pneumonia. We are following this patient for her acute kidney injury. Her acute kidney injury on top of chronic renal failure was a hemodynamically-mediated renal dysfunction. Her medications were reviewed. OBJECTIVE: VITAL SIGNS: Her blood pressure is 104/55, heart rate 71, respiratory rate 20, and temperature 96.9. GENERAL: Awake, alert, comfortable, not in distress. SKIN: Adequate turgor. HEENT: Pinkish conjunctivae. Anicteric sclerae. No neck mass. No carotid bruits. No JVD. CHEST: No deformities. LUNGS: Clear breath sounds. No wheezing. No crackles. HEART: Normal sinus rhythm. No murmurs. No gallops. No rubs. ABDOMEN: Globular, soft, nontender. No masses. EXTREMITIES: No edema. No deformities. MEDICATIONS: Medications of March 24, 2018 was reviewed. LABORATORY DATA: Laboratories of March 24, 2018; white count 5.7, hemoglobin 11.2, hematocrit 35.2. Sodium 127, potassium 4.2, chloride 91, carbon dioxide 22, BUN 18, creatinine 1.44, glucose 122, and calcium 8.8. ASSESSMENT AND PLAN: 1. Acute kidney injury on top of chronic renal failure, much improved. Prerenal azotemia, tolerating current diuretic regimen. Continue current management. No indication for any dialytic intervention. 2. Pneumonia bronchitis, on oral antibiotics. From a renal point of view, she can be discharge. We will set an appointment with [facility]. Job ID: [id number]
--- NOTE | 2018-03-24 11:12 | PDOC.PN ---
- Subjective Encounter Start Date: 03/24/18 Encounter Start Time: 09:30 Subjective: slept well last night, no nausea from last evening -: kept her dinner and currently eating breakfast -: father at bedside, feels good, cough is better - Objective MAR Reviewed: Yes Vital Signs & Weight: Vital Signs (12 hours) Temp Pulse Resp BP BP Pulse Ox 03/24/18 07:13 96.9 F L 71 20 104/55 L 97 03/24/18 06:37 68 16 95 03/24/18 03:56 97.7 F 71 20 127/69 97 03/24/18 00:15 67 18 95 Weight Weight 183 lb 1 oz I&O: 03/23/18 03/24/18 03/25/18 06:59 06:59 06:59 Intake Total 2184 555 Balance 2184 555 Result Diagrams: 03/24/18 04:30 03/24/18 04:30 Phys Exam - Physical Examination HEENT: PERRLA, moist MMs Neck: no JVD, supple Respiratory: no wheezing, no rales occ rhonchi+ Cardiovascular: RRR, no significant murmur Gastrointestinal: soft, non-tender, positive bowel sounds Musculoskeletal: no edema, pulses present Neurological: non-focal, moves all 4 limbs Dx/Plan (1) Acute bronchitis Code(s): J20.9 - ACUTE BRONCHITIS, UNSPECIFIED Status: Acute Comment: Po Augmentin. Duonebs. Likely aspiration. (2) Nausea & vomiting Code(s): R11.2 - NAUSEA WITH VOMITING, UNSPECIFIED Status: Chronic Comment: Improved. PRN anti-emetics. (3) VICENTE (acute kidney injury) Code(s): N17.9 - ACUTE KIDNEY FAILURE, UNSPECIFIED Status: Resolved (4) Moderate dehydration Code(s): E86.0 - DEHYDRATION Status: Resolved (5) Down syndrome Code(s): Q90.9 - DOWN SYNDROME, UNSPECIFIED Status: Chronic (6) Hypothyroidism Code(s): E03.9 - HYPOTHYROIDISM, UNSPECIFIED Status: Chronic Qualifiers: (7) Obstructive sleep apnea Code(s): G47.33 - OBSTRUCTIVE SLEEP APNEA (ADULT) (PEDIATRIC) Status: Chronic (8) Acute respiratory failure with hypoxia Code(s): J96.01 - ACUTE RESPIRATORY FAILURE WITH HYPOXIA Status: Resolved (9) Hyponatremia Code(s): E87.1 - HYPO-OSMOLALITY AND HYPONATREMIA Status: Resolved Comment: - Plan hemostable -: po augmentin -: dc pt home -: d/w father at bedside * . Review of Systems - Medications/Allergies Allergies/Adverse Reactions: Allergies Allergy/AdvReac Type Severity Reaction Status Date / Time iodine Allergy Intermediate Verified 03/15/18 20:42 lisinopril Allergy Intermediate Verified 03/15/18 20:42 Medications: Current Medications Acetaminophen (Tylenol) 650 mg PO Q4H PRN PRN Reason: Headache/Fever/Mild Pain (1-3) Last Admin: 03/23/18 06:13 Dose: 650 mg Acetaminophen (Tylenol) 1,000 mg PO Q6H PRN PRN Reason: Mild Pain (1-3) Last Admin: 03/22/18 20:04 Dose: 1,000 mg Albuterol/Ipratropium (Duoneb) 3 ml NEB [id number] [facility] Last Admin: 03/24/18 06:37 Dose: 3 ml Amoxicillin/Clavulanate Potassium (Augmentin 250mg/5ml Oral Susp) 875 mg PO BID [facility] Last Admin: 03/24/18 08:42 Dose: 875 mg Aripiprazole (Abilify) 2 mg PO DAILY [facility] Last Admin: 03/24/18 08:43 Dose: 2 mg Benzonatate (Tessalon) 100 mg PO Q6H PRN PRN Reason: Cough Last Admin: 03/19/18 12:03 Dose: 100 mg Bisacodyl (Dulcolax) 10 mg PO DAILYPRN PRN PRN Reason: Constipation Bisacodyl (Dulcolax) [address] DAILYPRN PRN PRN Reason: Constipation Citalopram Hydrobromide (Celexa) 10 mg PO DAILY [facility] Last Admin: 03/24/18 08:43 Dose: 10 mg Clonidine (Catapres) 0.1 mg PO Q4H PRN PRN Reason: SBP > 160____ Enoxaparin Sodium (Lovenox) 40 mg SC 0900 [facility] Last Admin: 03/24/18 08:43 Dose: 40 mg Famotidine (Pepcid) 20 mg PO QPM [facility] Last Admin: 03/23/18 21:29 Dose: 20 mg Fluconazole (Diflucan) 100 mg PO DAILY [facility] Last Admin: 03/24/18 08:43 Dose: 100 mg Guaifenesin (Robitussin Sf) 200 mg PO Q4H PRN PRN Reason: Cough Last Admin: 03/23/18 02:21 Dose: 200 mg Guaifenesin (Robitussin Sf) 600 mg PO BID [facility] Last Admin: 03/24/18 08:43 Dose: 600 mg Hydralazine HCl (Apresoline) 10 mg SLOW IVP Q4H PRN PRN Reason: SBP > 180 and HR < 70 Ipratropium [place] (Atrovent 0.03%) 1 ml EA NARE BID [facility] Last Admin: 03/24/18 08:43 Dose: 1 each Levothyroxine Sodium (Synthroid) 125 mcg PO MoWeFr [facility] Last Admin: 03/24/18 06:04 Dose: 125 mcg Levothyroxine Sodium (Synthroid) 112 mcg PO TuThSa [facility] Last Admin: 03/23/18 06:01 Dose: 112 mcg Nitroglycerin (Nitrostat) 0.4 mg SL Q5MIN PRN PRN Reason: Chest Pain Nystatin (Mycostatin Powder) 0 gm TOP BID PRN PRN Reason: YEAST Last Admin: 03/23/18 06:14 Dose: 1 applic Ondansetron HCl (Zofran) 4 mg IVP Q6HR [facility] Last Admin: 03/24/18 06:04 Dose: 4 mg Pantoprazole Sodium (Protonix) 40 mg PO BID [facility] Last Admin: 03/24/18 08:43 Dose: 40 mg Saccharomyces Boulardii (Florastor) 250 mg PO DAILY [facility] Last Admin: 03/24/18 08:43 Dose: 250 mg Senna/Docusate Sodium (Senokot S) 2 tab PO BID PRN PRN Reason: Constipation Sodium Chloride ([place] Nasal [place] 0.65%) 0 ml EA NARE QIDPRN PRN PRN Reason: Nasal Congestion Sodium Chloride (Flush - Normal Saline) 10 ml IVF Q12HR [facility] Last Admin: 03/24/18 08:44 Dose: 10 ml Sodium Chloride (Flush - Normal Saline) 10 ml IVF PRN PRN PRN Reason: Saline Flush Last Admin: 03/23/18 06:01 Dose: 10 ml
[2018-03-24 12:23] VITALS: BP 97/58
--- NOTE | 2018-03-24 12:51 | PRG ---
DATE OF SERVICE: 03/24/2018 SUBJECTIVE: Razia is doing well today and wants to go home. OBJECTIVE: VITAL SIGNS: On exam, temperature 96.9, pulse 71, respirations 21, sat 97% on 3 L, blood pressure 104/55. HEENT: Unremarkable. NECK: No JVD. CHEST: Fairly clear anteriorly. CARDIAC: S1, S2. Regular. ABDOMEN: Soft. EXTREMITIES: No edema. LABORATORY DATA: White blood cell count 5.7, hematocrit 35.2, and platelet count 288. Sodium 127, BUN 18, creatinine 1.4, and glucose 122. ASSESSMENT: 1. Pneumonia. 2. Fluid overload. 3. Down syndrome. 4. Hyponatremia. PLAN: Probably good to go home today. Needs to continue her Lasix at home. Needs to follow up in the office in 3 to 4 months. I would treat her with total of 10 days of antibiotics between when she got in the hospital and what is remaining at home. Job ID: [id number]
--- NOTE | 2018-03-24 14:40 | DIS ---
DATE OF ADMISSION: 03/15/2018 DATE OF DISCHARGE: 03/24/2018 DISCHARGE DISPOSITION: Home. PRIMARY DISCHARGE DIAGNOSES: Aspiration pneumonia with bronchitis, resolving; acute respiratory failure with hypoxia, resolved, is on current home oxygen 2 L p.r.n.; acute kidney injury with moderate dehydration, resolved. SECONDARY DISCHARGE DIAGNOSES: History of Down syndrome, hypothyroidism, likely chronic hyponatremia, and obstructive sleep apnea. PROCEDURES DONE DURING HOSPITALIZATION: Initial chest x-ray done on the day of admission showed possible pulmonary vascular congestion with bilateral pleural fluid. Echo with 2D Doppler showed EF of 50% to 55%, moderate mitral regurgitation, moderate mitral stenosis. Blood cultures x2, no growth. Influenza A and B antigens were negative. Sodium level has ranged from 127 to 136. Discharge creatinine is 1.4. Her creatinine had gone up to 2.37 on the . BNP 236. White count of 5.7 on the day of discharge with H and H of 11 and 35, platelet count 288. INPATIENT CONSULT: 1. Dr. Mckeon for Nephrology. 2. Dr. Marie for Pulmonology. 3. Dr. Zaidi for Cardiology. DISCHARGE MEDICATIONS: 1. Augmentin 600 mg p.o. twice daily. 2. Florastor 250 mg p.o. daily. 3. Albuterol inhaler q.6 hourly p.r.n. 4. Ranexa 500 mg p.o. twice daily. 5. K-Dur 8 mEq p.o. twice daily. 6. Levothyroxine 125 mcg to alternate with 112 mcg. 7. Nexium 20 mg daily. 8. Citalopram 10 mg daily. 9. Cetirizine 10 mg p.o. at bedtime. 10. Bumex 2 mg p.o. daily. 11. Abilify 2 mg p.o. at bedtime. ALLERGIES: ALLERGIC TO IODINE AND LISINOPRIL. DISCHARGE PLAN: The patient is being discharged home. She needs to follow up with primary care physician in one week. BRIEF COURSE DURING HOSPITALIZATION: The patient initially got admitted on the with complaints of shortness of breath and cough. She was initially admitted for acute on chronic diastolic dysfunction with CHF exacerbation. The patient also had acute bronchitis, likely aspiration. She has known history of Down syndrome with intellectual disability as well. The patient is also morbidly obese and has obstructive sleep apnea. She had acute kidney injury on admission which stabilized. She initially was gently diuresed and later her diuretics were held with the renal function coming back to her baseline. She had intractable nausea, but now has gone back to her baseline of off and on nausea. She is tolerating oral diet prior to discharge. She needs to continue antibiotics as prescribed. She is hemodynamically stable and will be shortly discharged home. Please see a [id number] documentation for the day of discharge on [employer]. Job ID: [id number]
== END 2018-03-24 13:31 | disposition home health service (06) | DRG 291 ==
LOC: ERS 07:48 → ERHOLD 11:11 → 2NO 19:38
PROVIDERS: ADMIT Internal Medicine; ATTEND Internal Medicine
DX: I13.0 Hypertensive heart and chronic kidney disease with heart failure and stage 1 through stage 4 chronic kidney disease, or unspecified chronic kidney disease (principal); I50.33 Acute on chronic diastolic (congestive) heart failure; J96.01 Acute respiratory failure with hypoxia; J68.0 Bronchitis and pneumonitis due to chemicals, gases, fumes and vapors; F72 Severe intellectual disabilities; N17.9 Acute kidney failure, unspecified; E87.1 Hypo-osmolality and hyponatremia; Q90.9 Down syndrome, unspecified; E66.9 Obesity, unspecified; Z68.38 Body mass index [BMI] 38.0-38.9, adult; G47.33 Obstructive sleep apnea (adult) (pediatric); E03.9 Hypothyroidism, unspecified; N18.9 Chronic kidney disease, unspecified; R11.2 Nausea with vomiting, unspecified; B37.9 Candidiasis, unspecified; Z90.49 Acquired absence of other specified parts of digestive tract
CPT/HCPCS: 36415; 71045; 74018; 76770; 80048; 80053; 81003; 81015; 82248; 82550; 83880; 84484; 85025; 87040; 87804; 93005; 93306; 93798; 94640; 94760; 96365; 96366; 96376; J0456; J0696; J1650; J1940; J2405; J3480; J7050; J7620; P9047

== ENCOUNTER 2018-04-20 10:03 | Outpatient (CLI) | payer MEDICARE, OTHER ==
--- NOTE | 2018-04-20 12:37 | RAD ---
CHEST TWO VIEWS: HISTORY: Dyspnea. COMPARISON: Radiograph from 03/21/2018. FINDINGS: Heart size is enlarged. Moderate edema. Small effusions. Pulmonary arteries are dilated. Multiple midline sternotomy wires. Fracture of the caudal-most wire. Calcific tendinosis, right rotator cuff. IMPRESSION: Findings suggestive of decompensating congestive heart failure with cardiomegaly, effusions, and mode rate edema. POS: [facility]
== END 2018-04-20 10:04 | disposition home or self-care (01) ==
LOC: RAD 10:03
PROVIDERS: ATTEND Internal Medicine Critical Care Medicine
DX: R06.00 Dyspnea, unspecified (principal)
CPT/HCPCS: 71046

== ENCOUNTER 2018-09-14 11:08 | Emergency (ER) | payer MEDICARE, OTHER ==
[2018-09-14 11:42] LABS: #Basophils 0.1 thou/uL (0.0-0.2); #Eosinphils 0.1 thou/uL (0.0-0.7); #Lymphocytes 0.8 thou/uL (1.20-3.40); #Monocytes 0.4 thou/uL (0.11-0.59); #Neutrophils 4.6 thou/uL (1.40-6.50); %Eosinophils 2.2 % (0.0-10.0); %Lymphocytes 13.7 % (21.0-51.0); %Monocytes 6.5 % (0.0-10.0); %Neutrophils 76.6 % (42.0-75.0); Hemoglobin 13.3 g/dL (12.0-16.0); Mean Corpuscular HGB CONC 31.4 g/dL (32.0-36.0); Mean Corpuscular Hemoglobin 27.4 pg (27.0-31.0); Mean Corpuscular Volume 87.4 fL (78.0-98.0); Mean Platelet Volume 9.6 fL (7.4-10.4); Platelet Count 207 thou/uL (130-400); RBC Distribution Width 20.8 % (11.5-14.5); Red Blood Cell (RBC) Count 4.84 mill/uL (4.20-5.40)
[2018-09-14] MEDS ORDERED: Ondansetron PF 4 MG/2 ML Vial ONE (12:11)
[2018-09-14] MEDS ORDERED: Lidocaine Viscous Sol 2% 15 ml UD Cup ONE (12:11)
[2018-09-14 12:12] LABS: Albumin 4.1 g/dL (3.5-5.0); Anion Gap 17 mmol/L (10-20); BUN (Urea Nitrogen) 21 mg/dL (7.0-18.7); Calc. Creatinine Clearance 0 mL/min (70-130); Calcium 9.1 mg/dL (7.8-10.44); Carbon Dioxide 24 mmol/L (22-29); Chloride 96 mmol/L (98-107); Estimated GFR-MDRD 50; Glucose 116 mg/dL (70-105); Protein, Total 8.1 g/dL (6.0-8.3); Sodium 133 mmol/L (136-145)
[2018-09-14] MEDS ORDERED: Mag-Al 1200 mg/1200 mg/30 ML UDCUP ONE (12:12)
[2018-09-14 12:13] LABS: ALT (SGPT) 14 U/L (8-55); AST (SGOT) 36 U/L (5-34); Alkaline Phosphatase 125 U/L (40-150); CK (CPK) 97 U/L (29-168); Lipase 45 U/L (8-78)
--- NOTE | 2018-09-14 12:16 | RAD ---
PORTABLE CHEST: Date: 09/14/18 HISTORY: Chest pain. COMPARISON: 04/20/17. FINDINGS: Heart size is enlarged. Postop sternotomy changes are seen. Pulmonary vessels are engorged. Increased parahilar lung markings, some of which appear chronic in nature, but changes are most compatible wit h moderate pulmonary edema. IMPRESSION: Cardiomegaly with moderate CHF-type changes. POS: OFF
--- NOTE | 2018-09-14 13:10 | CT ---
CT of abdomen and pelvis performed without contrast HISTORY: Abdominal pain history of renal failure and congestive heart failure. COMPARISON: 01/01/2012 study. FINDINGS: Mild bilateral pleural effusions and groundglass opacity in the lung bases would suggest pu lmonary edema type change. The liver shows no focal abnormalities and measures approximately 16 cm in length. The spleen is with in normal limits of size. Pancreas shows no mass. The gallbladder has been removed. Right and left adrenal glands and right and left kidneys are normal in size and not obstructed. There is no significant periaortic or mesenteric lymphadenopathy. There is mild ascites noted. There are 2 midline anterior wall hernias one in the epigastric region contains some fluid and the second is ju st directly above the umbilicus, this is more evident on the older examination but still appears to be present. There are edema changes within the subcutaneous fat along the anterior abdominal wall but not involving the posterior wall it does extend to the flank regions bilaterally. CT of pelvis performed without contrast enhancement: The bladder is distended. There is no evidence o f adenopathy or mass. The appendix region is normal. IMPRESSION: 1. Bilateral pleural effusions with groundglass opacity in lung suggesting pulmonary edema. 2. Mild ascites. 3. Distended bladder. 4. Edema changes of the subcutaneous fat of the anterior abdominal wall, this would suggest the prese nce of a panniculitis.
[2018-09-14 13:43] LABS: Bilirubin Negative (Negative); Blood, Urine Negative (Negative); Clarity Clear (Clear); Glucose, Urine (Dipstick) Normal (Negative); Leukocyte Negative Leu/uL (Negative); Nitrite Negative (Negative); Protein, Urine (Dipstick) Negative (Neg-Trace); Urobilinogen Normal mg/dL (Less than 2)
--- NOTE | 2018-09-18 16:21 | EKG ---
Test Reason : Blood Pressure : / mmHG Vent. Rate : 076 BPM Atrial Rate : 076 BPM P-R Int : 214 ms QRS Dur : 156 ms QT Int : 458 ms P-R-T Axes : 048 -67 077 degrees QTc Int : 515 ms Sinus rhythm with 1st degree A-V block Possible Left atrial enlargement Right bundle branch block -no change from 1998 Left anterior fascicular block Bifascicular block Cannot rule out Inferior infarct (masked by fascicular block?) , age undetermined T wave abnormality, consider lateral ischemia Abnormal ECG Confirmed by DAVONTE ROMERO, KAMALJIT ([id number]), book or script editor MARY REID ([id number]) on 09/18/2018 4:20:43 PM Referred By: Confirmed By:KAMALJIT ARAUZ MD
== END 2018-09-14 14:00 | disposition home or self-care (01) ==
LOC: ERS 11:08
DX: M79.3 Panniculitis, unspecified (principal); I50.9 Heart failure, unspecified; R11.2 Nausea with vomiting, unspecified; E66.9 Obesity, unspecified; E03.9 Hypothyroidism, unspecified; F32.9 Major depressive disorder, single episode, unspecified; Z79.899 Other long term (current) drug therapy
CPT/HCPCS: 36415; 71045; 74176; 80053; 81003; 82550; 83690; 83880; 84484; 85025; 93005; 96361; 96374; J2405

== ENCOUNTER 2019-01-14 19:17 | Inpatient (IN) | payer MEDICARE, OTHER ==
[2019-01-14] MEDS ORDERED: Furosemide 20 MG/2 ML VIAL ONE (21:01)
[2019-01-14 21:05] LABS: #Eosinphils 0.1 thou/uL (0.0-0.7); #Lymphocytes 0.9 thou/uL (1.20-3.40); #Monocytes 0.4 thou/uL (0.11-0.59); #Neutrophils 3.2 thou/uL (1.40-6.50); %Basophils 0.5 % (0.0-1.0); %Eosinophils 2.8 % (0.0-10.0); %Lymphocytes 19.3 % (21.0-51.0); %Monocytes 9.4 % (0.0-10.0); %Neutrophils 67.9 % (42.0-75.0); Hemoglobin 12.5 g/dL (12.0-16.0); Mean Corpuscular HGB CONC 32.2 g/dL (32.0-36.0); Mean Corpuscular Hemoglobin 28.1 pg (27.0-31.0); Mean Corpuscular Volume 87.3 fL (78.0-98.0); Mean Platelet Volume 8.3 fL (7.4-10.4); Platelet Count 230 thou/uL (130-400); RBC Distribution Width 19.9 % (11.5-14.5); Red Blood Cell (RBC) Count 4.46 mill/uL (4.20-5.40); White Blood Cell (WBC) Count 4.6 thou/uL (4.8-10.8)
--- NOTE | 2019-01-14 21:11 | RAD ---
PORTABLE CHEST ONE VIEW: 01/14/19 at 8:31 p.m. HISTORY: Bilateral leg swelling, redness. FINDINGS/IMPRESSION: Comparison made with exam of 09/14/18. There are changes of median sternotomy. The heart size is borderline. There is pulmonary vascular con gestion with probable small pleural effusions. No pneumothoraces are seen. POS: [facility]
[2019-01-14 21:51] LABS: CKMB 1.2 ng/mL (0-6.6)
[2019-01-14 21:52] LABS: ALT (SGPT) 7 U/L (8-55); AST (SGOT) 22 U/L (5-34); Alkaline Phosphatase 147 U/L (40-110); Anion Gap 13 mmol/L (10-20); BUN (Urea Nitrogen) 28 mg/dL (7.0-18.7); Bilirubin, Total 2.2 mg/dL (0.2-1.2); Calc. Creatinine Clearance 0 mL/min (70-130); Calcium 8.9 mg/dL (7.8-10.44); Carbon Dioxide 28 mmol/L (22-29); Chloride 95 mmol/L (98-107); Estimated GFR-MDRD 35; Globulin 3.4 g/dL (2.4-3.5); Glucose 93 mg/dL (70-105); Potassium 4.3 mmol/L (3.5-5.1); Protein, Total 7.4 g/dL (6.0-8.3); Sodium 132 mmol/L (136-145)
[2019-01-14 23:32] VITALS: BMI 36.4
[2019-01-15 01:19] LABS: Troponin I 0.067 ng/mL (< 0.028)
[2019-01-15] MEDS ORDERED: Ondansetron PF 4 MG/2 ML Vial IVP PRN (03:31)
[2019-01-15] MEDS ORDERED: Albuterol Sulfate 2.5 mg/3 ml Neb NEB PRN (03:31)
[2019-01-15] MEDS ORDERED: Levothyroxine Sodium 112 MCG TAB PO SCH (03:31)
[2019-01-15] MEDS ORDERED: Ondansetron ODT 4 MG TAB PO PRN (03:31)
[2019-01-15] MEDS ORDERED: Guaifenesin DM 100-10/5 ML UDCUP PO PRN (03:31)
[2019-01-15 04:22] LABS: Troponin I 0.048 ng/mL (< 0.028)
--- NOTE | 2019-01-15 04:57 | HP ---
PRIMARY CARE PROVIDER: Orlando Jacques MD CHIEF COMPLAINT: Shortness of breath and lower extremity swelling. HISTORY OF PRESENT ILLNESS: This is a 48-year-old female with history of Down syndrome and diastolic heart failure, presenting with increasing lower extremity swelling over the last 2 to 3 weeks. The patient also with increased shortness of breath beyond baseline. The patient's mother states the patient's weight has increased from 168 to 174 pounds and has doubled the dose of her chronic Bumex therapy. The mother also states she has noticed increasing swelling of the lower extremities with associated redness on both extremities. The patient does have baseline discoloration to the lower extremities and chronic venous stasis. The patient does use nocturnal CPAP and has been compliant with this device. No specific travel history, documented fever, chills, chest pain, or trauma. In the emergency room, the patient underwent general evaluation including chest imaging showing pulmonary edema. The patient received Lasix 20 mg IV push x1 dose. PAST MEDICAL HISTORY: 1. Chronic diastolic congestive heart failure with preserved ejection fraction of 50% to 55%. 2. Congenital atrial septal defect, status post repair. 3. Morbid obesity. 4. Obstructive sleep apnea with nocturnal CPAP. 5. Chronic hypotension. 6. Chronic kidney disease, stage 3. 7. Down syndrome. 8. Hypothyroidism. PAST SURGICAL HISTORY: 1. Status post atrial septal defect repair. 2. Status post cholecystectomy. 3. Status post hernia repair with mesh placement. CURRENT MEDICATIONS: 1. Ventolin 3 mL nebulized q.8 hours p.r.n. 2. Abilify 2 mg p.o. at bedtime. 3. Bumex 2 mg p.o. q.a.m. and 1 mg p.o. at bedtime. 4. Citalopram 10 mg p.o. b.i.d. 5. Nexium 40 mg p.o. daily. 6. Robitussin DM 5 mL p.o. q.4 hours p.r.n. 7. Synthroid 112 mcg q.48 hours. 8. Levothyroxine 125 mcg q.48 hours alternating. 9. Potassium chloride 8 mEq p.o. daily. 10. Ranexa 500 mg p.o. at bedtime. 11. Spironolactone 25 mg p.o. q.a.m. ALLERGIES: TO IODINE AND LISINOPRIL. FAMILY HISTORY: No inheritable diseases per family report. SOCIAL HISTORY: Resides in [place], [place] with her mother. No current alcohol , tobacco, or illicit drug use. REVIEW OF SYSTEMS: CONSTITUTIONAL: Negative for weight loss or gain, ability to conduct usual activities. SKIN: Negative for rash, itching. EYES: Negative for double vision, pain. ENT/MOUTH: Negative for nose bleeding, neck stiffness, pain, tenderness. CARDIOVASCULAR: Negative for palpitations, dyspnea on exertion, orthopnea. RESPIRATORY: Negative for shortness of breath, wheezing, cough, hemoptysis, fever or night sweats. GASTROINTESTINAL: Negative for poor appetite, abdominal pain, heartburn, nausea , vomiting, constipation, or diarrhea. GENITOURINARY: Negative for urgency, frequency, dysuria, nocturia. MUSCULOSKELETAL: Negative for pain, swelling. NEUROLOGIC/PSYCHIATRIC: Negative for anxiety, depression. ALLERGY/IMMUNOLOGIC: Negative for skin rash, bleeding tendency. Otherwise negative except as stated per HPI. PHYSICAL EXAMINATION: VITAL SIGNS: On admission, blood pressure 90/54, pulse 75, respiratory rate 20, temperature 97.5 degrees Fahrenheit, O2 saturation 96% on 2.5 L/minute by nasal cannula. GENERAL APPEARANCE: This is a 48-year-old female, alert and smiling, in no acute distress. HEENT: Pupils are equal, round, reactive to light and accommodation. Extraocular muscles are intact. No scleral icterus. Mild conjunctival injection. Nares patent. OP is clear. Teeth in fair repair. NECK: Supple. No cervical adenopathy. No thyromegaly. No carotid bruits. No JVD appreciated. Cervical spine with full active and passive range of motion. No meningeal signs noted. CHEST: Diminished breath sounds in the bases bilaterally with occasional crackles and rhonchi. CARDIOVASCULAR EXAM: S1 and S2 with 1/6 systolic ejection murmur in the left upper sternal border. ABDOMEN: Obese, soft, nontender, and nondistended. Bowel sounds are positive in all 4 quadrants. There is no hepatosplenomegaly. No abdominal bruits. No rebound or guarding appreciated. EXTREMITIES: Warm and dry with fair turgor. Pitting edema noted bilaterally to the proximal shins. Symmetrical erythema of bilateral lower extremities. Pulses palpable distally at the dorsalis pedis, posterior tibial, and popliteal arteries bilaterally. Capillary refill less than 2 seconds. NEUROLOGIC: Cranial nerves 2 through 12 are grossly intact. No focal or lateralizing signs appreciated. PERTINENT LABORATORY AND X-RAY FINDINGS: Sodium 132, potassium 4.3, chloride 95 , CO2 of 28, BUN 28, creatinine 1.57, estimated GFR 35, glucose 93, calcium 8.9, total bilirubin 2.2, AST 22, ALT of 7, alkaline phosphatase 147. Troponin I ranged between 0.067 to 0.089. BNP 1216, previously noted 645, 09/14/2018. CBC showed a white blood cell count of 4.6, hemoglobin 12.5, hematocrit 39, platelet count 230, with normal differential. Portable chest x-ray dated 01/14/2019, showed bilateral pulmonary edema with small pleural effusions. EKG dated 01/14/2019, by my interpretation shows sinus mechanism with heart rates in the 70s. Bifascicular block pattern noted. Left axis deviation. ASSESSMENT AND PLAN: 1. Acute on chronic diastolic congestive heart failure exacerbation. Continue low-dose Lasix 20 mg IV b.i.d. and monitor blood pressure response closely. Suspect multifactorial heart failure including obstructive sleep apnea and moderate mitral stenosis. Also component of acute kidney injury in the context of chronic kidney disease. Consult Cardiology Service in the a.m. for any further recommendations. 2. Acute kidney injury on chronic kidney disease, stage 3. Continue to monitor renal function closely. Avoid nephrotoxic agents and limit contrast exposure. Serial creatinine monitoring. 3. Elevated troponin I. Suspect demand ischemic state in the context of acute on chronic diastolic congestive heart failure exacerbation. Continue general management as outlined in #1. 4. Acute on chronic hyponatremia in conjunction with volume overload. Serial sodium monitoring. 5. Down syndrome. Continue general supportive management. Family for one-on- one support. 6. Prophylaxis. Hold SCDs due to bilateral lower extremity edema. Pepcid 20 mg p.o. b.i.d. CODE STATUS: Do not attempt resuscitation, confirmed with surrogate medical decision maker, patient's mother. Job ID: [id number] MTDD
[2019-01-15 05:45] LABS: Anion Gap 14 mmol/L (10-20); BUN (Urea Nitrogen) 27 mg/dL (7.0-18.7); Calc. Creatinine Clearance 57 mL/min (70-130); Carbon Dioxide 26 mmol/L (22-29); Chloride 97 mmol/L (98-107); Estimated GFR-MDRD 37; Glucose 91 mg/dL (70-105); Potassium 4.2 mmol/L (3.5-5.1); Sodium 133 mmol/L (136-145)
[2019-01-15] MEDS ORDERED: Levothyroxine Sodium 125 MCG TAB PO SCH (06:00)
[2019-01-15] MEDS: Levothyroxine Sodium 112 MCG TAB PO SCH (06:05)
[2019-01-15 06:06] LABS: Free T4 (Free Thyroxine) 1.15 ng/dL (0.70-1.48)
[2019-01-15] MEDS: Furosemide 20 MG/2 ML VIAL SLOW IVP SCH ×2 (06:40→14:57)
[2019-01-15] MEDS: Spironolactone 25 MG TAB PO SCH (09:12)
[2019-01-15] MEDS: Citalopram 10 MG TAB PO SCH ×2 (09:12→20:35)
[2019-01-15] MEDS: Famotidine 20 MG TAB PO SCH (09:15)
--- NOTE | 2019-01-15 11:08 | PDOC.HOSPP ---
- Subjective Encounter Date: 01/15/19 Encounter Time: 09:45 Subjective: awakens easily is sweating and a bit lethargic mother at bedside says she has temp and legs are more darker, warmer than usual still has some coughing+ - Objective Vital Signs & Weight: Vital Signs (12 hours) Temp Pulse Resp BP BP Pulse Ox 01/15/19 08:12 98.2 F 83 20 92/52 L 94 L 01/15/19 06:00 82 92/53 L 01/15/19 04:58 78 88/53 L 01/15/19 04:00 78 86/53 L 94 L 01/15/19 03:25 97.8 F 75 19 88/52 L 94 L 01/14/19 23:18 97.5 F L 75 20 90/54 L 96 Weight Weight 175 lb I&O: 01/14/19 01/15/19 01/16/19 06:59 06:59 06:59 Intake Total 480 Output Total 300 Balance 180 Result Diagrams: 01/14/19 21:03 01/15/19 04:55 Hospitalist ROS - Medication Medications: Active Medications Generic Name Dose Route Start Last Admin Trade Name Freq PRN Reason Stop Dose Admin Citalopram Hydrobromide 10 mg 01/15/19 09:00 01/15/19 09:12 Celexa PO 10 mg BID SHAUN Administration Famotidine 20 mg 01/15/19 09:00 01/15/19 09:15 Pepcid PO 20 mg QAM SHAUN Administration Furosemide 20 mg 01/15/19 06:00 01/15/19 06:40 Lasix SLOW IVP 20 mg 0600,1400 SHAUN Administration Guaifenesin/Dextromethorphan 5 ml 01/15/19 03:31 01/15/19 06:05 Robitussin Dm PO 5 ml Q4HR PRN Administration Cough Levothyroxine Sodium 112 mcg 01/15/19 06:00 01/15/19 06:05 Synthroid PO 112 mcg Q2DAYS SHAUN Administration Spironolactone 25 mg 01/15/19 09:00 01/15/19 09:12 Aldactone PO 25 mg QAM SHAUN Administration - Exam General Appearance: ill appearing Eye: PERRL, anicteric sclera ENT: no oropharyngeal lesions, dry oral mucosa Neck: supple, no JVD Heart: no murmur, no gallops Respiratory: no wheezes, no rales, rhonchi Gastrointestinal: soft, non-tender, normal bowel sounds Extremities: 1+ LE edema Extremities - other findings: erythema+ b/l, venous stasis Neurological: cranial nerve grossly intact, no focal deficits Hosp A/P (1) Acute on chronic diastolic (congestive) heart failure Code(s): I50.33 - ACUTE ON CHRONIC DIASTOLIC (CONGESTIVE) HEART FAILURE Status : Acute (2) Cellulitis, leg Code(s): L03.119 - CELLULITIS OF UNSPECIFIED PART OF LIMB Status: Acute (3) Acute worsening of stage 3 chronic kidney disease Code(s): N18.3 - CHRONIC KIDNEY DISEASE, STAGE 3 (MODERATE) Status: Acute (4) Down's syndrome Code(s): Q90.9 - DOWN SYNDROME, UNSPECIFIED Status: Chronic (5) Hypothyroidism Code(s): E03.9 - HYPOTHYROIDISM, UNSPECIFIED Status: Chronic Qualifiers: (6) Obstructive sleep apnea Code(s): G47.33 - OBSTRUCTIVE SLEEP APNEA (ADULT) (PEDIATRIC) Status: Chronic - Plan her father is getting cpap machine from home, to wear it whenever she sleeps blood and urine cs, empiric ceftriaxone, current temp is 98 gentle diuresis, watch for renal function continue abilify, celexa, synthroid, ranexa and spironolactone to mobilize as tolerated labs in am d/w mother at bedside
[2019-01-15] MEDS: Acetaminophen 500 MG TAB PO PRN ×2 (13:15→19:38)
[2019-01-15] MEDS: cefTRIAXone\\ROCEPHIN 1 GM in Sodium Chloride 0.9% 100 ML IVPB SCH (13:15)
[2019-01-15] MEDS: Potassium Chloride 8 MEQ TAB PO SCH (13:16)
[2019-01-15] MEDS: Aripiprazole 2 MG TAB PO SCH (20:35)
[2019-01-16] MEDS ORDERED: Midodrine HCl 5 MG TAB PO SCH ×2 (04:45→09:00)
[2019-01-16 05:12] LABS: #Eosinphils 0.2 thou/uL (0.0-0.7); #Lymphocytes 0.8 thou/uL (1.20-3.40); #Monocytes 0.4 thou/uL (0.11-0.59); #Neutrophils 2.3 thou/uL (1.40-6.50); %Eosinophils 4.9 % (0.0-10.0); %Lymphocytes 21.9 % (21.0-51.0); %Monocytes 9.8 % (0.0-10.0); %Neutrophils 63.4 % (42.0-75.0); Hemoglobin 12.2 g/dL (12.0-16.0); Mean Corpuscular HGB CONC 31.4 g/dL (32.0-36.0); Mean Corpuscular Hemoglobin 27.5 pg (27.0-31.0); Mean Corpuscular Volume 87.5 fL (78.0-98.0); Mean Platelet Volume 8.7 fL (7.4-10.4); Platelet Count 208 thou/uL (130-400); RBC Distribution Width 20.1 % (11.5-14.5); Red Blood Cell (RBC) Count 4.42 mill/uL (4.20-5.40); White Blood Cell (WBC) Count 3.6 thou/uL (4.8-10.8)
[2019-01-16 05:34] LABS: ALT (SGPT) 9 U/L (8-55); AST (SGOT) 24 U/L (5-34); Albumin 3.7 g/dL (3.5-5.0); Alkaline Phosphatase 134 U/L (40-110); Anion Gap 15 mmol/L (10-20); BUN (Urea Nitrogen) 25 mg/dL (7.0-18.7); Bilirubin, Total 2.1 mg/dL (0.2-1.2); Calc. Creatinine Clearance 47 mL/min (70-130); Calcium 8.7 mg/dL (7.8-10.44); Carbon Dioxide 25 mmol/L (22-29); Chloride 97 mmol/L (98-107); Estimated GFR-MDRD 29; Globulin 3.4 g/dL (2.4-3.5); Glucose 130 mg/dL (70-105); Potassium 4.6 mmol/L (3.5-5.1); Protein, Total 7.1 g/dL (6.0-8.3); Sodium 132 mmol/L (136-145)
[2019-01-16] MEDS ORDERED: Levothyroxine Sodium 125 MCG TAB PO SCH (06:00)
[2019-01-16] MEDS ORDERED: Levothyroxine Sodium 112 MCG TAB PO SCH (06:00)
[2019-01-16] MEDS: Famotidine 20 MG TAB PO SCH (09:45)
[2019-01-16] MEDS: Spironolactone 25 MG TAB PO SCH (09:45)
[2019-01-16] MEDS: Citalopram 10 MG TAB PO SCH ×2 (09:45→19:21)
[2019-01-16] MEDS: Furosemide 20 MG/2 ML VIAL SLOW IVP SCH (10:27)
--- NOTE | 2019-01-16 11:50 | PDOC.HOSPP ---
- Subjective Encounter Date: 01/16/19 Encounter Time: 11:46 Subjective: Patient seen and examined. No new complaints. No overnight events. sob getting better. No cp or palpitation. - Objective Vital Signs & Weight: Vital Signs (12 hours) Temp Pulse Resp BP BP Pulse Ox 01/16/19 07:44 97.3 F L 70 20 91/57 L 97 01/16/19 06:50 68 92/58 L 01/16/19 06:32 64 89/55 L 01/16/19 05:53 116/58 L 01/16/19 04:53 64 87/56 L 01/16/19 03:47 98.2 F 64 19 87/57 L 83/44 L 93 L Weight Weight 173 lb 14.4 oz I&O: 01/15/19 01/16/19 01/17/19 06:59 06:59 06:59 Intake Total 480 1980 Output Total 300 800 Balance 180 1180 Result Diagrams: 01/16/19 04:56 01/16/19 04:56 Hospitalist ROS - Medication Medications: Active Medications Generic Name Dose Route Start Last Admin Trade Name Freq PRN Reason Stop Dose Admin Acetaminophen 1,000 mg 01/15/19 03:31 01/15/19 19:38 Tylenol PO 1,000 mg Q6H PRN Administration Mild Pain (1-3) Aripiprazole 2 mg 01/15/19 21:00 01/15/19 20:35 Abilify PO 2 mg QPM SHAUN Administration Citalopram Hydrobromide 10 mg 01/15/19 09:00 01/16/19 09:45 Celexa PO 10 mg BID SHAUN Administration Famotidine 20 mg 01/15/19 09:00 01/16/19 09:45 Pepcid PO 20 mg QAM SHAUN Administration Guaifenesin/Dextromethorphan 5 ml 01/15/19 03:31 01/15/19 06:05 Robitussin Dm PO 5 ml Q4HR PRN Administration Cough Ceftriaxone Sodium 1 gm/ 100 mls @ 200 mls/hr 01/15/19 11:00 01/15/19 13:15 Sodium Chloride IVPB 100 mls Q24HR SHAUN Administration Levothyroxine Sodium 125 mcg 01/16/19 06:00 01/16/19 04:53 Synthroid PO 125 mcg Q2DAYS SHAUN Administration Levothyroxine Sodium 112 mcg 01/15/19 06:00 01/15/19 06:05 Synthroid PO 112 mcg Q2DAYS SHAUN Administration Midodrine 5 mg 01/16/19 09:00 01/16/19 10:27 Proamatine PO Not Given TID SHAUN Ondansetron HCl 4 mg 01/15/19 03:31 01/15/19 21:48 Zofran IVP 4 mg Q6H PRN Administration Nausea/Vomiting Potassium Chloride 8 meq 01/15/19 12:00 01/15/19 13:16 Slow-K 8 Meq PO 8 meq 1200 SHAUN Administration Ranolazine 500 mg 01/15/19 21:00 01/15/19 20:35 Ranexa PO 500 mg QPM SHAUN Administration Spironolactone 25 mg 01/15/19 09:00 01/16/19 09:45 Aldactone PO 25 mg QAM SHAUN Administration - Exam General Appearance: NAD Eye: anicteric sclera ENT: normocephalic atraumatic Neck: supple Heart: RRR Respiratory: CTAB Gastrointestinal: soft Extremities: no edema Skin - other findings: cellulitic changes in legs Psychiatric: normal affect Hosp A/P (1) Cellulitis, leg Code(s): L03.119 - CELLULITIS OF UNSPECIFIED PART OF LIMB Status: Acute (2) Acute on chronic diastolic (congestive) heart failure Code(s): I50.33 - ACUTE ON CHRONIC DIASTOLIC (CONGESTIVE) HEART FAILURE Status : Acute (3) Acute worsening of stage 3 chronic kidney disease Code(s): N18.3 - CHRONIC KIDNEY DISEASE, STAGE 3 (MODERATE) Status: Acute (4) Down syndrome Code(s): Q90.9 - DOWN SYNDROME, UNSPECIFIED Status: Chronic (5) Hypothyroidism Code(s): E03.9 - HYPOTHYROIDISM, UNSPECIFIED Status: Chronic Qualifiers: (6) Obstructive sleep apnea Code(s): G47.33 - OBSTRUCTIVE SLEEP APNEA (ADULT) (PEDIATRIC) Status: Chronic (7) Hyponatremia Code(s): E87.1 - HYPO-OSMOLALITY AND HYPONATREMIA Status: Resolved - Plan plan discussed w/ family, PT/OT, social media assistant, DVT proph w/heparin f/u culture reports. lower lasix dose check renal labs in am add heparin as tolerated continue abx. continue Midodrine and Aldactone. f/u with cardiology. will change to inpt admission. AM labs.
[2019-01-16] MEDS: Potassium Chloride 8 MEQ TAB PO SCH (12:15)
[2019-01-16] MEDS: cefTRIAXone\\ROCEPHIN 1 GM in Sodium Chloride 0.9% 100 ML IVPB SCH (12:15)
[2019-01-16] MEDS: Aripiprazole 2 MG TAB PO SCH (19:21)
[2019-01-16] MEDS: Acetaminophen 500 MG TAB PO PRN (19:21)
[2019-01-16] MEDS: Heparin 5,000 UNITS/ML VIAL SC SCH (19:22)
[2019-01-17] MEDS: Levothyroxine Sodium 112 MCG TAB PO SCH (05:50)
[2019-01-17] MEDS ORDERED: Furosemide 20 MG/2 ML VIAL SLOW IVP SCH (06:00)
[2019-01-17 06:19] LABS: Anion Gap 15 mmol/L (10-20); BUN (Urea Nitrogen) 22 mg/dL (7.0-18.7); Calc. Creatinine Clearance 53 mL/min (70-130); Carbon Dioxide 26 mmol/L (22-29); Chloride 94 mmol/L (98-107); Estimated GFR-MDRD 33; Glucose 89 mg/dL (70-105); Potassium 4.9 mmol/L (3.5-5.1); Sodium 130 mmol/L (136-145)
[2019-01-17] MEDS: Citalopram 10 MG TAB PO SCH (09:41)
[2019-01-17] MEDS: Famotidine 20 MG TAB PO SCH (09:42)
[2019-01-17] MEDS: Spironolactone 25 MG TAB PO SCH (09:42)
[2019-01-17] MEDS: Heparin 5,000 UNITS/ML VIAL SC SCH (09:42)
[2019-01-17] MEDS: Acetaminophen 500 MG TAB PO PRN (09:43)
[2019-01-17] MEDS: cefTRIAXone\\ROCEPHIN 1 GM in Sodium Chloride 0.9% 100 ML IVPB SCH (12:05)
--- NOTE | 2019-01-17 12:15 | PDOC.HOSPP ---
- Subjective Encounter Date: 01/17/19 Encounter Time: 10:20 Subjective: is ambulating in hallway with cardiac rehab both parents in room spo2 on ambulation drops to 80% after removing O2 but promptly comes back upto 96% on O2 at rest No pain in her legs except for neuropathy issues - Objective Vital Signs & Weight: Vital Signs (12 hours) Temp Pulse Pulse Pulse Resp BP BP 01/17/19 11:35 62 20 01/17/19 10:00 73 66 106/51 L 102/58 L 01/17/19 07:48 98.1 F 63 20 01/17/19 07:43 01/17/19 04:15 98.4 F 72 20 BP BP Pulse Ox Pulse Ox Pulse Ox 01/17/19 11:35 96/58 L 99 01/17/19 10:00 90 L 98 01/17/19 07:48 100/63 93 L 01/17/19 07:43 96 01/17/19 04:15 86/54 L 96 Weight Weight 176 lb 3.2 oz I&O: 01/16/19 01/17/19 01/18/19 06:59 06:59 06:59 Intake Total 1980 240 240 Output Total 800 400 200 Balance 1180 -160 40 Result Diagrams: 01/16/19 04:56 01/17/19 05:17 Hospitalist ROS - Medication Medications: Active Medications Generic Name Dose Route Start Last Admin Trade Name Freq PRN Reason Stop Dose Admin Acetaminophen 1,000 mg 01/15/19 03:31 01/17/19 09:43 Tylenol PO 1,000 mg Q6H PRN Administration Mild Pain (1-3) Aripiprazole 2 mg 01/15/19 21:00 01/16/19 19:21 Abilify PO 2 mg QPM SHAUN Administration Citalopram Hydrobromide 10 mg 01/15/19 09:00 01/17/19 09:41 Celexa PO 10 mg BID SHAUN Administration Famotidine 20 mg 01/15/19 09:00 01/17/19 09:42 Pepcid PO 20 mg QAM SHAUN Administration Guaifenesin/Dextromethorphan 5 ml 01/15/19 03:31 01/15/19 06:05 Robitussin Dm PO 5 ml Q4HR PRN Administration Cough Heparin Sodium (Porcine) 5,000 units 01/16/19 21:00 01/17/19 09:42 Heparin SC 5,000 units BID SHAUN Administration Ceftriaxone Sodium 1 gm/ 100 mls @ 200 mls/hr 01/15/19 11:00 01/17/19 12:05 Sodium Chloride IVPB 100 mls Q24HR SHAUN Administration Levothyroxine Sodium 125 mcg 01/16/19 06:00 01/16/19 04:53 Synthroid PO 125 mcg Q2DAYS SHAUN Administration Levothyroxine Sodium 112 mcg 01/15/19 06:00 01/17/19 05:50 Synthroid PO 112 mcg Q2DAYS SHAUN Administration Ondansetron HCl 4 mg 01/15/19 03:31 01/15/19 21:48 Zofran IVP 4 mg Q6H PRN Administration Nausea/Vomiting Ranolazine 500 mg 01/15/19 21:00 01/16/19 19:21 Ranexa PO 500 mg QPM SHAUN Administration Spironolactone 25 mg 01/15/19 09:00 01/17/19 09:42 Aldactone PO 25 mg QAM SHAUN Administration - Exam General Appearance: NAD, awake alert Eye: PERRL, anicteric sclera ENT: no oropharyngeal lesions, moist mucosa Neck: supple, no JVD Heart: RRR, no murmur Respiratory: no wheezes, no rales Gastrointestinal: soft, non-tender, non-distended, normal bowel sounds Extremities: no edema Extremities - other findings: erythema resolved Neurological: cranial nerve grossly intact, no focal deficits Hosp A/P (1) Acute on chronic diastolic (congestive) heart failure Code(s): I50.33 - ACUTE ON CHRONIC DIASTOLIC (CONGESTIVE) HEART FAILURE Status : Resolved (2) Cellulitis, leg Code(s): L03.119 - CELLULITIS OF UNSPECIFIED PART OF LIMB Status: Acute (3) Acute worsening of stage 3 chronic kidney disease Code(s): N18.3 - CHRONIC KIDNEY DISEASE, STAGE 3 (MODERATE) Status: Resolved (4) Down's syndrome Code(s): Q90.9 - DOWN SYNDROME, UNSPECIFIED Status: Chronic (5) Hypothyroidism Code(s): E03.9 - HYPOTHYROIDISM, UNSPECIFIED Status: Chronic Qualifiers: (6) Obstructive sleep apnea Code(s): G47.33 - OBSTRUCTIVE SLEEP APNEA (ADULT) (PEDIATRIC) Status: Chronic - Plan is interacting with parents and clinically has improved significantly, is eating at her baseline per parents. blood cs is -ve, urine cs grew mixed dameon, empiric ceftriaxone for suspected cellulitis in extre with venous stasis off lasix, renal function at baseline continue abilify, celexa, synthroid, ranexa and spironolactone to mobilize as tolerated dc plan in am
[2019-01-17 15:32] VITALS: BP 100/49; TEMP 98.3
--- NOTE | 2019-01-17 16:06 | PRG ---
DATE OF SERVICE: 01/17/2019 SUBJECTIVE: Ms. Smith feels much better today. She said she is not having trouble breathing at all. OBJECTIVE: VITAL SIGNS: Her blood pressure is 100/49, pulse 68 and regular. LUNGS: Clear. CARDIAC: Normal S1 and normal S2. ASSESSMENT AND PLAN: 1. Diastolic heart failure appears compensated, back to her baseline. 2. Renal failure, back to her baseline, creatinine of 1.64. PLAN: 1. Okay to go home. Resume home medicines. 2. May need increased dose of thyroid medicine as TSH 15. Job ID: [id number] [facility]
--- NOTE | 2019-01-18 13:18 | DIS ---
DATE OF ADMISSION: 01/16/2019 DATE OF DISCHARGE: 01/17/2019 DISCHARGE DISPOSITION: Home. PRIMARY DISCHARGE DIAGNOSES: Acute on chronic congestive heart failure exacerbation with diastolic dysfunction; bilateral leg cellulitis with history of chronic venous statis, resolved; acute kidney injury with history of chronic kidney disease, at baseline; Down syndrome with intellectual disability; hypothyroidism; obstructive sleep apnea. PROCEDURES DONE DURING HOSPITALIZATION: Chest x-ray done showed pulmonary vascular congestion. Blood cultures x2, no growth. Urine culture was contaminated. White count of 3.6, hemoglobin and hematocrit are 12 and 38, platelet count 208. BUN and creatinine are 22 and 1.6. Albumin 3.7. BNP 1215. DISCHARGE MEDICATIONS: 1. Levothyroxine 112 and 125 mcg on alternate days. 2. Spironolactone 25 mg p.o. q.a.m. 3. Ranexa 500 mg p.o. q.p.m. 4. Keflex 500 mg p.o. three times daily for 5 days. 5. K-Dur 8 mEq p.o. daily. 6. Nexium 40 mg daily. 7. Citalopram 10 mg twice daily. 8. Bumex 1 mg p.o. q.p.m. and 2 mg p.o. q.a.m. 9. Abilify 2 mg p.o. q.p.m. 10. Albuterol nebulizer q.8 hourly p.r.n. ALLERGIES: TO IODINE AND LISINOPRIL. INPATIENT CONSULT: Dr. Barragan for Cardiology. DISCHARGE PLAN: The patient to follow up with primary care physician, Dr. Orlando Jacques in 1 week. She needs to follow up with Dr. Barragan in 3 to 4 weeks. BRIEF COURSE DURING HOSPITALIZATION: The patient initially got admitted on the with complaints of shortness of breath and lower extremity swelling with discoloration. She was admitted for acute on chronic CHF exacerbation with diastolic dysfunction. The patient also had mild acute kidney injury on top of her chronic kidney disease, stage 3. She has chronic venous stasis in lower extremities with discoloration and was placed on ceftriaxone for possible cellulitis. She was gently diuresed during her stay and has had consultation with Dr. Barragan for Cardiology. The patient has responded well to above measures. Her IV Lasix was discontinued after 4 doses. Her renal function has held up. Prior to discharge , she is ambulating and eating at her baseline. She has been cleared by Dr. Barragan for discharge. Her thyroid function needs to be closely monitored by her primary care physician. She is on alternating doses of Synthroid 112 and 125 mcg on alternate days. Her overall prognosis is guarded. Please note, I have seen and examined the patient on the day of discharge. Job ID: [id number] MTDD
--- NOTE | 2019-01-20 06:48 | PQF ---
SHONNA SCHULZ VINAYA KUMAR MD [id number] [address] [place] [address] [id number] CLINICAL DOCUMENTATION CLARIFICATION FORM: POST DISCHARGE Addendum to original discharge summary date: ____ Late entry note date: __ DATE: 01/19/2019 ATTN : JUANA KEYS MD Please exercise your independent, professional judgment in responding to the clarification form. Clinical indicators are provided on the bottom of this form for your review Please check appropriate box(s): AMI TYPE: [ ] Acute Coronary Syndrome (ACS) without Acute SC meaning Unstable Angina [ ] NSTEMI (SC type I) [ ] NSTEMI due to Demand Ischemia (AMI Type II) [ ] Demand Ischemia without SC [ ] STEMI (please also specify site and arterysee below) If STEMI, SITE:[ ] Anterior [ ] Apical [ ] Lateral [ ] Inferior [ ] Posterior [ ] Q Wave [ ] Septal [ ] Unable to Determine SPECIFIC ARTERY (Based on site) [ ] Left Main Coronary[ ] Diagonal [ ] Left Anterior Descending[ ] Oblique Marginal [ ] Right Coronary Artery[ ] Unable to Determine [ ] Left Circumflex ONSET OF INFARCTION: [ ] Onset Less than 4 weeks of admission [ ] Onset Greater than 4 weeks of admission [ ] Unable to determine DUE TO (if applicable): [ ] Stent occlusion [ ] In-Stent stenosis [ ] Occlusion of coronary bypass graft [ ] Complication of PCI [ ] Underlying CAD [ ] Other [ x] Other diagnosis _has chronic troponin leak with no evidence of demand ischemia or SC [ ] Unable to determine In addition, please specify: Present on Admission (POA): [ x] Yes [ ] No [ ] Unable to determine CLINICAL INDICATORS - SIGNS / SYMPTOMS / LABS -Elevated troponin I, suspected demand ischemic state in the context of acute on chronic diastolic CHF-H&P, 01/15, Ruel, Mikel DO -Troponin I: 0.089- Laboratory, 01/14 -CHF exacerbation, Troponin elevated- ED record, 01/14, Roxanna Green MD RISKS: - Acute on chronic diastolic congestive heart failure exacerbation- H&P, 01/15, Mikel Lipscomb DO - Acute kidney injury-DS, 01/17, JUANA KEYS MD TREATMENTS: -Heparin-APR, 01/17 -Furosemide.IV-APR, 01/14 (This form is maintained as a part of the permanent medical record) 2014 [employer]. All Rights Reserved Cintia Mckeon [not provided] [not provided] MTDD
== END 2019-01-17 17:34 | disposition home health service (06) | DRG 291 ==
LOC: ERS 19:17 → 2SW 23:14 → OBSVTOIN 01-16 11:53
PROVIDERS: ADMIT Family Medicine; ATTEND Family Medicine
DX: I13.0 Hypertensive heart and chronic kidney disease with heart failure and stage 1 through stage 4 chronic kidney disease, or unspecified chronic kidney disease (principal); I50.33 Acute on chronic diastolic (congestive) heart failure; L03.116 Cellulitis of left lower limb; L03.115 Cellulitis of right lower limb; N17.9 Acute kidney failure, unspecified; I24.8 Other forms of acute ischemic heart disease; E87.1 Hypo-osmolality and hyponatremia; I87.8 Other specified disorders of veins; F79 Unspecified intellectual disabilities; E03.9 Hypothyroidism, unspecified; N18.3 Chronic kidney disease, stage 3 (moderate); E66.01 Morbid (severe) obesity due to excess calories; I95.89 Other hypotension; G47.33 Obstructive sleep apnea (adult) (pediatric); F32.9 Major depressive disorder, single episode, unspecified; Q90.9 Down syndrome, unspecified; Z90.49 Acquired absence of other specified parts of digestive tract
CPT/HCPCS: 36415; 71045; 80048; 80053; 82553; 83880; 84439; 84443; 84484; 85025; 87040; 87086; 93005; 93798; 94760; 96374; J0696; J1644; J1940; J2405; J3490